=== PATIENT | male | born 1955 | race Caucasian/White ===

== ENCOUNTER → 2020-08-17 | Outpatient (CLI) | payer MEDICARE ==
--- NOTE | 2020-08-17 12:00 | US ---
EXAMINATION TYPE: US venous doppler duplex LE RT DATE OF EXAM: 08/17/2020 11:34 AM COMPARISON: NONE CLINICAL HISTORY: S89.91XA R leg injury, M79.89 R leg swelling. Right leg pain after fall, no h/o dvt SIDE PERFORMED: Right TECHNIQUE: The lower extremity deep venous system is examined utilizing real time linear array sonog alan with graded compression, doppler sonography and color-flow sonography. VESSELS IMAGED: Common Femoral Vein Deep Femoral Vein Greater Saphenous Vein * Femoral Vein Popliteal Vein Small Saphenous Vein * Proximal Calf Veins (* superficial vessels) very difficult patient to image, he could not hold still due to being in so much pain Right Leg: Negative for DVT Grayscale, color doppler, spectral doppler imaging performed of the deep veins of the right lower ext remity. There is normal flow, compressibility, vascular waveforms. IMPRESSION: Suboptimal study but no convincing evidence for acute DVT in the right lower extremity o n images saved.
--- NOTE | 2020-08-17 12:58 | XR ---
EXAMINATION TYPE: XR knee complete RT DATE OF EXAM: 08/17/2020 COMPARISON: NONE HISTORY: 65-year-old male right leg injury and swelling TECHNIQUE: 4 views FINDINGS: Heterotopic ossification at the distal patellar tendon on the lateral view. Extensor mechanism otherw ise appears intact. No sizable knee joint effusion. 8 mm density in the medial soft tissues. There ma y be some medial sided soft tissue swelling also present. Small loose bodies in the periphery of the lateral compartment. No acute fracture, subluxation, dislo cation. Mild degenerative change. IMPRESSION: Medial sided soft tissue swelling and a small 8 mm density within the medial soft tissues. If concern for MCL injury, MRI can be performed. Mild degenerative change at the knee.
== END ==
LOC: RADUSWWP 10:07
PROVIDERS: ATTEND Family Medicine
DX: M79.89 Other specified soft tissue disorders (principal); M17.11 Unilateral primary osteoarthritis, right knee

== ENCOUNTER → 2021-01-18 | Outpatient (CLI) | payer MEDICARE ==
[2021-01-18 12:47] LABS: African American GFR (CKD) >90 (>60 ml/min/1.73 sqM); Blood Urea Nitrogen 9 mg/dL (9-20); Non-African American GFR(CKD) >90 (>60 ml/min/1.73 sqM)
--- NOTE | 2021-01-18 13:20 | CT ---
EXAMINATION TYPE: CT abdomen pelvis w con DATE OF EXAM: 01/18/2021 COMPARISON: None INDICATION: Malignant neoplasm of brain. Unknown primary. DLP: 1183.2 mGycm, Automated exposure control for dose reduction was used. CONTRAST: 100 mL of Isovue M300. Study performed with Oral Contrast TECHNIQUE: Axial images were obtained from above the diaphragm to the pubic rami in the axial plane a t 5 mm thick sections. Reconstructed images are reviewed on the computer in the coronal plane. FINDINGS: Limited CT sections are obtained the lung bases. The lung bases are clear. CT ABDOMEN: Liver: Normal Spleen: Normal Pancreas: Normal Adrenal glands: The adrenal glands are normal. Gallbladder: Surgically absent Kidneys: No masses are evident. No hydronephrosis is present. No cysts are present. Delayed images were obtained through the kidneys, which remain unremarkable. Aorta: Vascular calcification is within the aorta. Inferior vena cava: Normal. CT PELVIS: Loops of bowel within the abdomen and pelvis are normal. Abundant fecal debris is throughout the colon. Few scattered diverticuli within the proximal sigmoid colon Appendix: Normal as visualized. Urinary bladder: Mild diffuse wall thickening along the anterior and lateral margins of the urinary b ladder wall may be present. Correlate for cystitis. Direct visualization can be performed. Genitourinary structures: Prostate appears unremarkable. Osseous structures: No suspicious lytic or sclerotic lesions. Right hip prosthesis is noted causing b eam hardening artifact. Degenerative disc changes are present S1 with endplate sclerosis. Old nonunio n rib fractures are present on the posterior lateral right side. IMPRESSIONS: 1. Mild diffuse wall thickening through the urinary bladder. Neoplasm cannot be entirely excluded. F indings can also be related to nonmalignant etiology such as cystitis and incomplete distention. 2. Diverticulosis without acute diverticulitis. 3. Fecal retention
== END | disposition home or self-care (01) ==
LOC: RADCTMAIN 11:05
PROVIDERS: ATTEND Psychiatry & Neurology Neurology
DX: K57.90 Diverticulosis of intestine, part unspecified, without perforation or abscess without bleeding (principal); K59.00 Constipation, unspecified
CPT/HCPCS: 82565; 84520; 74177; 36415; Q9967 ×2

== ENCOUNTER 2021-03-06 10:21 | Inpatient (IN) | payer MEDICARE ==
[2021-03-06] MEDS ORDERED: IPRATROPIUM-ALBUTEROL 3 ML NEB INHALATION STA (10:54)
--- NOTE | 2021-03-06 10:58 | ED ---
General Adult HPI - General Chief complaint: Shortness of Breath Stated complaint: SOB/High HR Time Seen by Provider: 03/06/21 10:29 Source: patient, family, RN notes reviewed Mode of arrival: wheelchair Limitations: no limitations - History of Present Illness Initial comments: Patient is a pleasant 65-year-old female presenting to the emergency department with difficulty in breathing. Patient did have surgery for glioblastoma 1 month ago. Patient has had leg swelling since that time. Patient has felt restless. Patient does have shortness of breath and fatigue since yesterday. No cough. No fevers. No chest pain. - Related Data Home Medications Medication Instructions Recorded Confirmed Folic Acid 1 mg PO DAILY 01/25/16 03/06/21 Simvastatin [Zocor] 40 mg PO HS 01/25/16 03/06/21 Vit C/E/Zn/Coppr/Lutein/Zeaxan 1 tab PO AC-BID 01/25/16 03/06/21 [Preservision Areds 2 Softgel] allopurinoL [Zyloprim] 100 mg PO DAILY 01/25/16 03/06/21 buPROPion [Wellbutrin] 150 mg PO BID 01/25/16 03/06/21 Bumetanide [BUMEX] 2 mg PO DAILY 03/06/21 03/06/21 Dorzolamide 2% [Trusopt 2%] 1 drop BOTH EYES BID 03/06/21 03/06/21 Fluticasone Nasal Okay [Flonase 1 spr EA NOSTRIL BID 03/06/21 03/06/21 Nasal Okay] Latanoprost [Xalatan 0.005%] 1 drop BOTH EYES HS 03/06/21 03/06/21 Magnesium Oxide [Mag-Ox] 500 mg PO HS 03/06/21 03/06/21 Meclizine [Antivert] 25 mg PO BID 03/06/21 03/06/21 Meloxicam [Mobic] 15 mg PO AC-SUPPER 03/06/21 03/06/21 Tamsulosin [Flomax] 0.4 mg PO AC-SUPPER 03/06/21 03/06/21 Temozolomide 140 mg PO DIRECTED 03/06/21 03/06/21 Tiotropium [place] [Spiriva 2 puff INHALATION RT-DAILY 03/06/21 03/06/21 Respimat] dexAMETHasone [Dexamethasone] 2 mg PO DAILY 03/06/21 03/06/21 levETIRAcetam [Keppra] 500 mg PO Q12H 03/06/21 03/06/21 ondansetron HCL [Zofran] 8 mg PO Q6H PRN 03/06/21 03/06/21 Allergies Allergy/AdvReac Type Severity Reaction Status Date / Time acetaminophen [From Vicodin] Allergy Itching Verified 01/29/16 09:35 hydrocodone bitartrate Allergy Itching Verified 01/29/16 09:35 [From Vicodin] Review of Systems ROS Statement: Those systems with pertinent positive or pertinent negative responses have been documented in the HPI. ROS Other: All systems not noted in ROS Statement are negative. Constitutional: Denies: fever Eyes: Denies: eye pain ENT: Denies: ear pain Respiratory: Reports: dyspnea Cardiovascular: Denies: chest pain Endocrine: Reports: fatigue Gastrointestinal: Denies: abdominal pain Musculoskeletal: Denies: back pain Skin: Denies: rash Neurological: Denies: weakness Past Medical History Past Medical History: Eye Disorder, Hyperlipidemia Additional Past Medical History / Comment(s): GOUT, HX DIVERTICULITIS, History of Any Multi-Drug Resistant Organisms: None Reported Past Surgical History: Hernia Repair, Orthopedic Surgery Additional Past Surgical History / Comment(s): SX FOR UNDESCENDED TESTICLES, ZION CATARACTS, RT KNEE SX, RT ANKLE SX, METAL IN AND NOW REMOVED Past Anesthesia/Blood Transfusion Reactions: No Reported Reaction Past Psychological History: Depression Past Alcohol Use History: Occasional Past Drug Use History: None Reported General Exam Limitations: no limitations General appearance: alert Head exam: Present: other (Left temporal incisions clean and dry and intact) Eye exam: Present: normal appearance Neck exam: Present: normal inspection Respiratory exam: Present: wheezes (Mild), rales Cardiovascular Exam: Present: tachycardia GI/Abdominal exam: Present: soft. Absent: tenderness Extremities exam: Present: pedal edema (Right greater than left), calf tenderness (Right-sided) Neurological exam: Present: alert Psychiatric exam: Present: other (Patient is mildly restless) Skin exam: Present: normal color Course Vital Signs 03/06/21 03/06/21 03/06/21 10:32 10:35 10:43 Temperature 98.5 F Pulse Rate 127 H 125 H Respiratory 24 19 24 Rate Blood Pressure 80/47 O2 Sat by Pulse 95 98 Oximetry 03/06/21 03/06/21 03/06/21 11:00 11:30 11:39 Temperature Pulse Rate 130 H 129 H 126 H Respiratory 20 22 Rate Blood Pressure 74/49 O2 Sat by Pulse 97 100 Oximetry 03/06/21 03/06/21 03/06/21 11:48 12:29 13:26 Temperature Pulse Rate 126 H 122 H 98 Respiratory 16 18 Rate Blood Pressure 63/44 98/59 O2 Sat by Pulse 97 98 Oximetry - Reevaluation(s) Reevaluation #1: 03/06/21 13:51 Patient's blood pressure did increase with fluids however is going down again this point. Systolic blood pressure 72. Case discussed with family. Patient will need central line. Patient is being placed in trauma room for this. Family does consent. 03/06/21 13:52 There is concern for sepsis diagnosed at 1350. Blood culture and lactic acid were ordered. IV antibiotics will be ordered. 03/06/21 14:33 Prior to central line during transfer patient patient had bradycardia and decrease respiratory rate that turned into a restaurant failure. Patient was immediately intubated. CPR was done for approximately 3-5 minutes. Patient given 2 doses of epinephrine with return of circulation. Central line placed. 03/06/21 14:51 Case was earlier discussed with Dr. Manzo. Family was updated. Case was also discussed with Dr. Eric, who will consult for critical care. EKG Findings - EKG Comments: EKG Findings:: Sinus tachycardia with a rate of 129. TN 134. QRS 80. QT 324. QTC 474. Normal axis. Normal QRS. No acute ST change. Procedures - Central Line Placement Right Femoral Consent Obtained: emergent situation Patient Placed on Monitor/Pulse Ox: Yes MD Prep: mask, gown, gloves Central Line Prep: Chlorhexidine scrub Central Line Lumen Inserted: triple Central Line Position: good blood return, all ports aspirated, flushed, capped, sutured in place with 3-0 nylon Dressing Applied: Tegaderm Patient Tolerated Procedure: well Complications: none - Intubation Laryngoscope: [place]lap Size: 3 ET Tube Size: 8 Tube Secured Location: other (Difficult airway. Unable to visualize cords.) Tube Placement Confirmation: equal breath sounds bilaterally, no breath sounds over epigastrium, confirmation by capnometry Intubation Complications: none - Sepsis Sepsis Focused Exam #1 Time Sepsis Criteria Met: 13:50 Sepsis Focused Exam Date: 03/06/21 Sepsis Focused Exam Time: 14:50 Sepsis Focused Exam Complete: Yes Vital Signs & RN Notes Reviewed: Yes Capillary Refill: < 2 Seconds: Fingers, Toes Peripheral Pulses: Normal: Radial (R), Radial (L) Skin Color: Normal for Patient Respiratory Exam: rales Cardiovascular Exam: regular rate, normal rhythm Medical Decision Making - Lab Data Result diagrams: 03/06/21 10:47 03/06/21 10:47 Lab Results 03/06/21 03/06/21 03/06/21 Range/Units 10:47 10:47 10:47 WBC 14.0 H (3.8-10.6) k/uL RBC 4.20 L (4.30-5.90) m/uL Hgb 14.2 (13.0-17.5) gm/dL Hct 43.5 (39.0-53.0) % MCV 103.4 H (80.0-100.0) fL MCH 33.8 (25.0-35.0) pg MCHC 32.7 (31.0-37.0) g/dL RDW 15.5 (11.5-15.5) % Plt Count 146 L (150-450) k/uL MPV 7.1 Neutrophils % (Manual) 63 % Band Neuts % (Manual) 17 % Lymphocytes % (Manual) 14 % Monocytes % (Manual) 3 % Metamyelocytes % 3 % Myelocytes % 1 % Neutrophils # (Manual) 11.20 H (1.3-7.7) k/uL Lymphocytes # (Manual) 1.96 (1.0-4.8) k/uL Monocytes # (Manual) 0.42 (0-1.0) k/uL Metamyelocytes # (Man) 0.42 H (0) k/uL Myelocytes # (Manual) 0.14 H (0) k/uL Nucleated RBCs 1 H (0-0) /100 WBC Manual Slide Review Performed Toxic Granulation Present Toxic Vacuolation Present Macrocytosis Moderate PT 9.6 (9.0-12.0) sec INR 0.9 (<1.2) APTT 22.2 (22.0-30.0) sec D-Dimer 1.61 H (<0.60) mg/L FEU Sodium 133 L (137-145) mmol/L Potassium 3.4 L (3.5-5.1) mmol/L Chloride 95 L (98-107) mmol/L Carbon Dioxide 29 (22-30) mmol/L Anion Gap 9 mmol/L BUN 26 H (9-20) mg/dL Creatinine 1.15 (0.66-1.25) mg/dL Est GFR (CKD-EPI)AfAm 77 (>60 ml/min/1.73 sqM) Est GFR (CKD-EPI)NonAf 66 (>60 ml/min/1.73 sqM) Glucose 89 (74-99) mg/dL Lactic Ac Sepsis Rflx Plasma Lactic Acid Hal (0.7-2.0) mmol/L Calcium 8.5 (8.4-10.2) mg/dL Total Bilirubin 1.3 (0.2-1.3) mg/dL AST 33 (17-59) U/L ALT 38 (4-49) U/L Alkaline Phosphatase 150 H (38-126) U/L Troponin I (0.000-0.034) ng/mL NT-Pro-B Natriuret Pep pg/mL Total Protein 5.9 L (6.3-8.2) g/dL Albumin 3.6 (3.5-5.0) g/dL Coronavirus (PCR) (Not Detectd) 03/06/21 03/06/21 03/06/21 Range/Units 10:47 10:47 11:32 WBC (3.8-10.6) k/uL RBC (4.30-5.90) m/uL Hgb (13.0-17.5) gm/dL Hct (39.0-53.0) % MCV (80.0-100.0) fL MCH (25.0-35.0) pg MCHC (31.0-37.0) g/dL RDW (11.5-15.5) % Plt Count (150-450) k/uL MPV Neutrophils % (Manual) % Band Neuts % (Manual) % Lymphocytes % (Manual) % Monocytes % (Manual) % Metamyelocytes % % Myelocytes % % Neutrophils # (Manual) (1.3-7.7) k/uL Lymphocytes # (Manual) (1.0-4.8) k/uL Monocytes # (Manual) (0-1.0) k/uL Metamyelocytes # (Man) (0) k/uL Myelocytes # (Manual) (0) k/uL Nucleated RBCs (0-0) /100 WBC Manual Slide Review Toxic Granulation Toxic Vacuolation Macrocytosis PT (9.0-12.0) sec INR (<1.2) APTT (22.0-30.0) sec D-Dimer (<0.60) mg/L FEU Sodium (137-145) mmol/L Potassium (3.5-5.1) mmol/L Chloride (98-107) mmol/L Carbon Dioxide (22-30) mmol/L Anion Gap mmol/L BUN (9-20) mg/dL Creatinine (0.66-1.25) mg/dL Est GFR (CKD-EPI)AfAm (>60 ml/min/1.73 sqM) Est GFR (CKD-EPI)NonAf (>60 ml/min/1.73 sqM) Glucose (74-99) mg/dL Lactic Ac Sepsis Rflx Plasma Lactic Acid Hal (0.7-2.0) mmol/L Calcium (8.4-10.2) mg/dL Total Bilirubin (0.2-1.3) mg/dL AST (17-59) U/L ALT (4-49) U/L Alkaline Phosphatase (38-126) U/L Troponin I <0.012 (0.000-0.034) ng/mL NT-Pro-B Natriuret Pep 1080 pg/mL Total Protein (6.3-8.2) g/dL Albumin (3.5-5.0) g/dL Coronavirus (PCR) Not Detected (Not Detectd) 03/06/21 03/06/21 Range/Units 11:57 12:24 WBC (3.8-10.6) k/uL RBC (4.30-5.90) m/uL Hgb (13.0-17.5) gm/dL Hct (39.0-53.0) % MCV (80.0-100.0) fL MCH (25.0-35.0) pg MCHC (31.0-37.0) g/dL RDW (11.5-15.5) % Plt Count (150-450) k/uL MPV Neutrophils % (Manual) % Band Neuts % (Manual) % Lymphocytes % (Manual) % Monocytes % (Manual) % Metamyelocytes % % Myelocytes % % Neutrophils # (Manual) (1.3-7.7) k/uL Lymphocytes # (Manual) (1.0-4.8) k/uL Monocytes # (Manual) (0-1.0) k/uL Metamyelocytes # (Man) (0) k/uL Myelocytes # (Manual) (0) k/uL Nucleated RBCs (0-0) /100 WBC Manual Slide Review Toxic Granulation Toxic Vacuolation Macrocytosis PT (9.0-12.0) sec INR (<1.2) APTT (22.0-30.0) sec D-Dimer (<0.60) mg/L FEU Sodium (137-145) mmol/L Potassium (3.5-5.1) mmol/L Chloride (98-107) mmol/L Carbon Dioxide (22-30) mmol/L Anion Gap mmol/L BUN (9-20) mg/dL Creatinine (0.66-1.25) mg/dL Est GFR (CKD-EPI)AfAm (>60 ml/min/1.73 sqM) Est GFR (CKD-EPI)NonAf (>60 ml/min/1.73 sqM) Glucose (74-99) mg/dL Lactic Ac Sepsis Rflx Y Plasma Lactic Acid Hal 3.9 H* (0.7-2.0) mmol/L Calcium (8.4-10.2) mg/dL Total Bilirubin (0.2-1.3) mg/dL AST (17-59) U/L ALT (4-49) U/L Alkaline Phosphatase (38-126) U/L Troponin I (0.000-0.034) ng/mL NT-Pro-B Natriuret Pep pg/mL Total Protein (6.3-8.2) g/dL Albumin (3.5-5.0) g/dL Coronavirus (PCR) (Not Detectd) - Radiology Data Radiology results: report reviewed (CT angios the chest has motion artifact limiting exam, no definite pulmonary embolus. Coronary calcifications. Bronchial wall thickening. Pulmonary nodule. Ultrasound negative for DVT.), image reviewed (Chest x-ray shows atelectasis left costophrenic angle. Lungs otherwise clear.) Critical Care Time Critical Care Time: Yes Total Critical Care Time: 55 Disposition Clinical Impression: Acute bronchitis due to infection, Sepsis Disposition: ADMITTED IP TO THIS HOSP Condition: Critical Is patient prescribed a controlled substance at d/c from ED?: No Referrals: Enrique Camacho MD [Primary Care Provider] - 1-2 days Decision Time: 14:51
[2021-03-06 11:09] LABS: HCT 43.5 % (39.0-53.0); HGB 14.2 gm/dL (13.0-17.5); MCH 33.8 pg (25.0-35.0); MCHC 32.7 g/dL (31.0-37.0); MCV 103.4 fL (80.0-100.0); Macrocytosis Moderate; Mean Platelet Volume 7.1; Platelet Count 146 k/uL (150-450); RDW 15.5 % (11.5-15.5)
[2021-03-06] MEDS ORDERED: SODIUM CHLORIDE 0.9% 500 ML 500 ML IV STA ×2 (11:31→13:34)
[2021-03-06] MEDS ORDERED: SODIUM CHLORIDE 0.9% 1,000 ML IV STA ×3 (11:31→13:34)
[2021-03-06 11:34] LABS: Albumin 3.6 g/dL (3.5-5.0); Calcium 8.5 mg/dL (8.4-10.2); Potassium 3.4 mmol/L (3.5-5.1); Total Bilirubin 1.3 mg/dL (0.2-1.3); Total Protein 5.9 g/dL (6.3-8.2)
[2021-03-06 11:36] LABS: INR 0.9 (<1.2); Partial Thromboplastin Time 22.2 sec (22.0-30.0); Prothrombin Time 9.6 sec (9.0-12.0)
--- NOTE | 2021-03-06 11:41 | XR ---
EXAMINATION TYPE: XR chest 2V DATE OF EXAM: 03/06/2021 COMPARISON: None INDICATION: 04/23/2010 TECHNIQUE: Frontal and lateral views of the chest are obtained. FINDINGS: The heart size is normal. The pulmonary vasculature is normal. Minimal platelike atelectasis at the left costophrenic angle. Lungs are otherwise clear.. IMPRESSION: 1. Complete atelectasis left costophrenic angle
--- NOTE | 2021-03-06 12:16 | US ---
EXAMINATION TYPE: US venous doppler duplex LE RT DATE OF EXAM: 03/06/2021 11:55 AM COMPARISON: NONE CLINICAL HISTORY: pain. Edema pain SIDE PERFORMED: Right TECHNIQUE: The lower extremity deep venous system is examined utilizing real time linear array sonog alan with graded compression, doppler sonography and color-flow sonography. VESSELS IMAGED: Common Femoral Vein Deep Femoral Vein Greater Saphenous Vein * Femoral Vein Popliteal Vein Small Saphenous Vein * Proximal Calf Veins (* superficial vessels) Right Leg: Negative for DVT IMPRESSION: 1. Right lower extremity negative for deep venous thrombosis.
[2021-03-06 12:46] LABS: Band Neutrophils % 17 %; Metamyelocytes # (M) 0.42 k/uL (0); Metamyelocytes % 3 %; Monocytes # (M) 0.42 k/uL (0-1.0); Myelocytes # (M) 0.14 k/uL (0); Myelocytes % 1 %; Neutrophils % (M) 63 %; Nucleated Red Blood Cells 1 /100 WBC (0-0); Total Cells Counted 200
[2021-03-06 12:47] LABS: Lymphocytes # (M) 1.96 k/uL (1.0-4.8); Toxic Granulation Present; Toxic Vacuolation Present
--- NOTE | 2021-03-06 13:30 | CT ---
EXAMINATION TYPE: CT angio chest DATE OF EXAM: 03/06/2021 COMPARISON: Radiograph 03/06/2021 HISTORY: 65 year-old male shortness of breath, Dyspnea. TECHNIQUE: Contiguous axial scanning of the chest performed with IV Contrast, patient injected with 1 00 mL of Isovue 370. Coronal/sagittal MIP reconstructions performed. CT DLP: 464.1 mGycm Automated exposure control for dose reduction was used. FINDINGS: Heart normal size without pericardial effusion. No flattening of the interventricular septum or reflu x of contrast into the hepatic veins. LAD coronary artery calcifications. Mildly ectatic aortic root at 3.7 cm. Conventional arch vessel branching anatomy. No thoracic lymphadenopathy by CT size criteria. Mildly enlarged caliber to the main right and left pulmonary to 2.5 and 2.7 cm, respectively, suggest ing underlying pulmonary arterial hypertension. There is satisfactory opacification of the pulmonary arterial system. Allowing for technique and breathing motion, no definite pulmonary embolus is seen. Mild diffuse bronchial wall thickening. Prominent bands of atelectasis or scarring in the lower lungs . Subpleural nodularity measuring 9 mm peripheral right base, axially 27, possibly nodular atelectasi s. This can be reassessed in 3-6 months. There appears to be some dependent debris within the lower trachea and its bifurcation. Visualized upper abdomen shows no gross abnormality. Bones: Subacute to chronic incompletely united fracture deformities right lateral seventh and eighth and right posterior ninth ribs. IMPRESSION: 1. DIFFUSE BREATHING MOTION ARTIFACT. ALLOWING FOR THIS LIMITATION, NO DEFINITE PULMONARY EMBOLUS 2. POSSIBLE UNDERLYING PULMONARY ARTERIAL HYPERTENSION. CAD WITH LAD CORONARY ARTERY CALCIFICATIONS. 3. BRONCHIAL WALL THICKENING SUGGESTS BRONCHITIS OR CHRONIC ASTHMA. THERE IS SOME DEPENDENT DEBRIS/SE CRETIONS IN THE LOWER TRACHEA AND ITS BIFURCATION. 4. PROMINENT BANDS OF ATELECTASIS OR SCARRING IN THE LOWER LUNGS. 5. A 9 MM SUBPLEURAL PULMONARY NODULE PERIPHERY OF THE RIGHT BASE. POSSIBLE NODULAR ATELECTASIS. FOLL OW-UP CT IN 3-6 MONTHS TO ASSESS FOR STABILITY/RESOLUTION.
[2021-03-06] MEDS ORDERED: VANCOMYCIN IV PER PHARMACY 1 EACH MISC MISCELLANE PRN (13:52)
[2021-03-06] MEDS ORDERED: PIPERACILLIN-TAZOBACTAM 3.375 GM in SODIUM CHLORIDE 0.9% 100 ML IVPB STA (13:52)
[2021-03-06] MEDS ORDERED: PNEUMONIA PROTOCOL UTILIZED 1 EACH MISC PO PRN (13:52)
[2021-03-06] MEDS ORDERED: AZITHROMYCIN 500 MG in SODIUM CHLORIDE 0.9% 250 ML IVPB STA (13:52)
[2021-03-06] MEDS ORDERED: IPRATROPIUM-ALBUTEROL 3 ML NEB INHALATION PRN (13:52)
[2021-03-06] MEDS ORDERED: VANCOMYCIN 1,500 MG in SODIUM CHLORIDE 0.9% 250 ML IVPB STA (14:01)
[2021-03-06] MEDS ORDERED: DEXAMETHASONE SOD PHOSPHATE 10 MG/ML 1 ML VIAL IV STA (14:49)
[2021-03-06] MEDS ORDERED: LORazepam 2 MG/ML INJ IV PRN (14:52)
--- NOTE | 2021-03-06 14:52 | XR ---
EXAMINATION TYPE: XR chest 1V portable DATE OF EXAM: 03/06/2021 COMPARISON: 03/06/2021 INDICATION: Intubation TECHNIQUE: Single frontal view of the chest is obtained. FINDINGS: The heart size is normal. The pulmonary vasculature is normal. Mild atelectatic changes at the left base. Endotracheal tube tip is above the ralf. Nasogastric tube marker is in the mid chest. The distal ti p well poorly visualized appears to be at the distal thoracic region. This could be advanced 16 cm. IMPRESSION: 1. Mild left basilar atelectasis. 2. Nasogastric tube appears to be within the distal esophagus and could be advanced approximately 16 cm.
[2021-03-06] MEDS: NOREPINEPHRINE 32 MG in SODIUM CHLORIDE 0.9% 218 ML IV SCH ×2 (15:12→16:53)
[2021-03-06] MEDS ORDERED: NOREPINEPHRINE 4 MG in SODIUM CHLORIDE 0.9% 250 ML IV SCH (15:15)
[2021-03-06 15:49] LABS: ABG Base Excess -3.1 mmol/L; ABG HCO3 22 mmol/L (21-25); ABG PCO2 41 mmHg (35-45); ABG PH 7.35 (7.35-7.45); ABG PO2 394 mmHg (83-108); ABG TCO2 24 mmol/L (19-24); Allen Test Performed? Yes
[2021-03-06] MEDS ORDERED: SODIUM CHLORIDE 0.9% 1,000 ML IV ONE (16:15)
[2021-03-06 16:22] LABS: Glucose,Whole Blood 84 mg/dL (75-99)
[2021-03-06] MEDS: SODIUM CHLORIDE 0.9% 150 ML with VASOPRESSIN 60 UNIT IV SCH ×2 (16:55)
[2021-03-06] MEDS ORDERED: levETIRAcetam IV 1,000 MG in SALINE 1 100ML.BAG IVPB STA (17:00)
[2021-03-06] MEDS: IPRATROPIUM-ALBUTEROL 3 ML NEB INHALATION SCH ×2 (17:10→20:01)
[2021-03-06] MEDS: CHLORHEXIDINE GLUCONATE 15 ML CUP MUCOUS MEM SCH (20:23)
[2021-03-06] MEDS: levETIRAcetam IV 500 MG in SODIUM CHLORIDE 0.9% 100 ML IVPB SCH (20:23)
[2021-03-06] MEDS: PANTOPRAZOLE 40 MG/10 ML VIAL IVP SCH (22:20)
[2021-03-06] MEDS: LORazepam 2 MG/ML INJ IV PRN (22:20)
[2021-03-06 22:59] LABS: ABG HCO3 19 mmol/L (21-25); ABG Oxygen Saturation 98.6 % (94-97); ABG PCO2 39 mmHg (35-45); ABG PH 7.29 (7.35-7.45); ABG PO2 136 mmHg (83-108); ABG TCO2 20 mmol/L (19-24); Allen Test Performed? Yes
[2021-03-06] MEDS: PIPERACILLIN-TAZOBACTAM 3.375 GM in SODIUM CHLORIDE 0.9% 100 ML IVPB SCH (23:09)
[2021-03-06] MEDS: HYDROCORTISONE SUCCINATE 100 MG/2 ML VIAL IV SCH (23:09)
[2021-03-06] MEDS: LINEZOLID 600 MG in DEXTROSE/WATER 1 300ML.BAG IVPB SCH (23:09)
--- NOTE | 2021-03-07 00:07 | CONS ---
CONSULTATION DATE OF SERVICE: 03/06/2021 REASON FOR CONSULTATION: Sepsis. HISTORY OF PRESENT ILLNESS: The patient is a 65-year-old male with past medical history significant for for which the patient did have surgery about a month ago. The patient presented to [facility] ER this morning for evaluation of leg swelling. Apparently, the patient also felt to be restless, shortness of breath and fatigue. Symptoms have been getting worse since yesterday. No clear history of any cough or fever or chest pain. On presentation to the hospital, the patient was afebrile. The patient was tachycardic and hypotensive requiring fluid boluses. The patient subsequently went into respiratory and cardiac arrest. The patient did have a CPR. The patient ended up getting intubated. Central line was placed. Patient was given fluid boluses. The patient did have a chest x-ray shows complete left costophrenic angle. Lower extremity Doppler was negative for DVT. The patient did have a CT angiogram of the chest, which shows mild diffuse bronchial wall thickening. No PE and some dependent secretions in the lower trachea and his bifurcation. The patient was started on Zosyn and vancomycin and has been admitted to the hospital. Infectious Disease was consulted for further management of antibiotic therapy. Most of the information has been obtained from review of the chart and talking to nursing staff. The patient is currently intubated on the vent and unable to provide any history. REVIEW OF SYSTEMS: Positive points have been mentioned in HPI. Complete review could not be obtained because of mental status and intubation. PAST MEDICAL HISTORY: Glioblastoma, hyperlipidemia, diverticulitis, gout. PAST SURGICAL HISTORY: Recent surgery for glioblastoma. Surgery for undescended testis, bilateral cataract surgery, right ankle fracture repair and right knee surgery. SOCIAL HISTORY: The patient occasionally drinks. No drug use. FAMILY HISTORY: No pertinent findings noticed. ALLERGIES: ACETAMINOPHEN, AND HYDROCODONE. MEDICATIONS: The patient is on DuoNeb, Peridex, Solu-Cortef, , Ativan, Klonopin, Zosyn and vancomycin. PHYSICAL EXAMINATION: Blood pressure is 83/64 with a pulse of 133, temperature is 98.6. He is 97% on 50% FIO2 General description is an elderly male intubated on the vent. HEENT: Shows no pallor or scleral icterus. The patient is orally intubated. Neck trachea is midline. Lungs unlabored breathing, decreased breath sounds in the base, with no wheeze. Heart S1, S2. Tachycardia. Abdomen: Soft, no tenderness. No guarding. No rigidity. Extremities are edema of the feet. Skin Examination: No rash or mass palpable. Neurologic: The patient is currently sedated on the vent. LABS: Hemoglobin 14.8, white count 84121, BUN of 26, creatinine 1.15, 3.4. Lactic acid 4.1. Liver enzymes are normal. Cultures currently pending. CT report mentioned above. DIAGNOSTIC IMPRESSION AND PLAN: Patient admitted to the hospital with sepsis in this patient who did have a recent surgery for glioblastoma. The patient presented with restlessness, subsequently cardiac arrest requiring resuscitation with evidence of concern for aspiration pneumonia to be the likely etiology and need to cover for the for which surgery will be discharge . PLAN: 1. We will obtain sputum for Gram stain and culture. 2. We will discontinue the patient on Zosyn however discontinue vancomycin to decrease risk of nephrotoxicity, and add Zyvox to cover for the gram-positive. 3. IV fluid. 4. We will follow on his clinical condition and culture to further adjust medication if needed thank you for this consultation. Will follow this patient along with you. MMODL / IJN: [id number] /
[2021-03-07] MEDS: LORazepam 2 MG/ML INJ IV PRN (01:07)
[2021-03-07] MEDS ORDERED: VANCOMYCIN 1,500 MG in SODIUM CHLORIDE 0.9% 250 ML IVPB SCH (06:00)
[2021-03-07 06:05] LABS: ALT 117 U/L (4-49); AST 257 U/L (17-59); African American GFR (CKD) >90 (>60 ml/min/1.73 sqM); Albumin 2.5 g/dL (3.5-5.0); Alkaline Phosphatase 165 U/L (38-126); Anion Gap 10 mmol/L; Blood Urea Nitrogen 30 mg/dL (9-20); Calcium 7.3 mg/dL (8.4-10.2); Carbon Dioxide 20 mmol/L (22-30); Chloride 105 mmol/L (98-107); Glucose 167 mg/dL (74-99); Non-African American GFR(CKD) 82 (>60 ml/min/1.73 sqM); Potassium 4.6 mmol/L (3.5-5.1); Sodium 135 mmol/L (137-145); Total Bilirubin 1.1 mg/dL (0.2-1.3); Total Protein 4.7 g/dL (6.3-8.2)
[2021-03-07 06:08] LABS: HCT 41.8 % (39.0-53.0); HGB 13.3 gm/dL (13.0-17.5); MCH 33.9 pg (25.0-35.0); MCHC 31.7 g/dL (31.0-37.0); Macrocytosis Marked; Mean Platelet Volume 7.5; Platelet Count 152 k/uL (150-450); RBC 3.92 m/uL (4.30-5.90); RDW 15.5 % (11.5-15.5); WBC 23.7 k/uL (3.8-10.6)
[2021-03-07 06:09] LABS: MCV 106.7 fL (80.0-100.0)
[2021-03-07 06:29] LABS: Band Neutrophils % 53 %; Lymphocytes # (M) 0.95 k/uL (1.0-4.8); Metamyelocytes # (M) 0.71 k/uL (0); Metamyelocytes % 3 %; Monocytes # (M) 0.24 k/uL (0-1.0); Myelocytes # (M) 0.24 k/uL (0); Myelocytes % 1 %; Neutrophils % (M) 38 %; Nucleated Red Blood Cells 0 /100 WBC (0-0); Total Cells Counted 200
[2021-03-07 06:30] LABS: Toxic Granulation Present
--- NOTE | 2021-03-07 06:37 | XR ---
EXAMINATION TYPE: XR chest 1V portable DATE OF EXAM: 03/07/2021 CLINICAL HISTORY: Difficulty breathing progress study. TECHNIQUE: Single AP portable semiupright view of the chest is obtained. COMPARISON: Chest x-ray and CTA chest from one day earlier. FINDINGS: Stable endotracheal and orogastric tubes. Mild chronic parenchymal changes bilaterally with bibasilar atelectasis. Heart size stable and upper limits of normal. Old healed fracture right proximal humerus. IMPRESSION: Bibasilar atelectasis without new suspicious focal infiltrate.
[2021-03-07] MEDS: NOREPINEPHRINE 32 MG in SODIUM CHLORIDE 0.9% 218 ML IV SCH (07:05)
--- NOTE | 2021-03-07 07:12 | ECHOF ---
Referral Reason:cardiac arrest in er MEASUREMENTS -------- HEIGHT: 170.2 cm WEIGHT: 83.9 kg BP: 99/65 IVSd: 1.2 cm (0.6 - 1.1) LVIDd: 3.6 cm (3.9 - 5.3) LVPWd: 1.1 cm (0.6 - 1.1) IVSs: 1.2 cm LVIDs: 3.1 cm LVPWs: 1.4 cm MV EXCURSION: 22.775 mm (> 18.000) MV EF SLOPE: 353 mm/s (70 - 150) EPSS: 0.9 cm FINDINGS -------- Resting tachycardia (HR>100bpm). This was a technically difficult study with suboptimal views. Pt. on a vent. Cardiac Arrest. The left ventricular size is normal. There is mild concentric left ventricular hypertrophy. There is severe global hypokinesis of LV . Overall left ventricular systolic function is severely impair ed with, an EF between 25 - 30 %. The RV was not well visualized. The left atrial size is normal. The right atrium was not well visualized. 5.0mg of Lumason was utilized for enhancement of images The aortic valve was not well visualized. The mitral valve was not well visualized. The tricuspid valve was not well visualized. The pulmonic valve was not well visualized. IVC Not well visulized. There is no pericardial effusion. CONCLUSIONS -------- 1. This was a technically difficult study with suboptimal views. 2. There is mild concentric left ventricular hypertrophy. 3. There is severe global hypokinesis of LV . 4. Overall left ventricular systolic function is severely impaired with, an EF between 25 - 30 %. 5. The left atrial size is normal. 6. The aortic valve was not well visualized. 7. There is no pericardial effusion. CHUMMER: Melina Chacon RDCS
[2021-03-07] MEDS: IPRATROPIUM-ALBUTEROL 3 ML NEB INHALATION SCH ×4 (07:56→19:41)
[2021-03-07] MEDS: PANTOPRAZOLE 40 MG/10 ML VIAL IVP SCH ×2 (08:42→20:06)
[2021-03-07] MEDS: CHLORHEXIDINE GLUCONATE 15 ML CUP MUCOUS MEM SCH ×2 (08:42→20:06)
[2021-03-07] MEDS: HYDROCORTISONE SUCCINATE 100 MG/2 ML VIAL IV SCH ×3 (08:42→23:03)
[2021-03-07] MEDS: PIPERACILLIN-TAZOBACTAM 3.375 GM in SODIUM CHLORIDE 0.9% 100 ML IVPB SCH (08:42)
[2021-03-07] MEDS: levETIRAcetam IV 500 MG in SODIUM CHLORIDE 0.9% 100 ML IVPB SCH ×2 (09:36→20:07)
--- NOTE | 2021-03-07 10:09 | XR ---
EXAMINATION TYPE: XR chest 1V portable DATE OF EXAM: 03/07/2021 CLINICAL HISTORY: Hypoxemia . TECHNIQUE: Single AP portable semiupright view of the chest is obtained. COMPARISON: Chest x-ray from earlier today and older studies FINDINGS: Stable endotracheal and orogastric tubes. Mild chronic parenchymal changes bilaterally with bibasilar atelectasis. Developing small to tiny yoli ateral pleural effusions. Heart size stable and upper limits of normal. IMPRESSION: Developing small to tiny bilateral pleural effusions, stable bibasilar linear atelectasis .
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
[2021-03-07] MEDS: AMPICILLIN 2,000 MG in SODIUM CHLORIDE 0.9% 100 ML IVPB SCH ×3 (10:29→17:31)
[2021-03-07] MEDS: THIAMINE 100 MG in SODIUM CHLORIDE 0.9% 50 ML IVPB SCH (11:42)
[2021-03-07] MEDS: LINEZOLID 600 MG in DEXTROSE/WATER 1 300ML.BAG IVPB SCH ×2 (11:42→22:53)
[2021-03-07 11:45] LABS: Glucose,Whole Blood 174 mg/dL (75-99)
--- NOTE | 2021-03-07 11:59 | CT ---
EXAMINATION TYPE: CT brain wo con DATE OF EXAM: 03/07/2021 COMPARISON: 04/23/2010 INDICATION: Altered mental status. History of glioblastoma. DLP: 1145.4 mGycm, Automated exposure control for dose reduction was used. CONTRAST: None CT of the brain is performed utilizing 3 mm thick sections through the posterior fossa and 3 mm thick sections through the remaining calvarium. Study is performed within 24 hours of arrival to the hosp ital. No abnormal hyperdensity is present to suggest an acute intracranial hemorrhage. No recurrent mass lesion is evident. There is a prior left parietal craniotomy No acute infarcts are evident. There is periventricular white matter hypodensity, slightly greater in the posterior medial left ta radiata. This is nonspecific. Microvascular ischemic change could b e considered. This is an interval change in acute ischemic changes not excluded at this level. Signif icant mass effect at this level to suggest this is acute is not evident. This could be related to pos tsurgical change. Ventricles and sulci are prominent for the patient age. Paranasal sinuses and mastoid air cells within the [id number] are clear. IMPRESSIONS: 1. There is some hypodensity in the posterior left ta radiata of indeterminate age. Chronic vas cular ischemic change or acute ischemic change could be present. This could be related to postsurgica l change. Recurrent mass may be considered. MRI with contrast may be more sensitive for evaluation. 2. Atrophy. 3. Postsurgical changes on the left
[2021-03-07] MEDS: INSULIN ASPART (NovoLOG) 100 UNIT/ML VIAL SQ SCH ×3 (12:20→23:03)
--- NOTE | 2021-03-07 12:55 | P.CNPUL ---
History of Present Illness Consult date: 03/07/21 Requesting physician: Enrique Camacho Reason for consult: other (Cardiac arrest, septic shock) Chief complaint: Shortness of breath and fatigue History of present illness: This is a 65-year-old white male with history of glioblastoma multiform, patient is status post resection on 02/05/2021. His surgery was done at [facility], patient sustained residual aphasia, supposedly the patient received one chemotherapy the day prior to presentation. I'm not certain that the patient did receive radiation therapy however on the chart the patient is seeing Dr. Stan Ramos/radiation oncologist. Patient came into the ER on 03/06/2021, and he was complaining of 1 day history of increased shortness of breath and generalized fatigue and weakness. According to the ER physician, patient was being transferred to trauma 1 for central line placement since he was hypotensive upon his initial presentation, and was not improving with fluids, patient developed sudden episode of bradycardia, shallow breathing, and he went on to full blown respiratory failure. CPR was done for 3 minutes, p atient was intubated, received epinephrine 2 with return of spontaneous circulation. Patient was eventually transferred to the ICU on pressors in the form of norepinephrine, high dose, when I was made aware of this, I added vasopressin. And recommended more fluids to be given. Patient was reevaluated today, and he is on assist control rate of 14 which I increased to 16 volume 450 FiO2 50% and I cut it down to 45% and PEEP of 5. ABG showed a pO2 of 136 pCO2 of 39 pH of 7.29. Patient is on norepinephrine at 0.28 mcg/kg/m, vasopressin at 0.03 units per minutes. He is on propofol at 40 g which I increased to 75, and IV fluids remains at 1 50 mL per hour in the form of 0.9 normal saline. Patient had low-grade fever at night with a temp of 100. Blood cultures are positive for gram-negative diplococci. Patient received Zithromax Zosyn and Zyvox, and considering his gram-negative diplococci in the blood, I have basically concerned about the possibility of Neisseria meningitides, and I'm recommending a lumbar puncture, I'm also recommending patient to go on Rocephin at high dose. He will be placed on droplet isolation for presumptive meningitis, and a lumbar puncture would be done later today. A CT of the brain is also pending. Considering his low blood pressure yesterday, I recommended hydrocortisone and he is on 100 mg of hydrocortisone IV push every 8 hours, today I cut it down to 50 every 8. Labs today showed leukocytosis with WBC of 23.7 hemoglobin is 13.3. Lactic acid is down to 2.8. Liver enzymes are noted to be elevated with elevated AST to 57 ALT [address] of the brain this morning showed hypodensity in the posterior left ta radiata of intermediate age, chronic vascular ischemic changes, postsurgical changes, and the radiolog ist raised the possibility of recurrent mass. Recommended MRI. There is also atrophy and postsurgical changes Review of Systems ROS unobtainable: due to endotracheal tube Past Medical History Past Medical History: Eye Disorder, Hyperlipidemia Additional Past Medical History / Comment(s): GOUT, HX DIVERTICULITIS, History of Any Multi-Drug Resistant Organisms: None Reported Past Surgical History: Hernia Repair, Orthopedic Surgery Additional Past Surgical History / Comment(s): SX FOR UNDESCENDED TESTICLES, ZION CATARACTS, RT KNEE SX, RT ANKLE SX, METAL IN AND NOW REMOVED. Stage 4 glioblastoma removal Past Anesthesia/Blood Transfusion Reactions: No Reported Reaction Past Psychological History: Depression Smoking Status: Current every day smoker Past Alcohol Use History: Occasional Additional Past Alcohol Use History / Comment(s): STARTED SMOKING AGE 16 (1972) SMOKES 1PPD Past Drug Use History: None Reported Medications and Allergies Home Medications Medication Instructions Recorded Confirmed Type Folic Acid 1 mg PO DAILY 01/25/16 03/06/21 History Simvastatin [Zocor] 40 mg PO HS 01/25/16 03/06/21 History Vit C/E/Zn/Coppr/Lutein/Zeaxan 1 tab PO AC-BID 01/25/16 03/06/21 History [Preservision Areds 2 Softgel] allopurinoL [Zyloprim] 100 mg PO DAILY 01/25/16 03/06/21 History buPROPion [Wellbutrin] 150 mg PO BID 01/25/16 03/06/21 History Bumetanide [BUMEX] 2 mg PO DAILY 03/06/21 03/06/21 History Dorzolamide 2% [Trusopt 2%] 1 drop BOTH EYES BID 03/06/21 03/06/21 History Fluticasone Nasal [place] [Flonase 1 spr EA NOSTRIL BID 03/06/21 03/06/21 History Nasal [place]] Latanoprost [Xalatan 0.005%] 1 drop BOTH EYES HS 03/06/21 03/06/21 History Magnesium Oxide [Mag-Ox] 500 mg PO HS 03/06/21 03/06/21 History Meclizine [Antivert] 25 mg PO BID 03/06/21 03/06/21 History Meloxicam [Mobic] 15 mg PO AC-SUPPER 03/06/21 03/06/21 History Tamsulosin [Flomax] 0.4 mg PO AC-SUPPER 03/06/21 03/06/21 History Temozolomide 140 mg PO DIRECTED 03/06/21 03/06/21 History Tiotropium [place] [Spiriva 2 puff INHALATION RT-DAILY 03/06/21 03/06/21 History Respimat] dexAMETHasone [Dexamethasone] 2 mg PO DAILY 03/06/21 03/06/21 History levETIRAcetam [Keppra] 500 mg PO Q12H 03/06/21 03/06/21 History ondansetron HCL [Zofran] 8 mg PO Q6H PRN 03/06/21 03/06/21 History Allergies Allergy/AdvReac Type Severity Reaction Status Date / Time acetaminophen [From Vicodin] Allergy Itching Verified 01/29/16 09:35 hydrocodone bitartrate Allergy Itching Verified 01/29/16 09:35 [From Vicodin] Physical Exam Vitals: Vital Signs Temp Pulse Resp BP Pulse Ox 03/07/21 12:00 98.6 F 109 H 20 97 03/07/21 11:45 108 H 20 97 03/07/21 11:30 109 H 18 98/72 97 03/07/21 11:15 108/79 03/07/21 11:00 108/79 03/07/21 10:45 111 H 22 108/79 97 03/07/21 10:30 112 H 24 105/77 97 03/07/21 10:15 112 H 25 H 98/72 97 03/07/21 10:00 112 H 19 96/73 97 03/07/21 09:45 112 H 19 90/64 98 03/07/21 09:30 113 H 15 91/61 97 03/07/21 09:15 112 H 9 L 91/64 97 03/07/21 09:00 112 H 23 93/65 96 03/07/21 08:45 112 H 26 H 88/63 97 03/07/21 08:30 112 H 23 91/62 97 03/07/21 08:15 112 H 25 H 89/59 98 03/07/21 08:10 112 H 03/07/21 08:00 100 F H 112 H 15 92/64 98 03/07/21 07:57 112 H 03/07/21 07:45 112 H 26 H 87/62 98 03/07/21 07:30 113 H 23 100/68 98 03/07/21 07:15 115 H 25 H 100/69 98 03/07/21 07:00 116 H 23 102/73 98 03/07/21 06:45 117 H 25 H 98/71 98 03/07/21 06:30 117 H 25 H 91/63 97 03/07/21 06:15 117 H 23 99/72 97 03/07/21 06:00 117 H 22 100/71 98 03/07/21 05:45 117 H 26 H 97/72 98 03/07/21 05:30 121 H 28 H 105/73 97 03/07/21 05:15 121 H 25 H 103/73 98 03/07/21 05:00 121 H 21 98/72 98 03/07/21 04:45 121 H 24 106/69 98 03/07/21 04:30 123 H 20 94/71 98 03/07/21 04:15 122 H 25 H 106/76 98 03/07/21 04:00 99.5 F 121 H 24 104/74 98 03/07/21 03:45 122 H 25 H 101/71 98 03/07/21 03:30 123 H 22 95/69 98 03/07/21 03:15 123 H 23 98/72 98 03/07/21 03:00 123 H 24 98/71 98 03/07/21 02:45 124 H 25 H 103/76 98 03/07/21 02:30 124 H 25 H 94/69 98 03/07/21 02:15 126 H 25 H 91/70 98 03/07/21 02:00 126 H 25 H 92/69 98 03/07/21 01:45 124 H 24 104/71 98 03/07/21 01:30 125 H 26 H 103/73 97 03/07/21 01:15 128 H 28 H 92/67 97 03/07/21 01:00 125 H 26 H 103/75 97 03/07/21 00:45 126 H 26 H 96/76 97 03/07/21 00:30 128 H 28 H 97/75 96 03/07/21 00:15 130 H 25 H 107/70 97 03/07/21 00:00 98.8 F 129 H 30 H 100/71 98 03/06/21 23:45 130 H 30 H 100/74 98 03/06/21 23:30 130 H 30 H 96/72 97 03/06/21 23:15 130 H 29 H 87/67 98 03/06/21 23:03 133 H 30 H 88/64 98 03/06/21 23:00 133 H 24 82/60 97 03/06/21 22:45 135 H 23 89/66 98 03/06/21 22:30 134 H 30 H 88/64 97 03/06/21 22:15 131 H 33 H 76/61 97 03/06/21 22:00 133 H 23 83/64 97 03/06/21 21:45 134 H 25 H 89/64 97 03/06/21 21:30 137 H 33 H 88/66 97 03/06/21 21:15 133 H 23 96/70 96 03/06/21 21:00 135 H 28 H 82/60 97 03/06/21 20:45 135 H 26 H 82/61 98 03/06/21 20:30 135 H 26 H 88/64 97 03/06/21 20:14 137 H 03/06/21 20:03 141 H 03/06/21 20:00 98.6 F 135 H 27 H 81/56 97 03/06/21 19:30 138 H 27 H 99/70 93 L 03/06/21 19:00 141 H 30 H 97/72 98 03/06/21 18:30 141 H 32 H 99/69 98 03/06/21 18:00 141 H 29 H 100/76 98 03/06/21 17:30 137 H 30 H 97/71 98 08/04/21 17:20 130 H 28 H 08/04/21 17:10 130 H 29 H 03/06/21 17:00 130 H 27 H 91/65 97 03/06/21 16:30 128 H 29 H 65/53 99 03/06/21 15:30 115 H 18 91/50 99 03/06/21 14:58 116 H 18 64/59 98 03/06/21 14:00 115 H 20 71/20 03/06/21 13:30 120 H 20 72/25 96 03/06/21 13:26 98 18 98/59 98 Intake and Output 03/06/21 03/07/21 03/07/21 22:59 06:59 14:59 Intake Total 2877.493 8931.577 8788.560 Output Total 205 300 290 Balance 2672.493 8116.134 1592.560 Intake: IV 1530 1040 886 Azithromycin 500 mg In 250 Sodium Chloride 0.9% 250 ml @ 250 mls/hr IVPB DAILY@1700 [facility] Rx#: [id number] Pressure Bag 6 Sodium Chloride 0.9% 1, 780 1040 780 000 ml @ 130 mls/hr IV . Q7H42M [facility] Rx#:[id number] Sodium Chloride 0.9% 500 500 ml 500 ml @ 999 mls/hr IV .Q31M [facility] Rx#:[id number] Thiamine 100 mg In Sodium 100 Chloride 0.9% 50 ml @ 100 mls/hr IVPB DAILY [facility] Rx#:[id number] Intake, IV Titration 1347.493 542.066 750.560 Amount Ampicillin 2,000 mg In 100 Sodium Chloride 0.9% 100 ml @ 200 mls/hr IVPB Q4H [facility] Rx#:[id number] Linezolid 600 mg In 300 300 Dextrose/Water 1 300ml. bag @ 150 mls/hr IVPB Q12H [facility] Rx#:[id number] Norepinephrine 32 mg In 87.586 175.657 53.196 Sodium Chloride 0.9% 218 ml @ 0.05 MCG/KG/MIN 1. 967 mls/hr IV .Q24H [facility] Rx#:[id number] Norepinephrine 4 mg In 254 Sodium Chloride 0.9% 250 ml @ 0.05 MCG/KG/MIN 15. 986 mls/hr IV .[id number] [facility] Rx#:[id number] Sodium Chloride 0.9% 1, 1000 000 ml @ 999 mls/hr IV . Q1H1M [facility] Rx#:[id number] cefTRIAXone 2 gm In 50 Sodium Chloride 0.9% 50 ml @ 100 mls/hr IVPB Q12HR [facility] Rx#:[id number] levETIRAcetam IV 1,000 mg 100 In Saline 1 100ml.bag @ 400 mls/hr IVPB ONCE [facility] Rx#:[id number] propofoL 1,000 mg In 5.907 66.409 147.364 Empty Bag 1 bag @ Titrate IV .Q0M [facility] Rx#: [id number] Output: Urine 205 300 290 Other: Voiding Method Indwelling Catheter Indwelling Catheter Indwelling Catheter Weight 89.5 kg 93.7 kg ABP, PAP, CO, CI - Last 8 Hours Arterial Blood Pressure 106/61 Arterial Blood Pressure 106/61 Arterial Blood Pressure 112/63 Arterial Blood Pressure 114/64 Arterial Blood Pressure 107/61 Physical Exam: Revealed a 65-year-old white male in no distress, patient is intubated and mechanically ventilated. Head: Atraumatic, normocephalic, there is however a scar over the left hemisphere/temporal frontal region/surgical. Recent craniotomy. HEENT:[Neck is supple.] [No neck masses.] [No thyromegaly.] [No JVD.] Chest: [Symmetrical chest expansion, good breath sound bilaterally no crackles or rhonchi or wheezes. Cardiac Exam: [Normal S1 and S2, no S3 gallop, no murmur.] Abdomen: [Soft, nontender, no megaly, no rebound, no guarding, normal bowel sounds.] Extremities: Significant erythema and ecchymosis noted in the right lower extremity, negative Doppler for DVT. Foot is cold, diminished pulses bilaterally. Neurological Exam: Cannot fully assess, patient is sedated on propofol, Psychiatric: Could not assess. Skin: Mostly changes noted in the right lower extremity, supposedly chronic in nature. Redness with ecchymosis, Results - Laboratory Findings CBC and BMP: 03/07/21 05:35 03/07/21 05:35 ABG ABG pH 7.29 (7.35-7.45) L 03/06/21 22:56 ABG pCO2 39 mmHg (35-45) 03/06/21 22:56 ABG pO2 136 mmHg (83-108) H 03/06/21 22:56 ABG O2 Saturation 98.6 % (94-97) H 03/06/21 22:56 PT/INR, D-dimer PT 9.6 sec (9.0-12.0) 03/06/21 10:47 INR 0.9 (<1.2) 03/06/21 10:47 D-Dimer 1.61 mg/L FEU (<0.60) H 03/06/21 10:47 Abnormal lab findings: Abnormal Labs 03/06/21 03/06/21 03/06/21 10:47 10:47 10:47 WBC 14.0 H RBC 4.20 L MCV 103.4 H Plt Count 146 L Neutrophils # (Manual) 11.20 H Lymphocytes # (Manual) Metamyelocytes # (Man) 0.42 H Myelocytes # (Manual) 0.14 H Nucleated RBCs 1 H Macrocytosis D-Dimer 1.61 H ABG pH ABG pO2 ABG HCO3 ABG O2 Saturation Sodium 133 L Potassium 3.4 L Chloride 95 L Carbon Dioxide BUN 26 H Glucose POC Glucose (mg/dL) Plasma Lactic Acid Hal Calcium AST ALT Alkaline Phosphatase 150 H Total Protein 5.9 L Albumin 03/06/21 03/06/21 03/06/21 11:57 14:08 15:46 WBC RBC MCV Plt Count Neutrophils # (Manual) Lymphocytes # (Manual) Metamyelocytes # (Man) Myelocytes # (Manual) Nucleated RBCs Macrocytosis D-Dimer ABG pH ABG pO2 394 H ABG HCO3 ABG O2 Saturation 100.0 H Sodium Potassium Chloride Carbon Dioxide BUN Glucose POC Glucose (mg/dL) Plasma Lactic Acid Hal 3.9 H* 4.1 H* Calcium AST ALT Alkaline Phosphatase Total Protein Albumin 03/06/21 03/06/21 03/06/21 18:52 21:47 22:56 WBC RBC MCV Plt Count Neutrophils # (Manual) Lymphocytes # (Manual) Metamyelocytes # (Man) Myelocytes # (Manual) Nucleated RBCs Macrocytosis D-Dimer ABG pH 7.29 L ABG pO2 136 H ABG HCO3 19 L ABG O2 Saturation 98.6 H Sodium Potassium Chloride Carbon Dioxide BUN Glucose POC Glucose (mg/dL) Plasma Lactic Acid Hal 3.8 H* 3.6 H* Calcium AST ALT Alkaline Phosphatase Total Protein Albumin 03/07/21 03/07/21 03/07/21 01:19 05:35 05:35 WBC 23.7 H RBC 3.92 L MCV 106.7 H Plt Count Neutrophils # (Manual) 21.50 H Lymphocytes # (Manual) 0.95 L Metamyelocytes # (Man) 0.71 H Myelocytes # (Manual) 0.24 H Nucleated RBCs Macrocytosis Marked A D-Dimer ABG pH ABG pO2 ABG HCO3 ABG O2 Saturation Sodium 135 L Potassium Chloride Carbon Dioxide 20 L BUN 30 H Glucose 167 H POC Glucose (mg/dL) Plasma Lactic Acid Hal 3.9 H* Calcium 7.3 L AST 257 H ALT 117 H Alkaline Phosphatase 165 H Total Protein 4.7 L Albumin 2.5 L 03/07/21 03/07/21 03/07/21 06:21 09:24 11:43 WBC RBC MCV Plt Count Neutrophils # (Manual) Lymphocytes # (Manual) Metamyelocytes # (Man) Myelocytes # (Manual) Nucleated RBCs Macrocytosis D-Dimer ABG pH ABG pO2 ABG HCO3 ABG O2 Saturation Sodium Potassium Chloride Carbon Dioxide BUN Glucose POC Glucose (mg/dL) 174 H Plasma Lactic Acid Hal 2.9 H* 2.8 H* Calcium AST ALT Alkaline Phosphatase Total Protein Albumin - Diagnostic Findings Chest x-ray: image reviewed CT scan - chest: image reviewed (No evidence of pulmonary embolism. No evidence of active disease.) Assessment and Plan Assessment: Impression: Acute hypoxic story failure secondary to sepsis and septic shock. In-hospital cardiac arrest requiring brief CPR and epinephrine until return of spontaneous circulation. History of glioblastoma multiforme, status post resection on 02/05/2021 at [facility]. 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 Possible meningitis, lumbar puncture is pending. Gram-negative diplococci bacteremia, differential diagnoses includes Neisseria meningitides and Neisseria gonorrhea. Considering the presentation I believe Neisseria meningitides would have to be considered highly on the list. Chronic light lower extremity edema, negative Doppler. Recommendation: Continue ventilatory support. Continue hemodynamic support. Start the nutritional support. Broad-spectrum antibiotics, added Rocephin 2 g every 12 hours. Lumbar puncture to be done by anesthesia today. Continue seizure medications empirically. Continue hydrocortisone. Continue pressors and titrate accordingly maintaining adequate blood pressure. GI and DVT prophylaxis. Prognosis is extremely guarded, discussed his condition with multiple consultants over the phone including infectious disease and neurology. Placed patient on droplet isolation. Will continue to follow closely. Time with Patient: Greater than 30
[2021-03-07] MEDS: SODIUM CHLORIDE 0.9% 1,000 ML IV SCH (13:00)
--- NOTE | 2021-03-07 13:31 | EEG ---
ELECTROENCEPHALOGRAM REPORT DATE OF SERVICE: 03/07/2021 CLINICAL HISTORY: This is a 65-year-old gentleman with history of left glioblastoma multiforme status post resection, who has altered mental status. The video EEG is obtained to evaluate for seizure activity. RELEVANT MEDICATION: Propofol as well as Keppra. EEG TYPE: A routine 21 channel EEG was performed with video using the 10/20 electrode system. DESCRIPTION: The patient is intubated on ventilator. The background consists of low to moderate voltage 1-2 hertz nonrhythmic delta activity. There is no physiological stage II sleep architecture seen. There is no focal slowing. There is moderate to significant high amplitude over the left hemisphere derivatives consistent with a breach rhythm. Interictal and ictal is none. ACTIVATION PROCEDURES: Photic stimulation did not evoke a posterior driving response. There is no abnormality during the photic stimulation. Hyperventilation is not performed. CLINICAL INTERPRETATION: This is an abnormal routine EEG. The background slowing is suggestive of severe encephalopathy of unspecified etiology. There are no focal slowing, epileptiform discharges or seizures on the EEG. The breach rhythm over the left hemisphere is consistent with the patient history of skull defect. Clinical correlation is recommended. MMODL / IJN: [id number] / MTDD
[2021-03-07] MEDS ORDERED: AZITHROMYCIN 500 MG in SODIUM CHLORIDE 0.9% 250 ML IVPB SCH (17:00)
[2021-03-07 17:42] LABS: Glucose,Whole Blood 177 mg/dL (75-99)
[2021-03-07] MEDS: SODIUM CHLORIDE 0.9% 150 ML with VASOPRESSIN 60 UNIT IV SCH ×2 (17:49)
--- NOTE | 2021-03-07 18:50 | P.PN ---
Progress Note - Text Anesthesia was consulted to perform a lumbar puncture by Dr. Velazco.. The patient is incurring meningitis-like symptoms. ]. The chart was reviewed. Informed consent was obtained by the ICU nursing staff from the patient's family. Patient is currently intubated and on a propofol drip for sedation. Procedure: The patient was placed in the lateral position. The low back was then sterilely prepped and draped. Then [1 ]mL of lidocaine 1% was injected subcutaneously at the L3-L4 interspace. Then a 20-gauge spinal needle was pl aced into the subarachnoid space at [L3-L4] without difficulty. Then approximately 8 mL's of clear colorless spinal fluid was obtained in 4 tubes. [ 2 mL's]/tube. The patient tolerated the procedure well. There were no complications. Instructions were then given to the ICU nursing staff to maintain the prescribed hydration. Patient will remain at bed rest since he is intubated and sedated.
[2021-03-07 19:10] LABS: Glucose,CSF 136 mg/dL (40-70); Total Protein,CSF 116 mg/dL (12-60)
[2021-03-07 19:37] LABS: Appearance,CSF Clear; CSF Tube Number 4; CSF Tube Volume 2.1; Nucleated Cells, CSF 0 u/L (0-5); Red Blood Cell,CSF 7 u/L (0-10)
--- NOTE | 2021-03-07 20:20 | OP ---
OPERATIVE REPORT PROCEDURE: Placement of a left radial arterial line. PREOPERATIVE DIAGNOSIS: Acute hypoxic respiratory failure and sepsis/septic shock. POSTOPERATIVE DIAGNOSIS: Acute hypoxic respiratory failure and sepsis/septic shock. ANESTHESIA: None deployed. DESCRIPTION PROCEDURE: The left wrist was prepared in a sterile fashion. Drapes were applied. The left radial artery was localized via Doppler, and then the left radial artery was cannulated, a guidewire was placed, and a Cook catheter was inserted over the guidewire, the guidewire was removed. Good blood flow, good waveform noted. No evidence of any complications. Line was secured using 3.0 silk sutures. MMODL / IJN: [id number] /
[2021-03-07 23:00] LABS: Glucose,Whole Blood 145 mg/dL (75-99)
--- NOTE | 2021-03-07 23:26 | PN ---
PROGRESS NOTE DATE OF SERVICE: 03/07/2021 REASON FOR FOLLOWUP: Sepsis and bacteremia. INTERVAL HISTORY: Patient is afebrile today. The patient is currently hemodynamically stable. FiO2 is currently 45%. No significant purulent secretions in the ET or diarrhea has been reported by nursing staff. PHYSICAL EXAMINATION: Blood pressure 106/60 with a pulse of 111. Temperature 98. He is 97% on 45% FiO2. General description is an elderly male lying in bed in no distress. Respiratory system: Unlabored breathing with decreased breath sounds in the base. No wheeze. Heart S1, S2. Regular rate and rhythm. Abdomen soft, no tenderness. LABS: Hemoglobin 13.1, white count 23.7, BUN of 13, creatinine 0.97. liver enzymes are mildly elevated. The patient did have an LP show, glucose is 136, protein is 116. Blood culture with gram-negative diplococci. Sputum cultures are pending. DIAGNOSTIC IMPRESSION AND PLAN: Patient admitted to the hospital with sepsis in this patient who did have acute respiratory failure requiring intubation. The patient did have a gram-negative diplococci bacteremia usual indication of possible infection and concern for meningitis with recent surgery for glioblastoma. However, the LP is not suggestive of a bacterial meningitis. The patient's antibiotic has been adjusted to Rocephin to continue along with Zyvox and monitor clinical course closely while waiting for the sputum culture to finalize. Overall prognosis remains to be guarded. MMODL / IJN: [id number] /
[2021-03-08 04:14] LABS: African American GFR (CKD) >90 (>60 ml/min/1.73 sqM); Anion Gap 5 mmol/L; Blood Urea Nitrogen 29 mg/dL (9-20); Calcium 7.3 mg/dL (8.4-10.2); Carbon Dioxide 21 mmol/L (22-30); Chloride 107 mmol/L (98-107); Glucose 161 mg/dL (74-99); Magnesium 2.2 mg/dL (1.6-2.3); Non-African American GFR(CKD) >90 (>60 ml/min/1.73 sqM); Potassium 3.7 mmol/L (3.5-5.1); Sodium 133 mmol/L (137-145)
[2021-03-08] MEDS: NOREPINEPHRINE 32 MG in SODIUM CHLORIDE 0.9% 218 ML IV SCH (04:21)
[2021-03-08] MEDS: SODIUM CHLORIDE 0.9% 1,000 ML IV SCH ×3 (04:24→17:46)
[2021-03-08 04:32] LABS: Basophils # (A) 0.1 k/uL (0-0.2); Basophils % (A) 0 %; Eosinophils % (A) 0 %; HCT 35.7 % (39.0-53.0); HGB 11.9 gm/dL (13.0-17.5); Lymphocytes # (A) 0.6 k/uL (1.0-4.8); Lymphocytes % (A) 2 %; MCH 34.8 pg (25.0-35.0); MCHC 33.4 g/dL (31.0-37.0); MCV 104.3 fL (80.0-100.0); Macrocytosis Moderate; Mean Platelet Volume 7.8; Monocytes # (A) 0.6 k/uL (0-1.0); Monocytes % (A) 3 %; Neutrophils # (A) 22.3 k/uL (1.3-7.7); Neutrophils % (A) 94 %; Platelet Count 124 k/uL (150-450); RBC 3.43 m/uL (4.30-5.90); RDW 15.4 % (11.5-15.5); WBC 23.8 k/uL (3.8-10.6)
[2021-03-08 05:53] LABS: ABG Base Excess -1.8 mmol/L; ABG HCO3 24 mmol/L (21-25); ABG Oxygen Saturation 99.5 % (94-97); ABG PCO2 45 mmHg (35-45); ABG PH 7.34 (7.35-7.45); ABG PO2 144 mmHg (83-108); ABG TCO2 25 mmol/L (19-24); Allen Test Performed? Yes
[2021-03-08 06:43] LABS: Glucose,Whole Blood 146 mg/dL (75-99)
[2021-03-08] MEDS: INSULIN ASPART (NovoLOG) 100 UNIT/ML VIAL SQ SCH ×4 (06:47→23:48)
[2021-03-08] MEDS: IPRATROPIUM-ALBUTEROL 3 ML NEB INHALATION SCH ×4 (07:58→19:48)
--- NOTE | 2021-03-08 08:15 | XR ---
EXAMINATION TYPE: XR chest 1V portable DATE OF EXAM: 03/08/2021 COMPARISON: 03/07/2021 INDICATION: Tube placement TECHNIQUE: Single frontal view of the chest is obtained. FINDINGS: The heart size is normal. The pulmonary vasculature is normal. Right lower lobe infiltrate is present. Minimal infiltrate medially at the left base. Findings are de veloping over the interval. Small right pleural effusion may be present. Endotracheal tube tip is above the ralf. Nasogastric tube transverses the thorax. IMPRESSION: 1. Developing bibasilar infiltrates. 2. Small right pleural effusion. 3. Lines and catheters discussed above
[2021-03-08] MEDS: levETIRAcetam IV 500 MG in SODIUM CHLORIDE 0.9% 100 ML IVPB SCH ×2 (08:17→20:08)
[2021-03-08] MEDS: HYDROCORTISONE SUCCINATE 100 MG/2 ML VIAL IV SCH ×3 (08:17→23:48)
[2021-03-08] MEDS: PANTOPRAZOLE 40 MG/10 ML VIAL IVP SCH ×2 (08:18→20:08)
[2021-03-08] MEDS: CHLORHEXIDINE GLUCONATE 15 ML CUP MUCOUS MEM SCH ×2 (08:18→20:08)
--- NOTE | 2021-03-08 08:42 | P.HPIM ---
History of Present Illness H&P Date: 03/07/21 Marcelo Ortega is a 65 yo M with PMH of glioblastoma multiforma, s/p resection on 02/05/2021 who presented to the ED complaining of shortness of breath and generalized fatigue and weakness. On his initial presentation he was found to be hypotensive, patient developed sudden episode of bradycardia, shallow breathing, and he went on to full blown respiratory failure. CPR was done for 3 minutes, patient was intubated, received epinephrine 2 with return of spontaneous circulation. Patient was eventually transferred to the ICU on pressors. Today he remains intubated and sedated. Patient had low-grade fever at night with a temp of 100. Blood cultures are positive for gram-negative diplococci. Patient received Zithromax Zosyn and Zyvox. He is scheduled for a lumbar puncture to rule out neisseria meningitis. Labs today showed leukocytosis with WBC of 23.7 hemoglobin is 13.3. Liver enzymes are noted to be elevated with elevated AST to 57 ALT [address] of the brain this morning showed hypodensity in the posterior left ta radiata of intermediate age, chronic vascular ischemic changes, postsurgical changes, and the radiologist raised the possibility of recurrent mass. Recommended MRI. Review of Systems ROS unobtainable: due to endotracheal tube All systems: negative Constitutional: Reports malaise, Denies chills, Denies fever Eyes: denies blurred vision, denies pain Ears, nose, mouth and throat: Denies headache, Denies sore throat Cardiovascular: Denies chest pain, Denies shortness of breath Respiratory: Denies cough Gastrointestinal: Denies abdominal pain, Denies diarrhea, Denies nausea, Denies vomiting Musculoskeletal: Denies myalgias Integumentary: Denies pruritus, Denies rash Neurological: Denies numbness, Denies weakness Psychiatric: Denies anxiety, Denies depression Endocrine: Denies fatigue, Denies weight change Past Medical History Past Medical History: Eye Disorder, Hyperlipidemia Additional Past Medical History / Comment(s): GOUT, HX DIVERTICULITIS, History of Any Multi-Drug Resistant Organisms: None Reported Past Surgical History: Hernia Repair, Orthopedic Surgery Additional Past Surgical History / Comment(s): SX FOR UNDESCENDED TESTICLES, ZION CATARACTS, RT KNEE SX, RT ANKLE SX, METAL IN AND NOW REMOVED. Stage 4 glioblastoma removal Past Anesthesia/Blood Transfusion Reactions: No Reported Reaction Past Psychological History: Depression Smoking Status: Current every day smoker Past Alcohol Use History: Occasional Additional Past Alcohol Use History / Comment(s): STARTED SMOKING AGE 16 (1972) SMOKES 1PPD Past Drug Use History: None Reported Medications and Allergies Home Medications Medication Instructions Recorded Confirmed Type Folic Acid 1 mg PO DAILY 01/25/16 03/06/21 History Simvastatin [Zocor] 40 mg PO HS 01/25/16 03/06/21 History Vit C/E/Zn/Coppr/Lutein/Zeaxan 1 tab PO AC-BID 01/25/16 03/06/21 History [Preservision Areds 2 Softgel] allopurinoL [Zyloprim] 100 mg PO DAILY 01/25/16 03/06/21 History buPROPion [Wellbutrin] 150 mg PO BID 01/25/16 03/06/21 History Bumetanide [BUMEX] 2 mg PO DAILY 03/06/21 03/06/21 History Dorzolamide 2% [Trusopt 2%] 1 drop BOTH EYES BID 03/06/21 03/06/21 History Fluticasone Nasal Reeders [Flonase 1 spr EA NOSTRIL BID 03/06/21 03/06/21 History Nasal Reeders] Latanoprost [Xalatan 0.005%] 1 drop BOTH EYES HS 03/06/21 03/06/21 History Magnesium Oxide [Mag-Ox] 500 mg PO HS 03/06/21 03/06/21 History Meclizine [Antivert] 25 mg PO BID 03/06/21 03/06/21 History Meloxicam [Mobic] 15 mg PO AC-SUPPER 03/06/21 03/06/21 History Tamsulosin [Flomax] 0.4 mg PO AC-SUPPER 03/06/21 03/06/21 History Temozolomide 140 mg PO DIRECTED 03/06/21 03/06/21 History Tiotropium [place] [Spiriva 2 puff INHALATION RT-DAILY 03/06/21 03/06/21 History Respimat] dexAMETHasone [Dexamethasone] 2 mg PO DAILY 03/06/21 03/06/21 History levETIRAcetam [Keppra] 500 mg PO Q12H 03/06/21 03/06/21 History ondansetron HCL [Zofran] 8 mg PO Q6H PRN 03/06/21 03/06/21 History Allergies Allergy/AdvReac Type Severity Reaction Status Date / Time acetaminophen [From Vicodin] Allergy Itching Verified 01/29/16 09:35 hydrocodone bitartrate Allergy Itching Verified 01/29/16 09:35 [From Vicodin] Physical Exam Vitals: Vital Signs Temp Pulse Resp BP Pulse Ox 03/08/21 08:17 98 03/08/21 08:05 102 H 03/08/21 07:00 98 20 95/71 96 03/08/21 06:00 103 H 18 104/75 98 03/08/21 05:00 105 H 17 116/83 98 03/08/21 04:00 98 F 105 H 15 106/77 98 03/08/21 03:00 110 H 16 119/84 98 03/08/21 02:00 101 H 19 119/84 98 03/08/21 01:00 105 H 20 111/79 98 03/08/21 00:00 97.9 F 112 H 17 110/80 98 03/07/21 23:28 106 H 03/07/21 23:18 110 H 03/07/21 23:00 108 H 19 106/78 97 03/07/21 22:00 110 H 21 104/76 97 03/07/21 21:00 112 H 19 105/80 98 03/07/21 20:00 98 F 112 H 20 95/71 97 03/07/21 19:58 112 H 03/07/21 19:45 112 H 03/07/21 19:00 112 H 19 91/64 92 L 03/07/21 18:30 114 H 17 94 L 03/07/21 18:00 112 H 16 94/68 97 03/07/21 17:30 112 H 16 97 03/07/21 17:00 112 H 16 93/70 97 03/07/21 16:30 111 H 17 97 03/07/21 16:00 98.7 F 111 H 16 94/71 97 03/07/21 15:39 109 H 03/07/21 15:30 111 H 16 98 03/07/21 15:00 110 H 16 106/72 97 03/07/21 14:30 110 H 16 97 03/07/21 14:00 110 H 16 94 L 03/07/21 13:30 109 H 19 97 03/07/21 13:15 108 H 16 110/78 96 03/07/21 13:00 105 H 19 97 03/07/21 12:45 106 H 19 97 03/07/21 12:30 108 H 19 97 03/07/21 12:15 107 H 18 97 03/07/21 12:00 98.6 F 109 H 20 97 03/07/21 11:45 108 H 20 97 03/07/21 11:30 109 H 18 98/72 97 03/07/21 11:15 108/79 03/07/21 10:45 111 H 22 108/79 97 03/07/21 10:30 112 H 24 105/77 97 03/07/21 10:15 112 H 25 H 98/72 97 03/07/21 10:00 112 H 19 96/73 97 03/07/21 09:45 112 H 19 90/64 98 03/07/21 09:30 113 H 15 91/61 97 03/07/21 09:15 112 H 9 L 91/64 97 03/07/21 09:00 112 H 23 93/65 96 03/07/21 08:45 112 H 26 H 88/63 97 Intake and Output 03/07/21 03/08/21 03/08/21 22:59 06:59 14:59 Intake Total 0928.670 4122.953 25.319 Output Total 465 325 Balance 8344.397 9627.953 25.319 Intake: IV 674 27 Pressure Bag 24 27 Sodium Chloride 0.9% 1, 650 000 ml @ 130 mls/hr IV . Q7H42M [facility] Rx#:[id number] Intake, IV Titration 187.314 1743.953 25.319 Amount Norepinephrine 32 mg In 43.425 109.272 Sodium Chloride 0.9% 218 ml @ 0.05 MCG/KG/MIN 1. 967 mls/hr IV .Q24H [facility] Rx#:[id number] Sodium Chloride 0.9% 1, 390 1170 000 ml @ 130 mls/hr IV . Q7H42M [facility] Rx#:[id number] propofoL 1,000 mg In 364.653 274.681 25.319 Empty Bag 1 bag @ Titrate IV .Q0M [facility] Rx#: [id number] Tube Feeding 104 104 Other 60 60 Output: Urine 465 325 Other: Voiding Method Indwelling Catheter Indwelling Catheter ABP, PAP, CO, CI - Last 8 Hours Arterial Blood Pressure 108/56 Arterial Blood Pressure 104/57 Arterial Blood Pressure 114/60 Arterial Blood Pressure 129/67 Arterial Blood Pressure 115/64 Arterial Blood Pressure 125/67 Arterial Blood Pressure 120/63 General: cachexic, intubated sedated. Vital reviewed HEENT: Normocephalic, atraumatic. Mucus membranes moist Neck: supple, no thyromegaly, no JVD CV: RRR, no murmur. Pulses 2+ Lungs: No wheezes, rales or rhonchi Abd: soft, non distended, bowel sounds present Neuro: sedated, normal muscle tone Skin: warm and dry Results CBC & Chem 7: 03/08/21 03:20 03/08/21 03:20 Labs: Abnormal Lab Results - Last 24 Hours (Table) 03/07/21 03/07/21 03/07/21 Range/Units 09:24 10:20 11:43 WBC (3.8-10.6) k/uL RBC (4.30-5.90) m/uL Hgb (13.0-17.5) gm/dL Hct (39.0-53.0) % MCV (80.0-100.0) fL Plt Count (150-450) k/uL Neutrophils # (1.3-7.7) k/uL Lymphocytes # (1.0-4.8) k/uL ABG pH (7.35-7.45) ABG pO2 (83-108) mmHg ABG Total CO2 (19-24) mmol/L ABG O2 Saturation (94-97) % Sodium (137-145) mmol/L Carbon Dioxide (22-30) mmol/L BUN (9-20) mg/dL Glucose (74-99) mg/dL POC Glucose (mg/dL) 174 H (75-99) mg/dL Plasma Lactic Acid Hal 2.8 H* (0.7-2.0) mmol/L Calcium (8.4-10.2) mg/dL CSF Glucose 136 H (40-70) mg/dL CSF Total Protein 116 H (12-60) mg/dL 03/07/21 03/07/21 03/08/21 Range/Units 17:40 22:57 03:20 WBC 23.8 H (3.8-10.6) k/uL RBC 3.43 L (4.30-5.90) m/uL Hgb 11.9 L (13.0-17.5) gm/dL Hct 35.7 L (39.0-53.0) % MCV 104.3 H (80.0-100.0) fL Plt Count 124 L (150-450) k/uL Neutrophils # 22.3 H (1.3-7.7) k/uL Lymphocytes # 0.6 L (1.0-4.8) k/uL ABG pH (7.35-7.45) ABG pO2 (83-108) mmHg ABG Total CO2 (19-24) mmol/L ABG O2 Saturation (94-97) % Sodium (137-145) mmol/L Carbon Dioxide (22-30) mmol/L BUN (9-20) mg/dL Glucose (74-99) mg/dL POC Glucose (mg/dL) 177 H 145 H (75-99) mg/dL Plasma Lactic Acid Hal (0.7-2.0) mmol/L Calcium (8.4-10.2) mg/dL CSF Glucose (40-70) mg/dL CSF Total Protein (12-60) mg/dL 03/08/21 03/08/21 03/08/21 Range/Units 03:20 05:36 06:41 WBC (3.8-10.6) k/uL RBC (4.30-5.90) m/uL Hgb (13.0-17.5) gm/dL Hct (39.0-53.0) % MCV (80.0-100.0) fL Plt Count (150-450) k/uL Neutrophils # (1.3-7.7) k/uL Lymphocytes # (1.0-4.8) k/uL ABG pH 7.34 L (7.35-7.45) ABG pO2 144 H (83-108) mmHg ABG Total CO2 25 H (19-24) mmol/L ABG O2 Saturation 99.5 H (94-97) % Sodium 133 L (137-145) mmol/L Carbon Dioxide 21 L (22-30) mmol/L BUN 29 H (9-20) mg/dL Glucose 161 H (74-99) mg/dL POC Glucose (mg/dL) 146 H (75-99) mg/dL Plasma Lactic Acid Hal (0.7-2.0) mmol/L Calcium 7.3 L (8.4-10.2) mg/dL CSF Glucose (40-70) mg/dL CSF Total Protein (12-60) mg/dL Microbiology - Last 24 Hours (Table) 03/07/21 10:20 CSF Gram Stain - Preliminary Cerebral Spinal Fluid CSF Culture - Preliminary 03/06/21 11:37 Blood Culture - Preliminary Blood No Growth after 24 hours 03/06/21 11:20 Blood Culture Gram Stain - Preliminary Blood 03/06/21 17:20 Gram Stain - Preliminary Sputum Sputum Culture - Preliminary 03/06/21 11:20 Blood Culture - Final Blood Thrombosis Risk Factor Assmnt - Choose All That Apply Any of the Below Risk Factors Present?: No Other Risk Factors: Yes Each Risk Factor Represents 2 Points: Age 61-74 years, Major surgery Thrombosis Risk Factor Assessment Total Risk Factor Score: 4 Thrombosis Risk Factor Assessment Level: Moderate Risk Assessment and Plan Plan: 1. Septic shock. Admit to ICU. Pulmonology and ID consult. Continue high dose rocephin and zyvox for suspected Neisseria meningitis. LP scheduled and Neuro consult. Continue to follow blood cultures. ICU management per Pulmonary, continue pressors 2. Glioblastoma multiforme. seizure disorder. Continue IV keppra 3. Hypotension 4. Acute hypoxic respiratory failure DVT prophylaxis lovenox
[2021-03-08] MEDS: THIAMINE 100 MG in SODIUM CHLORIDE 0.9% 50 ML IVPB SCH (08:47)
[2021-03-08] MEDS: ENOXAPARIN 40 MG/0.4 ML SYRINGE SQ SCH (08:54)
[2021-03-08] MEDS: LINEZOLID 600 MG in DEXTROSE/WATER 1 300ML.BAG IVPB SCH (11:18)
--- NOTE | 2021-03-08 11:34 | P.PN ---
Subjective Progress Note Date: 03/08/21 Principal diagnosis: Acute hypoxic respiratory failure secondary to sepsis/septic shock This is a 65-year-old white male with history of glioblastoma multiform, patient is status post resection on 02/05/2021. His surgery was done at [facility], patient sustained residual aphasia, supposedly the patient received one chemotherapy the day prior to presentation. 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 Patient came into the ER on 03/06/2021, and he was complaining of 1 day history of increased shortness of breath and generalized fatigue and weakness. According to the ER physician, patient was being transferred to trauma 1 for central line placement since he was hypotensive upon his initial presentation, and was not improving with fluids, patient developed sudden episode of bradycardia, shallow breathing, and he went on to full blown respiratory failure. CPR was done for 3 minutes, patient was intubated, received epinephrine 2 with return of spontaneous circulation. Patient was eventually transferred to the ICU on pressors in the form of norepinephrine, high dose, when I was made aware of this, I added vasopressin. And recommended more fluids to be given. Patient was reevaluated today, and he is on assist control rate of 14 which I increased to 16 volume 450 FiO2 50% and I cut it down to 45% and PEEP of 5. ABG showed a pO2 of 136 pCO2 of 39 pH of 7.29. Patient is on norepinephrine at 0.28 mcg/kg/m, vasopressin at 0.03 units per minutes. He is on propofol at 40 g which I increased to 75, and IV fluids remains at 1 50 mL per hour in the form of 0.9 normal saline. Patient had low-grade fever at night with a temp of 100. Blood cultures are positive for gram-negative diplococci. Patient received Zithromax Zosyn and Zyvox, and considering his gram-negative diplococci in the blood, I have basically concerned about the possibility of Neisseria meningitides, and I'm recommending a lumbar puncture, I'm also recommending patient to go on Rocephin at high dose. He will be placed on droplet isolation for presumptive meningitis, and a lumbar puncture would be done later today. A CT of the brain is also pending. Considering his low blood pressure yesterday, I recommended hydrocortisone and he is on 100 mg of hydrocortisone IV push every 8 hours, today I cut it down to 50 every 8. Labs today showed leukocytosis with WBC of 23.7 hemoglobin is 13.3. Lactic acid is down to 2.8. Liver enzymes are noted to be elevated with elevated AST to 57 ALT [address] of the brain this morning showed hypodensity in the posterior left ta radiata of intermediate age, chronic vascular ischemic changes, postsurgical changes, and the radiologist raised the possibility of recurrent mass. Recommended MRI. There is also atrophy and postsurgical changes Patient was reevaluated today on 03/08/2021, remains in the ICU, intubated and mechanically ventilated. Patient is on assist control rate of 16, volume 450 FiO2 45% PEEP of 5. ABG showed a pO2 of 144 pCO2 45 pH of 7.35 hence his FiO2 was decreased down to 40%. Chest x-ray is showing evidence of developing bibasilar infiltrates, atelectasis, and there is a small right-sided pleural effusion. Patient remains on multiple drips including norepinephrine at 0.18 mcg/kg/m, he is on vasopressin at 0.03, propofol at 55 mcg/kg/m, IV fluid 0.9 normal saline at 13 0 mL per hour and on vital hp at 13 mL per hour. The Gram stain on the spinal fluid is negative. Blood cultures so far remain negative. His spinal fluid showed slightly elevated glucose and slightly elevated protein. Patient remains empirically on Rocephin and Zyvox. We added today HSV PCR to spinal fluid. Patient seems to be comfortable on mechanical ventilation, and we will address possibly a sedation holiday today, and possibly address mental status of possible. However considering the patient is still on multiple pressors may not be able to address weaning today yet WBC count today is 23.8 hemoglobin is 11.9. Electrolytes are normal renal profile is normal. Blood cultures and spinal fluid cultures are pending Objective - Vital Signs Vital signs: Vital Signs Temp 98.6 F 03/08/21 08:00 Pulse 94 03/08/21 11:00 Resp 18 03/08/21 11:00 BP 108/82 03/08/21 11:00 Pulse Ox 96 03/08/21 11:00 Intake & Output 03/07/21 03/08/21 03/08/21 18:59 06:59 18:59 Intake Total 3000.549 2558.953 1029.319 Output Total 610 570 285 Balance 2390.549 1988.953 744.319 Weight 93.7 kg Intake: IV 1684 169 922 Linezolid 600 mg In 300 Dextrose/Water 1 300ml. bag @ 150 mls/hr IVPB Q12H [facility] Rx#:[id number] Pressure Bag 24 39 12 Sodium Chloride 0.9% 1, 1560 130 000 ml @ 130 mls/hr IV . Q7H42M [facility] Rx#:[id number] Sodium Chloride 0.9% 1, 410 000 ml @ 75 mls/hr IV . [id number] [facility] Rx#:[id number] Thiamine 100 mg In Sodium 100 50 Chloride 0.9% 50 ml @ 100 mls/hr IVPB DAILY [facility] Rx#:[id number] cefTRIAXone 2 gm In 50 Sodium Chloride 0.9% 50 ml @ 100 mls/hr IVPB Q12HR [facility] Rx#:[id number] levETIRAcetam IV 500 mg 100 In Sodium Chloride 0.9% 100 ml @ 400 mls/hr IVPB Q12HR [facility] Rx#:[id number] Intake, IV Titration 3639.842 7134.953 25.319 Amount Ampicillin 2,000 mg In 200 Sodium Chloride 0.9% 100 ml @ 200 mls/hr IVPB Q4H [facility] Rx#:[id number] Linezolid 600 mg In 300 Dextrose/Water 1 300ml. bag @ 150 mls/hr IVPB Q12H [facility] Rx#:[id number] Norepinephrine 32 mg In 129.532 109.272 Sodium Chloride 0.9% 218 ml @ 0.05 MCG/KG/MIN 1. 967 mls/hr IV .Q24H [facility] Rx#:[id number] Sodium Chloride 0.9% 1, 1560 000 ml @ 75 mls/hr IV . [id number] [facility] Rx#:[id number] cefTRIAXone 2 gm In 50 Sodium Chloride 0.9% 50 ml @ 100 mls/hr IVPB Q12HR [facility] Rx#:[id number] levETIRAcetam IV 1,000 mg 100 In Saline 1 100ml.bag @ 400 mls/hr IVPB ONCE [facility] Rx#:[id number] propofoL 1,000 mg In 412.017 474.681 25.319 Empty Bag 1 bag @ Titrate IV .Q0M [facility] Rx#: [id number] Tube Feeding 65 156 52 Other 60 90 30 Output: Urine 610 570 285 Other: Voiding Method Indwelling Catheter Indwelling Catheter ABP, PAP, CO, CI - Last Documented Arterial Blood Pressure 116/61 - Exam Physical Exam: Revealed a 65-year-old white male in no distress, sedated with propofol. patient is intubated and mechanically ventilated. Head: Atraumatic, normocephalic, there is however a scar over the left hemisph ere/temporal frontal region/surgical. Recent craniotomy. HEENT:[Neck is supple.] [No neck masses.] [No thyromegaly.] [No JVD.] Orogastric tube and endotracheal tube are intact. Chest: [Symmetrical chest expansion, good breath sound bilaterally , minimal crackles at the right base. Cardiac Exam: [Normal S1 and S2, no S3 gallop, no murmur.] Abdomen: [Soft, nontender, no megaly, no rebound, no guarding, normal bowel sounds.] Extremities: Significant erythema and ecchymosis noted in the right lower extremity, foot remains cold. And diminished pulses bilaterally. Neurological Exam: Cannot fully assess, patient is sedated on propofol, Psychiatric: Could not assess. Skin: Mostly changes noted in the right lower extremity, supposedly chronic in nature. Redness with ecchymosis, - Labs CBC & Chem 7: 03/08/21 03:20 03/08/21 03:20 Labs: Abnormal Lab Results - Last 24 Hours (Table) 03/07/21 03/07/21 03/07/21 Range/Units 10:20 11:43 17:40 WBC (3.8-10.6) k/uL RBC (4.30-5.90) m/uL Hgb (13.0-17.5) gm/dL Hct (39.0-53.0) % MCV (80.0-100.0) fL Plt Count (150-450) k/uL Neutrophils # (1.3-7.7) k/uL Lymphocytes # (1.0-4.8) k/uL ABG pH (7.35-7.45) ABG pO2 (83-108) mmHg ABG Total CO2 (19-24) mmol/L ABG O2 Saturation (94-97) % Sodium (137-145) mmol/L Carbon Dioxide (22-30) mmol/L BUN (9-20) mg/dL Glucose (74-99) mg/dL POC Glucose (mg/dL) 174 H 177 H (75-99) mg/dL Calcium (8.4-10.2) mg/dL CSF Glucose 136 H (40-70) mg/dL CSF Total Protein 116 H (12-60) mg/dL 03/07/21 03/08/21 03/08/21 Range/Units 22:57 03:20 03:20 WBC 23.8 H (3.8-10.6) k/uL RBC 3.43 L (4.30-5.90) m/uL Hgb 11.9 L (13.0-17.5) gm/dL Hct 35.7 L (39.0-53.0) % MCV 104.3 H (80.0-100.0) fL Plt Count 124 L (150-450) k/uL Neutrophils # 22.3 H (1.3-7.7) k/uL Lymphocytes # 0.6 L (1.0-4.8) k/uL ABG pH (7.35-7.45) ABG pO2 (83-108) mmHg ABG Total CO2 (19-24) mmol/L ABG O2 Saturation (94-97) % Sodium 133 L (137-145) mmol/L Carbon Dioxide 21 L (22-30) mmol/L BUN 29 H (9-20) mg/dL Glucose 161 H (74-99) mg/dL POC Glucose (mg/dL) 145 H (75-99) mg/dL Calcium 7.3 L (8.4-10.2) mg/dL CSF Glucose (40-70) mg/dL CSF Total Protein (12-60) mg/dL 03/08/21 03/08/21 Range/Units 05:36 06:41 WBC (3.8-10.6) k/uL RBC (4.30-5.90) m/uL Hgb (13.0-17.5) gm/dL Hct (39.0-53.0) % MCV (80.0-100.0) fL Plt Count (150-450) k/uL Neutrophils # (1.3-7.7) k/uL Lymphocytes # (1.0-4.8) k/uL ABG pH 7.34 L (7.35-7.45) ABG pO2 144 H (83-108) mmHg ABG Total CO2 25 H (19-24) mmol/L ABG O2 Saturation 99.5 H (94-97) % Sodium (137-145) mmol/L Carbon Dioxide (22-30) mmol/L BUN (9-20) mg/dL Glucose (74-99) mg/dL POC Glucose (mg/dL) 146 H (75-99) mg/dL Calcium (8.4-10.2) mg/dL CSF Glucose (40-70) mg/dL CSF Total Protein (12-60) mg/dL Microbiology - Last 24 Hours (Table) 03/06/21 17:20 Gram Stain - Final Sputum Sputum Culture - Final 03/07/21 10:20 CSF Gram Stain - Preliminary Cerebral Spinal Fluid CSF Culture - Preliminary 03/06/21 11:37 Blood Culture - Preliminary Blood No Growth after 24 hours 03/06/21 11:20 Blood Culture Gram Stain - Preliminary Blood 03/06/21 11:20 Blood Culture - Final Blood Assessment and Plan Assessment: Impression: Acute hypoxic story failure secondary to sepsis and septic shock. In-hospital cardiac arrest requiring brief CPR and epinephrine until return of spontaneous circulation. History of glioblastoma multiforme, status post resection on 02/05/2021 at [facility] in [place]. 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 Possible meningitis, lumbar puncture is pending. Gram-negative diplococci bacteremia, differential diagnoses includes Neisseria meningitides and Neisseria gonorrhea. Considering the presentation I believe Neisseria meningitides would have to be considered highly on the list. Chronic light lower extremity edema, negative Doppler. Recommendation: Continue ventilatory support. Continue hemodynamic support. Hopefully discontinue vasopressin today. Continue nutritional support/enteral feeding. Continue antibiotics/Rocephin and Zyvox. Reviewed the initial report of his lumbar puncture. So far nondiagnostic. Continue seizure medications empirically. Continue hydrocortisone. Continue pressors and titrate accordingly maintaining adequate blood pressure. GI and DVT prophylaxis. Prognosis is extremely guarded, was updated on his condition yesterday. Continue droplet isolation for now. Critical care time is over 30 minutes Will continue to follow closely. Time with Patient: Greater than 30
[2021-03-08 11:36] LABS: Glucose,Whole Blood 148 mg/dL (75-99)
[2021-03-08 11:44] LABS: VDRL, Qualitative CSF Nonreactive (Nonreactive)
--- NOTE | 2021-03-08 12:50 | P.PN ---
Subjective Progress Note Date: 03/08/21 Patient seen at bedside and per the nurse patient is about the same today compared to yesterday. No seizure activity is noted. Patient continues to be on IV propofol 30mcg/kg/min and on Levothroid as well as vasopressin. Objective - Vital Signs Vital signs: Vital Signs Temp 98.6 F 03/08/21 08:00 Pulse 92 03/08/21 12:18 Resp 18 03/08/21 11:00 BP 108/82 03/08/21 11:00 Pulse Ox 96 03/08/21 11:00 Intake & Output 03/07/21 03/08/21 03/08/21 18:59 06:59 18:59 Intake Total 3000.549 2558.953 1029.319 Output Total 610 570 285 Balance 2390.549 1988.953 744.319 Weight 93.7 kg 93.7 kg Intake: IV 1684 169 922 Linezolid 600 mg In 300 Dextrose/Water 1 300ml. bag @ 150 mls/hr IVPB Q12H [facility] Rx#:[id number] Pressure Bag 24 39 12 Sodium Chloride 0.9% 1, 1560 130 000 ml @ 130 mls/hr IV . Q7H42M [facility] Rx#:[id number] Sodium Chloride 0.9% 1, 410 000 ml @ 75 mls/hr IV . [id number] [facility] Rx#:[id number] Thiamine 100 mg In Sodium 100 50 Chloride 0.9% 50 ml @ 100 mls/hr IVPB DAILY [facility] Rx#:[id number] cefTRIAXone 2 gm In 50 Sodium Chloride 0.9% 50 ml @ 100 mls/hr IVPB Q12HR [facility] Rx#:[id number] levETIRAcetam IV 500 mg 100 In Sodium Chloride 0.9% 100 ml @ 400 mls/hr IVPB Q12HR [facility] Rx#:[id number] Intake, IV Titration 4915.589 9056.953 25.319 Amount Ampicillin 2,000 mg In 200 Sodium Chloride 0.9% 100 ml @ 200 mls/hr IVPB Q4H [facility] Rx#:[id number] Linezolid 600 mg In 300 Dextrose/Water 1 300ml. bag @ 150 mls/hr IVPB Q12H [facility] Rx#:[id number] Norepinephrine 32 mg In 129.532 109.272 Sodium Chloride 0.9% 218 ml @ 0.05 MCG/KG/MIN 1. 967 mls/hr IV .Q24H [facility] Rx#:[id number] Sodium Chloride 0.9% 1, 1560 000 ml @ 75 mls/hr IV . [id number] [facility] Rx#:[id number] cefTRIAXone 2 gm In 50 Sodium Chloride 0.9% 50 ml @ 100 mls/hr IVPB Q12HR [facility] Rx#:[id number] levETIRAcetam IV 1,000 mg 100 In Saline 1 100ml.bag @ 400 mls/hr IVPB ONCE [facility] Rx#:[id number] propofoL 1,000 mg In 412.017 474.681 25.319 Empty Bag 1 bag @ Titrate IV .Q0M [facility] Rx#: [id number] Tube Feeding 65 156 52 Other 60 90 30 Output: Urine 610 570 285 Other: Voiding Method Indwelling Catheter Indwelling Catheter ABP, PAP, CO, CI - Last Documented Arterial Blood Pressure 116/61 - Exam GENERAL: The patient is lying in bed and does not seem in acute distress. HENT: Has scar over the left (temporal predominately/frontal region). Neck is supple and negative for nuchal rigidity. CHEST: The heart rate is regular rate rhythm. No murmurs to auscultation. No carotid bruit bilaterally. On levophed and vasopressin. LUNG: Clear to auscultation bilaterally no wheezing noted throughout. Not labored breathing. Intubated on ventilator and breathing over the vent. INTEGUMENTARY: Erythematous over the right lower extremity just proximal knee and edematous (per for the past one). NEUROLOGICAL: Limited because of patient's condition (On propofol 40mcg/kg/min and since intubated. Higher mental function: The patient is awake, alert, oriented to self, place and time. Patient is following commands. No aphasia and no neglect. Cranial nerves: The pupils are round, equal (about 1-2mm) and sluggishly reactive to light. Primary gaze is midline. +ve corneal reflex. No facial weakness noted bilaterally. The rest of cranial nerves is limited because of his condition. Motor: The strength is limited to assess but to painful stimuli he has grimaces face and has minimal reflex withdrawl. With painful stimuli he turns his head to side. Normal tone. Has swelling over the right lower extremity (for the past one month per the ). Cerebellum: Unable to assess. Sensation: With painful stimuli he grimaces face throughout. Reflexes (right/left): 0-1 in uppers while lowers are 0. Plantars are mute bilaterally. A CT of the head was ordered yesterday but has not received yet since not hemodynamically stable. He is on two blood pressure (Levophed and Vasopressin). Blood cultures from 03/06/2021 is reported as gram negative diplocci. EEG on 03/07/2021 at abnormal. The back was SUGGESTIVE of severe encephalopathy of unspecified etiology. There are no focal slowing, epileptiform discharges or seizure on EEG. The breach rhythm over the left hemisphere is consistent with the patient history of skull defect. Echocardiogram is reported as technically difficult study with suboptimal views. Mild concentric left ventricular hypertrophy. Overall left ventricle systolic function was severely impaired with ejection fraction of 25-30%. Left atrial size is normal. CTA of the chest is reported as diffuse breathing motion artifact. Allowing for this limitation, no evidence of pulmonary embolism. Possible underlying pulmonary arterial hypertension. Coronary artery disease with LAD coronary artery calcification. Bronchial wall thickening suggestion bronchitis or chronic asthma. There is some dependent debris/secretion in the lower trachea and it's the bifurcation. Prominent brand of active stasis O scarring in the lower lung. And 9 mm subpleural pulmonary nodule periphery of the right base. Possible nodule or atelectasis. CSF study is appears clear, colorless, red blood cells 7, nuclear cells is 0, glucose is 136 (normal is 40-70), total protein is 116 (normal is 12-60). CSF Gram stain there is no polymorphonuclear leukocytes. No organisms seen. CSF VDRL is nonreactive. Blood cultures there is no growth after 24 hours. Initial blood cultures as gram-negative diplococci Sputum Gram stain is rare polymorphonuclear leukocytes, few epithelial cells, few gram-positive cocci, multiple morphologies present. The sputum cultures is moderate normal respiratory brandon. No staph aureus or Pseudomonas recovered. - Labs CBC & Chem 7: 03/08/21 03:20 03/08/21 03:20 Labs: Abnormal Lab Results - Last 24 Hours (Table) 03/07/21 03/07/21 03/07/21 Range/Units 10:20 17:40 22:57 WBC (3.8-10.6) k/uL RBC (4.30-5.90) m/uL Hgb (13.0-17.5) gm/dL Hct (39.0-53.0) % MCV (80.0-100.0) fL Plt Count (150-450) k/uL Neutrophils # (1.3-7.7) k/uL Lymphocytes # (1.0-4.8) k/uL ABG pH (7.35-7.45) ABG pO2 (83-108) mmHg ABG Total CO2 (19-24) mmol/L ABG O2 Saturation (94-97) % Sodium (137-145) mmol/L Carbon Dioxide (22-30) mmol/L BUN (9-20) mg/dL Glucose (74-99) mg/dL POC Glucose (mg/dL) 177 H 145 H (75-99) mg/dL Calcium (8.4-10.2) mg/dL CSF Glucose 136 H (40-70) mg/dL CSF Total Protein 116 H (12-60) mg/dL 03/08/21 03/08/21 03/08/21 Range/Units 03:20 03:20 05:36 WBC 23.8 H (3.8-10.6) k/uL RBC 3.43 L (4.30-5.90) m/uL Hgb 11.9 L (13.0-17.5) gm/dL Hct 35.7 L (39.0-53.0) % MCV 104.3 H (80.0-100.0) fL Plt Count 124 L (150-450) k/uL Neutrophils # 22.3 H (1.3-7.7) k/uL Lymphocytes # 0.6 L (1.0-4.8) k/uL ABG pH 7.34 L (7.35-7.45) ABG pO2 144 H (83-108) mmHg ABG Total CO2 25 H (19-24) mmol/L ABG O2 Saturation 99.5 H (94-97) % Sodium 133 L (137-145) mmol/L Carbon Dioxide 21 L (22-30) mmol/L BUN 29 H (9-20) mg/dL Glucose 161 H (74-99) mg/dL POC Glucose (mg/dL) (75-99) mg/dL Calcium 7.3 L (8.4-10.2) mg/dL CSF Glucose (40-70) mg/dL CSF Total Protein (12-60) mg/dL 03/08/21 03/08/21 Range/Units 06:41 11:35 WBC (3.8-10.6) k/uL RBC (4.30-5.90) m/uL Hgb (13.0-17.5) gm/dL Hct (39.0-53.0) % MCV (80.0-100.0) fL Plt Count (150-450) k/uL Neutrophils # (1.3-7.7) k/uL Lymphocytes # (1.0-4.8) k/uL ABG pH (7.35-7.45) ABG pO2 (83-108) mmHg ABG Total CO2 (19-24) mmol/L ABG O2 Saturation (94-97) % Sodium (137-145) mmol/L Carbon Dioxide (22-30) mmol/L BUN (9-20) mg/dL Glucose (74-99) mg/dL POC Glucose (mg/dL) 146 H 148 H (75-99) mg/dL Calcium (8.4-10.2) mg/dL CSF Glucose (40-70) mg/dL CSF Total Protein (12-60) mg/dL Microbiology - Last 24 Hours (Table) 03/06/21 17:20 Gram Stain - Final Sputum Sputum Culture - Final 03/07/21 10:20 CSF Gram Stain - Preliminary Cerebral Spinal Fluid CSF Culture - Preliminary 03/06/21 11:37 Blood Culture - Preliminary Blood No Growth after 24 hours 03/06/21 11:20 Blood Culture Gram Stain - Preliminary Blood 03/06/21 11:20 Blood Culture - Final Blood Assessment and Plan Assessment: * Altered mental status due to hypoxic respiratory failure leading to respiratory arrest (requiring CPR lasting 3-5minutes in the ED). It was suspected due to sepsis/septic shock and initially there was concern for meningitis (blood cultures are positive for gram negative Diplocci) but CSF there is 0 nucleated cells suggestive of infection and CSF gram stain is negative. Repeated blood cultures are negative. * Also small component of metabolic encephalopathy (elevated LFT's) and medication effect (Propofol) * History of glioblastoma multiforme (left temporal) status post resection on 02/05/2021 (at [facility]) and has motor aphasia. * Septic shock on epinephrine * Acute hypoxic respiratory failure intubated and on mechanical ventilation * Has worsening of Leukocytosis since on steroids. * Right lower extremity edema with erythema for the past one month Plan: * Ration is on ceftriaxone 2 g every 12 hours for meningeal coverage. * Patient is on Keppra 500 mg IV every 12 hours (home dose). Per no hx of seizure and was place on seizure medication since neurosurgery. * Infection disease is on board. * On the every hour neuro checks. * On thiamine 100mg daily IV. * Patient is on Hydrocortisone 50mg every 8 hours per ICU team. * We'll defer the rest of the medical management to the primary/ICU team. * Patient's prognosis is very guarded The plan was discussed with the patient ICU attending and nurse. Dr. Will take over neurology service starting tomorrow AM. Raghavendra Chappell MD Neuro-Hospitalist Time with Patient: Less than 30
--- NOTE | 2021-03-08 13:32 | P.CONS ---
History of Present Illness - Reason for Consult Consult date: 03/08/21 recent Cancer Requesting physician: Concepcion Mayorga - Chief Complaint Respiratory Failure - History of Present Illness Marcelo presented with multiple falls to R side, he had R hip fracture after one of falls, had ORIF at [facility]. MRI of head on January 15 revealed 2.6X2.8X2.8 cm enhancing mass at posterior left temporal lobe suspicious for neoplastic process. He is C/O expressive dysphasia and loss of balance (To R side). He was seen by Dr Francis (Neurosurgery [facility]) > Craniotomy and resection planedd in next 2 weeks The patient smokes 1 PPD and consumes 6 beers daily, was very active and now using walker for balance and following R hip surgery. He denied prior diagnosis of malignancy, CT Scan of chest (12/27/20 @ [facility]) was negative, recent CT Scan of abdomen & Pelvis at [facility] was negative (diffuse thickened bladder wall not suspicious). 02/15/21: Had Craniotomy and subtotal resection of Glioblastoma Grade IV > recovered well. On 02/20/21-chemo edu. At that time [facility] were [facility]. Start date for radiation was simulation on the , supposed to start XRT 02/26/21, therefore that was also the anticipated date of temodar intiation Apparently he presented to emergency after being found hypotensive, sudden bra dycardia, and acute respiratory failure. Etiology has not been determined at this time. CPR, intubation, and extensive lifesaving measures were performed and he was transferred to ICU intubated and sedated. Blood cultures from 03/06/21 did result in less than 24 hours with Gram Positive Diplicocci. 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 Review of Systems ROS unobtainable: due to endotracheal tube Past Medical History Past Medical History: Eye Disorder, Hyperlipidemia Additional Past Medical History / Comment(s): GOUT, HX DIVERTICULITIS, History of Any Multi-Drug Resistant Organisms: None Reported Past Surgical History: Hernia Repair, Orthopedic Surgery Additional Past Surgical History / Comment(s): SX FOR UNDESCENDED TESTICLES, ZION CATARACTS, RT KNEE SX, RT ANKLE SX, METAL IN AND NOW REMOVED. Stage 4 glioblastoma removal Past Anesthesia/Blood Transfusion Reactions: No Reported Reaction Past Psychological History: Depression Smoking Status: Current every day smoker Past Alcohol Use History: Occasional Additional Past Alcohol Use History / Comment(s): STARTED SMOKING AGE 16 (1972) SMOKES 1PPD Past Drug Use History: None Reported Medications and Allergies Home Medications Medication Instructions Recorded Confirmed Type Folic Acid 1 mg PO DAILY 01/25/16 03/06/21 History Simvastatin [Zocor] 40 mg PO HS 01/25/16 03/06/21 History Vit C/E/Zn/Coppr/Lutein/Zeaxan 1 tab PO AC-BID 01/25/16 03/06/21 History [Preservision Areds 2 Softgel] allopurinoL [Zyloprim] 100 mg PO DAILY 01/25/16 03/06/21 History buPROPion [Wellbutrin] 150 mg PO BID 01/25/16 03/06/21 History Bumetanide [BUMEX] 2 mg PO DAILY 03/06/21 03/06/21 History Dorzolamide 2% [Trusopt 2%] 1 drop BOTH EYES BID 03/06/21 03/06/21 History Fluticasone Nasal [place] [Flonase 1 spr EA NOSTRIL BID 03/06/21 03/06/21 History Nasal [place]] Latanoprost [Xalatan 0.005%] 1 drop BOTH EYES HS 03/06/21 03/06/21 History Magnesium Oxide [Mag-Ox] 500 mg PO HS 03/06/21 03/06/21 History Meclizine [Antivert] 25 mg PO BID 03/06/21 03/06/21 History Meloxicam [Mobic] 15 mg PO AC-SUPPER 03/06/21 03/06/21 History Tamsulosin [Flomax] 0.4 mg PO AC-SUPPER 03/06/21 03/06/21 History Temozolomide 140 mg PO DIRECTED 03/06/21 03/06/21 History Tiotropium [place] [Spiriva 2 puff INHALATION RT-DAILY 03/06/21 03/06/21 History Respimat] dexAMETHasone [Dexamethasone] 2 mg PO DAILY 03/06/21 03/06/21 History levETIRAcetam [Keppra] 500 mg PO Q12H 03/06/21 03/06/21 History ondansetron HCL [Zofran] 8 mg PO Q6H PRN 03/06/21 03/06/21 History Allergies Allergy/AdvReac Type Severity Reaction Status Date / Time acetaminophen [From Vicodin] Allergy Itching Verified 01/29/16 09:35 hydrocodone bitartrate Allergy Itching Verified 01/29/16 09:35 [From Vicodin] Physical Exam Vitals: Vital Signs Temp Pulse Resp BP Pulse Ox 03/08/21 08:17 98 03/08/21 08:05 102 H 03/08/21 08:00 98.6 F 96 20 105/78 97 03/08/21 07:00 98 20 95/71 96 03/08/21 06:00 103 H 18 104/75 98 03/08/21 05:00 105 H 17 116/83 98 03/08/21 04:00 98 F 105 H 15 106/77 98 03/08/21 03:00 110 H 16 119/84 98 03/08/21 02:00 101 H 19 119/84 98 03/08/21 01:00 105 H 20 111/79 98 03/08/21 00:00 97.9 F 112 H 17 110/80 98 03/07/21 23:28 106 H 03/07/21 23:18 110 H 03/07/21 23:00 108 H 19 106/78 97 03/07/21 22:00 110 H 21 104/76 97 03/07/21 21:00 112 H 19 105/80 98 03/07/21 20:00 98 F 112 H 20 95/71 97 03/07/21 19:58 112 H 03/07/21 19:45 112 H 03/07/21 19:00 112 H 19 91/64 92 L 03/07/21 18:30 114 H 17 94 L 03/07/21 18:00 112 H 16 94/68 97 03/07/21 17:30 112 H 16 97 03/07/21 17:00 112 H 16 93/70 97 03/07/21 16:30 111 H 17 97 03/07/21 16:00 98.7 F 111 H 16 94/71 97 03/07/21 15:39 109 H 03/07/21 15:30 111 H 16 98 03/07/21 15:00 110 H 16 106/72 97 03/07/21 14:30 110 H 16 97 03/07/21 14:00 110 H 16 94 L 03/07/21 13:30 109 H 19 97 03/07/21 13:15 108 H 16 110/78 96 03/07/21 13:00 105 H 19 97 03/07/21 12:45 106 H 19 97 03/07/21 12:30 108 H 19 97 03/07/21 12:15 107 H 18 97 03/07/21 12:00 98.6 F 109 H 20 97 03/07/21 11:45 108 H 20 97 03/07/21 11:30 109 H 18 98/72 97 03/07/21 11:15 108/79 03/07/21 10:45 111 H 22 108/79 97 03/07/21 10:30 112 H 24 105/77 97 03/07/21 10:15 112 H 25 H 98/72 97 Intake and Output 03/07/21 03/08/21 03/08/21 22:59 06:59 14:59 Intake Total 9172.940 1728.953 547.319 Output Total 465 325 130 Balance 7104.188 3270.953 417.319 Intake: IV 674 27 466 Pressure Bag 24 27 6 Sodium Chloride 0.9% 1, 260 000 ml @ 130 mls/hr IV . Q7H42M [facility] Rx#:[id number] Sodium Chloride 0.9% 1, 650 000 ml @ 130 mls/hr IV . Q7H42M [facility] Rx#:[id number] Thiamine 100 mg In Sodium 50 Chloride 0.9% 50 ml @ 100 mls/hr IVPB DAILY [facility] Rx#:[id number] cefTRIAXone 2 gm In 50 Sodium Chloride 0.9% 50 ml @ 100 mls/hr IVPB Q12HR [facility] Rx#:[id number] levETIRAcetam IV 500 mg 100 In Sodium Chloride 0.9% 100 ml @ 400 mls/hr IVPB Q12HR [facility] Rx#:[id number] Intake, IV Titration 036.720 6481.953 25.319 Amount Norepinephrine 32 mg In 43.425 109.272 Sodium Chloride 0.9% 218 ml @ 0.05 MCG/KG/MIN 1. 967 mls/hr IV .Q24H [facility] Rx#:[id number] Sodium Chloride 0.9% 1, 390 1170 000 ml @ 130 mls/hr IV . Q7H42M [facility] Rx#:[id number] propofoL 1,000 mg In 364.653 274.681 25.319 Empty Bag 1 bag @ Titrate IV .Q0M [facility] Rx#: [id number] Tube Feeding 104 104 26 Other 60 60 30 Output: Urine 465 325 130 Other: Voiding Method Indwelling Catheter Indwelling Catheter ABP, PAP, CO, CI - Last 8 Hours Arterial Blood Pressure 107/55 Arterial Blood Pressure 108/56 Arterial Blood Pressure 104/57 Arterial Blood Pressure 114/60 Arterial Blood Pressure 129/67 Arterial Blood Pressure 115/64 Sedated, Intubated Calm Results CBC & Chem 7: 03/08/21 03:20 03/08/21 03:20 Labs: Abnormal Lab Results - Last 24 Hours (Table) 03/07/21 03/07/21 03/07/21 Range/Units 09:24 10:20 11:43 WBC (3.8-10.6) k/uL RBC (4.30-5.90) m/uL Hgb (13.0-17.5) gm/dL Hct (39.0-53.0) % MCV (80.0-100.0) fL Plt Count (150-450) k/uL Neutrophils # (1.3-7.7) k/uL Lymphocytes # (1.0-4.8) k/uL ABG pH (7.35-7.45) ABG pO2 (83-108) mmHg ABG Total CO2 (19-24) mmol/L ABG O2 Saturation (94-97) % Sodium (137-145) mmol/L Carbon Dioxide (22-30) mmol/L BUN (9-20) mg/dL Glucose (74-99) mg/dL POC Glucose (mg/dL) 174 H (75-99) mg/dL Plasma Lactic Acid Hal 2.8 H* (0.7-2.0) mmol/L Calcium (8.4-10.2) mg/dL CSF Glucose 136 H (40-70) mg/dL CSF Total Protein 116 H (12-60) mg/dL 03/07/21 03/07/21 03/08/21 Range/Units 17:40 22:57 03:20 WBC 23.8 H (3.8-10.6) k/uL RBC 3.43 L (4.30-5.90) m/uL Hgb 11.9 L (13.0-17.5) gm/dL Hct 35.7 L (39.0-53.0) % MCV 104.3 H (80.0-100.0) fL Plt Count 124 L (150-450) k/uL Neutrophils # 22.3 H (1.3-7.7) k/uL Lymphocytes # 0.6 L (1.0-4.8) k/uL ABG pH (7.35-7.45) ABG pO2 (83-108) mmHg ABG Total CO2 (19-24) mmol/L ABG O2 Saturation (94-97) % Sodium (137-145) mmol/L Carbon Dioxide (22-30) mmol/L BUN (9-20) mg/dL Glucose (74-99) mg/dL POC Glucose (mg/dL) 177 H 145 H (75-99) mg/dL Plasma Lactic Acid Hal (0.7-2.0) mmol/L Calcium (8.4-10.2) mg/dL CSF Glucose (40-70) mg/dL CSF Total Protein (12-60) mg/dL 03/08/21 03/08/21 03/08/21 Range/Units 03:20 05:36 06:41 WBC (3.8-10.6) k/uL RBC (4.30-5.90) m/uL Hgb (13.0-17.5) gm/dL Hct (39.0-53.0) % MCV (80.0-100.0) fL Plt Count (150-450) k/uL Neutrophils # (1.3-7.7) k/uL Lymphocytes # (1.0-4.8) k/uL ABG pH 7.34 L (7.35-7.45) ABG pO2 144 H (83-108) mmHg ABG Total CO2 25 H (19-24) mmol/L ABG O2 Saturation 99.5 H (94-97) % Sodium 133 L (137-145) mmol/L Carbon Dioxide 21 L (22-30) mmol/L BUN 29 H (9-20) mg/dL Glucose 161 H (74-99) mg/dL POC Glucose (mg/dL) 146 H (75-99) mg/dL Plasma Lactic Acid Hal (0.7-2.0) mmol/L Calcium 7.3 L (8.4-10.2) mg/dL CSF Glucose (40-70) mg/dL CSF Total Protein (12-60) mg/dL Microbiology - Last 24 Hours (Table) 03/07/21 10:20 CSF Gram Stain - Preliminary Cerebral Spinal Fluid CSF Culture - Preliminary 03/06/21 11:37 Blood Culture - Preliminary Blood No Growth after 24 hours 03/06/21 11:20 Blood Culture Gram Stain - Preliminary Blood 03/06/21 17:20 Gram Stain - Preliminary Sputum Sputum Culture - Preliminary 03/06/21 11:20 Blood Culture - Final Blood Assessment and Plan (1) Glioblastoma multiforme Current Visit: Yes Status: Acute Code(s): C71.9 - MALIGNANT NEOPLASM OF BRAIN, UNSPECIFIED SNOMED Code(s): 933217509 (2) Gram-negative bacteremia Current Visit: Yes Status: Acute Code(s): R78.81 - BACTEREMIA SNOMED Code (s): 482175328172 (3) Acute bronchitis due to infection Current Visit: Yes Status: Acute Code(s): J20.9 - ACUTE BRONCHITIS, UNSPECIFIED SNOMED Code(s): 792290780 (4) Sepsis Current Visit: Yes Status: Acute Code(s): A41.9 - SEPSIS, UNSPECIFIED ORGANISM SNOMED Code(s): 45869131 Plan: Assessment and recommendations: - Hold Chemotherapy with Temodar and Radiation until resolution of sepsis/bacteremia - Acute and Ongoing hospital care per Infectious Disease and ICU/Pulmonary - Monitor CBC/CMP and Coags - Supportive care to continue Physician Attest: I have completed the full history and physical and agree with above dictation, dictated as a ascribe.
--- NOTE | 2021-03-08 14:11 | P.PN ---
Subjective Progress Note Date: 03/08/21 Marcelo Ortega is a 65 yo M with PMH of glioblastoma multiforma, s/p resection on 02/05/2021 who presented to the ED complaining of shortness of breath and generalized fatigue and weakness. On his initial presentation he was found to be hypotensive, patient developed sudden episode of bradycardia, shallow breathing, and he went on to full blown respiratory failure. CPR was done for 3 minutes, patient was intubated, received epinephrine 2 with return of spontaneous circulation. Patient was eventually transferred to the ICU on pressors. Today he remains intubated and sedated. Patient had low-grade fever at night with a temp of 100. Blood cultures are positive for gram-negative diplococci. Patient received Zithromax Zosyn and Zyvox. He is scheduled for a lumbar puncture to rule out neisseria meningitis. Labs today showed leukocytosis with WBC of 23.7 hemoglobin is 13.3. Liver enzymes are noted to be elevated with elevated AST to 57 ALT [address] of the brain this morning showed hypodensity in the posterior left ta radiata of intermediate age, chronic vascular ischemic changes, postsurgical changes, and the radiologist raised the possibility of recurrent mass. Recommended MRI. 03/08/2021 remains vent dependent with FiO2 of 45%/+5 of PEEP. Chest x-ray reporting developing bibasilar infiltrates, small right pleural effusion. Maintained on diprovan, vasopressin, Levophed drips in addition to IV fluids of normal saline in the 130 mL's per hour. Continues on IV hydrocortisone. EEG abnormal, suggestive of severe encephalopathy of unspecified etiology, no deniz ctiform discharges or seizures. Maintained on Keppra, no seizure activity reported. Continues on high-dose of Rocephin and Zyvox as per ID. CSF reports clear, colorless, red blood cells 7, nuclear cells 0, glucose 136, total protein is 116. CSF Gram stain there is no polymorphonuclear leukocytes. No organisms seen. Aerobic CSF culture pending. CSF VDRL is nonreactive. sputum culture pending, preliminary blood cultures negative. Afebrile, WBC 23.8. telemetry sinus rhythm.echo reporting severe global hypokinesis with LV, severely impaired LV function, EF between 25 and 30%. Objective - Vital Signs Vital signs: Vital Signs Temp 98.6 F 03/08/21 08:00 Pulse 94 08/06/21 11:00 Resp 18 03/08/21 11:00 BP 108/82 03/08/21 11:00 Pulse Ox 96 03/08/21 11:00 Intake & Output 03/07/21 03/08/21 03/08/21 18:59 06:59 18:59 Intake Total 3000.549 2558.953 1029.319 Output Total 610 570 285 Balance 2390.549 1988.953 744.319 Weight 93.7 kg Intake: IV 1684 169 922 Linezolid 600 mg In 300 Dextrose/Water 1 300ml. bag @ 150 mls/hr IVPB Q12H [facility] Rx#:[id number] Pressure Bag 24 39 12 Sodium Chloride 0.9% 1, 1560 130 000 ml @ 130 mls/hr IV . Q7H42M [facility] Rx#:[id number] Sodium Chloride 0.9% 1, 410 000 ml @ 75 mls/hr IV . [id number] [facility] Rx#:[id number] Thiamine 100 mg In Sodium 100 50 Chloride 0.9% 50 ml @ 100 mls/hr IVPB DAILY [facility] Rx#:[id number] cefTRIAXone 2 gm In 50 Sodium Chloride 0.9% 50 ml @ 100 mls/hr IVPB Q12HR [facility] Rx#:[id number] levETIRAcetam IV 500 mg 100 In Sodium Chloride 0.9% 100 ml @ 400 mls/hr IVPB Q12HR [facility] Rx#:[id number] Intake, IV Titration 5125.373 1569.953 25.319 Amount Ampicillin 2,000 mg In 200 Sodium Chloride 0.9% 100 ml @ 200 mls/hr IVPB Q4H [facility] Rx#:[id number] Linezolid 600 mg In 300 Dextrose/Water 1 300ml. bag @ 150 mls/hr IVPB Q12H [facility] Rx#:[id number] Norepinephrine 32 mg In 129.532 109.272 Sodium Chloride 0.9% 218 ml @ 0.05 MCG/KG/MIN 1. 967 mls/hr IV .Q24H [facility] Rx#:[id number] Sodium Chloride 0.9% 1, 1560 000 ml @ 75 mls/hr IV . [id number] [facility] Rx#:[id number] cefTRIAXone 2 gm In 50 Sodium Chloride 0.9% 50 ml @ 100 mls/hr IVPB Q12HR [facility] Rx#:[id number] levETIRAcetam IV 1,000 mg 100 In Saline 1 100ml.bag @ 400 mls/hr IVPB ONCE [facility] Rx#:[id number] propofoL 1,000 mg In 412.017 474.681 25.319 Empty Bag 1 bag @ Titrate IV .Q0M [facility] Rx#: [id number] Tube Feeding 65 156 52 Other 60 90 30 Output: Urine 610 570 285 Other: Voiding Method Indwelling Catheter Indwelling Catheter ABP, PAP, CO, CI - Last Documented Arterial Blood Pressure 116/61 - Exam General: cachexic, intubated sedated. Vital reviewed HEENT: Normocephalic, atraumatic. Mucus membranes dry Neck: supple, no thyromegaly, no JVD CV: RRR, no murmur. Pulses 2+ Lungs: No wheezes, rales or rhonchi Abd: soft, non distended, bowel sounds present Neuro: sedated, normal muscle tone Skin: warm and dry - Labs CBC & Chem 7: 03/08/21 03:20 03/08/21 03:20 Labs: Abnormal Lab Results - Last 24 Hours (Table) 03/07/21 03/07/21 03/07/21 Range/Units 10:20 11:43 17:40 WBC (3.8-10.6) k/uL RBC (4.30-5.90) m/uL Hgb (13.0-17.5) gm/dL Hct (39.0-53.0) % MCV (80.0-100.0) fL Plt Count (150-450) k/uL Neutrophils # (1.3-7.7) k/uL Lymphocytes # (1.0-4.8) k/uL ABG pH (7.35-7.45) ABG pO2 (83-108) mmHg ABG Total CO2 (19-24) mmol/L ABG O2 Saturation (94-97) % Sodium (137-145) mmol/L Carbon Dioxide (22-30) mmol/L BUN (9-20) mg/dL Glucose (74-99) mg/dL POC Glucose (mg/dL) 174 H 177 H (75-99) mg/dL Calcium (8.4-10.2) mg/dL CSF Glucose 136 H (40-70) mg/dL CSF Total Protein 116 H (12-60) mg/dL 03/07/21 03/08/21 03/08/21 Range/Units 22:57 03:20 03:20 WBC 23.8 H (3.8-10.6) k/uL RBC 3.43 L (4.30-5.90) m/uL Hgb 11.9 L (13.0-17.5) gm/dL Hct 35.7 L (39.0-53.0) % MCV 104.3 H (80.0-100.0) fL Plt Count 124 L (150-450) k/uL Neutrophils # 22.3 H (1.3-7.7) k/uL Lymphocytes # 0.6 L (1.0-4.8) k/uL ABG pH (7.35-7.45) ABG pO2 (83-108) mmHg ABG Total CO2 (19-24) mmol/L ABG O2 Saturation (94-97) % Sodium 133 L (137-145) mmol/L Carbon Dioxide 21 L (22-30) mmol/L BUN 29 H (9-20) mg/dL Glucose 161 H (74-99) mg/dL POC Glucose (mg/dL) 145 H (75-99) mg/dL Calcium 7.3 L (8.4-10.2) mg/dL CSF Glucose (40-70) mg/dL CSF Total Protein (12-60) mg/dL 03/08/21 03/08/21 Range/Units 05:36 06:41 WBC (3.8-10.6) k/uL RBC (4.30-5.90) m/uL Hgb (13.0-17.5) gm/dL Hct (39.0-53.0) % MCV (80.0-100.0) fL Plt Count (150-450) k/uL Neutrophils # (1.3-7.7) k/uL Lymphocytes # (1.0-4.8) k/uL ABG pH 7.34 L (7.35-7.45) ABG pO2 144 H (83-108) mmHg ABG Total CO2 25 H (19-24) mmol/L ABG O2 Saturation 99.5 H (94-97) % Sodium (137-145) mmol/L Carbon Dioxide (22-30) mmol/L BUN (9-20) mg/dL Glucose (74-99) mg/dL POC Glucose (mg/dL) 146 H (75-99) mg/dL Calcium (8.4-10.2) mg/dL CSF Glucose (40-70) mg/dL CSF Total Protein (12-60) mg/dL Microbiology - Last 24 Hours (Table) 03/07/21 10:20 CSF Gram Stain - Preliminary Cerebral Spinal Fluid CSF Culture - Preliminary 03/06/21 11:37 Blood Culture - Preliminary Blood No Growth after 24 hours 03/06/21 11:20 Blood Culture Gram Stain - Preliminary Blood 03/06/21 17:20 Gram Stain - Preliminary Sputum Sputum Culture - Preliminary 03/06/21 11:20 Blood Culture - Final Blood Assessment and Plan Assessment: Acute hypoxic respiratory failure secondary to sepsis and septic shock, mechanical ventilator-dependent. Respiratory arrest, CPR secondary to the above. Hypotension, pressor support-dependent secondary to the above Glioblastoma multiforme with motor aphasia. Status post resection at [facility] 02/05/2021. 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 Maintain droplet isolation. Continue on antibiotics of Zyvox, Rocephin as per ID. Continue to follow blood cultures, blood culture Gram stain and final CSF. Seizure precautions with empiric Keppra. Oncology consulted. Nutritional support via enteral feeding. ICU management as per rn document improvement specialist. Follow closely with multiple consults. Prognosis guarded given multiple complex medical issues. The impression and plan of care has been dictated as directed. : I performed a history and examination of this patient, discussed the same with the dictator. I agree with the dictator's note ,documented as a scribe. Any additional findings or plans will be noted.
[2021-03-08] MEDS ORDERED: PIPERACILLIN-TAZOBACTAM 3.375 GM in SODIUM CHLORIDE 0.9% 100 ML IVPB SCH (16:30)
[2021-03-08] MEDS: SODIUM CHLORIDE 0.9% 150 ML with VASOPRESSIN 60 UNIT IV SCH ×2 (16:46)
--- NOTE | 2021-03-08 18:16 | CT ---
EXAMINATION TYPE: CT lower extremity RT wo con DATE OF EXAM: 03/08/2021 COMPARISON: None HISTORY: RIGHT LOWER LEG ADEMA, SWELLING CT DLP: 471.3 mGycm Automated exposure control for dose reduction was used. Images obtained from the proximal femur to the bottom of the right ankle without contrast. There is right hip prosthesis. Femoral component appears in good position in the visualized proximal femur. There is osteopenia. The knee joint appears anatomic. Tibia and fibula appear intact. There is 2 melinda fusing the ankle joint. The calcaneus appears intact. Subtalar joint is anatomic. There is some vascular calcification in the lower leg. There is femoral and popliteal and tibial artery calci fication. There is some narrowing of the medial joint space of the knee. I see no focal bone destruct ion. There is diffuse subcutaneous edema around the entire lower leg and foot and ankle. There is atrophy of the thigh and calf muscles. There is mild subcutaneous edema around the thigh. I see no drainable fluid collection. IMPRESSION: Diffuse subcutaneous edema around the leg including the foot and ankle. Previous surgery. No fracture seen. No sign of osteomyelitis. Atherosclerotic vascular disease.
[2021-03-08 18:45] LABS: Glucose,Whole Blood 129 mg/dL (75-99)
--- NOTE | 2021-03-08 23:15 | PN ---
PROGRESS NOTE DATE OF SERVICE: 03/08/2021 REASON FOR FOLLOWUP: Gram-negative bacteremia and right lower extremity cellulitis. INTERVAL HISTORY: Patient was seen on rounds this afternoon. The patient has been afebrile. The patient is hemodynamically stable requiring pressor support. FiO2 is currently stable at 40%. No significant purulent secretions through the ET. The patient was noted to have some mottling around his right leg after the compression was taken off. Did have some blistering and superficial ulceration. PHYSICAL EXAMINATION: Blood pressure 109/58 with a pulse of 85, temperature 97.9. He is 97% on 40% FiO2. General description is an elderly male lying in bed in no distress. Respiratory system: Unlabored breathing, clear to auscultation anteriorly. Heart S1, S2. Regular rate and rhythm. Abdomen soft, no tenderness. Right leg with significant mottling. Superficial ulceration and some clear drainage. LABS: Hemoglobin is 11.1, white count 23.8, BUN of 29, creatinine 0.68. CT of the right lower extremity did not show evidence of necrotizing infection. Blood culture has been switched to gram-negative bacilli from initial gram negative diplococci. DIAGNOSTIC IMPRESSION AND PLAN: Patient with acute respiratory failure, multifactorial. This patient did have a Gram- negative bacteremia, concern for pneumonia and right lower extremity cellulitis. CT did not show any evidence of necrotizing infection. Antibiotic adjusted to cefepime 2 grams q.8 hours. We will nicolette the area of the of the right leg. Local wound care with dry Aquacel dressing, mild Kerlix dressing. This was explained to the RN. was at the bedside earlier and all her questions and concerns were answered. MMODL / IJN: [id number] /
[2021-03-08] MEDS: CEFEPIME 2 GM in SODIUM CHLORIDE 0.9% 100 ML IVPB SCH (23:38)
[2021-03-08 23:45] LABS: Glucose,Whole Blood 151 mg/dL (75-99)
[2021-03-09 04:44] LABS: Basophils % (A) 0 %; Eosinophils % (A) 0 %; HCT 33.9 % (39.0-53.0); HGB 11.3 gm/dL (13.0-17.5); Lymphocytes # (A) 0.6 k/uL (1.0-4.8); Lymphocytes % (A) 2 %; MCH 34.6 pg (25.0-35.0); MCHC 33.3 g/dL (31.0-37.0); MCV 103.9 fL (80.0-100.0); Macrocytosis Moderate; Mean Platelet Volume 8.5; Monocytes # (A) 0.6 k/uL (0-1.0); Monocytes % (A) 2 %; Neutrophils # (A) 21.7 k/uL (1.3-7.7); Neutrophils % (A) 94 %; Platelet Count 108 k/uL (150-450); RBC 3.26 m/uL (4.30-5.90); RDW 15.4 % (11.5-15.5)
[2021-03-09 05:08] LABS: ALT 87 U/L (4-49); AST 53 U/L (17-59); African American GFR (CKD) >90 (>60 ml/min/1.73 sqM); Albumin 2.3 g/dL (3.5-5.0); Alkaline Phosphatase 176 U/L (38-126); Anion Gap 4 mmol/L; Blood Urea Nitrogen 17 mg/dL (9-20); Calcium 7.7 mg/dL (8.4-10.2); Carbon Dioxide 24 mmol/L (22-30); Chloride 113 mmol/L (98-107); Glucose 147 mg/dL (74-99); Non-African American GFR(CKD) >90 (>60 ml/min/1.73 sqM); Potassium 3.5 mmol/L (3.5-5.1); Sodium 141 mmol/L (137-145); Total Bilirubin 0.3 mg/dL (0.2-1.3); Total Protein 4.4 g/dL (6.3-8.2)
[2021-03-09] MEDS ORDERED: Potassium Replacement Protocol 1 EACH MISC MISCELLANE PRN (05:21)
[2021-03-09] MEDS: POTASSIUM BICARBONATE/CIT AC 20 MEQ TABLET.EFF NG-TUBE SCH ×2 (05:54→06:30)
[2021-03-09 05:56] LABS: Glucose,Whole Blood 147 mg/dL (75-99)
[2021-03-09] MEDS: SODIUM CHLORIDE 0.9% 1,000 ML IV SCH ×2 (05:57→18:40)
[2021-03-09] MEDS: INSULIN ASPART (NovoLOG) 100 UNIT/ML VIAL SQ SCH ×3 (05:57→18:17)
[2021-03-09 06:09] LABS: ABG Base Excess 0.6 mmol/L; ABG HCO3 25 mmol/L (21-25); ABG PCO2 44 mmHg (35-45); ABG PH 7.38 (7.35-7.45); ABG PO2 137 mmHg (83-108); Allen Test Performed? Yes
[2021-03-09] MEDS: IPRATROPIUM-ALBUTEROL 3 ML NEB INHALATION SCH ×4 (07:47→19:20)
[2021-03-09] MEDS: HYDROCORTISONE SUCCINATE 100 MG/2 ML VIAL IV SCH ×2 (08:58→18:39)
[2021-03-09] MEDS: CEFEPIME 2 GM in SODIUM CHLORIDE 0.9% 100 ML IVPB SCH ×2 (08:58→18:39)
[2021-03-09] MEDS: ENOXAPARIN 40 MG/0.4 ML SYRINGE SQ SCH (08:58)
[2021-03-09] MEDS: THIAMINE 100 MG in SODIUM CHLORIDE 0.9% 50 ML IVPB SCH (08:58)
[2021-03-09] MEDS: CHLORHEXIDINE GLUCONATE 15 ML CUP MUCOUS MEM SCH ×2 (08:58→20:50)
[2021-03-09] MEDS: levETIRAcetam IV 500 MG in SODIUM CHLORIDE 0.9% 100 ML IVPB SCH ×2 (08:59→20:51)
[2021-03-09] MEDS: PANTOPRAZOLE 40 MG/10 ML VIAL IVP SCH ×2 (08:59→20:50)
[2021-03-09 11:56] LABS: Glucose,Whole Blood 140 mg/dL (75-99)
--- NOTE | 2021-03-09 12:28 | XR ---
EXAMINATION TYPE: XR chest 1V portable DATE OF EXAM: 03/09/2021 COMPARISON: 03/08/2021 INDICATION: Tube placement TECHNIQUE: Single frontal view of the chest is obtained. FINDINGS: The heart size is normal. The pulmonary vasculature is normal. Right lower lobe consolidation is present. Minimal bilateral pleural effusions are present. Findings may be worsening over the interval. Endotracheal tube tip is above the ralf. Nasogastric tube transverses the thorax. IMPRESSION: 1. Worsening right lower lobe infiltrate. Correlate for atelectasis and pneumonia. 2. Small bilateral pleural effusions. 3. Lines and catheters discussed above.
--- NOTE | 2021-03-09 13:33 | P.PN ---
Subjective Progress Note Date: 03/09/21 Principal diagnosis: Acute hypoxic respiratory failure secondary to sepsis/septic shock This is a 65-year-old white male with history of glioblastoma multiform, patient is status post resection on 02/05/2021. His surgery was done at [facility], patient sustained residual aphasia, supposedly the patient received one chemotherapy the day prior to presentation. I'm not certain that the patient did receive radiation therapy however on the chart the patient is se chip aRmos/radiation oncologist. Patient came into the ER on 03/06/2021, and he was complaining of 1 day history of increased shortness of breath and generalized fatigue and weakness. According to the ER physician, patient was being transferred to trauma 1 for central line placement since he was hypotensive upon his initial presentation, and was not improving with fluids, patient developed sudden episode of bradycardia, shallow breathing, and he went on to full blown respiratory failure. CPR was done for 3 minutes, patient was intubated, received epinephrine 2 with return of spontaneous circulation. Patient was eventually transferred to the ICU on pressors in the form of norepinephrine, high dose, when I was made aware of this, I added vasopressin. And recommended more fluids to be given. Patient was reevaluated today, and he is on assist control rate of 14 which I increased to 16 volume 450 FiO2 50% and I cut it down to 45% and PEEP of 5. ABG showed a pO2 of 136 pCO2 of 39 pH of 7.29. Patient is on norepinephrine at 0.28 mcg/kg/m, vasopressin at 0.03 units per minutes. He is on propofol at 40 g which I increased to 75, and IV fluids remains at 1 50 mL per hour in the form of 0.9 normal saline. Patient had low-grade fever at night with a temp of 100. Blood cultures are positive for gram-negative diplococci. Patient received Zithromax Zosyn and Zyvox, and considering his gram-negative diplococci in the blood, I have basically concerned about the possibility of Neisseria meningitides, and I'm recommending a lumbar puncture, I'm also recommending patient to go on Rocephin at high dose. He will be placed on droplet isolation for presumptive meningitis, and a lumbar puncture would be done later today. A CT of the brain is also pending. Considering his low blood pressure yesterday, I recommended hydrocortisone and he is on 100 mg of hydrocortisone IV push every 8 hours, today I cut it down to 50 every 8. Labs today showed leukocytosis with WBC of 23.7 hemoglobin is 13.3. Lactic acid is down to 2.8. Liver enzymes are noted to be elevated with elevated AST to 57 ALT [address] of the brain this morning showed hypodensity in the posterior left ta radiata of intermediate age, chronic vascular ischemic changes, postsurgical changes, and the radiologist raised the possibility of recurrent mass. Recommended MRI. There is also atrophy and postsurgical changes Patient was reevaluated today on 03/08/2021, remains in the ICU, intubated and mechanically ventilated. Patient is on assist control rate of 16, volume 450 FiO2 45% PEEP of 5. ABG showed a pO2 of 144 pCO2 45 pH of 7.35 hence his FiO2 was decreased down to 40%. Chest x-ray is showing evidence of developing bibasilar infiltrates, atelectasis, and there is a small right-sided pleural effusion. Patient remains on multiple drips including norepinephrine at 0.18 mcg/kg/m, he is on vasopressin at 0.03, propofol at 55 mcg/kg/m, IV fluid 0.9 normal saline at 13 0 mL per hour and on vital hp at 13 mL per hour. The Gram stain on the spinal fluid is negative. Blood cultures so far remain negative. His spinal fluid showed slightly elevated glucose and slightly elevated protein. Patient remains empirically on Rocephin and Zyvox. We added today HSV PCR to spinal fluid. Patient seems to be comfortable on mechanical ventilation, and we will address possibly a sedation holiday today, and possibly address mental status of possible. However considering the patient is still on multiple pressors may not be able to address weaning today yet WBC count today is 23.8 hemoglobin is 11.9. Electrolytes are normal renal profile is normal. Blood cultures and spinal fluid cultures are pending Patient was reevaluated today on 03/09/2021, remains in the ICU, intubated and mechanically ventilated. Patient is on assist control rate of 16 per volume 450, FiO2 40% PEEP of 5. Patient had an ABG that showed pO2 of 137 pCO2 44 pH of 7.3. Remains on propofol at 50 mcg/kg/m, he is also on norepinephrine at 0.04 mcg/kg/m, off vasopressin, IV fluid of 0.9 normal saline at 75 mL per hour. Apparently the patient was seen yesterday by infectious disease, and he raised the possibility of necrotizing fasciitis, and I am not certain whether this is truly necrotizing fasciitis or just cellulitis. If this is a truly necrotizing fasciitis, patient has to be seen by general surgery or even by orthopedics, may have to consider surgical intervention if this is truly necrotizing fasciitis, however my experience with cases of necrotizing fasciitis, they have always ended up being transferred to a tertiary care center as I have not seen any of our surgeons performing surgeries on necrotizing fasciitis cases. However in the meantime I will go ahead and recommended surgical consultation with general surgery vascular surgery and orthopedics. And if they are all on the same page, patient may have to be considered for transfer to a tertiary care center or possibly just continue antibiotics. That CT of the leg showed mostly evidence of swelling and cellulitis, but did not mention necrotizing fasciitis findings, no air noted in the subcutaneous and deep tissue. Patient remains on antibiotics, infectious disease is addressing the antibiotics, and the blood cultures have been negative so far. Spinal fluid cultures have been negative so far. The initial Gram stain that was noted from the blood showing gram-negative diplococci, seems to be probably a false positive Gram stain, since the cultures remain negative. At any rate on culturing the right lower extremity today, and I'm recommending different surgical consultations. WBC count remains elevated at 23.0 hemoglobin is 11.3. Basic metabolic profile is normal. Pro-calcitonin is 8.60. Chest x-ray showed bilateral patchy airspace disease especially in the right lower lobe which has developed since admission. Possibility of underlying pneumonia or aspiration pneumonia is very likely. Again his antibiotics have been changed a few times by infectious disease on the case, and I'm letting the infectious disease physician handled antibiotics accordingly. Objective - Vital Signs Vital signs: Vital Signs Temp 98.1 F 03/09/21 12:00 Pulse 73 03/09/21 12:00 Resp 16 03/09/21 12:00 BP 78/56 03/09/21 12:00 Pulse Ox 98 03/09/21 12:00 Intake & Output 03/08/21 03/09/21 03/09/21 18:59 06:59 18:59 Intake Total 2032.032 1510.384 706.791 Output Total 1710 1230 180 Balance 322.032 280.384 526.791 Weight 93.7 kg 91.8 kg Intake: IV 1568 1036 512 Linezolid 600 mg In 300 Dextrose/Water 1 300ml. bag @ 150 mls/hr IVPB Q12H MARIO Rx#:[id number] Piperacillin-Tazobactam 3 100 .375 gm In Sodium Chloride 0.9% 100 ml @ 25 mls/hr IVPB Q8HR MARIO Rx# :[id number] Pressure Bag 33 36 12 Sodium Chloride 0.9% 1, 935 900 300 000 ml @ 75 mls/hr IV . [id number] MARIO Rx#:[id number] Thiamine 100 mg In Sodium 50 50 Chloride 0.9% 50 ml @ 100 mls/hr IVPB DAILY MARIO Rx#:[id number] cefTRIAXone 2 gm In 50 50 Sodium Chloride 0.9% 50 ml @ 100 mls/hr IVPB Q12HR MARIO Rx#:[id number] levETIRAcetam IV 500 mg 100 100 100 In Sodium Chloride 0.9% 100 ml @ 400 mls/hr IVPB Q12HR MAIRO Rx#:[id number] Intake, IV Titration 231.032 228.384 99.791 Amount Norepinephrine 32 mg In 77.837 69.681 Sodium Chloride 0.9% 218 ml @ 0.05 MCG/KG/MIN 1. 967 mls/hr IV .Q24H MARIO Rx#:[id number] propofoL 1,000 mg In 153.195 158.703 99.791 Empty Bag 1 bag @ Titrate IV .Q0M MARIO Rx#: [id number] Tube Feeding 143 156 65 Other 90 90 30 Output: Urine 1710 1230 180 Other: Voiding Method Indwelling Catheter Indwelling Catheter # Bowel Movements 1 1 ABP, PAP, CO, CI - Last Documented Arterial Blood Pressure 98/56 - Exam Physical Exam: Revealed a 65-year-old white male in no distress, sedated with propofol. patient is intubated and mechanically ventilated. Head: Atraumatic, normocephalic, there is however a scar over the left hemisphere/temporal frontal region/surgical. Recent craniotomy. HEENT:[Neck is supple.] [No neck masses.] [No thyromegaly.] [No JVD.] Orogastric tube and endotracheal tube are intact. Chest: [Symmetrical chest expansion, good breath sound bilaterally , minimal crackles at the right base. Cardiac Exam: [Normal S1 and S2, no S3 gallop, no murmur.] Abdomen: [Soft, nontender, no megaly, no rebound, no guarding, normal bowel sounds.] Extremities: Significant erythema and ecchymosis noted in the right lower extremity, foot remains cold. And diminished pulses bilaterally. Neurological Exam: Cannot fully assess, patient is sedated on propofol, Psychiatric: Could not assess. Skin: Mostly changes noted in the right lower extremity, supposedly chronic in nature. Redness with ecchymosis, - Labs CBC & Chem 7: 03/09/21 04:30 03/09/21 04:30 Labs: Abnormal Lab Results - Last 24 Hours (Table) 03/08/21 03/08/21 03/09/21 Range/Units 18:41 23:42 04:30 WBC (3.8-10.6) k/uL RBC (4.30-5.90) m/uL Hgb (13.0-17.5) gm/dL Hct (39.0-53.0) % MCV (80.0-100.0) fL Plt Count (150-450) k/uL Neutrophils # (1.3-7.7) k/uL Lymphocytes # (1.0-4.8) k/uL ABG pO2 (83-108) mmHg ABG O2 Saturation (94-97) % Chloride (98-107) mmol/L Creatinine (0.66-1.25) mg/dL Glucose (74-99) mg/dL POC Glucose (mg/dL) 129 H 151 H (75-99) mg/dL Calcium (8.4-10.2) mg/dL ALT (4-49) U/L Alkaline Phosphatase (38-126) U/L C-Reactive Protein (<1.0) mg/dL Total Protein (6.3-8.2) g/dL Albumin (3.5-5.0) g/dL Procalcitonin 8.60 H (0.02-0.09) ng/mL 03/09/21 03/09/21 03/09/21 Range/Units 04:30 04:30 04:30 WBC 23.0 H (3.8-10.6) k/uL RBC 3.26 L (4.30-5.90) m/uL Hgb 11.3 L (13.0-17.5) gm/dL Hct 33.9 L (39.0-53.0) % MCV 103.9 H (80.0-100.0) fL Plt Count 108 L (150-450) k/uL Neutrophils # 21.7 H (1.3-7.7) k/uL Lymphocytes # 0.6 L (1.0-4.8) k/uL ABG pO2 (83-108) mmHg ABG O2 Saturation (94-97) % Chloride 113 H (98-107) mmol/L Creatinine 0.50 L (0.66-1.25) mg/dL Glucose 147 H (74-99) mg/dL POC Glucose (mg/dL) (75-99) mg/dL Calcium 7.7 L (8.4-10.2) mg/dL ALT 87 H (4-49) U/L Alkaline Phosphatase 176 H (38-126) U/L C-Reactive Protein 37.4 H (<1.0) mg/dL Total Protein 4.4 L (6.3-8.2) g/dL Albumin 2.3 L (3.5-5.0) g/dL Procalcitonin (0.02-0.09) ng/mL 03/09/21 03/09/21 03/09/21 Range/Units 05:45 05:55 11:54 WBC (3.8-10.6) k/uL RBC (4.30-5.90) m/uL Hgb (13.0-17.5) gm/dL Hct (39.0-53.0) % MCV (80.0-100.0) fL Plt Count (150-450) k/uL Neutrophils # (1.3-7.7) k/uL Lymphocytes # (1.0-4.8) k/uL ABG pO2 137 H (83-108) mmHg ABG O2 Saturation 100.0 H (94-97) % Chloride (98-107) mmol/L Creatinine (0.66-1.25) mg/dL Glucose (74-99) mg/dL POC Glucose (mg/dL) 147 H 140 H (75-99) mg/dL Calcium (8.4-10.2) mg/dL ALT (4-49) U/L Alkaline Phosphatase (38-126) U/L C-Reactive Protein (<1.0) mg/dL Total Protein (6.3-8.2) g/dL Albumin (3.5-5.0) g/dL Procalcitonin (0.02-0.09) ng/mL Microbiology - Last 24 Hours (Table) 03/07/21 10:20 CSF Gram Stain - Preliminary Cerebral Spinal Fluid CSF Culture - Preliminary 03/06/21 11:37 Blood Culture - Preliminary Blood No Growth after 48 hours 03/06/21 11:20 Blood Culture Gram Stain - Preliminary Blood 03/06/21 17:20 Gram Stain - Final Sputum Sputum Culture - Final Assessment and Plan Assessment: Impression: Acute hypoxic story failure secondary to sepsis and septic shock. In-hospital cardiac arrest requiring brief CPR and epinephrine until return of spontaneous circulation. History of glioblastoma multiforme, status post resection on 02/05/2021 at [facility] in [place]. 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 Possible meningitis, lumbar puncture is pending. Gram-negative diplococci bacteremia, differential diagnoses includes Neisseria meningitides and Neisseria gonorrhea. Final cultures are negative. Hence, this could be a false-positive Gram stain. Right lower extremity cellulitis, possible necrotizing fasciitis, and that is to be addressed by surgery. I initially recommended general surgery consultation, however the general surgeon is recommending orthopedics evaluation. Acute right lower lobe and left lower lobe pneumonia, suspect aspiration pneumonia. Recommendation: Surgical/orthopedic consultation for possible necrotizing fasciitis of right lower extremity. Cultures obtained from the skin of the right lower extremity. Continue ventilatory support. Continue hemodynamic support. Patient is now on a lower dose of norepinephrine and his of vasopressin. Continue nutritional support/enteral feeding. Continue antibiotics/as per infectious disease on the case. Reviewedreport of his lumbar puncture. Basically nondiagnostic. Continue seizure medications empirically. Taper down hydrocortisone. GI and DVT prophylaxis. Prognosis is extremely guarded Critical care time is over 30 minutes I will recommend tertiary care referral if surgery on the case feel the same. Will continue to follow closely. Time with Patient: Greater than 30
--- NOTE | 2021-03-09 14:00 | P.GSCN ---
History of Present Illness Consult date: 03/09/21 History of present illness: Marcelo is a 65-year-old male with a history of glioblastoma with recent resection in early August. He also has a history of hip fracture and surgery back in August of this year. He had been doing well convalescing from his brain surgery and was discharged home in late January. He was having issues with swelling of his lower extremities since the time of his hip surgery. His states that the coloration of his leg at that time had a lot of ecchymotic appearance that had resolved. After being at home, earlier this week she began having issues with increasing shortness of breath and fatigue.. She states that earlier this week also, the visiting nursing had taken off a dressing and some petechiae on the posterior portion of his right leg. It has significantly gotten worse into more ecchymotic type appearance. Upon arrival here in the ER he was hypotensive and bradycardic with full-blown respiratory failure undergoing CPR with Rosc and initiated on pressor support. He was found to have blood cultures with gram-negative cocci and started on antibiotic therapy. He is undergone a lumbar puncture to rule out meningitis. He has been on IV steroids as well consultation was requested for possible infection of the right lower extremity Past Medical History Past Medical History: Eye Disorder, Hyperlipidemia Additional Past Medical History / Comment(s): GOUT, HX DIVERTICULITIS, History of Any Multi-Drug Resistant Organisms: None Reported Past Surgical History: Hernia Repair, Orthopedic Surgery Additional Past Surgical History / Comment(s): SX FOR UNDESCENDED TESTICLES, ZION CATARACTS, RT KNEE SX, RT ANKLE SX, METAL IN AND NOW REMOVED. Stage 4 glioblastoma removal Past Anesthesia/Blood Transfusion Reactions: No Reported Reaction Past Psychological History: Depression Smoking Status: Current every day smoker Past Alcohol Use History: Occasional Additional Past Alcohol Use History / Comment(s): STARTED SMOKING AGE 16 (1972) SMOKES 1PPD Past Drug Use History: None Reported Medications and Allergies Home Medications Medication Instructions Recorded Confirmed Type Folic Acid 1 mg PO DAILY 01/25/16 03/06/21 History Simvastatin [Zocor] 40 mg PO HS 01/25/16 03/06/21 History Vit C/E/Zn/Coppr/Lutein/Zeaxan 1 tab PO AC-BID 01/25/16 03/06/21 History [Preservision Areds 2 Softgel] allopurinoL [Zyloprim] 100 mg PO DAILY 01/25/16 03/06/21 History buPROPion [Wellbutrin] 150 mg PO BID 01/25/16 03/06/21 History Bumetanide [BUMEX] 2 mg PO DAILY 03/06/21 03/06/21 History Dorzolamide 2% [Trusopt 2%] 1 drop BOTH EYES BID 03/06/21 03/06/21 History Fluticasone Nasal [place] [Flonase 1 spr EA NOSTRIL BID 03/06/21 03/06/21 History Nasal [place]] Latanoprost [Xalatan 0.005%] 1 drop BOTH EYES HS 03/06/21 03/06/21 History Magnesium Oxide [Mag-Ox] 500 mg PO HS 03/06/21 03/06/21 History Meclizine [Antivert] 25 mg PO BID 03/06/21 03/06/21 History Meloxicam [Mobic] 15 mg PO AC-SUPPER 03/06/21 03/06/21 History Tamsulosin [Flomax] 0.4 mg PO AC-SUPPER 03/06/21 03/06/21 History Temozolomide 140 mg PO DIRECTED 03/06/21 03/06/21 History Tiotropium Glenn [Spiriva 2 puff INHALATION RT-DAILY 03/06/21 03/06/21 History Respimat] dexAMETHasone [Dexamethasone] 2 mg PO DAILY 03/06/21 03/06/21 History levETIRAcetam [Keppra] 500 mg PO Q12H 03/06/21 03/06/21 History ondansetron HCL [Zofran] 8 mg PO Q6H PRN 03/06/21 03/06/21 History Allergies Allergy/AdvReac Type Severity Reaction Status Date / Time acetaminophen [From Vicodin] Allergy Itching Verified 01/29/16 09:35 hydrocodone bitartrate Allergy Itching Verified 01/29/16 09:35 [From Vicodin] Surgical - Exam Vital Signs Pulse Resp Pulse Ox 127 H 24 95 03/06/21 10:32 03/06/21 10:32 03/06/21 10:32 Gen. is an intubated sedated male in no acute distress. HEENT is normocephalic. Left parietal surgical scar healing well. Heart appears regular this time. Lungs with respiratory mechanical sounds, slightly coarse. Abdomen is soft, mildly distended, no apparent tenderness. Extremities show no clubbing. He has edema of all 4 extremity. The right lower extremity has areas of superficial cyanotic changes that are patchy throughout with bullae. No crepitus. No appreciable purulent drainage. Multiphasic phallus pedis signal. Monophasic posterior tibial. Adequate capillary refill. Results Computed tomography scan of the right lower extremity is reviewed. No evidence of necrotizing infection. No emphysema to the tissues. No fluid collections. - Labs 03/09/21 04:30 03/09/21 04:30 Abnormal Lab Results - Last 24 Hours (Table) 03/08/21 03/08/21 03/09/21 Range/Units 18:41 23:42 04:30 WBC (3.8-10.6) k/uL RBC (4.30-5.90) m/uL Hgb (13.0-17.5) gm/dL Hct (39.0-53.0) % MCV (80.0-100.0) fL Plt Count (150-450) k/uL Neutrophils # (1.3-7.7) k/uL Lymphocytes # (1.0-4.8) k/uL ABG pO2 (83-108) mmHg ABG O2 Saturation (94-97) % Chloride (98-107) mmol/L Creatinine (0.66-1.25) mg/dL Glucose (74-99) mg/dL POC Glucose (mg/dL) 129 H 151 H (75-99) mg/dL Calcium (8.4-10.2) mg/dL ALT (4-49) U/L Alkaline Phosphatase (38-126) U/L C-Reactive Protein (<1.0) mg/dL Total Protein (6.3-8.2) g/dL Albumin (3.5-5.0) g/dL Procalcitonin 8.60 H (0.02-0.09) ng/mL 03/09/21 03/09/21 03/09/21 Range/Units 04:30 04:30 04:30 WBC 23.0 H (3.8-10.6) k/uL RBC 3.26 L (4.30-5.90) m/uL Hgb 11.3 L (13.0-17.5) gm/dL Hct 33.9 L (39.0-53.0) % MCV 103.9 H (80.0-100.0) fL Plt Count 108 L (150-450) k/uL Neutrophils # 21.7 H (1.3-7.7) k/uL Lymphocytes # 0.6 L (1.0-4.8) k/uL ABG pO2 (83-108) mmHg ABG O2 Saturation (94-97) % Chloride 113 H (98-107) mmol/L Creatinine 0.50 L (0.66-1.25) mg/dL Glucose 147 H (74-99) mg/dL POC Glucose (mg/dL) (75-99) mg/dL Calcium 7.7 L (8.4-10.2) mg/dL ALT 87 H (4-49) U/L Alkaline Phosphatase 176 H (38-126) U/L C-Reactive Protein 37.4 H (<1.0) mg/dL Total Protein 4.4 L (6.3-8.2) g/dL Albumin 2.3 L (3.5-5.0) g/dL Procalcitonin (0.02-0.09) ng/mL 03/09/21 03/09/21 03/09/21 Range/Units 05:45 05:55 11:54 WBC (3.8-10.6) k/uL RBC (4.30-5.90) m/uL Hgb (13.0-17.5) gm/dL Hct (39.0-53.0) % MCV (80.0-100.0) fL Plt Count (150-450) k/uL Neutrophils # (1.3-7.7) k/uL Lymphocytes # (1.0-4.8) k/uL ABG pO2 137 H (83-108) mmHg ABG O2 Saturation 100.0 H (94-97) % Chloride (98-107) mmol/L Creatinine (0.66-1.25) mg/dL Glucose (74-99) mg/dL POC Glucose (mg/dL) 147 H 140 H (75-99) mg/dL Calcium (8.4-10.2) mg/dL ALT (4-49) U/L Alkaline Phosphatase (38-126) U/L C-Reactive Protein (<1.0) mg/dL Total Protein (6.3-8.2) g/dL Albumin (3.5-5.0) g/dL Procalcitonin (0.02-0.09) ng/mL Microbiology - Last 24 Hours (Table) 03/07/21 10:20 CSF Gram Stain - Preliminary Cerebral Spinal Fluid CSF Culture - Preliminary 03/06/21 11:37 Blood Culture - Preliminary Blood No Growth after 48 hours 03/06/21 11:20 Blood Culture Gram Stain - Preliminary Blood 03/06/21 17:20 Gram Stain - Final Sputum Sputum Culture - Final Diabetes panel 03/09/21 Range/Units 04:30 Sodium 141 (137-145) mmol/L Potassium 3.5 (3.5-5.1) mmol/L Chloride 113 H (98-107) mmol/L Carbon Dioxide 24 (22-30) mmol/L BUN 17 (9-20) mg/dL Creatinine 0.50 L (0.66-1.25) mg/dL Glucose 147 H (74-99) mg/dL Calcium 7.7 L (8.4-10.2) mg/dL AST 53 (17-59) U/L ALT 87 H (4-49) U/L Alkaline Phosphatase 176 H (38-126) U/L Total Protein 4.4 L (6.3-8.2) g/dL Albumin 2.3 L (3.5-5.0) g/dL Calcium panel 03/09/21 Range/Units 04:30 Calcium 7.7 L (8.4-10.2) mg/dL Albumin 2.3 L (3.5-5.0) g/dL Pituitary panel 03/09/21 Range/Units 04:30 Sodium 141 (137-145) mmol/L Potassium 3.5 (3.5-5.1) mmol/L Chloride 113 H (98-107) mmol/L Carbon Dioxide 24 (22-30) mmol/L BUN 17 (9-20) mg/dL Creatinine 0.50 L (0.66-1.25) mg/dL Glucose 147 H (74-99) mg/dL Calcium 7.7 L (8.4-10.2) mg/dL Adrenal panel 03/09/21 Range/Units 04:30 Sodium 141 (137-145) mmol/L Potassium 3.5 (3.5-5.1) mmol/L Chloride 113 H (98-107) mmol/L Carbon Dioxide 24 (22-30) mmol/L BUN 17 (9-20) mg/dL Creatinine 0.50 L (0.66-1.25) mg/dL Glucose 147 H (74-99) mg/dL Calcium 7.7 L (8.4-10.2) mg/dL Total Bilirubin 0.3 (0.2-1.3) mg/dL AST 53 (17-59) U/L ALT 87 H (4-49) U/L Alkaline Phosphatase 176 H (38-126) U/L Total Protein 4.4 L (6.3-8.2) g/dL Albumin 2.3 L (3.5-5.0) g/dL Assessment and Plan Assessment: Right lower extremity superficial wounds with skin sloughing A VDR F Gram-negative diplococci bacteremia Recent glioblastoma excision Plan: There is no evidence that this patient has a necrotizing infection to his lower extremity. I believe is likely related to the compression wraps and hypotensive episodes. Maintain simple dressing with Adaptic and Kerlix at this time. Con tinue to monitor. Elevated white count likely due to steroid. Continue investigation for bacteremia
--- NOTE | 2021-03-09 15:23 | P.GSCN ---
History of Present Illness Consult date: 03/09/21 History of present illness: CHIEF COMPLAINT: Right lower extremity cellulitis HISTORY OF PRESENT ILLNESS: The patient is a 65 year old male who 1 month ago was at outside institution at for excision of glioblastoma brain cancer. Patient presented to the emergency room 03/06/2021 in acute respiratory distress. He underwent cardiopulmonary resuscitation and has been in the ICU on a ventilator. He has neurological decline in deficits which neurology is following. During his hospitalization, patient found to have cellulitis and edema of the legs. General surgery is consulted for necrotizing fasciitis of the leg. History obtained per patient's chart and records as he is sedated and on the ventilator. is at bedside and gives additional history. Nurse also reports symptoms of skin changes occured recently in the last 3-days. reports she did not want transfer to [place] due to distance. PAST MEDICAL HISTORY: See list and reviewed PAST SURGICAL HISTORY: See list and reviewed MEDICATIONS: See list and reviewed ALLERGIES: See list and reviewed SOCIAL HISTORY: See list and reviewed FAMILY HISTORY: See list and reviewed REVIEW OF ORGAN SYSTEMS (obtained per chart): CONSTITUTIONAL: The patient presented with sepsis and fevers EYES: History of bilateral cataracts. History of eye disorder. HEENT: No difficulties with hearing. No nosebleeds. No difficulty swallowing. RESPIRATORY: Presented with dyspnea upon presentation to the emergency room. History of tobacco abuse disorder. History of chronic pulmonary disease. CARDIOVASCULAR: Has hyperlipidemia. During hospitalization underwent cardiopulmonary resuscitation for cardiac arrest. History of multiple extremity swelling GASTROINTESTINAL: History of diverticulitis. GENITOURINARY: Denies any blood in urine or increased urinary frequency. NEUROLOGICAL: History of glioblastoma with neurological sequelae status post resection MUSCULOSKELETAL: Has gout. SKIN: No current skin cancer. No rash. PSYCHIATRIC: History of depression. ENDOCRINE: No reports thyroid disorders. No report blood sugar glucose intolerance. HEME/LYMPHATIC: No reports lumps and bumps around the neck. No recent deep venous thrombosis. ALLERGY/IMMUNOLOGY: History of chemotherapy BREAST: No reports of breast lumps, pain or nipple discharge. PHYSICAL EXAM: VITALS: Reviewed CONSTITUTIONAL: Well developed and in no acute distress. EYES: Conjuctivae without sclera icterus. Extraocular movements grossly intact. HEAD, EARS, NOSE, THROAT: Moist buccal mucosa. NECK: No JV distention. No thyroidomegaly. RESPIRATORY: Mechanical ventilation. CARDIOVASCULAR: Regular rate and rhythm. Extremities without moderate edema. Palpable 2+ radial pulses. ABDOMEN: No peritonitis. MUSCULOSKELETAL: Nail and fingers with good capillary refill. Lower extremity at right lower leg cyanotic with purple skin below the knee. SKIN: Poor skin turgor right lower extremities. NEUROLOGIC: Cranial nerves II through XII grossly intact. No focal or lateralizing signs. PSYCH: Depressed mentation. CLINCAL LABS: Reviewed. WBC of 23,000 from 14,000 on admission. Creatinine no rmal 0.5. IMAGING: Independently reviewed CT of the lower extremity of the right leg demonstrates moderate edema of the subcutaneous tissues. No large gas or emphysema of the subcutaneous tissue. This is my independent interpretation. RADIOLOGY: Report reviewed was CT of the lower extremity, right leg confirms diffuse edema of the right lower extremity. ASSESSMENT: 1. Right lower extremity swelling with cyanosis 2. Glioblastoma stage IV of the brain 3. Sepsis 4. History of cardiopulmonary arrest and resuscitation PLAN: 1. Recommend orthopedic consultation with risk for compartment syndrome may be present. Assessment is limited as patient is sedated. 2. Recommend vascular consultation that has been noted. 3. Recommendations per vascular and ortho. Thank you for this kind consultation. Past Medical History Past Medical History: Eye Disorder, Hyperlipidemia Additional Past Medical History / Comment(s): GOUT, HX DIVERTICULITIS, History of Any Multi-Drug Resistant Organisms: None Reported Past Surgical History: Hernia Repair, Orthopedic Surgery Additional Past Surgical History / Comment(s): SX FOR UNDESCENDED TESTICLES, ZION CATARACTS, RT KNEE SX, RT ANKLE SX, METAL IN AND NOW REMOVED. Stage 4 glioblastoma removal Past Anesthesia/Blood Transfusion Reactions: No Reported Reaction Past Psychological History: Depression Smoking Status: Current every day smoker Past Alcohol Use History: Occasional Additional Past Alcohol Use History / Comment(s): STARTED SMOKING AGE 16 (1972) SMOKES 1PPD Past Drug Use History: None Reported Medications and Allergies Home Medications Medication Instructions Recorded Confirmed Type Folic Acid 1 mg PO DAILY 01/25/16 03/06/21 History Simvastatin [Zocor] 40 mg PO HS 01/25/16 03/06/21 History Vit C/E/Zn/Coppr/Lutein/Zeaxan 1 tab PO AC-BID 01/25/16 03/06/21 History [Preservision Areds 2 Softgel] allopurinoL [Zyloprim] 100 mg PO DAILY 01/25/16 03/06/21 History buPROPion [Wellbutrin] 150 mg PO BID 01/25/16 03/06/21 History Bumetanide [BUMEX] 2 mg PO DAILY 03/06/21 03/06/21 History Dorzolamide 2% [Trusopt 2%] 1 drop BOTH EYES BID 03/06/21 03/06/21 History Fluticasone Nasal [place] [Flonase 1 spr EA NOSTRIL BID 03/06/21 03/06/21 History Nasal [place]] Latanoprost [Xalatan 0.005%] 1 drop BOTH EYES HS 03/06/21 03/06/21 History Magnesium Oxide [Mag-Ox] 500 mg PO HS 03/06/21 03/06/21 History Meclizine [Antivert] 25 mg PO BID 03/06/21 03/06/21 History Meloxicam [Mobic] 15 mg PO AC-SUPPER 03/06/21 03/06/21 History Tamsulosin [Flomax] 0.4 mg PO AC-SUPPER 03/06/21 03/06/21 History Temozolomide 140 mg PO DIRECTED 03/06/21 03/06/21 History Tiotropium [place] [Spiriva 2 puff INHALATION RT-DAILY 03/06/21 03/06/21 History Respimat] dexAMETHasone [Dexamethasone] 2 mg PO DAILY 03/06/21 03/06/21 History levETIRAcetam [Keppra] 500 mg PO Q12H 03/06/21 03/06/21 History ondansetron HCL [Zofran] 8 mg PO Q6H PRN 03/06/21 03/06/21 History Allergies Allergy/AdvReac Type Severity Reaction Status Date / Time acetaminophen [From Vicodin] Allergy Itching Verified 01/29/16 09:35 hydrocodone bitartrate Allergy Itching Verified 01/29/16 09:35 [From Vicodin] Surgical - Exam Vital Signs Pulse Resp Pulse Ox 127 H 24 95 03/06/21 10:32 03/06/21 10:32 03/06/21 10:32 Results - Labs 03/09/21 04:30 03/09/21 04:30 Abnormal Lab Results - Last 24 Hours (Table) 03/08/21 03/08/21 03/09/21 Range/Units 18:41 23:42 04:30 WBC (3.8-10.6) k/uL RBC (4.30-5.90) m/uL Hgb (13.0-17.5) gm/dL Hct (39.0-53.0) % MCV (80.0-100.0) fL Plt Count (150-450) k/uL Neutrophils # (1.3-7.7) k/uL Lymphocytes # (1.0-4.8) k/uL ABG pO2 (83-108) mmHg ABG O2 Saturation (94-97) % Chloride (98-107) mmol/L Creatinine (0.66-1.25) mg/dL Glucose (74-99) mg/dL POC Glucose (mg/dL) 129 H 151 H (75-99) mg/dL Calcium (8.4-10.2) mg/dL ALT (4-49) U/L Alkaline Phosphatase (38-126) U/L C-Reactive Protein (<1.0) mg/dL Total Protein (6.3-8.2) g/dL Albumin (3.5-5.0) g/dL Procalcitonin 8.60 H (0.02-0.09) ng/mL 03/09/21 03/09/21 03/09/21 Range/Units 04:30 04:30 04:30 WBC 23.0 H (3.8-10.6) k/uL RBC 3.26 L (4.30-5.90) m/uL Hgb 11.3 L (13.0-17.5) gm/dL Hct 33.9 L (39.0-53.0) % MCV 103.9 H (80.0-100.0) fL Plt Count 108 L (150-450) k/uL Neutrophils # 21.7 H (1.3-7.7) k/uL Lymphocytes # 0.6 L (1.0-4.8) k/uL ABG pO2 (83-108) mmHg ABG O2 Saturation (94-97) % Chloride 113 H (98-107) mmol/L Creatinine 0.50 L (0.66-1.25) mg/dL Glucose 147 H (74-99) mg/dL POC Glucose (mg/dL) (75-99) mg/dL Calcium 7.7 L (8.4-10.2) mg/dL ALT 87 H (4-49) U/L Alkaline Phosphatase 176 H (38-126) U/L C-Reactive Protein 37.4 H (<1.0) mg/dL Total Protein 4.4 L (6.3-8.2) g/dL Albumin 2.3 L (3.5-5.0) g/dL Procalcitonin (0.02-0.09) ng/mL 03/09/21 03/09/21 03/09/21 Range/Units 05:45 05:55 11:54 WBC (3.8-10.6) k/uL RBC (4.30-5.90) m/uL Hgb (13.0-17.5) gm/dL Hct (39.0-53.0) % MCV (80.0-100.0) fL Plt Count (150-450) k/uL Neutrophils # (1.3-7.7) k/uL Lymphocytes # (1.0-4.8) k/uL ABG pO2 137 H (83-108) mmHg ABG O2 Saturation 100.0 H (94-97) % Chloride (98-107) mmol/L Creatinine (0.66-1.25) mg/dL Glucose (74-99) mg/dL POC Glucose (mg/dL) 147 H 140 H (75-99) mg/dL Calcium (8.4-10.2) mg/dL ALT (4-49) U/L Alkaline Phosphatase (38-126) U/L C-Reactive Protein (<1.0) mg/dL Total Protein (6.3-8.2) g/dL Albumin (3.5-5.0) g/dL Procalcitonin (0.02-0.09) ng/mL Microbiology - Last 24 Hours (Table) 03/07/21 10:20 CSF Gram Stain - Preliminary Cerebral Spinal Fluid CSF Culture - Preliminary 03/06/21 11:37 Blood Culture - Preliminary Blood No Growth after 48 hours 03/06/21 11:20 Blood Culture Gram Stain - Preliminary Blood 03/06/21 17:20 Gram Stain - Final Sputum Sputum Culture - Final Diabetes panel 03/09/21 Range/Units 04:30 Sodium 141 (137-145) mmol/L Potassium 3.5 (3.5-5.1) mmol/L Chloride 113 H (98-107) mmol/L Carbon Dioxide 24 (22-30) mmol/L BUN 17 (9-20) mg/dL Creatinine 0.50 L (0.66-1.25) mg/dL Glucose 147 H (74-99) mg/dL Calcium 7.7 L (8.4-10.2) mg/dL AST 53 (17-59) U/L ALT 87 H (4-49) U/L Alkaline Phosphatase 176 H (38-126) U/L Total Protein 4.4 L (6.3-8.2) g/dL Albumin 2.3 L (3.5-5.0) g/dL Calcium panel 03/09/21 Range/Units 04:30 Calcium 7.7 L (8.4-10.2) mg/dL Albumin 2.3 L (3.5-5.0) g/dL Pituitary panel 03/09/21 Range/Units 04:30 Sodium 141 (137-145) mmol/L Potassium 3.5 (3.5-5.1) mmol/L Chloride 113 H (98-107) mmol/L Carbon Dioxide 24 (22-30) mmol/L BUN 17 (9-20) mg/dL Creatinine 0.50 L (0.66-1.25) mg/dL Glucose 147 H (74-99) mg/dL Calcium 7.7 L (8.4-10.2) mg/dL Adrenal panel 03/09/21 Range/Units 04:30 Sodium 141 (137-145) mmol/L Potassium 3.5 (3.5-5.1) mmol/L Chloride 113 H (98-107) mmol/L Carbon Dioxide 24 (22-30) mmol/L BUN 17 (9-20) mg/dL Creatinine 0.50 L (0.66-1.25) mg/dL Glucose 147 H (74-99) mg/dL Calcium 7.7 L (8.4-10.2) mg/dL Total Bilirubin 0.3 (0.2-1.3) mg/dL AST 53 (17-59) U/L ALT 87 H (4-49) U/L Alkaline Phosphatase 176 H (38-126) U/L Total Protein 4.4 L (6.3-8.2) g/dL Albumin 2.3 L (3.5-5.0) g/dL
--- NOTE | 2021-03-09 15:52 | PN ---
PROGRESS NOTE DATE OF SERVICE: 03/09/2021 REASON FOR FOLLOWUP: Sepsis, pneumonia, bacteremia and right neck cellulitis. INTERVAL HISTORY: The patient is afebrile. The patient is hemodynamically stable. FiO2 is currently stable at 40%. No significant purulent secretions in the ET. No vomiting or diarrhea been reported. No worsening changes of the right lower extremity. PHYSICAL EXAMINATION: Blood pressure 123/70 with a pulse of 71, temperature is 98.1. He is 99% on 40% FiO2. General description is an elderly male lying in bed in no distress. Respiratory system: Unlabored breathing, decreased breath sounds at the base, no wheeze. Heart S1, S2. Regular rate and rhythm. Abdomen soft, no tenderness. Right leg did have some discoloration and superficial ulceration. No redness or drainage. LABS: Hemoglobin 11.1, white count 23, BUN of 7, creatinine 0.50. Blood culture still with Gram-negative bacilli. ID sensitivities pending. Sputum has been negative. Chest x- ray slight worsening of the right lower lobe pneumonia. DIAGNOSTIC IMPRESSION AND PLAN: Patient admitted to the hospital with sepsis, concern for possible aspiration pneumonia in this patient who did have a Gram-negative bacteremia with ID sensitivity still pending. Possible aspiration pneumonia. Patient is covered with cefepime. Also, some left right leg redness and ulceration, ( ) any deep infection. CT was negative. Patient to continue cefepime. at the bedside. Multiple questions were answered. MMODL / IJN: [id number] /
--- NOTE | 2021-03-09 16:45 | P.CNOR ---
History of Present Illness - HPI Consult date: 03/09/21 History of present illness: This is a 65 year-old male who is admitted for septic shock. Patient has a history of glioblastoma with resection. Patient also underwent surgery for hip fracture in August 2020. The patient's is at bedside and states that he has had skin issues and swelling to the right lower extremity off and on since he was discharged from the hospital in January 2021. The patient's states that they noticed a rash on the back of the right leg earlier this week which continues to progress. The patient's reports multiple areas that are blistering. Orthopedics is consulted to rule out necrotizing fasciitis. Review of Systems ROS unobtainable: due to endotracheal tube Past Medical History Past Medical History: Eye Disorder, Hyperlipidemia Additional Past Medical History / Comment(s): GOUT, HX DIVERTICULITIS, History of Any Multi-Drug Resistant Organisms: None Reported Past Surgical History: Hernia Repair, Orthopedic Surgery Additional Past Surgical History / Comment(s): SX FOR UNDESCENDED TESTICLES, ZION CATARACTS, RT KNEE SX, RT ANKLE SX, METAL IN AND NOW REMOVED. Stage 4 glioblastoma removal Past Anesthesia/Blood Transfusion Reactions: No Reported Reaction Past Psychological History: Depression Smoking Status: Current every day smoker Past Alcohol Use History: Occasional Additional Past Alcohol Use History / Comment(s): STARTED SMOKING AGE 16 (1972) SMOKES 1PPD Past Drug Use History: None Reported Medications and Allergies Home Medications Medication Instructions Recorded Confirmed Type Folic Acid 1 mg PO DAILY 01/25/16 03/06/21 History Simvastatin [Zocor] 40 mg PO HS 01/25/16 03/06/21 History Vit C/E/Zn/Coppr/Lutein/Zeaxan 1 tab PO AC-BID 01/25/16 03/06/21 History [Preservision Areds 2 Softgel] allopurinoL [Zyloprim] 100 mg PO DAILY 01/25/16 03/06/21 History buPROPion [Wellbutrin] 150 mg PO BID 01/25/16 03/06/21 History Bumetanide [BUMEX] 2 mg PO DAILY 03/06/21 03/06/21 History Dorzolamide 2% [Trusopt 2%] 1 drop BOTH EYES BID 03/06/21 03/06/21 History Fluticasone Nasal [place] [Flonase 1 spr EA NOSTRIL BID 03/06/21 03/06/21 History Nasal [place]] Latanoprost [Xalatan 0.005%] 1 drop BOTH EYES HS 03/06/21 03/06/21 History Magnesium Oxide [Mag-Ox] 500 mg PO HS 03/06/21 03/06/21 History Meclizine [Antivert] 25 mg PO BID 03/06/21 03/06/21 History Meloxicam [Mobic] 15 mg PO AC-SUPPER 03/06/21 03/06/21 History Tamsulosin [Flomax] 0.4 mg PO AC-SUPPER 03/06/21 03/06/21 History Temozolomide 140 mg PO DIRECTED 03/06/21 03/06/21 History Tiotropium [place] [Spiriva 2 puff INHALATION RT-DAILY 03/06/21 03/06/21 History Respimat] dexAMETHasone [Dexamethasone] 2 mg PO DAILY 03/06/21 03/06/21 History levETIRAcetam [Keppra] 500 mg PO Q12H 03/06/21 03/06/21 History ondansetron HCL [Zofran] 8 mg PO Q6H PRN 03/06/21 03/06/21 History Allergies Allergy/AdvReac Type Severity Reaction Status Date / Time acetaminophen [From Vicodin] Allergy Itching Verified 01/29/16 09:35 hydrocodone bitartrate Allergy Itching Verified 01/29/16 09:35 [From Vicodin] Physical Examination On exam the right lower extremity is swollen. There are multiple blisters present to the right lower extremity along with a dark purple rash. There is no purulent drainage. Results - Labs Labs: Abnormal Lab Results - Last 24 Hours (Table) 03/08/21 03/08/21 03/09/21 Range/Units 18:41 23:42 04:30 WBC (3.8-10.6) k/uL RBC (4.30-5.90) m/uL Hgb (13.0-17.5) gm/dL Hct (39.0-53.0) % MCV (80.0-100.0) fL Plt Count (150-450) k/uL Neutrophils # (1.3-7.7) k/uL Lymphocytes # (1.0-4.8) k/uL ABG pO2 (83-108) mmHg ABG O2 Saturation (94-97) % Chloride (98-107) mmol/L Creatinine (0.66-1.25) mg/dL Glucose (74-99) mg/dL POC Glucose (mg/dL) 129 H 151 H (75-99) mg/dL Calcium (8.4-10.2) mg/dL ALT (4-49) U/L Alkaline Phosphatase (38-126) U/L C-Reactive Protein (<1.0) mg/dL Total Protein (6.3-8.2) g/dL Albumin (3.5-5.0) g/dL Procalcitonin 8.60 H (0.02-0.09) ng/mL 03/09/21 03/09/21 03/09/21 Range/Units 04:30 04:30 04:30 WBC 23.0 H (3.8-10.6) k/uL RBC 3.26 L (4.30-5.90) m/uL Hgb 11.3 L (13.0-17.5) gm/dL Hct 33.9 L (39.0-53.0) % MCV 103.9 H (80.0-100.0) fL Plt Count 108 L (150-450) k/uL Neutrophils # 21.7 H (1.3-7.7) k/uL Lymphocytes # 0.6 L (1.0-4.8) k/uL ABG pO2 (83-108) mmHg ABG O2 Saturation (94-97) % Chloride 113 H (98-107) mmol/L Creatinine 0.50 L (0.66-1.25) mg/dL Glucose 147 H (74-99) mg/dL POC Glucose (mg/dL) (75-99) mg/dL Calcium 7.7 L (8.4-10.2) mg/dL ALT 87 H (4-49) U/L Alkaline Phosphatase 176 H (38-126) U/L C-Reactive Protein 37.4 H (<1.0) mg/dL Total Protein 4.4 L (6.3-8.2) g/dL Albumin 2.3 L (3.5-5.0) g/dL Procalcitonin (0.02-0.09) ng/mL 03/09/21 03/09/21 03/09/21 Range/Units 05:45 05:55 11:54 WBC (3.8-10.6) k/uL RBC (4.30-5.90) m/uL Hgb (13.0-17.5) gm/dL Hct (39.0-53.0) % MCV (80.0-100.0) fL Plt Count (150-450) k/uL Neutrophils # (1.3-7.7) k/uL Lymphocytes # (1.0-4.8) k/uL ABG pO2 137 H (83-108) mmHg ABG O2 Saturation 100.0 H (94-97) % Chloride (98-107) mmol/L Creatinine (0.66-1.25) mg/dL Glucose (74-99) mg/dL POC Glucose (mg/dL) 147 H 140 H (75-99) mg/dL Calcium (8.4-10.2) mg/dL ALT (4-49) U/L Alkaline Phosphatase (38-126) U/L C-Reactive Protein (<1.0) mg/dL Total Protein (6.3-8.2) g/dL Albumin (3.5-5.0) g/dL Procalcitonin (0.02-0.09) ng/mL Microbiology - Last 24 Hours (Table) 03/06/21 11:37 Blood Culture - Preliminary Blood No Growth after 72 hours 03/07/21 10:20 CSF Gram Stain - Preliminary Cerebral Spinal Fluid CSF Culture - Preliminary 03/06/21 11:20 Blood Culture Gram Stain - Preliminary Blood H & H 03/06/21 03/07/21 03/08/21 Range/Units 10:47 05:35 03:20 Hgb 14.2 13.3 11.9 L (13.0-17.5) gm/dL Hct 43.5 41.8 35.7 L (39.0-53.0) % 03/09/21 Range/Units 04:30 Hgb 11.3 L (13.0-17.5) gm/dL Hct 33.9 L (39.0-53.0) % Coagulation 03/06/21 Range/Units 10:47 INR 0.9 (<1.2) Result Diagrams: 03/09/21 04:30 03/09/21 04:30 Assessment and Plan Plan: Patient is seen and evaluated at bedside today with Dr. Lázaro Chavarria and this does not appear to be necrotizing fasciitis. No surgical intervention planned. Recommend local wound care.
--- NOTE | 2021-03-09 17:41 | P.PN ---
Subjective Progress Note Date: 03/09/21 Principal diagnosis: Possible necrotizing fasciitis Right lower extremity cellulitis/ Sepsis Acute hypoxic story failure secondary to sepsis and septic shock. In-hospital cardiac arrest requiring brief CPR and epinephrine until return of spontaneous circulation. History of glioblastoma multiforme, status post resection on 02/05/2021 Acute hypoxic story failure secondary to sepsis and septic shock. In-hospital cardiac arrest requiring brief CPR and epinephrine until return of spontaneous circulation. History of glioblastoma multiforme, status post resection on 02/05/2021 at [facility] in [place]. 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 Possible meningitis, lumbar puncture is pending. Gram-negative diplococci bacteremia, differential diagnoses includes Neisseria meningitides and Neisseria gonorrhea. Final cultures are negative. Hence, this could be a false-positive Gram stain. Right lower extremity cellulitis, possible necrotizing fasciitis, and that is to be addressed by surgery. I initially recommended general surgery consultation, however the general surgeon is recommending orthopedics evaluation. Acute right lower lobe and left lower lobe pneumonia, suspect aspiration pneumonia. Recommendation: Surgical/orthopedic consultation for possible necrotizing fasciitis of right lower extremity. Cultures obtained from the skin of the right lower extremity. Continue ventilatory support. Continue hemodynamic support. Patient is now on a lower dose of norepinephrine and his of vasopressin. Continue nutritional support/enteral feeding. Continue antibiotics/as per infectious disease on the case. Reviewedreport of his lumbar puncture. Basically nondiagnostic. Continue seizure medications empirically. Taper down hydrocortisone. GI and DVT prophylaxis. Prognosis is extremely guarded Critical care time is over 30 minutes Objective - Vital Signs Vital signs: Vital Signs Temp 98.4 F 03/09/21 08:00 Pulse 81 03/09/21 10:30 Resp 20 03/09/21 10:30 BP 135/92 03/09/21 09:30 Pulse Ox 98 03/09/21 10:30 Intake & Output 03/08/21 03/09/21 03/09/21 18:59 06:59 18:59 Intake Total 2032.032 1510.384 706.791 Output Total 1710 1230 180 Balance 322.032 280.384 526.791 Weight 93.7 kg 91.8 kg Intake: IV 1568 1036 512 Linezolid 600 mg In 300 Dextrose/Water 1 300ml. bag @ 150 mls/hr IVPB Q12H [facility] Rx#:[id number] Piperacillin-Tazobactam 3 100 .375 gm In Sodium Chloride 0.9% 100 ml @ 25 mls/hr IVPB Q8HR [facility]IO Rx# :[id number] Pressure Bag 33 36 12 Sodium Chloride 0.9% 1, 935 900 300 000 ml @ 75 mls/hr IV . [id number] [facility]IO Rx#:[id number] Thiamine 100 mg In Sodium 50 50 Chloride 0.9% 50 ml @ 100 mls/hr IVPB DAILY MARIO Rx#:[id number] cefTRIAXone 2 gm In 50 50 Sodium Chloride 0.9% 50 ml @ 100 mls/hr IVPB Q12HR [facility]IO Rx#:[id number] levETIRAcetam IV 500 mg 100 100 100 In Sodium Chloride 0.9% 100 ml @ 400 mls/hr IVPB Q12HR MARIO Rx#:[id number] Intake, IV Titration 231.032 228.384 99.791 Amount Norepinephrine 32 mg In 77.837 69.681 Sodium Chloride 0.9% 218 ml @ 0.05 MCG/KG/MIN 1. 967 mls/hr IV .Q24H [facility]IO Rx#:[id number] propofoL 1,000 mg In 153.195 158.703 99.791 Empty Bag 1 bag @ Titrate IV .Q0M MARIO Rx#: [id number] Tube Feeding 143 156 65 Other 90 90 30 Output: Urine 1710 1230 180 Other: Voiding Method Indwelling Catheter Indwelling Catheter # Bowel Movements 1 1 ABP, PAP, CO, CI - Last Documented Arterial Blood Pressure 107/58 - Exam Physical Exam: Revealed a 65-year-old white male in no distress, sedated with propofol. patient is intubated and mechanically ventilated. Head: Atraumatic, normocephalic, there is however a scar over the left h emisphere/temporal frontal region/surgical. Recent craniotomy. HEENT:[Neck is supple.] [No neck masses.] [No thyromegaly.] [No JVD.] Orogastric tube and endotracheal tube are intact. Chest: [Symmetrical chest expansion, good breath sound bilaterally , minimal crackles at the right base. Cardiac Exam: [Normal S1 and S2, no S3 gallop, no murmur.] Abdomen: [Soft, nontender, no megaly, no rebound, no guarding, normal bowel sounds.] Extremities: Significant erythema and ecchymosis noted in the right lower extremity, foot remains cold. And diminished pulses bilaterally. Neurological Exam: Cannot fully assess, patient is sedated on propofol, Psychiatric: Could not assess. Skin: Mostly changes noted in the right lower extremity, supposedly chronic in nature. Redness with ecchymosis, - Labs CBC & Chem 7: 03/09/21 04:30 03/09/21 04:30 Labs: Abnormal Lab Results - Last 24 Hours (Table) 03/08/21 03/08/21 03/08/21 Range/Units 11:35 18:41 23:42 WBC (3.8-10.6) k/uL RBC (4.30-5.90) m/uL Hgb (13.0-17.5) gm/dL Hct (39.0-53.0) % MCV (80.0-100.0) fL Plt Count (150-450) k/uL Neutrophils # (1.3-7.7) k/uL Lymphocytes # (1.0-4.8) k/uL ABG pO2 (83-108) mmHg ABG O2 Saturation (94-97) % Chloride (98-107) mmol/L Creatinine (0.66-1.25) mg/dL Glucose (74-99) mg/dL POC Glucose (mg/dL) 148 H 129 H 151 H (75-99) mg/dL Calcium (8.4-10.2) mg/dL ALT (4-49) U/L Alkaline Phosphatase (38-126) U/L C-Reactive Protein (<1.0) mg/dL Total Protein (6.3-8.2) g/dL Albumin (3.5-5.0) g/dL 03/09/21 03/09/21 03/09/21 Range/Units 04:30 04:30 04:30 WBC 23.0 H (3.8-10.6) k/uL RBC 3.26 L (4.30-5.90) m/uL Hgb 11.3 L (13.0-17.5) gm/dL Hct 33.9 L (39.0-53.0) % MCV 103.9 H (80.0-100.0) fL Plt Count 108 L (150-450) k/uL Neutrophils # 21.7 H (1.3-7.7) k/uL Lymphocytes # 0.6 L (1.0-4.8) k/uL ABG pO2 (83-108) mmHg ABG O2 Saturation (94-97) % Chloride 113 H (98-107) mmol/L Creatinine 0.50 L (0.66-1.25) mg/dL Glucose 147 H (74-99) mg/dL POC Glucose (mg/dL) (75-99) mg/dL Calcium 7.7 L (8.4-10.2) mg/dL ALT 87 H (4-49) U/L Alkaline Phosphatase 176 H (38-126) U/L C-Reactive Protein 37.4 H (<1.0) mg/dL Total Protein 4.4 L (6.3-8.2) g/dL Albumin 2.3 L (3.5-5.0) g/dL 03/09/21 03/09/21 Range/Units 05:45 05:55 WBC (3.8-10.6) k/uL RBC (4.30-5.90) m/uL Hgb (13.0-17.5) gm/dL Hct (39.0-53.0) % MCV (80.0-100.0) fL Plt Count (150-450) k/uL Neutrophils # (1.3-7.7) k/uL Lymphocytes # (1.0-4.8) k/uL ABG pO2 137 H (83-108) mmHg ABG O2 Saturation 100.0 H (94-97) % Chloride (98-107) mmol/L Creatinine (0.66-1.25) mg/dL Glucose (74-99) mg/dL POC Glucose (mg/dL) 147 H (75-99) mg/dL Calcium (8.4-10.2) mg/dL ALT (4-49) U/L Alkaline Phosphatase (38-126) U/L C-Reactive Protein (<1.0) mg/dL Total Protein (6.3-8.2) g/dL Albumin (3.5-5.0) g/dL Microbiology - Last 24 Hours (Table) 03/07/21 10:20 CSF Gram Stain - Preliminary Cerebral Spinal Fluid CSF Culture - Preliminary 03/06/21 11:37 Blood Culture - Preliminary Blood No Growth after 48 hours 03/06/21 11:20 Blood Culture Gram Stain - Preliminary Blood 03/06/21 17:20 Gram Stain - Final Sputum Sputum Culture - Final Assessment and Plan Assessment: 1.Acute hypoxic story failure secondary to sepsis and septic shock. 2.In-hospital cardiac arrest requiring brief CPR and epinephrine until return of spontaneous circulation. 3.History of glioblastoma multiforme, status post resection on 02/05/2021 at [facility]. 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 4.Possible meningitis, lumbar puncture is pending. --Gram-negative diplococci bacteremia, differential diagnoses includes Neisseria meningitides and Neisseria gonorrhea. Final cultures are negative. Hence, this could be a false-positive Gram stain. 5.Right lower extremity cellulitis, possible necrotizing fasciitis, and that is to be addressed by surgery. I initially recommended general surgery consultation, however the general surgeon is recommending orthopedics evaluation. 6.Acute right lower lobe and left lower lobe pneumonia, suspect aspiration pneumonia. Recommendation: Surgical/orthopedic consultation for possible necrotizing fasciitis of right lower extremity. Cultures obtained from the skin of the right lower extremity. Continue ventilatory support. Continue hemodynamic support. Patient is now on a lower dose of norepinephrine and his of vasopressin. Continue nutritional support/enteral feeding. Continue antibiotics/as per infectious disease on the case. Reviewedreport of his lumbar puncture. Basically nondiagnostic. Continue seizure medications empirically. Taper down hydrocortisone. GI and DVT prophylaxis. Prognosis is extremely guarded Critical care time is over 30 minutes
[2021-03-09 18:08] LABS: Glucose,Whole Blood 122 mg/dL (75-99)
[2021-03-09] MEDS: SODIUM CHLORIDE 0.9% 150 ML with VASOPRESSIN 60 UNIT IV SCH ×2 (18:17)
[2021-03-10] MEDS: INSULIN ASPART (NovoLOG) 100 UNIT/ML VIAL SQ SCH ×4 (00:05→18:41)
[2021-03-10 00:06] LABS: Glucose,Whole Blood 123 mg/dL (75-99)
[2021-03-10] MEDS: HYDROCORTISONE SUCCINATE 100 MG/2 ML VIAL IV SCH ×3 (00:08→16:51)
[2021-03-10] MEDS: CEFEPIME 2 GM in SODIUM CHLORIDE 0.9% 100 ML IVPB SCH ×3 (00:10→16:51)
[2021-03-10 04:16] LABS: Basophils % (A) 0 %; Eosinophils % (A) 0 %; HCT 34.4 % (39.0-53.0); HGB 11.4 gm/dL (13.0-17.5); Hypochromasia Slight; Lymphocytes # (A) 0.7 k/uL (1.0-4.8); Lymphocytes % (A) 4 %; MCH 34.9 pg (25.0-35.0); MCHC 33.1 g/dL (31.0-37.0); MCV 105.7 fL (80.0-100.0); Macrocytosis Moderate; Mean Platelet Volume 8.8; Monocytes # (A) 0.7 k/uL (0-1.0); Monocytes % (A) 4 %; Neutrophils # (A) 16.1 k/uL (1.3-7.7); Neutrophils % (A) 91 %; Platelet Count 107 k/uL (150-450); RBC 3.25 m/uL (4.30-5.90); RDW 15.6 % (11.5-15.5); WBC 17.7 k/uL (3.8-10.6)
[2021-03-10 04:34] LABS: ALT 92 U/L (4-49); AST 48 U/L (17-59); African American GFR (CKD) >90 (>60 ml/min/1.73 sqM); Albumin 2.3 g/dL (3.5-5.0); Alkaline Phosphatase 195 U/L (38-126); Anion Gap 2 mmol/L; Blood Urea Nitrogen 21 mg/dL (9-20); Calcium 7.9 mg/dL (8.4-10.2); Carbon Dioxide 25 mmol/L (22-30); Chloride 116 mmol/L (98-107); Glucose 144 mg/dL (74-99); Non-African American GFR(CKD) >90 (>60 ml/min/1.73 sqM); Potassium 4.1 mmol/L (3.5-5.1); Sodium 143 mmol/L (137-145); Total Bilirubin 0.3 mg/dL (0.2-1.3); Total Protein 4.5 g/dL (6.3-8.2)
[2021-03-10 05:36] LABS: ABG Base Excess 1.1 mmol/L; ABG HCO3 26 mmol/L (21-25); ABG Oxygen Saturation 99.1 % (94-97); ABG PCO2 43 mmHg (35-45); ABG PH 7.39 (7.35-7.45); ABG PO2 126 mmHg (83-108); ABG TCO2 27 mmol/L (19-24); Allen Test Performed? Yes
[2021-03-10 06:31] LABS: Glucose,Whole Blood 147 mg/dL (75-99)
[2021-03-10] MEDS: IPRATROPIUM-ALBUTEROL 3 ML NEB INHALATION SCH ×4 (07:50→19:31)
[2021-03-10] MEDS: ENOXAPARIN 40 MG/0.4 ML SYRINGE SQ SCH (08:59)
[2021-03-10] MEDS: PANTOPRAZOLE 40 MG/10 ML VIAL IVP SCH ×2 (08:59→20:18)
[2021-03-10] MEDS: CHLORHEXIDINE GLUCONATE 15 ML CUP MUCOUS MEM SCH ×2 (08:59→20:18)
[2021-03-10] MEDS: levETIRAcetam IV 500 MG in SODIUM CHLORIDE 0.9% 100 ML IVPB SCH ×2 (09:19→20:18)
[2021-03-10] MEDS: SODIUM CHLORIDE 0.9% 1,000 ML IV SCH (09:19)
--- NOTE | 2021-03-10 09:49 | XR ---
EXAMINATION TYPE: XR chest 1V portable DATE OF EXAM: 03/10/2021 COMPARISON: 03/09/2021 INDICATION: Tube placement TECHNIQUE: Single frontal view of the chest is obtained. FINDINGS: The heart size is normal. The pulmonary vasculature is normal. Right lower lobe infiltrate is present. Small bilateral pleural effusions are present. Endotracheal tube tip is above the ralf. Nasogastric tube transverses the thorax. IMPRESSION: 1. Right lower lobe infiltrate. Correlate for pneumonia. 2. Small bilateral pleural effusions.
[2021-03-10] MEDS: THIAMINE 100 MG in SODIUM CHLORIDE 0.9% 50 ML IVPB SCH (10:11)
--- NOTE | 2021-03-10 11:30 | P.PN ---
Subjective Progress Note Date: 03/10/21 Principal diagnosis: Acute hypoxic respiratory failure secondary to sepsis/septic shock This is a 65-year-old white male with history of glioblastoma multiform, patient is status post resection on 02/05/2021. His surgery was done at [facility], patient sustained residual aphasia, supposedly the patient received one chemotherapy the day prior to presentation. I'm not certain that the patient did receive radiation therapy however on the chart the patient is s eeing Dr. Stan Ramos/radiation oncologist. Patient came into the ER on 03/06/2021, and he was complaining of 1 day history of increased shortness of breath and generalized fatigue and weakness. According to the ER physician, patient was being transferred to trauma 1 for central line placement since he was hypotensive upon his initial presentation, and was not improving with fluids, patient developed sudden episode of bradycardia, shallow breathing, and he went on to full blown respiratory failure. CPR was done for 3 minutes, patient was intubated, received epinephrine 2 with return of spontaneous circulation. Patient was eventually transferred to the ICU on pressors in the form of norepinephrine, high dose, when I was made aware of this, I added vasopressin. And recommended more fluids to be given. Patient was reevaluated today, and he is on assist control rate of 14 which I increased to 16 volume 450 FiO2 50% and I cut it down to 45% and PEEP of 5. ABG showed a pO2 of 136 pCO2 of 39 pH of 7.29. Patient is on norepinephrine at 0.28 mcg/kg/m, vasopressin at 0.03 units per minutes. He is on propofol at 40 g which I increased to 75, and IV fluids remains at 1 50 mL per hour in the form of 0.9 normal saline. Patient had low-grade fever at night with a temp of 100. Blood cultures are positive for gram-negative diplococci. Patient received Zithromax Zosyn and Zyvox, and considering his gram-negative diplococci in the blood, I have basically concerned about the possibility of Neisseria meningitides, and I'm recommending a lumbar puncture, I'm also recommending patient to go on Rocephin at high dose. He will be placed on droplet isolation for presumptive meningitis, and a lumbar puncture would be done later today. A CT of the brain is also pending. Considering his low blood pressure yesterday, I recommended hydrocortisone and he is on 100 mg of hydrocortisone IV push every 8 hours, today I cut it down to 50 every 8. Labs today showed leukocytosis with WBC of 23.7 hemoglobin is 13.3. Lactic acid is down to 2.8. Liver enzymes are noted to be elevated with elevated AST to 57 ALT [address] of the brain this morning showed hypodensity in the posterior left ta radiata of intermediate age, chronic vascular ischemic changes, postsurgical changes, and the radiologist raised the possibility of recurrent mass. Recommended MRI. There is also atrophy and postsurgical changes Patient was reevaluated today on 03/08/2021, remains in the ICU, intubated and mechanically ventilated. Patient is on assist control rate of 16, volume 450 FiO2 45% PEEP of 5. ABG showed a pO2 of 144 pCO2 45 pH of 7.35 hence his FiO2 was decreased down to 40%. Chest x-ray is showing evidence of developing bibasilar infiltrates, atelectasis, and there is a small right-sided pleural effusion. Patient remains on multiple drips including norepinephrine at 0.18 mcg/kg/m, he is on vasopressin at 0.03, propofol at 55 mcg/kg/m, IV fluid 0.9 normal saline at 13 0 mL per hour and on vital hp at 13 mL per hour. The Gram stain on the spinal fluid is negative. Blood cultures so far remain negative. His spinal fluid showed slightly elevated glucose and slightly elevated protein. Patient remains empirically on Rocephin and Zyvox. We added today HSV PCR to spinal fluid. Patient seems to be comfortable on mechanical ventilation, and we will address possibly a sedation holiday today, and possibly address mental status of possible. However considering the patient is still on multiple pressors may not be able to address weaning today yet WBC count today is 23.8 hemoglobin is 11.9. Electrolytes are normal renal profile is normal. Blood cultures and spinal fluid cultures are pending Patient was reevaluated today on 03/09/2021, remains in the ICU, intubated and mechanically ventilated. Patient is on assist control rate of 16 per volume 450 , FiO2 40% PEEP of 5. Patient had an ABG that showed pO2 of 137 pCO2 44 pH of 7.3. Remains on propofol at 50 mcg/kg/m, he is also on norepinephrine at 0.04 mcg/kg/m, off vasopressin, IV fluid of 0.9 normal saline at 75 mL per hour. Apparently the patient was seen yesterday by infectious disease, and he raised the possibility of necrotizing fasciitis, and I am not certain whether this is truly necrotizing fasciitis or just cellulitis. If this is a truly necrotizing fasciitis, patient has to be seen by general surgery or even by orthopedics, may have to consider surgical intervention if this is truly necrotizing fasciitis, however my experience with cases of necrotizing fasciitis, they have always ended up being transferred to a tertiary care center as I have not seen any of our surgeons performing surgeries on necrotizing fasciitis cases. However in the meantime I will go ahead and recommended surgical consultation with general surgery vascular surgery and orthopedics. And if they are all on the same page, patient may have to be considered for transfer to a tertiary care center or possibly just continue antibiotics. That CT of the leg showed mostly evidence of swelling and cellulitis, but did not mention necrotizing fasciitis findings, no air noted in the subcutaneous and deep tissue. Patient remains on antibiotics, infectious disease is addressing the antibiotics, and the blood cultures have been negative so far. Spinal fluid cultures have been negative so far. The initial Gram stain that was noted from the blood showing gram-negative diplococci, seems to be probably a false positive Gram stain, since the cultures remain negative. At any rate on culturing the right lower extremity today, and I'm recommending different surgical consultations. WBC count remains elevated at 23.0 hemoglobin is 11.3. Basic metabolic profile is normal. Pro-calcitonin is 8.60. Chest x-ray showed bilateral patchy airspace disease especially in the right lower lobe which has developed since admission. Possibility of underlying pneumonia or aspiration pneumonia is very likely. Again his antibiotics have been changed a few times by infectious disease on the case, and I'm letting the infectious disease physician handled antibiotics accordingly. On 03/10/2021 patient seen in follow-up in intensive care unit, he remains intubated, sedated, on assist-control with a rate of 16, tidal vital was 450, FiO2 40% and PEEP of 5, this morning's blood gas shows pO2 of 126, pCO2 of 43, pH of 7.39, this was done on FiO2 of 40%. He is on 0.9 normal seen at 75 ML per hour, levo fed is at 0.04 mics per kilo per minute, and improving and is at 30 mics per kilo per minute, today's chest x-ray has been reviewed showing right lower lobe infiltrates, and small bilateral pleural effusions. No fevers overnight. Vital signs have been stable, he remains on cefepime, Rocephin has been discontinued, Unasyn has been discontinued as well as vancomycin. ID service is following. So far blood sputum CSF and right lower extremity wound cultures have all been negative. CSF VDRL was non-reactive, HSV PCR from the CSF was negative. However the pro-calcitonin level came back elevated at 8.6. His leukocytosis is improving, his white blood cell count is down to 17.7, hemoglobin is 11.4, sodium is 143, potassium is 4.1, chloride is 116, B1 is 21 creatinine 0.41. Patient's right lower extremity developed blistering and draining, and there has been a significant discoloration and bruising involving the right lower extremity, with the concern of necrotizing fasciitis, orthopedic consultation was requested and the orthopedic surgeons did not feel that this was consistent with necrotizing fasciitis and no surgical intervention was recommended. The right lower extremity is covered with a gauze. Computed tomography scan of the right lower extremity showed a diffuse subcutaneous edema around the leg, with evidence of previous surgery, but without any evidence of fracture, no sign of osteomyelitis. Otherwise no acute events overnight. Tolerating tube feedings, currently receiving Vital HP at 13 with a goal of 13 and a standard water flushes. Patient will be given a sedation holiday. Objective - Vital Signs Vital signs: Vital Signs Temp 98.6 F 03/10/21 08:00 Pulse 77 03/10/21 10:00 Resp 16 03/10/21 10:00 BP 115/80 03/10/21 08:30 Pulse Ox 99 03/10/21 10:00 Intake & Output 03/09/21 03/10/21 03/10/21 18:59 06:59 18:59 Intake Total 7717.991 7914.522 645.918 Output Total 640 600 220 Balance 1008.204 972.522 425.918 Weight 93.7 kg Intake: IV 1136 1033 487 Cefepime 2 gm In Sodium 100 100 Chloride 0.9% 100 ml @ 25 mls/hr IVPB Q8HR [facility] Rx# :[id number] Pressure Bag 36 33 12 Sodium Chloride 0.9% 1, 900 900 225 000 ml @ 75 mls/hr IV . [id number] [facility] Rx#:[id number] Thiamine 100 mg In Sodium 50 50 Chloride 0.9% 50 ml @ 100 mls/hr IVPB DAILY [facility] Rx#:[id number] cefTRIAXone 2 gm In 50 Sodium Chloride 0.9% 50 ml @ 100 mls/hr IVPB Q12HR [facility] Rx#:[id number] levETIRAcetam IV 500 mg 100 100 In Sodium Chloride 0.9% 100 ml @ 400 mls/hr IVPB Q12HR [facility] Rx#:[id number] Intake, IV Titration 227.204 290.522 76.918 Amount Norepinephrine 32 mg In 29.028 19.193 10.225 Sodium Chloride 0.9% 218 ml @ 0.05 MCG/KG/MIN 1. 967 mls/hr IV .Q24H [facility] Rx#:[id number] propofoL 1,000 mg In 198.176 271.329 66.693 Empty Bag 1 bag @ Titrate IV .Q0M [facility] Rx#: [id number] Tube Feeding 195 156 52 Lipid 3 Pressure Bag 3 Other 90 90 30 Output: Urine 640 600 220 Other: Voiding Method Indwelling Catheter Indwelling Catheter ABP, PAP, CO, CI - Last Documented Arterial Blood Pressure 120/67 - Exam GENERAL EXAM: Sedated, intubated, 65-year-old white male, on assist-control mode of ventilation with a rate of 16, 450, 40% and PEEP of 5, comfortable in no apparent distress. HEAD: Normocephalic/atraumatic. Healing surgical scars related to recent history of craniotomy for glioblastoma surgery EYES: Normal reaction of pupils, equal size. Conjunctiva pink, sclera white. NOSE: Clear with pink turbinates. THROAT: No erythema or exudates. NECK: No masses, no JVD, no thyroid enlargement, no adenopathy. CHEST: No chest wall deformity. Symmetrical expansion. LUNGS: Equal air entry with no crackles, wheeze, rhonchi or dullness. CVS: Regular rate and rhythm, normal S1 and S2, no gallops, no murmurs, no rubs ABDOMEN: Soft, nontender. No hepatosplenomegaly, normal bowel sounds, no guarding or rigidity. EXTREMITIES: No clubbing, no edema, no cyanosis, 2+ pulses and upper and lower extremities. MUSCULOSKELETAL: Muscle strength and tone normal. SPINE: No scoliosis or deformity SKIN: No rashes CENTRAL NERVOUS SYSTEM: Beta, sedated No focal deficits, tone is normal in all 4 extremities. - Labs CBC & Chem 7: 03/10/21 04:00 03/10/21 04:00 Labs: Abnormal Lab Results - Last 24 Hours (Table) 03/09/21 03/09/21 03/09/21 Range/Units 04:30 11:54 18:06 WBC (3.8-10.6) k/uL RBC (4.30-5.90) m/uL Hgb (13.0-17.5) gm/dL Hct (39.0-53.0) % MCV (80.0-100.0) fL RDW (11.5-15.5) % Plt Count (150-450) k/uL Neutrophils # (1.3-7.7) k/uL Lymphocytes # (1.0-4.8) k/uL ABG pO2 (83-108) mmHg ABG HCO3 (21-25) mmol/L ABG Total CO2 (19-24) mmol/L ABG O2 Saturation (94-97) % Chloride (98-107) mmol/L BUN (9-20) mg/dL Creatinine (0.66-1.25) mg/dL Glucose (74-99) mg/dL POC Glucose (mg/dL) 140 H 122 H (75-99) mg/dL Calcium (8.4-10.2) mg/dL ALT (4-49) U/L Alkaline Phosphatase (38-126) U/L Total Protein (6.3-8.2) g/dL Albumin (3.5-5.0) g/dL Procalcitonin 8.60 H (0.02-0.09) ng/mL 03/10/21 03/10/21 03/10/21 Range/Units 00:04 04:00 04:00 WBC 17.7 H (3.8-10.6) k/uL RBC 3.25 L (4.30-5.90) m/uL Hgb 11.4 L (13.0-17.5) gm/dL Hct 34.4 L (39.0-53.0) % MCV 105.7 H (80.0-100.0) fL RDW 15.6 H (11.5-15.5) % Plt Count 107 L (150-450) k/uL Neutrophils # 16.1 H (1.3-7.7) k/uL Lymphocytes # 0.7 L (1.0-4.8) k/uL ABG pO2 (83-108) mmHg ABG HCO3 (21-25) mmol/L ABG Total CO2 (19-24) mmol/L ABG O2 Saturation (94-97) % Chloride 116 H (98-107) mmol/L BUN 21 H (9-20) mg/dL Creatinine 0.41 L (0.66-1.25) mg/dL Glucose 144 H (74-99) mg/dL POC Glucose (mg/dL) 123 H (75-99) mg/dL Calcium 7.9 L (8.4-10.2) mg/dL ALT 92 H (4-49) U/L Alkaline Phosphatase 195 H (38-126) U/L Total Protein 4.5 L (6.3-8.2) g/dL Albumin 2.3 L (3.5-5.0) g/dL Procalcitonin (0.02-0.09) ng/mL 03/10/21 03/10/21 Range/Units 05:31 06:29 WBC (3.8-10.6) k/uL RBC (4.30-5.90) m/uL Hgb (13.0-17.5) gm/dL Hct (39.0-53.0) % MCV (80.0-100.0) fL RDW (11.5-15.5) % Plt Count (150-450) k/uL Neutrophils # (1.3-7.7) k/uL Lymphocytes # (1.0-4.8) k/uL ABG pO2 126 H (83-108) mmHg ABG HCO3 26 H (21-25) mmol/L ABG Total CO2 27 H (19-24) mmol/L ABG O2 Saturation 99.1 H (94-97) % Chloride (98-107) mmol/L BUN (9-20) mg/dL Creatinine (0.66-1.25) mg/dL Glucose (74-99) mg/dL POC Glucose (mg/dL) 147 H (75-99) mg/dL Calcium (8.4-10.2) mg/dL ALT (4-49) U/L Alkaline Phosphatase (38-126) U/L Total Protein (6.3-8.2) g/dL Albumin (3.5-5.0) g/dL Procalcitonin (0.02-0.09) ng/mL Microbiology - Last 24 Hours (Table) 03/09/21 11:30 Gram Stain - Preliminary Leg - Right Wound Culture - Preliminary 03/07/21 10:20 CSF Gram Stain - Preliminary Cerebral Spinal Fluid CSF Culture - Preliminary 03/09/21 11:30 Anaerobic Culture - Preliminary Leg - Right 03/06/21 11:37 Blood Culture - Preliminary Blood No Growth after 72 hours Assessment and Plan Plan: Assessment: #1. Acute hypoxic respiratory failure secondary to sepsis and septic shock, and in-hospital cardiac arrest, on 03/06/2021, intubated on the same day #2. In-hospital cardiac arrest requiring brief CPR and epinephrine with return of spontaneous circulation #3. Recent history of glioblastoma multiform, status post surgical resection on 02/05/2021 at the [facility] in [place] #4. 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 Possible meningitis ruled out, lumbar puncture was completed, CSF cultures are negative. VDRL and HSV PCR were negative #6. Right lower extremity bruising, and weeping, wound cultures are negative, CT scan of the right lower extremity showed no evidence of osteomyelitis, it did show diffuse subcutaneous edema around the left leg including the foot and ankle. Orthopedic evaluation was obtained, and it was not felt to be related to necrotizing fasciitis #7. Acute right lower lobe and left lower lobe pneumonia, suspect aspiration related Plan: Continue current antibiotics So far all cultures are negative Today's chest x-ray has been reviewed Blood work has been reviewed We'll proceed with daily interruption of sedation to assess mental status If comfortable and awake may proceed with pressure-support trial with pressure support of 8 and CPAP We'll obtain weaning parameters and a set of blood gases after 30 minutes We'll assess for readiness for extubation If fails weaning trial will place back on assist control mode of ventilation and light sedation We'll reassess again tomorrow I performed a history & physical examination of the patient and discussed their management with my nurse practitioner, Eusebia Valadez. I reviewed the nurse practitioner's note and agree with the documented findings and plan of care. Lung sounds are positive for diminished breath sounds throughout the lung ba. The findings and the impression was discussed with the patient. I attest to the documentation by the nurse practitioner. Time with Patient: Greater than 30
[2021-03-10 12:58] LABS: Glucose,Whole Blood 115 mg/dL (75-99)
--- NOTE | 2021-03-10 15:50 | P.PN ---
Subjective Progress Note Date: 03/10/21 CHIEF COMPLAINT: Right lower extremity cellulitis HISTORY OF PRESENT ILLNESS: The patient is a 65 year old male who 1 month ago was at outside institution at [facility] for excision of glioblastoma brain cancer. Patient presented to the emergency room 03/06/2021 in acute respiratory distress. He went into cardiac arrest and is in the ICU on a ventilator. He had acute cyanosis with diffuse ecchymosis of the right leg for which ortho including vascular were consulted. Today, his right leg is much better per his . REVIEW OF ORGAN SYSTEMS: No current cardiac event. On ventilator. No new seizure activity PHYSICAL EXAM: VITALS: Reviewed CONSTITUTIONAL: Well developed and in no acute distress. EYES: Conjuctivae without sclera icterus. Extraocular movements grossly intact. HEAD, EARS, NOSE, THROAT: Moist buccal mucosa. NECK: No JV distention. No thyroidomegaly. RESPIRATORY: Mechanical ventilation. CARDIOVASCULAR: Regular rate and rhythm. Extremities without moderate edema. Palpable 2+ radial pulses. ABDOMEN: No peritonitis. MUSCULOSKELETAL: Covered in dressings. Toes are well perfused. SKIN: Rest of skin well perfused. NEUROLOGIC: No focal or lateralizing signs. PSYCH: Sedated. CLINCAL LABS: Reviewed. WBC of 23,000 now down to over 17,000. ASSESSMENT: 1. Right lower extremity swelling with cyanosis 2. Glioblastoma stage IV of the brain 3. Sepsis 4. History of cardiopulmonary arrest and resuscitation PLAN: 1. Conservative management for lower extremity lesions with local wound care. Objective - Vital Signs Vital signs: Vital Signs Temp 98.4 F 03/10/21 12:30 Pulse 63 03/10/21 15:35 Resp 16 03/10/21 14:00 BP 109/77 03/10/21 12:30 Pulse Ox 98 03/10/21 14:00 Intake & Output 03/09/21 03/10/21 03/10/21 18:59 06:59 18:59 Intake Total 2158.291 2120.522 1063.225 Output Total 640 600 470 Balance 1008.204 972.522 593.225 Weight 93.7 kg Intake: IV 1136 1033 799 Cefepime 2 gm In Sodium 100 100 Chloride 0.9% 100 ml @ 25 mls/hr IVPB Q8HR [facility] Rx# :[id number] Pressure Bag 36 33 24 Sodium Chloride 0.9% 1, 900 900 525 000 ml @ 75 mls/hr IV . [id number] [facility] Rx#:[id number] Thiamine 100 mg In Sodium 50 50 Chloride 0.9% 50 ml @ 100 mls/hr IVPB DAILY [facility] Rx#:[id number] cefTRIAXone 2 gm In 50 Sodium Chloride 0.9% 50 ml @ 100 mls/hr IVPB Q12HR [facility] Rx#:[id number] levETIRAcetam IV 500 mg 100 100 In Sodium Chloride 0.9% 100 ml @ 400 mls/hr IVPB Q12HR [facility] Rx#:[id number] Intake, IV Titration 227.204 290.522 110.225 Amount Norepinephrine 32 mg In 29.028 19.193 10.225 Sodium Chloride 0.9% 218 ml @ 0.05 MCG/KG/MIN 1. 967 mls/hr IV .Q24H [facility] Rx#:[id number] propofoL 1,000 mg In 198.176 271.329 100.000 Empty Bag 1 bag @ Titrate IV .Q0M [facility] Rx#: [id number] Tube Feeding 195 156 104 Lipid 3 Pressure Bag 3 Other 90 90 50 Output: Urine 640 600 470 Other: Voiding Method Indwelling Catheter Indwelling Catheter ABP, PAP, CO, CI - Last Documented Arterial Blood Pressure 125/69 - Labs CBC & Chem 7: 03/10/21 04:00 03/10/21 04:00 Labs: Abnormal Lab Results - Last 24 Hours (Table) 03/09/21 03/10/21 03/10/21 Range/Units 18:06 00:04 04:00 WBC 17.7 H (3.8-10.6) k/uL RBC 3.25 L (4.30-5.90) m/uL Hgb 11.4 L (13.0-17.5) gm/dL Hct 34.4 L (39.0-53.0) % MCV 105.7 H (80.0-100.0) fL RDW 15.6 H (11.5-15.5) % Plt Count 107 L (150-450) k/uL Neutrophils # 16.1 H (1.3-7.7) k/uL Lymphocytes # 0.7 L (1.0-4.8) k/uL ABG pO2 (83-108) mmHg ABG HCO3 (21-25) mmol/L ABG Total CO2 (19-24) mmol/L ABG O2 Saturation (94-97) % Chloride (98-107) mmol/L BUN (9-20) mg/dL Creatinine (0.66-1.25) mg/dL Glucose (74-99) mg/dL POC Glucose (mg/dL) 122 H 123 H (75-99) mg/dL Calcium (8.4-10.2) mg/dL ALT (4-49) U/L Alkaline Phosphatase (38-126) U/L Total Protein (6.3-8.2) g/dL Albumin (3.5-5.0) g/dL 03/10/21 03/10/21 03/10/21 Range/Units 04:00 05:31 06:29 WBC (3.8-10.6) k/uL RBC (4.30-5.90) m/uL Hgb (13.0-17.5) gm/dL Hct (39.0-53.0) % MCV (80.0-100.0) fL RDW (11.5-15.5) % Plt Count (150-450) k/uL Neutrophils # (1.3-7.7) k/uL Lymphocytes # (1.0-4.8) k/uL ABG pO2 126 H (83-108) mmHg ABG HCO3 26 H (21-25) mmol/L ABG Total CO2 27 H (19-24) mmol/L ABG O2 Saturation 99.1 H (94-97) % Chloride 116 H (98-107) mmol/L BUN 21 H (9-20) mg/dL Creatinine 0.41 L (0.66-1.25) mg/dL Glucose 144 H (74-99) mg/dL POC Glucose (mg/dL) 147 H (75-99) mg/dL Calcium 7.9 L (8.4-10.2) mg/dL ALT 92 H (4-49) U/L Alkaline Phosphatase 195 H (38-126) U/L Total Protein 4.5 L (6.3-8.2) g/dL Albumin 2.3 L (3.5-5.0) g/dL 03/10/21 Range/Units 12:55 WBC (3.8-10.6) k/uL RBC (4.30-5.90) m/uL Hgb (13.0-17.5) gm/dL Hct (39.0-53.0) % MCV (80.0-100.0) fL RDW (11.5-15.5) % Plt Count (150-450) k/uL Neutrophils # (1.3-7.7) k/uL Lymphocytes # (1.0-4.8) k/uL ABG pO2 (83-108) mmHg ABG HCO3 (21-25) mmol/L ABG Total CO2 (19-24) mmol/L ABG O2 Saturation (94-97) % Chloride (98-107) mmol/L BUN (9-20) mg/dL Creatinine (0.66-1.25) mg/dL Glucose (74-99) mg/dL POC Glucose (mg/dL) 115 H (75-99) mg/dL Calcium (8.4-10.2) mg/dL ALT (4-49) U/L Alkaline Phosphatase (38-126) U/L Total Protein (6.3-8.2) g/dL Albumin (3.5-5.0) g/dL Microbiology - Last 24 Hours (Table) 03/06/21 11:37 Blood Culture - Preliminary Blood No Growth after 96 hours 03/06/21 11:20 Blood Culture Gram Stain - Final Blood Blood Culture - Final Acinetobacter lwoffi 03/09/21 11:30 Gram Stain - Preliminary Leg - Right Wound Culture - Preliminary 03/07/21 10:20 CSF Gram Stain - Preliminary Cerebral Spinal Fluid CSF Culture - Preliminary 03/09/21 11:30 Anaerobic Culture - Preliminary Leg - Right Assessment and Plan (1) Glioblastoma multiforme Current Visit: Yes Status: Acute Code(s): C71.9 - MALIGNANT NEOPLASM OF BRAIN, UNSPECIFIED SNOMED Code(s): 480963367 (2) Sepsis Current Visit: Yes Status: Acute Code(s): A41.9 - SEPSIS, UNSPECIFIED ORGANISM SNOMED Code(s): 46159977
--- NOTE | 2021-03-10 16:23 | P.PN ---
Subjective Progress Note Date: 03/10/21 The patient is seen in neurologic follow-up on March 10, 2021, via teleneurology. The chart has been reviewed. The patient is a 65-year-old male with a past medical history of resection of glioblastoma multiforme. He presented to the emergency Department with mental status changes. The patient was subsequently intubated because of respiratory failure. At the time of the evaluation today, there are multiple family members present in the room. According to the nurse, patient was able to be weaned from sedation, for a short period of time. He subsequently became agitated and tachypnic and sedation was restarted. According to the family, while the patient was off of sedation, he was able to move all 4 extremities. In further review of the chart, CSF findings are negative for meningitis. Patient is being treated for sepsis secondary to pneumonia. EEG revealed no signs of seizure activity. There is diffuse slowing consistent with either sedation or toxic encephalopathy. Objective - Vital Signs Vital signs: Vital Signs Temp 98.4 F 03/10/21 12:30 Pulse 66 03/10/21 15:49 Resp 16 03/10/21 15:30 BP 109/77 03/10/21 12:30 Pulse Ox 98 03/10/21 15:30 Intake & Output 03/09/21 03/10/21 03/10/21 18:59 06:59 18:59 Intake Total 6671.316 9426.522 1063.225 Output Total 640 600 470 Balance 1008.204 972.522 593.225 Weight 93.7 kg Intake: IV 1136 1033 799 Cefepime 2 gm In Sodium 100 100 Chloride 0.9% 100 ml @ 25 mls/hr IVPB Q8HR [facility] Rx# :[id number] Pressure Bag 36 33 24 Sodium Chloride 0.9% 1, 900 900 525 000 ml @ 75 mls/hr IV . [id number] [facility] Rx#:[id number] Thiamine 100 mg In Sodium 50 50 Chloride 0.9% 50 ml @ 100 mls/hr IVPB DAILY [facility]IO Rx#:[id number] cefTRIAXone 2 gm In 50 Sodium Chloride 0.9% 50 ml @ 100 mls/hr IVPB Q12HR [facility] Rx#:[id number] levETIRAcetam IV 500 mg 100 100 In Sodium Chloride 0.9% 100 ml @ 400 mls/hr IVPB Q12HR [facility] Rx#:[id number] Intake, IV Titration 227.204 290.522 110.225 Amount Norepinephrine 32 mg In 29.028 19.193 10.225 Sodium Chloride 0.9% 218 ml @ 0.05 MCG/KG/MIN 1. 967 mls/hr IV .Q24H [facility]IO Rx#:[id number] propofoL 1,000 mg In 198.176 271.329 100.000 Empty Bag 1 bag @ Titrate IV .Q0M MARIO Rx#: [id number] Tube Feeding 195 156 104 Lipid 3 Pressure Bag 3 Other 90 90 50 Output: Urine 640 600 470 Other: Voiding Method Indwelling Catheter Indwelling Catheter ABP, PAP, CO, CI - Last Documented Arterial Blood Pressure 120/68 - Exam Gen: The patient is supine in the bed. He is intubated. He is in no acute distress. HEENT: Head is atraumatic, normocephalic. Fundus not visualized. There is no scleral icterus. Mucous membranes are moist. Neurological examination Mental status: The patient is sedated. He is able to open his eyes to verbal stimulation. He turns his head away from tactile stimulation. Cranial nerves: Pupils are equal at 4 mm and sluggish. Eyes are midline. There is no obvious facial asymmetry. Motor: Patient is moving his feet bilaterally. - Labs CBC & Chem 7: 03/10/21 04:00 03/10/21 04:00 Labs: Abnormal Lab Results - Last 24 Hours (Table) 03/09/21 03/10/21 03/10/21 Range/Units 18:06 00:04 04:00 WBC 17.7 H (3.8-10.6) k/uL RBC 3.25 L (4.30-5.90) m/uL Hgb 11.4 L (13.0-17.5) gm/dL Hct 34.4 L (39.0-53.0) % MCV 105.7 H (80.0-100.0) fL RDW 15.6 H (11.5-15.5) % Plt Count 107 L (150-450) k/uL Neutrophils # 16.1 H (1.3-7.7) k/uL Lymphocytes # 0.7 L (1.0-4.8) k/uL ABG pO2 (83-108) mmHg ABG HCO3 (21-25) mmol/L ABG Total CO2 (19-24) mmol/L ABG O2 Saturation (94-97) % Chloride (98-107) mmol/L BUN (9-20) mg/dL Creatinine (0.66-1.25) mg/dL Glucose (74-99) mg/dL POC Glucose (mg/dL) 122 H 123 H (75-99) mg/dL Calcium (8.4-10.2) mg/dL ALT (4-49) U/L Alkaline Phosphatase (38-126) U/L Total Protein (6.3-8.2) g/dL Albumin (3.5-5.0) g/dL 03/10/21 03/10/21 03/10/21 Range/Units 04:00 05:31 06:29 WBC (3.8-10.6) k/uL RBC (4.30-5.90) m/uL Hgb (13.0-17.5) gm/dL Hct (39.0-53.0) % MCV (80.0-100.0) fL RDW (11.5-15.5) % Plt Count (150-450) k/uL Neutrophils # (1.3-7.7) k/uL Lymphocytes # (1.0-4.8) k/uL ABG pO2 126 H (83-108) mmHg ABG HCO3 26 H (21-25) mmol/L ABG Total CO2 27 H (19-24) mmol/L ABG O2 Saturation 99.1 H (94-97) % Chloride 116 H (98-107) mmol/L BUN 21 H (9-20) mg/dL Creatinine 0.41 L (0.66-1.25) mg/dL Glucose 144 H (74-99) mg/dL POC Glucose (mg/dL) 147 H (75-99) mg/dL Calcium 7.9 L (8.4-10.2) mg/dL ALT 92 H (4-49) U/L Alkaline Phosphatase 195 H (38-126) U/L Total Protein 4.5 L (6.3-8.2) g/dL Albumin 2.3 L (3.5-5.0) g/dL 03/10/21 Range/Units 12:55 WBC (3.8-10.6) k/uL RBC (4.30-5.90) m/uL Hgb (13.0-17.5) gm/dL Hct (39.0-53.0) % MCV (80.0-100.0) fL RDW (11.5-15.5) % Plt Count (150-450) k/uL Neutrophils # (1.3-7.7) k/uL Lymphocytes # (1.0-4.8) k/uL ABG pO2 (83-108) mmHg ABG HCO3 (21-25) mmol/L ABG Total CO2 (19-24) mmol/L ABG O2 Saturation (94-97) % Chloride (98-107) mmol/L BUN (9-20) mg/dL Creatinine (0.66-1.25) mg/dL Glucose (74-99) mg/dL POC Glucose (mg/dL) 115 H (75-99) mg/dL Calcium (8.4-10.2) mg/dL ALT (4-49) U/L Alkaline Phosphatase (38-126) U/L Total Protein (6.3-8.2) g/dL Albumin (3.5-5.0) g/dL Microbiology - Last 24 Hours (Table) 03/06/21 11:37 Blood Culture - Preliminary Blood No Growth after 96 hours 03/06/21 11:20 Blood Culture Gram Stain - Final Blood Blood Culture - Final Acinetobacter lwoffi 03/09/21 11:30 Gram Stain - Preliminary Leg - Right Wound Culture - Preliminary 03/07/21 10:20 CSF Gram Stain - Preliminary Cerebral Spinal Fluid CSF Culture - Preliminary 03/09/21 11:30 Anaerobic Culture - Preliminary Leg - Right Assessment and Plan Assessment: 1. Toxic encephalopathy secondary to infection/pneumonia 2. History of recent partial resection of glioblastoma multiforme. Seizure prophylaxis is on board 3. CSF findings are negative for meningitis Plan: 1. Continue to wean sedation as tolerated 2. Continue Keppra at current dosing 3. No further neurologic intervention is needed at this time. Please call if necessary Time with Patient: Less than 30 (spent 25 minutes with patient to via telen eurology)
--- NOTE | 2021-03-10 17:05 | P.PN ---
Subjective Progress Note Date: 03/10/21 Principal diagnosis: Possible necrotizing fasciitis Right lower extremity cellulitis/ Sepsis Acute hypoxic story failure secondary to sepsis and septic shock. In-hospital cardiac arrest requiring brief CPR and epinephrine until return of spontaneous circulation. History of glioblastoma multiforme, status post resection on 02/05/2021 Acute hypoxic story failure secondary to sepsis and septic shock. In-hospital cardiac arrest requiring brief CPR and epinephrine until return of spontaneous circulation. History of glioblastoma multiforme, status post resection on 02/05/2021 at [facility] in [place]. 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 Possible meningitis, lumbar puncture is pending. Gram-negative diplococci bacteremia, differential diagnoses includes Neisseria meningitides and Neisseria gonorrhea. Final cultures are negative. Hence, this could be a false-positive Gram stain. Right lower extremity cellulitis, possible necrotizing fasciitis, and that is to be addressed by surgery. I initially recommended general surgery consultation, however the general surgeon is recommending orthopedics evaluation. Acute right lower lobe and left lower lobe pneumonia, suspect aspiration pneumonia. Recommendation: Surgical/orthopedic consultation for possible necrotizing fasciitis of right lower extremity. Cultures obtained from the skin of the right lower extremity. Continue ventilatory support. Continue hemodynamic support. Patient is now on a lower dose of norepinephrine and his of vasopressin. Continue nutritional support/enteral feeding. Continue antibiotics/as per infectious disease on the case. Reviewedreport of his lumbar puncture. Basically nondiagnostic. Continue seizure medications empirically. Taper down hydrocortisone. GI and DVT prophylaxis. Prognosis is extremely guarded Critical care time is over 30 minutes 03/10/2021 Patient is seen and evaluated in ICU; remains sedated and mechanically ventilated Vital signs reviewed temperature 98.6, pulse 77, respirations 16 and blood pressure 115/80 Chest x-ray reveals right lower lobe infiltrate and small bilateral pleural effusions; patient remains on cefepime; Rocephin, Unasyn and vancomycin has been discontinued So far blood sputum CSF and right lower extremity wound cultures have all been negative. CSF VDRL was non-reactive, HSV PCR from the CSF was negative. [place] the pro-calcitonin level came back elevated at 8.6. His leukocytosis is improving, his white blood cell count is down to 17.7, hemoglobin is 11.4, sodium is 143, potassium is 4.1, chloride is 116, B1 is 21 creatinine 0.41. Patient's right lower extremity developed blistering and draining, and there has been a significant discoloration and bruising involving the right lower extremity, with the concern of necrotizing fasciitis, orthopedic consultation was requested and the orthopedic surgeons did not feel that this was consistent with necrotizing fasciitis and no surgical intervention was recommended. The right lower extremity is covered with a gauze. Computed tomography scan of the right lower extremity showed a diffuse subcutaneous edema around the leg, with evidence of previous surgery, but without any evidence of fracture, no sign of osteomyelitis. CSF findings are negative for meningitis. Patient is being treated for sepsis secondary to pneumonia. EEG revealed no signs of seizure activity. There is diffuse slowing consistent with either sedation or toxic encephalopathy. Objective - Vital Signs Vital signs: Vital Signs Temp 98.6 F 03/10/21 08:00 Pulse 66 03/10/21 12:04 Resp 17 03/10/21 11:00 BP 115/80 03/10/21 08:30 Pulse Ox 97 03/10/21 11:00 Intake & Output 03/09/21 03/10/21 03/10/21 18:59 06:59 18:59 Intake Total 6444.925 4640.522 736.918 Output Total 640 600 270 Balance 1008.204 972.522 466.918 Weight 93.7 kg Intake: IV 1136 1033 565 Cefepime 2 gm In Sodium 100 100 Chloride 0.9% 100 ml @ 25 mls/hr IVPB Q8HR [facility] Rx# :[id number] Pressure Bag 36 33 15 Sodium Chloride 0.9% 1, 900 900 300 000 ml @ 75 mls/hr IV . [id number] [facility]IO Rx#:[id number] Thiamine 100 mg In Sodium 50 50 Chloride 0.9% 50 ml @ 100 mls/hr IVPB DAILY [facility]IO Rx#:[id number] cefTRIAXone 2 gm In 50 Sodium Chloride 0.9% 50 ml @ 100 mls/hr IVPB Q12HR [facility] Rx#:[id number] levETIRAcetam IV 500 mg 100 100 In Sodium Chloride 0.9% 100 ml @ 400 mls/hr IVPB Q12HR [facility]IO Rx#:[id number] Intake, IV Titration 227.204 290.522 76.918 Amount Norepinephrine 32 mg In 29.028 19.193 10.225 Sodium Chloride 0.9% 218 ml @ 0.05 MCG/KG/MIN 1. 967 mls/hr IV .Q24H [facility]IO Rx#:[id number] propofoL 1,000 mg In 198.176 271.329 66.693 Empty Bag 1 bag @ Titrate IV .Q0M [facility]IO Rx#: [id number] Tube Feeding 195 156 65 Lipid 3 Pressure Bag 3 Other 90 90 30 Output: Urine 640 600 270 Other: Voiding Method Indwelling Catheter Indwelling Catheter ABP, PAP, CO, CI - Last Documented Arterial Blood Pressure 100/55 - Exam Physical Exam: Revealed a 65-year-old white male in no distress, sedated with propofol. patient is intubated and mechanically ventilated. Head: Atraumatic, normocephalic, there is however a scar over the left hemisphere/temporal frontal region/surgical. Recent craniotomy. HEENT:[Neck is supple.] [No neck masses.] [No thyromegaly.] [No JVD.] Orogastric tube and endotracheal tube are intact. Chest: [Symmetrical chest expansion, good breath sound bilaterally , minimal crackles at the right base. Cardiac Exam: [Normal S1 and S2, no S3 gallop, no murmur.] Abdomen: [Soft, nontender, no megaly, no rebound, no guarding, normal bowel sounds.] Extremities: Significant erythema and ecchymosis noted in the right lower e xtremity, foot remains cold. And diminished pulses bilaterally. Neurological Exam: Cannot fully assess, patient is sedated on propofol, Psychiatric: Could not assess. Skin: Mostly changes noted in the right lower extremity, supposedly chronic in nature. Redness with ecchymosis, - Labs CBC & Chem 7: 03/10/21 04:00 03/10/21 04:00 Labs: Abnormal Lab Results - Last 24 Hours (Table) 03/09/21 03/10/21 03/10/21 Range/Units 18:06 00:04 04:00 WBC 17.7 H (3.8-10.6) k/uL RBC 3.25 L (4.30-5.90) m/uL Hgb 11.4 L (13.0-17.5) gm/dL Hct 34.4 L (39.0-53.0) % MCV 105.7 H (80.0-100.0) fL RDW 15.6 H (11.5-15.5) % Plt Count 107 L (150-450) k/uL Neutrophils # 16.1 H (1.3-7.7) k/uL Lymphocytes # 0.7 L (1.0-4.8) k/uL ABG pO2 (83-108) mmHg ABG HCO3 (21-25) mmol/L ABG Total CO2 (19-24) mmol/L ABG O2 Saturation (94-97) % Chloride (98-107) mmol/L BUN (9-20) mg/dL Creatinine (0.66-1.25) mg/dL Glucose (74-99) mg/dL POC Glucose (mg/dL) 122 H 123 H (75-99) mg/dL Calcium (8.4-10.2) mg/dL ALT (4-49) U/L Alkaline Phosphatase (38-126) U/L Total Protein (6.3-8.2) g/dL Albumin (3.5-5.0) g/dL 03/10/21 03/10/21 03/10/21 Range/Units 04:00 05:31 06:29 WBC (3.8-10.6) k/uL RBC (4.30-5.90) m/uL Hgb (13.0-17.5) gm/dL Hct (39.0-53.0) % MCV (80.0-100.0) fL RDW (11.5-15.5) % Plt Count (150-450) k/uL Neutrophils # (1.3-7.7) k/uL Lymphocytes # (1.0-4.8) k/uL ABG pO2 126 H (83-108) mmHg ABG HCO3 26 H (21-25) mmol/L ABG Total CO2 27 H (19-24) mmol/L ABG O2 Saturation 99.1 H (94-97) % Chloride 116 H (98-107) mmol/L BUN 21 H (9-20) mg/dL Creatinine 0.41 L (0.66-1.25) mg/dL Glucose 144 H (74-99) mg/dL POC Glucose (mg/dL) 147 H (75-99) mg/dL Calcium 7.9 L (8.4-10.2) mg/dL ALT 92 H (4-49) U/L Alkaline Phosphatase 195 H (38-126) U/L Total Protein 4.5 L (6.3-8.2) g/dL Albumin 2.3 L (3.5-5.0) g/dL Microbiology - Last 24 Hours (Table) 03/06/21 11:20 Blood Culture Gram Stain - Final Blood Blood Culture - Final Acinetobacter lwoffi 03/09/21 11:30 Gram Stain - Preliminary Leg - Right Wound Culture - Preliminary 03/07/21 10:20 CSF Gram Stain - Preliminary Cerebral Spinal Fluid CSF Culture - Preliminary 03/09/21 11:30 Anaerobic Culture - Preliminary Leg - Right 03/06/21 11:37 Blood Culture - Preliminary Blood No Growth after 72 hours Assessment and Plan Assessment: 1.Acute hypoxic story failure secondary to sepsis and septic shock. 2.In-hospital cardiac arrest requiring brief CPR and epinephrine until return of spontaneous circulation. 3.History of glioblastoma multiforme, status post resection on 02/05/2021 at [facility] in [place]. 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 4.Possible meningitis, lumbar puncture is pending. --Gram-negative diplococci bacteremia, differential diagnoses includes Neisseria meningitides and Neisseria gonorrhea. Final cultures are negative. Hence, this could be a false-positive Gram stain. 5.Right lower extremity cellulitis, possible necrotizing fasciitis, and that is to be addressed by surgery. I initially recommended general surgery consultation, however the general surgeon is recommending orthopedics evaluation. 6.Acute right lower lobe and left lower lobe pneumonia, suspect aspiration pneumonia. Recommendation: Surgical/orthopedic consultation for possible necrotizing fasciitis of right lower extremity. Cultures obtained from the skin of the right lower extremity. Continue ventilatory support. Continue hemodynamic support. Patient is now on a lower dose of norepinephrine and his of vasopressin. Continue nutritional support/enteral feeding. Continue antibiotics/as per infectious disease on the case. Reviewedreport of his lumbar puncture. Basically nondiagnostic. Continue seizure medications empirically. Taper down hydrocortisone. GI and DVT prophylaxis. Prognosis is extremely guarded Critical care time is over 30 minutes
[2021-03-10] MEDS: SODIUM CHLORIDE 0.9% 150 ML with VASOPRESSIN 60 UNIT IV SCH ×2 (17:17)
--- NOTE | 2021-03-10 17:41 | PN ---
PROGRESS NOTE DATE OF SERVICE: 03/10/2021 REASON FOR FOLLOWUP: Pneumonia bacteremia and leg cellulitis. INTERVAL COURSE: The patient is afebrile. The patient is hemodynamically stable on a very small dose of Levophed 2 mics. The patient is saturating well on the vent with FiO2 currently at 40%. No significant purulent secretions through the ET and no diarrhea has been reported. PHYSICAL EXAMINATION: Blood pressure 125/69 with a pulse of 64, temperature 98.4. He is 98% on 40% FIO2. General description is an elderly male intubated on the vent. Respiratory system: Unlabored breathing, decreased breath sounds in the base, with no wheeze. Heart S1, S2. Regular rate and rhythm. Abdomen soft, no tenderness. LABS: Hemoglobin is 11.4 and white count 17.7, BUN of 21, creatinine 0.41. Blood culture with Acinetobacter. Repeat blood culture negative so far. DIAGNOSTIC IMPRESSION AND PLAN: Patient with acute respiratory failure which is multifactorial in this patient with possible component of pneumonia and did have right lower extremity cellulitis. Patient is covered with cefepime and seems to have shown some clinical improvement to continue. Multiple family members at the bedside. They had multiple questions that were answered in layman's terms. MMODL / IJN: [id number] /
[2021-03-10 18:29] LABS: Glucose,Whole Blood 123 mg/dL (75-99)
[2021-03-10 23:41] LABS: Glucose,Whole Blood 123 mg/dL (75-99)
[2021-03-11] MEDS: INSULIN ASPART (NovoLOG) 100 UNIT/ML VIAL SQ SCH ×4 (00:20→17:19)
[2021-03-11] MEDS: CEFEPIME 2 GM in SODIUM CHLORIDE 0.9% 100 ML IVPB SCH ×3 (00:22→16:07)
[2021-03-11] MEDS: HYDROCORTISONE SUCCINATE 100 MG/2 ML VIAL IV SCH ×3 (00:22→16:07)
[2021-03-11 05:08] LABS: Glucose,Whole Blood 143 mg/dL (75-99)
[2021-03-11 05:09] LABS: ABG Base Excess 0.9 mmol/L; ABG HCO3 26 mmol/L (21-25); ABG Oxygen Saturation 98.1 % (94-97); ABG PCO2 41 mmHg (35-45); ABG PH 7.41 (7.35-7.45); ABG PO2 99 mmHg (83-108); ABG TCO2 27 mmol/L (19-24); Allen Test Performed? Yes
[2021-03-11 05:14] LABS: HCT 34.2 % (39.0-53.0); HGB 11.5 gm/dL (13.0-17.5); Hypochromasia Slight; MCH 35.6 pg (25.0-35.0); MCHC 33.5 g/dL (31.0-37.0); MCV 106.3 fL (80.0-100.0); Macrocytosis Moderate; Platelet Count 128 k/uL (150-450); RBC 3.22 m/uL (4.30-5.90); RDW 15.6 % (11.5-15.5); WBC 11.7 k/uL (3.8-10.6)
[2021-03-11 05:32] LABS: African American GFR (CKD) >90 (>60 ml/min/1.73 sqM); Anion Gap 4 mmol/L; Blood Urea Nitrogen 23 mg/dL (9-20); Calcium 8.1 mg/dL (8.4-10.2); Carbon Dioxide 24 mmol/L (22-30); Chloride 118 mmol/L (98-107); Glucose 149 mg/dL (74-99); Magnesium 2.7 mg/dL (1.6-2.3); Non-African American GFR(CKD) >90 (>60 ml/min/1.73 sqM); Potassium 3.9 mmol/L (3.5-5.1); Sodium 146 mmol/L (137-145)
[2021-03-11] MEDS: SODIUM CHLORIDE 0.9% 1,000 ML IV SCH (07:04)
[2021-03-11] MEDS: IPRATROPIUM-ALBUTEROL 3 ML NEB INHALATION SCH ×4 (07:22→20:17)
--- NOTE | 2021-03-11 07:44 | XR ---
EXAMINATION TYPE: XR chest 1V portable DATE OF EXAM: 03/11/2021 COMPARISON: 03/10/2021 INDICATION: Tube placement TECHNIQUE: Single frontal view of the chest is obtained. FINDINGS: The heart size is normal. The pulmonary vasculature is normal. Right lower lobe infiltrate is present. Some mild platelike atelectasis may be at the left base. Endotracheal tube tip is near the thoracic inlet 8.8 cm above the ralf. Nasogastric transverses the thorax ralf. IMPRESSION: 1. Right lower lobe infiltrate. 2. Mild platelike atelectasis left lower lobe. 3. Endotracheal tube is low back pain currently is 8.8 cm above the ralf.
[2021-03-11] MEDS ORDERED: POTASSIUM BICARBONATE/CIT AC 20 MEQ TABLET.EFF NG-TUBE SCH (08:00)
[2021-03-11] MEDS: NOREPINEPHRINE 32 MG in SODIUM CHLORIDE 0.9% 218 ML IV SCH ×2 (09:05→16:00)
[2021-03-11] MEDS: DEXTROSE 5% IN WATER 1,000 ML IV SCH (09:13)
[2021-03-11] MEDS: ENOXAPARIN 40 MG/0.4 ML SYRINGE SQ SCH (09:14)
[2021-03-11] MEDS: CHLORHEXIDINE GLUCONATE 15 ML CUP MUCOUS MEM SCH ×2 (09:14→19:54)
[2021-03-11] MEDS: levETIRAcetam IV 500 MG in SODIUM CHLORIDE 0.9% 100 ML IVPB SCH ×2 (09:14→19:55)
[2021-03-11] MEDS: PANTOPRAZOLE 40 MG/10 ML VIAL IVP SCH ×2 (09:14→19:55)
[2021-03-11] MEDS: THIAMINE 100 MG in SODIUM CHLORIDE 0.9% 50 ML IVPB SCH (09:14)
--- NOTE | 2021-03-11 11:14 | P.PN ---
Subjective Progress Note Date: 03/11/21 Principal diagnosis: Acute hypoxic respiratory failure secondary to sepsis/septic shock This is a 65-year-old white male with history of glioblastoma multiform, patient is status post resection on 02/05/2021. His surgery was done at [facility], patient sustained residual aphasia, supposedly the patient received one chemotherapy the day prior to presentation. I'm not certain that the patient did receive radiation therapy however on the chart the patient is s eeing Dr. Stan Ramos/radiation oncologist. Patient came into the ER on 03/06/2021, and he was complaining of 1 day history of increased shortness of breath and generalized fatigue and weakness. According to the ER physician, patient was being transferred to trauma 1 for central line placement since he was hypotensive upon his initial presentation, and was not improving with fluids, patient developed sudden episode of bradycardia, shallow breathing, and he went on to full blown respiratory failure. CPR was done for 3 minutes, patient was intubated, received epinephrine 2 with return of spontaneous circulation. Patient was eventually transferred to the ICU on pressors in the form of norepinephrine, high dose, when I was made aware of this, I added vasopressin. And recommended more fluids to be given. Patient was reevaluated today, and he is on assist control rate of 14 which I increased to 16 volume 450 FiO2 50% and I cut it down to 45% and PEEP of 5. ABG showed a pO2 of 136 pCO2 of 39 pH of 7.29. Patient is on norepinephrine at 0.28 mcg/kg/m, vasopressin at 0.03 units per minutes. He is on propofol at 40 g which I increased to 75, and IV fluids remains at 1 50 mL per hour in the form of 0.9 normal saline. Patient had low-grade fever at night with a temp of 100. Blood cultures are positive for gram-negative diplococci. Patient received Zithromax Zosyn and Zyvox, and considering his gram-negative diplococci in the blood, I have basically concerned about the possibility of Neisseria meningitides, and I'm recommending a lumbar puncture, I'm also recommending patient to go on Rocephin at high dose. He will be placed on droplet isolation for presumptive meningitis, and a lumbar puncture would be done later today. A CT of the brain is also pending. Considering his low blood pressure yesterday, I recommended hydrocortisone and he is on 100 mg of hydrocortisone IV push every 8 hours, today I cut it down to 50 every 8. Labs today showed leukocytosis with WBC of 23.7 hemoglobin is 13.3. Lactic acid is down to 2.8. Liver enzymes are noted to be elevated with elevated AST to 57 ALT [address] of the brain this morning showed hypodensity in the posterior left ta radiata of intermediate age, chronic vascular ischemic changes, postsurgical changes, and the radiologist raised the possibility of recurrent mass. Recommended MRI. There is also atrophy and postsurgical changes Patient was reevaluated today on 03/08/2021, remains in the ICU, intubated and mechanically ventilated. Patient is on assist control rate of 16, volume 450 FiO2 45% PEEP of 5. ABG showed a pO2 of 144 pCO2 45 pH of 7.35 hence his FiO2 was decreased down to 40%. Chest x-ray is showing evidence of developing bibasilar infiltrates, atelectasis, and there is a small right-sided pleural effusion. Patient remains on multiple drips including norepinephrine at 0.18 mcg/kg/m, he is on vasopressin at 0.03, propofol at 55 mcg/kg/m, IV fluid 0.9 normal saline at 13 0 mL per hour and on vital hp at 13 mL per hour. The Gram stain on the spinal fluid is negative. Blood cultures so far remain negative. His spinal fluid showed slightly elevated glucose and slightly elevated protein. Patient remains empirically on Rocephin and Zyvox. We added today HSV PCR to spinal fluid. Patient seems to be comfortable on mechanical ventilation, and we will address possibly a sedation holiday today, and possibly address mental status of possible. However considering the patient is still on multiple pressors may not be able to address weaning today yet WBC count today is 23.8 hemoglobin is 11.9. Electrolytes are normal renal profile is normal. Blood cultures and spinal fluid cultures are pending Patient was reevaluated today on 03/09/2021, remains in the ICU, intubated and mechanically ventilated. Patient is on assist control rate of 16 per volume 450 , FiO2 40% PEEP of 5. Patient had an ABG that showed pO2 of 137 pCO2 44 pH of 7.3. Remains on propofol at 50 mcg/kg/m, he is also on norepinephrine at 0.04 mcg/kg/m, off vasopressin, IV fluid of 0.9 normal saline at 75 mL per hour. Apparently the patient was seen yesterday by infectious disease, and he raised the possibility of necrotizing fasciitis, and I am not certain whether this is truly necrotizing fasciitis or just cellulitis. If this is a truly necrotizing fasciitis, patient has to be seen by general surgery or even by orthopedics, may have to consider surgical intervention if this is truly necrotizing fasciitis, however my experience with cases of necrotizing fasciitis, they have always ended up being transferred to a tertiary care center as I have not seen any of our surgeons performing surgeries on necrotizing fasciitis cases. However in the meantime I will go ahead and recommended surgical consultation with general surgery vascular surgery and orthopedics. And if they are all on the same page, patient may have to be considered for transfer to a tertiary care center or possibly just continue antibiotics. That CT of the leg showed mostly evidence of swelling and cellulitis, but did not mention necrotizing fasciitis findings, no air noted in the subcutaneous and deep tissue. Patient remains on antibiotics, infectious disease is addressing the antibiotics, and the blood cultures have been negative so far. Spinal fluid cultures have been negative so far. The initial Gram stain that was noted from the blood showing gram-negative diplococci, seems to be probably a false positive Gram stain, since the cultures remain negative. At any rate on culturing the right lower extremity today, and I'm recommending different surgical consultations. WBC count remains elevated at 23.0 hemoglobin is 11.3. Basic metabolic profile is normal. Pro-calcitonin is 8.60. Chest x-ray showed bilateral patchy airspace disease especially in the right lower lobe which has developed since admission. Possibility of underlying pneumonia or aspiration pneumonia is very likely. Again his antibiotics have been changed a few times by infectious disease on the case, and I'm letting the infectious disease physician handled antibiotics accordingly. On 03/10/2021 patient seen in follow-up in intensive care unit, he remains intubated, sedated, on assist-control with a rate of 16, tidal vital was 450, FiO2 40% and PEEP of 5, this morning's blood gas shows pO2 of 126, pCO2 of 43, pH of 7.39, this was done on FiO2 of 40%. He is on 0.9 normal seen at 75 ML per hour, levo fed is at 0.04 mics per kilo per minute, and improving and is at 30 mics per kilo per minute, today's chest x-ray has been reviewed showing right lower lobe infiltrates, and small bilateral pleural effusions. No fevers overnight. Vital signs have been stable, he remains on cefepime, Rocephin has been discontinued, Unasyn has been discontinued as well as vancomycin. ID service is following. So far blood sputum CSF and right lower extremity wound cultures have all been negative. CSF VDRL was non-reactive, HSV PCR from the CSF was negative. However the pro-calcitonin level came back elevated at 8.6. His leukocytosis is improving, his white blood cell count is down to 17.7, hemoglobin is 11.4, sodium is 143, potassium is 4.1, chloride is 116, B1 is 21 creatinine 0.41. Patient's right lower extremity developed blistering and draining, and there has been a significant discoloration and bruising involving the right lower extremity, with the concern of necrotizing fasciitis, orthopedic consultation was requested and the orthopedic surgeons did not feel that this was consistent with necrotizing fasciitis and no surgical intervention was recommended. The right lower extremity is covered with a gauze. Computed tomography scan of the right lower extremity showed a diffuse subcutaneous edema around the leg, with evidence of previous surgery, but without any evidence of fracture, no sign of osteomyelitis. Otherwise no acute events overnight. Tolerating tube feedings, currently receiving Vital HP at 13 with a goal of 13 and a standard water flushes. Patient will be given a sedation holiday. On 03/11/2021 patient seen in follow-up in intensive care unit, he remains sedated and intubated on mechanical ventilator, assist control mode with a rate of 16, tidal on this 450, FiO2 of 40% and PEEP of 5. This morning's blood gas shows pO2 of 99, pCO2 41, and pH is 7.41. Patient is currently on 0.9 normal saline at 75 ML per hour, Diprivan was runing at 40 mics per kilo per minute and is currently off, levo fed is off, and patient is receiving tube feedings in the form of vital high-protein at 13 ML per hour with a goal of 13 and the standard water flushes. Today's chest x-ray has been reviewed showing right lower lobe infiltrate, mild platelike atelectasis of the left lower lobe. Hemodynamically patient has improved and was able to be weaned off the vasopressors. He remains on antibiotics currently with cefepime only. Blood culture from 03/06/2001 showed evidence of Acinetobacter lwolffi which was pansensitive including cefepime. Follow blood cultures, CSF cultures, sputum and right lower extremity wound cultures have all been negative. His white count continues to improve on today's labs and is down to 11.7, hemoglobin is stable at 11.5, sodium is 146, p otassium 3.8, chloride is 118, BUN is 23, creatinine 0.40. Yesterday we gave the patient a daily traction of sedation and patient apparently failed sedation holiday, and became quite tachypneic, agitated, and had to be placed back on sedation. He did not do any spontaneous breathing trials yesterday. This morning his sedation was placed on hold, he still quite lethargic, he does not open eyes to voice, but does withdraw from pain. He remains on breathing treatments, antibiotics, he remains on IV hydrocortisone 50 mg every 8 hours. He remains on Keppra per neurology. There was no episodes of witnessed seizure activity. Abdomen is soft, patient has been tolerating tube feedings. Right lower extremity is quite ecchymotic, with open draining blisters, is receiving local wound care. Objective - Vital Signs Vital signs: Vital Signs Temp 98.2 F 03/11/21 08:00 Pulse 77 03/11/21 10:30 Resp 18 03/11/21 10:30 BP 99/69 03/11/21 10:00 Pulse Ox 95 03/11/21 10:30 Intake & Output 03/10/21 03/11/21 03/11/21 18:59 06:59 18:59 Intake Total 4080.193 6126.655 656.885 Output Total 650 615 210 Balance 997.118 963.655 446.885 Weight 96.7 kg Intake: IV 1211 1026 537 Cefepime 2 gm In Sodium 200 100 50 Chloride 0.9% 100 ml @ 25 mls/hr IVPB Q8HR [facility] Rx# :[id number] Dextrose 5% in Water 1, 50 000 ml @ 50 mls/hr IV . Q20H [facility] Rx#:[id number] Pressure Bag 36 36 12 Sodium Chloride 0.9% 1, 825 790 225 000 ml @ 75 mls/hr IV . [id number] [facility] Rx#:[id number] Thiamine 100 mg In Sodium 50 100 Chloride 0.9% 50 ml @ 100 mls/hr IVPB DAILY [facility] Rx#:[id number] levETIRAcetam IV 500 mg 100 100 100 In Sodium Chloride 0.9% 100 ml @ 400 mls/hr IVPB Q12HR [facility] Rx#:[id number] Intake, IV Titration 200.118 306.655 37.885 Amount Norepinephrine 32 mg In 18.505 6.655 2.099 Sodium Chloride 0.9% 218 ml @ 0.05 MCG/KG/MIN 1. 967 mls/hr IV .Q24H [facility] Rx#:[id number] propofoL 1,000 mg In 181.613 300 35.786 Empty Bag 1 bag @ Titrate IV .Q0M [facility] Rx#: [id number] Tube Feeding 156 156 52 Other 80 90 30 Output: Urine 650 615 210 Other: Voiding Method Indwelling Catheter Indwelling Catheter # Bowel Movements 1 ABP, PAP, CO, CI - Last Documented Arterial Blood Pressure 119/63 - Exam GENERAL EXAM: Sedated, intubated, 65-year-old white male, on assist-control mode of ventilation with a rate of 16, 450, 40% and PEEP of 5, comfortable in no apparent distress. HEAD: Normocephalic/atraumatic. Healing surgical scars related to recent history of craniotomy for glioblastoma surgery EYES: Normal reaction of pupils, equal size. Conjunctiva pink, sclera white. NOSE: Clear with pink turbinates. THROAT: No erythema or exudates. NECK: No masses, no JVD, no thyroid enlargement, no adenopathy. CHEST: No chest wall deformity. Symmetrical expansion. LUNGS: Equal air entry with no crackles, wheeze, rhonchi or dullness. CVS: Regular rate and rhythm, normal S1 and S2, no gallops, no murmurs, no rubs ABDOMEN: Soft, nontender. No hepatosplenomegaly, normal bowel sounds, no guarding or rigidity. EXTREMITIES: No clubbing, no edema, no cyanosis, 2+ pulses and upper and lower extremities. MUSCULOSKELETAL: Muscle strength and tone normal. SPINE: No scoliosis or deformity SKIN: No rashes CENTRAL NERVOUS SYSTEM: Beta, sedated No focal deficits, tone is normal in all 4 extremities. - Labs CBC & Chem 7: 03/11/21 05:00 03/11/21 05:00 Labs: Abnormal Lab Results - Last 24 Hours (Table) 03/10/21 03/10/21 03/10/21 Range/Units 12:55 18:28 23:39 WBC (3.8-10.6) k/uL RBC (4.30-5.90) m/uL Hgb (13.0-17.5) gm/dL Hct (39.0-53.0) % MCV (80.0-100.0) fL MCH (25.0-35.0) pg RDW (11.5-15.5) % Plt Count (150-450) k/uL ABG HCO3 (21-25) mmol/L ABG Total CO2 (19-24) mmol/L ABG O2 Saturation (94-97) % Sodium (137-145) mmol/L Chloride (98-107) mmol/L BUN (9-20) mg/dL Creatinine (0.66-1.25) mg/dL Glucose (74-99) mg/dL POC Glucose (mg/dL) 115 H 123 H 123 H (75-99) mg/dL Calcium (8.4-10.2) mg/dL Magnesium (1.6-2.3) mg/dL 03/11/21 03/11/21 03/11/21 Range/Units 05:00 05:00 05:05 WBC 11.7 H (3.8-10.6) k/uL RBC 3.22 L (4.30-5.90) m/uL Hgb 11.5 L (13.0-17.5) gm/dL Hct 34.2 L (39.0-53.0) % MCV 106.3 H (80.0-100.0) fL MCH 35.6 H (25.0-35.0) pg RDW 15.6 H (11.5-15.5) % Plt Count 128 L (150-450) k/uL ABG HCO3 26 H (21-25) mmol/L ABG Total CO2 27 H (19-24) mmol/L ABG O2 Saturation 98.1 H (94-97) % Sodium 146 H (137-145) mmol/L Chloride 118 H (98-107) mmol/L BUN 23 H (9-20) mg/dL Creatinine 0.40 L (0.66-1.25) mg/dL Glucose 149 H (74-99) mg/dL POC Glucose (mg/dL) (75-99) mg/dL Calcium 8.1 L (8.4-10.2) mg/dL Magnesium 2.7 H (1.6-2.3) mg/dL 03/11/21 Range/Units 05:06 WBC (3.8-10.6) k/uL RBC (4.30-5.90) m/uL Hgb (13.0-17.5) gm/dL Hct (39.0-53.0) % MCV (80.0-100.0) fL MCH (25.0-35.0) pg RDW (11.5-15.5) % Plt Count (150-450) k/uL ABG HCO3 (21-25) mmol/L ABG Total CO2 (19-24) mmol/L ABG O2 Saturation (94-97) % Sodium (137-145) mmol/L Chloride (98-107) mmol/L BUN (9-20) mg/dL Creatinine (0.66-1.25) mg/dL Glucose (74-99) mg/dL POC Glucose (mg/dL) 143 H (75-99) mg/dL Calcium (8.4-10.2) mg/dL Magnesium (1.6-2.3) mg/dL Microbiology - Last 24 Hours (Table) 03/10/21 06:40 Blood Culture - Preliminary Blood No Growth after 24 hours 03/07/21 10:20 CSF Gram Stain - Preliminary Cerebral Spinal Fluid CSF Culture - Preliminary 03/06/21 11:37 Blood Culture - Preliminary Blood No Growth after 96 hours 03/06/21 11:20 Blood Culture Gram Stain - Final Blood Blood Culture - Final Acinetobacter lwoffi 03/09/21 11:30 Gram Stain - Preliminary Leg - Right Wound Culture - Preliminary Assessment and Plan Plan: Assessment: #1. Acute hypoxic respiratory failure secondary to sepsis and septic shock, and in-hospital cardiac arrest, on 03/06/2021, intubated on the same day #2. In-hospital cardiac arrest requiring brief CPR and epinephrine with return of spontaneous circulation #3. Recent history of glioblastoma multiform, status post surgical resection on 02/05/2021 at the [facility] in [place] #4. 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 Possible meningitis ruled out, lumbar puncture was completed, CSF cultures are negative. VDRL and HSV PCR were negative #6. Right lower extremity bruising, and weeping, wound cultures are negative, CT scan of the right lower extremity showed no evidence of osteomyelitis, it did show diffuse subcutaneous edema around the left leg including the foot and ankle. Orthopedic evaluation was obtained, and it was not felt to be related to necrotizing fasciitis #7. Acute right lower lobe and left lower lobe pneumonia, suspect aspiration related Plan: Today's chest x-ray and blood gases reviewed Patient was given a daily interruption of sedation and spontaneous breathing trial, which he failed We will place back on assist control mode of ventilation, and half the dose of sedation We'll continue with daily trials of sedation holiday and breathing trials Continue current antibiotics Continue breathing treatments GI and DVT prophylaxis Switch IV fluids to D5W at 50 ML per hour Follow-up labs and chest x-ray tomorrow Pro-prognosis is guarded Need to discuss CODE STATUS with patient's I performed a history & physical examination of the patient and discussed their management with my nurse practitioner, Eusebia Valadez. I reviewed the nurse practitioner's note and agree with the documented findings and plan of care. Lung sounds are positive for diminished breath sounds throughout the lung ba. The findings and the impression was discussed with the patient. I attest to the documentation by the nurse practitioner. Time with Patient: Greater than 30
--- NOTE | 2021-03-11 11:47 | XR ---
EXAMINATION TYPE: XR chest 1V portable DATE OF EXAM: 03/11/2021 COMPARISON: 03/11/2021 INDICATION: Short of breath TECHNIQUE: Single frontal view of the chest is obtained. FINDINGS: The heart size is normal. The pulmonary vasculature is normal. Mild infiltrate at the right base. Correlate for atelectasis or pneumonia. Findings are improving ove r the interval. Endotracheal tube tip has been adjusted and is 3.0 cm above the ralf. Nasogastric tube transverses pneumothorax. IMPRESSION: 1. Improving right lower lobe infiltrate. 2. Lines and catheters discussed above.
[2021-03-11 11:49] LABS: Glucose,Whole Blood 105 mg/dL (75-99)
--- NOTE | 2021-03-11 13:53 | P.PN ---
Subjective Progress Note Date: 03/11/21 She was seen and examined lying in bed. He remains intubated. He does respond to stimuli. Bilateral lower extremities with swelling. Right lower extremity dressing clean dry and intact. Nursing just change dressing, states that they have to change the dressing approximately 3-4 times per shift to 2 s erosanguineous drainage. Objective - Vital Signs Vital signs: Vital Signs Temp 98.2 F 03/11/21 08:00 Pulse 71 03/11/21 09:00 Resp 11 L 03/11/21 09:00 BP 99/69 03/11/21 08:30 Pulse Ox 97 03/11/21 09:00 Intake & Output 03/10/21 03/11/21 03/11/21 18:59 06:59 18:59 Intake Total 2879.909 2493.655 348.083 Output Total 650 615 160 Balance 997.118 963.655 188.083 Weight 96.7 kg Intake: IV 1211 1026 234 Cefepime 2 gm In Sodium 200 100 Chloride 0.9% 100 ml @ 25 mls/hr IVPB Q8HR [facility] Rx# :[id number] Pressure Bag 36 36 9 Sodium Chloride 0.9% 1, 825 790 225 000 ml @ 75 mls/hr IV . [id number] [facility] Rx#:[id number] Thiamine 100 mg In Sodium 50 Chloride 0.9% 50 ml @ 100 mls/hr IVPB DAILY [facility] Rx#:[id number] levETIRAcetam IV 500 mg 100 100 In Sodium Chloride 0.9% 100 ml @ 400 mls/hr IVPB Q12HR [facility] Rx#:[id number] Intake, IV Titration 200.118 306.655 32.083 Amount Norepinephrine 32 mg In 18.505 6.655 2.099 Sodium Chloride 0.9% 218 ml @ 0.05 MCG/KG/MIN 1. 967 mls/hr IV .Q24H [facility] Rx#:[id number] propofoL 1,000 mg In 181.613 300 29.984 Empty Bag 1 bag @ Titrate IV .Q0M [facility] Rx#: [id number] Tube Feeding 156 156 52 Other 80 90 30 Output: Urine 650 615 160 Other: Voiding Method Indwelling Catheter Indwelling Catheter # Bowel Movements 1 ABP, PAP, CO, CI - Last Documented Arterial Blood Pressure 111/57 - Exam General appearance: The patient is intubated. HET: Head is normocephalic and atraumatic. Neck: Supple without lymphadenopathy. Trachea midline. Extremities: Normal skin color. Bilateral lower extremity pitting edema +2. Left lower extremity and soft offloading boot. Right lower extremity with dressing clean dry and intact. Bilateral Multiphasic PT and DP Doppler signal. Neurological: Intubated, sedated. Responds to stimuli. - Labs CBC & Chem 7: 03/11/21 05:00 03/11/21 05:00 Labs: Abnormal Lab Results - Last 24 Hours (Table) 03/10/21 03/10/21 03/10/21 Range/Units 12:55 18:28 23:39 WBC (3.8-10.6) k/uL RBC (4.30-5.90) m/uL Hgb (13.0-17.5) gm/dL Hct (39.0-53.0) % MCV (80.0-100.0) fL MCH (25.0-35.0) pg RDW (11.5-15.5) % Plt Count (150-450) k/uL ABG HCO3 (21-25) mmol/L ABG Total CO2 (19-24) mmol/L ABG O2 Saturation (94-97) % Sodium (137-145) mmol/L Chloride (98-107) mmol/L BUN (9-20) mg/dL Creatinine (0.66-1.25) mg/dL Glucose (74-99) mg/dL POC Glucose (mg/dL) 115 H 123 H 123 H (75-99) mg/dL Calcium (8.4-10.2) mg/dL Magnesium (1.6-2.3) mg/dL 03/11/21 03/11/21 03/11/21 Range/Units 05:00 05:00 05:05 WBC 11.7 H (3.8-10.6) k/uL RBC 3.22 L (4.30-5.90) m/uL Hgb 11.5 L (13.0-17.5) gm/dL Hct 34.2 L (39.0-53.0) % MCV 106.3 H (80.0-100.0) fL MCH 35.6 H (25.0-35.0) pg RDW 15.6 H (11.5-15.5) % Plt Count 128 L (150-450) k/uL ABG HCO3 26 H (21-25) mmol/L ABG Total CO2 27 H (19-24) mmol/L ABG O2 Saturation 98.1 H (94-97) % Sodium 146 H (137-145) mmol/L Chloride 118 H (98-107) mmol/L BUN 23 H (9-20) mg/dL Creatinine 0.40 L (0.66-1.25) mg/dL Glucose 149 H (74-99) mg/dL POC Glucose (mg/dL) (75-99) mg/dL Calcium 8.1 L (8.4-10.2) mg/dL Magnesium 2.7 H (1.6-2.3) mg/dL 03/11/21 Range/Units 05:06 WBC (3.8-10.6) k/uL RBC (4.30-5.90) m/uL Hgb (13.0-17.5) gm/dL Hct (39.0-53.0) % MCV (80.0-100.0) fL MCH (25.0-35.0) pg RDW (11.5-15.5) % Plt Count (150-450) k/uL ABG HCO3 (21-25) mmol/L ABG Total CO2 (19-24) mmol/L ABG O2 Saturation (94-97) % Sodium (137-145) mmol/L Chloride (98-107) mmol/L BUN (9-20) mg/dL Creatinine (0.66-1.25) mg/dL Glucose (74-99) mg/dL POC Glucose (mg/dL) 143 H (75-99) mg/dL Calcium (8.4-10.2) mg/dL Magnesium (1.6-2.3) mg/dL Microbiology - Last 24 Hours (Table) 03/10/21 06:40 Blood Culture - Preliminary Blood No Growth after 24 hours 03/07/21 10:20 CSF Gram Stain - Preliminary Cerebral Spinal Fluid CSF Culture - Preliminary 03/06/21 11:37 Blood Culture - Preliminary Blood No Growth after 96 hours 03/06/21 11:20 Blood Culture Gram Stain - Final Blood Blood Culture - Final Acinetobacter concepcióni 03/09/21 11:30 Gram Stain - Preliminary Leg - Right Wound Culture - Preliminary Assessment and Plan Assessment: 1. Right lower extremity superficial wounds with skin sloughing 2. Acute vent dependent respiratory failure 3. Gram-negative diplococci bacteremia 4. Recent scleral blastoma excision Plan: 1. Continue dressing changes with an Adaptic and Kerlix 2. Continue ICU management 3. Continue IV antibiotics per recommendations from infectious disease 4. We will continue to follow Thank you for this consultation, we will continue to follow The impression and plan of care has been dictated as directed. Dr. Kang I performed a history and examination of this patient, discussed the same with the dictator. I agree with the dictator's note ,documented as a scribe. Any additional findings or plans will be noted.
--- NOTE | 2021-03-11 15:19 | P.PN ---
Subjective Progress Note Date: 03/11/21 CHIEF COMPLAINT: Right lower extremity cellulitis HISTORY OF PRESENT ILLNESS: The patient is a 65 year old male who 1 month ago was at outside institution at [facility] for excision of glioblastoma brain cancer. Patient presented to the emergency room 03/06/2021 in acute respiratory distress. He went into cardiac arrest and is in the ICU on a ventilator. He had acute cyanosis with diffuse ecchymosis of the right leg for which ortho including vascular were consulted. Patient has been seen by orthopedics and vascular surgery. No intervention is recommended. He remains on IV antibiotics. He is currently off of Levophed. Afebrile. White count is down from 17.7-11.7 PHYSICAL EXAM: VITAL SIGNS: Reviewed GENERAL: Well-developed in no acute distress. HEENT: No sclera icterus. Extraocular movements grossly intact. Moist buccal mucosa. Head is atraumatic, normocephalic. Hears conversational speech. No nasal drainage. NECK: Supple without lymphadenopathy. CHEST: Non-labored respirations and equal bilateral excursions. CARDIOVASCULAR: Palpable 2+ radial pulses. ABDOMEN: Soft. Nondistended. Nontender. MUSCULOSKELETAL: No clubbing or cyanosis. NEUROLOGIC: No focal or lateralizing signs. Cranial nerves II through XII grossly intact. PSYCH: Sedated ASSESSMENT: 1. Right lower extremity swelling with cyanosis 2. Glioblastoma stage IV of the brain 3. Sepsis 4. History of cardiopulmonary arrest and resuscitation PLAN: -Conservative management for lower extremity lesions with local wound care. -General surgical service will sign off. Please call with any questions or concerns Physician Mold Swabber note has been reviewed by physician. Signing provider agrees with the documented findings, assessment, and plan of care. Objective - Vital Signs Vital signs: Vital Signs Temp 97.4 F L 03/11/21 12:00 Pulse 71 03/11/21 15:00 Resp 17 03/11/21 15:00 BP 91/65 03/11/21 12:00 Pulse Ox 97 03/11/21 15:00 Intake & Output 03/10/21 03/11/21 03/11/21 18:59 06:59 18:59 Intake Total 1987.460 8374.655 1028.018 Output Total 650 615 470 Balance 997.118 963.655 558.018 Weight 96.7 kg 96.7 kg Intake: IV 1211 1026 802 Cefepime 2 gm In Sodium 200 100 50 Chloride 0.9% 100 ml @ 25 mls/hr IVPB Q8HR [facility] Rx# :[id number] Dextrose 5% in Water 1, 300 000 ml @ 50 mls/hr IV . Q20H [facility] Rx#:[id number] Pressure Bag 36 36 27 Sodium Chloride 0.9% 1, 825 790 225 000 ml @ 75 mls/hr IV . [id number] [facility] Rx#:[id number] Thiamine 100 mg In Sodium 50 100 Chloride 0.9% 50 ml @ 100 mls/hr IVPB DAILY [facility] Rx#:[id number] levETIRAcetam IV 500 mg 100 100 100 In Sodium Chloride 0.9% 100 ml @ 400 mls/hr IVPB Q12HR [facility] Rx#:[id number] Intake, IV Titration 200.118 306.655 75.018 Amount Norepinephrine 32 mg In 18.505 6.655 2.099 Sodium Chloride 0.9% 218 ml @ 0.05 MCG/KG/MIN 1. 967 mls/hr IV .Q24H [facility] Rx#:[id number] propofoL 1,000 mg In 181.613 300 72.919 Empty Bag 1 bag @ Titrate IV .Q0M [facility] Rx#: [id number] Tube Feeding 156 156 91 Other 80 90 60 Output: Urine 650 615 470 Other: Voiding Method Indwelling Catheter Indwelling Catheter Indwelling Catheter # Bowel Movements 1 ABP, PAP, CO, CI - Last Documented Arterial Blood Pressure 110/53 - Labs CBC & Chem 7: 03/11/21 05:00 03/11/21 05:00 Labs: Abnormal Lab Results - Last 24 Hours (Table) 03/10/21 03/10/21 03/11/21 Range/Units 18:28 23:39 05:00 WBC 11.7 H (3.8-10.6) k/uL RBC 3.22 L (4.30-5.90) m/uL Hgb 11.5 L (13.0-17.5) gm/dL Hct 34.2 L (39.0-53.0) % MCV 106.3 H (80.0-100.0) fL MCH 35.6 H (25.0-35.0) pg RDW 15.6 H (11.5-15.5) % Plt Count 128 L (150-450) k/uL ABG HCO3 (21-25) mmol/L ABG Total CO2 (19-24) mmol/L ABG O2 Saturation (94-97) % Sodium (137-145) mmol/L Chloride (98-107) mmol/L BUN (9-20) mg/dL Creatinine (0.66-1.25) mg/dL Glucose (74-99) mg/dL POC Glucose (mg/dL) 123 H 123 H (75-99) mg/dL Calcium (8.4-10.2) mg/dL Magnesium (1.6-2.3) mg/dL 03/11/21 03/11/21 03/11/21 Range/Units 05:00 05:05 05:06 WBC (3.8-10.6) k/uL RBC (4.30-5.90) m/uL Hgb (13.0-17.5) gm/dL Hct (39.0-53.0) % MCV (80.0-100.0) fL MCH (25.0-35.0) pg RDW (11.5-15.5) % Plt Count (150-450) k/uL ABG HCO3 26 H (21-25) mmol/L ABG Total CO2 27 H (19-24) mmol/L ABG O2 Saturation 98.1 H (94-97) % Sodium 146 H (137-145) mmol/L Chloride 118 H (98-107) mmol/L BUN 23 H (9-20) mg/dL Creatinine 0.40 L (0.66-1.25) mg/dL Glucose 149 H (74-99) mg/dL POC Glucose (mg/dL) 143 H (75-99) mg/dL Calcium 8.1 L (8.4-10.2) mg/dL Magnesium 2.7 H (1.6-2.3) mg/dL 03/11/21 Range/Units 11:47 WBC (3.8-10.6) k/uL RBC (4.30-5.90) m/uL Hgb (13.0-17.5) gm/dL Hct (39.0-53.0) % MCV (80.0-100.0) fL MCH (25.0-35.0) pg RDW (11.5-15.5) % Plt Count (150-450) k/uL ABG HCO3 (21-25) mmol/L ABG Total CO2 (19-24) mmol/L ABG O2 Saturation (94-97) % Sodium (137-145) mmol/L Chloride (98-107) mmol/L BUN (9-20) mg/dL Creatinine (0.66-1.25) mg/dL Glucose (74-99) mg/dL POC Glucose (mg/dL) 105 H (75-99) mg/dL Calcium (8.4-10.2) mg/dL Magnesium (1.6-2.3) mg/dL Microbiology - Last 24 Hours (Table) 03/09/21 11:30 Anaerobic Culture - Preliminary Leg - Right 03/06/21 11:37 Blood Culture - Preliminary Blood No Growth after 120 hours 03/09/21 11:30 Gram Stain - Final Leg - Right Wound Culture - Final 03/10/21 06:40 Blood Culture - Preliminary Blood No Growth after 24 hours 03/07/21 10:20 CSF Gram Stain - Preliminary Cerebral Spinal Fluid CSF Culture - Preliminary 03/06/21 11:20 Blood Culture Gram Stain - Final Blood Blood Culture - Final Acinetobacter lwoffi
--- NOTE | 2021-03-11 15:45 | P.PN ---
Subjective Progress Note Date: 03/11/21 Marcelo Ortega is a 65 yo M with PMH of glioblastoma multiforma, s/p resection on 02/05/2021 who presented to the ED complaining of shortness of breath and generalized fatigue and weakness. On his initial presentation he was found to be hypotensive, patient developed sudden episode of bradycardia, shallow breathing, and he went on to full blown respiratory failure. CPR was done for 3 minutes, patient was intubated, received epinephrine 2 with return of spontaneous circulation. Patient was eventually transferred to the ICU on pressors. Today he remains intubated and sedated. Patient had low-grade fever at night with a temp of 100. Blood cultures are positive for gram-negative diplococci. Patient received Zithromax Zosyn and Zyvox. He is scheduled for a lumbar puncture to rule out neisseria meningitis. Labs today showed leukocytosis with WBC of 23.7 hemoglobin is 13.3. Liver enzymes are noted to be elevated with elevated AST to 57 ALT [address] of the brain this morning showed hypodensity in the posterior left ta radiata of intermediate age, chronic vascular ischemic changes, postsurgical changes, and the radiologist raised the possibility of recurrent mass. Recommended MRI. 03/08/2021 remains vent dependent with FiO2 of 45%/+5 of PEEP. Chest x-ray reporting developing bibasilar infiltrates, small right pleural effusion. Maintained on diprovan, vasopressin, Levophed drips in addition to IV fluids of normal saline in the 130 mL's per hour. Continues on IV hydrocortisone. EEG abnormal, suggestive of severe encephalopathy of unspecified etiology, no deniz ctiform discharges or seizures. Maintained on Keppra, no seizure activity reported. Continues on high-dose of Rocephin and Zyvox as per ID. CSF reports clear, colorless, red blood cells 7, nuclear cells 0, glucose 136, total protein is 116. CSF Gram stain there is no polymorphonuclear leukocytes. No organisms seen. Aerobic CSF culture pending. CSF VDRL is nonreactive. sputum culture pending, preliminary blood cultures negative. Afebrile, WBC 23.8. telemetry sinus rhythm.echo reporting severe global hypokinesis with LV, severely impaired LV function, EF between 25 and 30%. 03/11/2021 . Vent dependent, FiO2 40%/5 of PEEP. Chest x-ray reporting improving right lower lobe infiltrate. Levophed weaned off recently this morning. Yesterday failed sedation holiday .Sedation recently turned off, awake, not following commands. Maintained on cefepime as per ID. Renal function stable. Frequent dressing changes required related to large amount serosanguineous drainage-saturating. Vascular following with no intervention recommended at this time. Tolerating tube feeds at goal, tolerating well with minimal to no residuals. Blood sugars controlled. Afebrile, WBC trending down. Maintained on current dose of Keppra as per neurology. No seizure activity reported. Objective - Vital Signs Vital signs: Vital Signs Temp 97.4 F L 03/11/21 12:00 Pulse 67 03/11/21 14:30 Resp 12 03/11/21 14:30 BP 91/65 03/11/21 12:00 Pulse Ox 97 03/11/21 14:30 Intake & Output 03/10/21 03/11/21 03/11/21 18:59 06:59 18:59 Intake Total 0489.846 0642.655 975.018 Output Total 650 615 410 Balance 997.118 963.655 565.018 Weight 96.7 kg 96.7 kg Intake: IV 1211 1026 749 Cefepime 2 gm In Sodium 200 100 50 Chloride 0.9% 100 ml @ 25 mls/hr IVPB Q8HR [facility] Rx# :[id number] Dextrose 5% in Water 1, 250 000 ml @ 50 mls/hr IV . Q20H [facility] Rx#:[id number] Pressure Bag 36 36 24 Sodium Chloride 0.9% 1, 825 790 225 000 ml @ 75 mls/hr IV . [id number] [facility] Rx#:[id number] Thiamine 100 mg In Sodium 50 100 Chloride 0.9% 50 ml @ 100 mls/hr IVPB DAILY [facility] Rx#:[id number] levETIRAcetam IV 500 mg 100 100 100 In Sodium Chloride 0.9% 100 ml @ 400 mls/hr IVPB Q12HR [facility] Rx#:[id number] Intake, IV Titration 200.118 306.655 75.018 Amount Norepinephrine 32 mg In 18.505 6.655 2.099 Sodium Chloride 0.9% 218 ml @ 0.05 MCG/KG/MIN 1. 967 mls/hr IV .Q24H [facility] Rx#:[id number] propofoL 1,000 mg In 181.613 300 72.919 Empty Bag 1 bag @ Titrate IV .Q0M [facility] Rx#: [id number] Tube Feeding 156 156 91 Other 80 90 60 Output: Urine 650 615 410 Other: Voiding Method Indwelling Catheter Indwelling Catheter Indwelling Catheter # Bowel Movements 1 ABP, PAP, CO, CI - Last Documented Arterial Blood Pressure 109/54 - Exam General: cachexic, intubated, Vital reviewed. Sedation on hold, awake HEENT: Normocephalic, atraumatic. Mucus membranes dry. Neck: supple, no JVD CV: RRR, no murmur. Pulses 2+ Lungs: No wheezes, rales or rhonchi Abd: soft, non distended, bowel sounds present EXT: Bilateral lower extremity pitting edema right lower extremity cellulitis, multiple blisters, purplish rash with dressing saturated with serosanguineous drainage. Affected area decreasing from initial outlining. DP Doppler pulses reported. Neuro: Limited exam, Unable to fully evaluate ,sedation recently placed on hold, not following commands ,normal muscle tone Skin: warm and dry Microbiology 03/09/21 11:30 Leg - Right Anaerobic Culture - Preliminary 03/06/21 11:37 Blood Blood Culture - Preliminary No Growth after 120 hours 03/09/21 11:30 Leg - Right Gram Stain - Final 03/09/21 11:30 Leg - Right Wound Culture - Final 03/10/21 06:40 Blood Blood Culture - Preliminary No Growth after 24 hours 03/07/21 10:20 Cerebral Spinal Fluid CSF Gram Stain - Preliminary 03/07/21 10:20 Cerebral Spinal Fluid CSF Culture - Preliminary 03/06/21 11:20 Blood Blood Culture Gram Stain - Final 03/06/21 11:20 Blood Blood Culture - Final Acinetobacter lwoffi 03/06/21 17:20 Sputum Gram Stain - Final 03/06/21 17:20 Sputum Sputum Culture - Final 03/06/21 11:20 Blood Blood Culture - Final - Labs CBC & Chem 7: 03/11/21 05:00 03/11/21 05:00 Labs: Abnormal Lab Results - Last 24 Hours (Table) 03/10/21 03/10/21 03/11/21 Range/Units 18:28 23:39 05:00 WBC 11.7 H (3.8-10.6) k/uL RBC 3.22 L (4.30-5.90) m/uL Hgb 11.5 L (13.0-17.5) gm/dL Hct 34.2 L (39.0-53.0) % MCV 106.3 H (80.0-100.0) fL MCH 35.6 H (25.0-35.0) pg RDW 15.6 H (11.5-15.5) % Plt Count 128 L (150-450) k/uL ABG HCO3 (21-25) mmol/L ABG Total CO2 (19-24) mmol/L ABG O2 Saturation (94-97) % Sodium (137-145) mmol/L Chloride (98-107) mmol/L BUN (9-20) mg/dL Creatinine (0.66-1.25) mg/dL Glucose (74-99) mg/dL POC Glucose (mg/dL) 123 H 123 H (75-99) mg/dL Calcium (8.4-10.2) mg/dL Magnesium (1.6-2.3) mg/dL 03/11/21 03/11/21 03/11/21 Range/Units 05:00 05:05 05:06 WBC (3.8-10.6) k/uL RBC (4.30-5.90) m/uL Hgb (13.0-17.5) gm/dL Hct (39.0-53.0) % MCV (80.0-100.0) fL MCH (25.0-35.0) pg RDW (11.5-15.5) % Plt Count (150-450) k/uL ABG HCO3 26 H (21-25) mmol/L ABG Total CO2 27 H (19-24) mmol/L ABG O2 Saturation 98.1 H (94-97) % Sodium 146 H (137-145) mmol/L Chloride 118 H (98-107) mmol/L BUN 23 H (9-20) mg/dL Creatinine 0.40 L (0.66-1.25) mg/dL Glucose 149 H (74-99) mg/dL POC Glucose (mg/dL) 143 H (75-99) mg/dL Calcium 8.1 L (8.4-10.2) mg/dL Magnesium 2.7 H (1.6-2.3) mg/dL 03/11/21 Range/Units 11:47 WBC (3.8-10.6) k/uL RBC (4.30-5.90) m/uL Hgb (13.0-17.5) gm/dL Hct (39.0-53.0) % MCV (80.0-100.0) fL MCH (25.0-35.0) pg RDW (11.5-15.5) % Plt Count (150-450) k/uL ABG HCO3 (21-25) mmol/L ABG Total CO2 (19-24) mmol/L ABG O2 Saturation (94-97) % Sodium (137-145) mmol/L Chloride (98-107) mmol/L BUN (9-20) mg/dL Creatinine (0.66-1.25) mg/dL Glucose (74-99) mg/dL POC Glucose (mg/dL) 105 H (75-99) mg/dL Calcium (8.4-10.2) mg/dL Magnesium (1.6-2.3) mg/dL Microbiology - Last 24 Hours (Table) 03/09/21 11:30 Anaerobic Culture - Preliminary Leg - Right 03/06/21 11:37 Blood Culture - Preliminary Blood No Growth after 120 hours 03/09/21 11:30 Gram Stain - Final Leg - Right Wound Culture - Final 03/10/21 06:40 Blood Culture - Preliminary Blood No Growth after 24 hours 03/07/21 10:20 CSF Gram Stain - Preliminary Cerebral Spinal Fluid CSF Culture - Preliminary 03/06/21 11:20 Blood Culture Gram Stain - Final Blood Blood Culture - Final Acinetobacter lwoffi Assessment and Plan Assessment: Acute hypoxic respiratory failure secondary to sepsis , septic shock and bilateral pneumonia -suspect aspiration ,mechanical ventilator-dependent. Respiratory arrest, CPR secondary to the above. Hypotension, pressor support-dependent secondary to the above Glioblastoma multiforme with motor aphasia. Status post resection at [facility] 02/05/2021. Gram-negative Diplococci bacteremia, lumbar puncture completed, meningitis ruled out. CSF negative. Severe global hypokinesis of LV, severely impaired LV function, EF 25-30% Righht lower extremity cellulitis with superficial wounds, skin sloughing, wound cultures negative, anaerobic finalizing. CT reported diffuse subcutaneous edema around the romero including frequent ankle, previous surgery, no fracture, no sign of osteomyelitis, arteriosclerotic vascular disease. No necrotizing fasciitis as per orthopedic evaluation. Hospital course: Continue on current medication regime ,monitoring and symptomatic treatment. Sedation currently on hold , scheduled to attempt CPAP .Maintain antibiotics as per ID. cultures pending. Continue seizure pr ecautions with empiric Keppra. Follow closely with multiple consults. Prognosis guarded given multiple complex medical issues. PCP will attempt to contact regarding code status. The impression and plan of care has been dictated as directed. : I performed a history and examination of this patient, discussed the same with the dictator. I agree with the dictator's note ,documented as a scribe. Any additional findings or plans will be noted.
[2021-03-11 23:58] LABS: Glucose,Whole Blood 109 mg/dL (75-99)
[2021-03-12] MEDS: INSULIN ASPART (NovoLOG) 100 UNIT/ML VIAL SQ SCH ×5 (00:18→23:43)
[2021-03-12] MEDS: HYDROCORTISONE SUCCINATE 100 MG/2 ML VIAL IV SCH ×4 (00:35→23:45)
[2021-03-12] MEDS: CEFEPIME 2 GM in SODIUM CHLORIDE 0.9% 100 ML IVPB SCH ×4 (00:35→23:45)
[2021-03-12] MEDS: LORazepam 2 MG/ML INJ IV PRN ×3 (01:44→21:02)
[2021-03-12] MEDS: DEXTROSE 5% IN WATER 1,000 ML IV SCH (03:16)
[2021-03-12 03:28] LABS: HCT 33.4 % (39.0-53.0); Hypochromasia Slight; MCHC 33.1 g/dL (31.0-37.0); Macrocytosis Moderate; Mean Platelet Volume 8.4; Platelet Count 160 k/uL (150-450); RBC 3.15 m/uL (4.30-5.90); RDW 15.5 % (11.5-15.5); WBC 11.8 k/uL (3.8-10.6)
[2021-03-12 03:44] LABS: African American GFR (CKD) >90 (>60 ml/min/1.73 sqM); Anion Gap 5 mmol/L; Blood Urea Nitrogen 20 mg/dL (9-20); Calcium 7.9 mg/dL (8.4-10.2); Carbon Dioxide 24 mmol/L (22-30); Chloride 115 mmol/L (98-107); Glucose 135 mg/dL (74-99); Non-African American GFR(CKD) >90 (>60 ml/min/1.73 sqM); Potassium 3.8 mmol/L (3.5-5.1); Sodium 144 mmol/L (137-145)
[2021-03-12] MEDS ORDERED: POTASSIUM BICARBONATE/CIT AC 20 MEQ TABLET.EFF NG-TUBE SCH (05:00)
[2021-03-12 05:08] LABS: ABG HCO3 27 mmol/L (21-25); ABG Oxygen Saturation 98.5 % (94-97); ABG PCO2 43 mmHg (35-45); ABG PO2 104 mmHg (83-108); ABG TCO2 28 mmol/L (19-24); Allen Test Performed? Yes
[2021-03-12 06:17] LABS: Glucose,Whole Blood 139 mg/dL (75-99)
--- NOTE | 2021-03-12 06:58 | XR ---
EXAMINATION TYPE: XR chest 1V portable DATE OF EXAM: 03/12/2021 COMPARISON: 03/11/2021 HISTORY: Shortness of breath TECHNIQUE: Single frontal view of the chest is obtained. FINDINGS: ET and NG tube stable. Diffuse interstitial pattern with bilateral infiltrate and pleural effusion stable. No pneumothorax. Heart size stable. IMPRESSION: Diffuse bilateral pleural-parenchymal changes are stable correlate for diffuse pneumonia versus CHF.
--- NOTE | 2021-03-12 07:22 | P.PN ---
Subjective Progress Note Date: 03/12/21 Principal diagnosis: Respiratory failure. Patient was reevaluated today on 03/08/2021, remains in the ICU, intubated and mechanically ventilated. Patient is on assist control rate of 16, volume 450 FiO2 45% PEEP of 5. ABG showed a pO2 of 144 pCO2 45 pH of 7.35 hence his FiO2 w as decreased down to 40%. Chest x-ray is showing evidence of developing bibasilar infiltrates, atelectasis, and there is a small right-sided pleural effusion. Patient remains on multiple drips including norepinephrine at 0.18 mcg/kg/m, he is on vasopressin at 0.03, propofol at 55 mcg/kg/m, IV fluid 0.9 normal saline at 13 0 mL per hour and on vital hp at 13 mL per hour. The Gram stain on the spinal fluid is negative. Blood cultures so far remain negative. His spinal fluid showed slightly elevated glucose and slightly elevated protein. Patient remains empirically on Rocephin and Zyvox. We added today HSV PCR to spinal fluid. Patient seems to be comfortable on mechanical ventilation, and we will address possibly a sedation holiday today, and possibly address mental status of possible. However considering the patient is still on multiple pressors may not be able to address weaning today yet WBC count today is 23.8 hemoglobin is 11.9. Electrolytes are normal renal profile is normal. Blood cultures and spinal fluid cultures are pending Patient was reevaluated today on 03/09/2021, remains in the ICU, intubated and mechanically ventilated. Patient is on assist control rate of 16 per volume 450, FiO2 40% PEEP of 5. Patient had an ABG that showed pO2 of 137 pCO2 44 pH of 7.3. Remains on propofol at 50 mcg/kg/m, he is also on norepinephrine at 0.04 mcg/kg/m, off vasopressin, IV fluid of 0.9 normal saline at 75 mL per hour. Apparently the patient was seen yesterday by infectious disease, and he raised the possibility of necrotizing fasciitis, and I am not certain whether this is truly necrotizing fasciitis or just cellulitis. If this is a truly necrotizing fasciitis, patient has to be seen by general surgery or even by orthopedics, may have to consider surgical intervention if this is truly necrotizing fasciitis, however my experience with cases of necrotizing fasciitis, they have always ended up being transferred to a tertiary care center as I have not seen any of our surgeons performing surgeries on necrotizing fasciitis cases. However in the meantime I will go ahead and recommended surgical consultation with general surgery vascular surgery and orthopedics. And if they are all on the same page, patient may have to be considered for transfer to a tertiary care center or possibly just continue antibiotics. That CT of the leg showed mostly evidence of swelling and cellulitis, but did not mention necrotizing fasciitis findings, no air noted in the subcutaneous and deep tissue. Patient remains on antibiotics, infectious disease is addressing the antibiotics, and the blood cultures have been negative so far. Spinal fluid cultures have been negative so far. The initial Gram stain that was noted from the blood showing gram-negative diplococci, seems to be probably a false positive Gram stain, since the cultures remain negative. At any rate on culturing the right lower extremity today, and I'm recommending different surgical consultations. WBC count remains elevated at 23.0 hemoglobin is 11.3. Basic metabolic profile is normal. Pro-calcitonin is 8.60. Chest x-ray showed bilateral patchy airspace disease especially in the right lower lobe which has developed since admission. Possibility of underlying pneumonia or aspiration pneumonia is very likely. Again his antibiotics have been changed a few times by infectious disease on the case, and I'm letting the infectious disease physician handled antibiotics accordingly. On 03/10/2021 patient seen in follow-up in intensive care unit, he remains intubated, sedated, on assist-control with a rate of 16, tidal vital was 450, FiO2 40% and PEEP of 5, this morning's blood gas shows pO2 of 126, pCO2 of 43, pH of 7.39, this was done on FiO2 of 40%. He is on 0.9 normal seen at 75 ML per hour, levo fed is at 0.04 mics per kilo per minute, and improving and is at 30 mics per kilo per minute, today's chest x-ray has been reviewed showing right lower lobe infiltrates, and small bilateral pleural effusions. No fevers overnight. Vital signs have been stable, he remains on cefepime, Rocephin has been discontinued, Unasyn has been discontinued as well as vancomycin. ID service is following. So far blood sputum CSF and right lower extremity wound cultures have all been negative. CSF VDRL was non-reactive, HSV PCR from the CSF was negative. However the pro-calcitonin level came back elevated at 8.6. His leukocytosis is improving, his white blood cell count is down to 17.7, hemoglobin is 11.4, sodium is 143, potassium is 4.1, chloride is 116, B1 is 21 creatinine 0.41. Patient's right lower extremity developed blistering and draining, and there has been a significant discoloration and bruising involving the right lower extremity, with the concern of necrotizing fasciitis, orthopedic consultation was requested and the orthopedic surgeons did not feel that this was consistent with necrotizing fasciitis and no surgical intervention was recommended. The right lower extremity is covered with a gauze. Computed tomography scan of the right lower extremity showed a diffuse subcutaneous edema around the leg, with evidence of previous surgery, but without any evidence of fracture, no sign of osteomyelitis. Otherwise no acute events overnight. Tolerating tube feedings, currently receiving Vital HP at 13 with a goal of 13 and a standard water flushes. Patient will be given a sedation holiday. On 03/11/2021 patient seen in follow-up in intensive care unit, he remains sedated and intubated on mechanical ventilator, assist control mode with a rate of 16, tidal on this 450, FiO2 of 40% and PEEP of 5. This morning's blood gas shows pO2 of 99, pCO2 41, and pH is 7.41. Patient is currently on 0.9 normal saline at 75 ML per hour, Diprivan was runing at 40 mics per kilo per minute and is currently off, levo fed is off, and patient is receiving tube feedings in the form of vital high-protein at 13 ML per hour with a goal of 13 and the standard water flushes. Today's chest x-ray has been reviewed showing right lower lobe infiltrate, mild platelike atelectasis of the left lower lobe. Hemodynamically patient has improved and was able to be weaned off the vasopressors. He remains on antibiotics currently with cefepime only. Blood culture from 03/06/2001 showed evidence of Acinetobacter lwolffi which was pansensitive including cefepime. Follow blood cultures, CSF cultures, sputum and right lower extremity wound cultures have all been negative. His white count continues to improve on today's labs and is down to 11.7, hemoglobin is stable at 11.5, sodium is 146, potassium 3.8, chloride is 118, BUN is 23, creatinine 0.40. Yesterday we gave the patient a daily traction of sedation and patient apparently failed sedation holiday, and became quite tachypneic, agitated, and had to be placed back on sedation. He did not do any spontaneous breathing trials yesterday. This morning his sedation was placed on hold, he still quite lethargic, he does not open eyes to voice, but does withdraw from pain. He remains on breathing treatments, antibiotics, he remains on IV hydrocortisone 50 mg every 8 hours. He remains on Keppra per neurology. There was no episodes of witnessed seizure activity. Abdomen is soft, patient has been tolerating tube feedings. Right lower extremity is quite ecchymotic, with open draining blisters, is receiving local wound care. Progress note dated 03/12/2021. This is a 65-year-old male again seen in the intensive care unit, room 264. The patient remains on the mechanical ventilator. He is on the volume assist control mode, rate 16, tidal volume 50, FiO2 30%, PEEP of 5. Blood gases show a PaO2 of 104, pCO2 43, and pH is 7.4. The patient's on dextrose at 50 mL an hour, propofol at 50 mics per kilogram per minute, and vital high protein at 32 mL an hour, which is goal. The patient had a daily interruption of sedation on March 11. He did poorly according to the nurse Divya. Hence, he was recently dated. He was not given a spontaneous breathing trial. White count 11.8, hemoglobin 11, hematocrit 33.4, and platelet count 160,000. Sodium 144, potassium 3.8, chlorides 115, CO2 24, anion gap 5, BUN 20, creatinine 0.4. Blood cultures from March 06 show evidence of Acinetobacter. Chest x-ray today shows diffuse bilateral atelectasis or infiltrates with small effusions, and the chest x-ray appears stable to me. Objective - Vital Signs Vital signs: Vital Signs Temp 98.7 F 03/12/21 04:00 Pulse 66 03/12/21 06:00 Resp 14 03/12/21 06:00 BP 96/61 03/11/21 21:00 Pulse Ox 96 03/12/21 06:00 Intake & Output 03/11/21 03/12/21 03/12/21 18:59 06:59 18:59 Intake Total 8570.877 4562.066 Output Total 630 580 Balance 941.547 5831.066 Weight 96.7 kg 97.6 kg Intake: IV 1061 836 Cefepime 2 gm In Sodium 150 100 Chloride 0.9% 100 ml @ 25 mls/hr IVPB Q8HR [facility] Rx# :[id number] Dextrose 5% in Water 1, 450 600 000 ml @ 50 mls/hr IV . Q20H [facility] Rx#:[id number] Pressure Bag 36 36 Sodium Chloride 0.9% 1, 225 000 ml @ 75 mls/hr IV . [id number] [facility] Rx#:[id number] Thiamine 100 mg In Sodium 100 Chloride 0.9% 50 ml @ 100 mls/hr IVPB DAILY [facility]IO Rx#:[id number] levETIRAcetam IV 500 mg 100 100 In Sodium Chloride 0.9% 100 ml @ 400 mls/hr IVPB Q12HR [facility] Rx#:[id number] Intake, IV Titration 90.857 364.066 Amount Norepinephrine 32 mg In 6.624 11.763 Sodium Chloride 0.9% 218 ml @ 0.05 MCG/KG/MIN 1. 967 mls/hr IV .Q24H [facility]IO Rx#:[id number] propofoL 1,000 mg In 84.233 352.303 Empty Bag 1 bag @ Titrate IV .Q0M MARIO Rx#: [id number] Tube Feeding 180 356 Other 90 90 Output: Urine 630 580 Other: Voiding Method Indwelling Catheter Indwelling Catheter # Bowel Movements 1 ABP, PAP, CO, CI - Last Documented Arterial Blood Pressure 132/65 - Exam No acute distress, currently sedated, with an orally placed endotracheal tube. HEENT examination is grossly unremarkable. Neck supple. Full range of motion. No adenopathy thyromegaly or neck vein distention. Cardiovascular examination reveals regular rhythm rate. S1-S2 normal. No S3 or S4. No discernible murmur noted. Heart rate 66 bpm. Heart sounds are distant. Lungs reveal bilateral diffuse rhonchi and crackles. Breath sounds equal bilaterally. There are no wheezes. Saturations are 96-97% on the ventilator. Abdomen soft bowel sounds are heard. No masses or tenderness. Extremities are intact. No cyanosis clubbing or edema. Skin is without rash or lesion. Neurologic examination cannot be adequately assessed as the patient is sedated with propofol. - Labs CBC & Chem 7: 03/12/21 03:10 03/12/21 03:10 Labs: Abnormal Lab Results - Last 24 Hours (Table) 03/11/21 03/11/21 03/12/21 Range/Units 11:47 23:56 03:10 WBC 11.8 H (3.8-10.6) k/uL RBC 3.15 L (4.30-5.90) m/uL Hgb 11.0 L (13.0-17.5) gm/dL Hct 33.4 L (39.0-53.0) % MCV 106.0 H (80.0-100.0) fL ABG HCO3 (21-25) mmol/L ABG Total CO2 (19-24) mmol/L ABG O2 Saturation (94-97) % Chloride (98-107) mmol/L Creatinine (0.66-1.25) mg/dL Glucose (74-99) mg/dL POC Glucose (mg/dL) 105 H 109 H (75-99) mg/dL Calcium (8.4-10.2) mg/dL 03/12/21 03/12/21 03/12/21 Range/Units 03:10 05:05 06:06 WBC (3.8-10.6) k/uL RBC (4.30-5.90) m/uL Hgb (13.0-17.5) gm/dL Hct (39.0-53.0) % MCV (80.0-100.0) fL ABG HCO3 27 H (21-25) mmol/L ABG Total CO2 28 H (19-24) mmol/L ABG O2 Saturation 98.5 H (94-97) % Chloride 115 H (98-107) mmol/L Creatinine 0.40 L (0.66-1.25) mg/dL Glucose 135 H (74-99) mg/dL POC Glucose (mg/dL) 139 H (75-99) mg/dL Calcium 7.9 L (8.4-10.2) mg/dL Microbiology - Last 24 Hours (Table) 03/07/21 10:20 CSF Gram Stain - Preliminary Cerebral Spinal Fluid CSF Culture - Preliminary 03/06/21 11:20 Blood Culture Gram Stain - Final Blood Blood Culture - Final Acinetobacter lwoffi 03/09/21 11:30 Anaerobic Culture - Preliminary Leg - Right 03/06/21 11:37 Blood Culture - Preliminary Blood No Growth after 120 hours 03/09/21 11:30 Gram Stain - Final Leg - Right Wound Culture - Final 03/10/21 06:40 Blood Culture - Preliminary Blood No Growth after 24 hours Assessment and Plan Assessment: #1. Acute hypoxic respiratory failure secondary to sepsis and septic shock, and in-hospital cardiac arrest, on 03/06/2021, intubated on the same day. #2. In-hospital cardiac arrest requiring brief CPR and epinephrine with return of spontaneous circulation. #3. Recent history of glioblastoma multiform, status post surgical resection on 02/05/2021 at the [facility] in [place]. #4. 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 #5. Possible meningitis ruled out, lumbar puncture was completed, CSF cultures are negative. VDRL and HSV PCR were negative. #6. Right lower extremity bruising, and weeping, wound cultures are negative, CT scan of the right lower extremity showed no evidence of osteomyelitis, it did show diffuse subcutaneous edema around the left leg including the foot and ankle. Orthopedic evaluation was obtained, and it was not felt to be related to necrotizing fasciitis. #7. Acute right lower lobe and left lower lobe pneumonia, suspect aspiration related. Plan: Plan dated 03/12/2021. The patient will have another daily interruption of sedation today. If he does better, we will attempt a spontaneous breathing trial. We've had ongoing discussions with the family about CODE STATUS. Apparently the patient is still a full code at this point. The is apparently being advised by family member who is a retired hospice nurse. His overall prognosis remains extremely poor. Follow make recommendations were appropriate. Arterial blood gases are excellent. Time with Patient: Greater than 30
[2021-03-12] MEDS: IPRATROPIUM-ALBUTEROL 3 ML NEB INHALATION SCH ×4 (07:37→19:36)
[2021-03-12] MEDS: CHLORHEXIDINE GLUCONATE 15 ML CUP MUCOUS MEM SCH ×2 (07:59→21:01)
[2021-03-12] MEDS: ENOXAPARIN 40 MG/0.4 ML SYRINGE SQ SCH (07:59)
[2021-03-12] MEDS: PANTOPRAZOLE 40 MG/10 ML VIAL IVP SCH ×2 (07:59→21:01)
--- NOTE | 2021-03-12 08:12 | PN ---
PROGRESS NOTE DATE OF SERVICE: 03/11/2021 REASON FOR FOLLOWUP: Pneumonia and bacteremia and leg cellulitis. INTERVAL HISTORY: The patient is afebrile. The patient is hemodynamically stable. The patient remains to be intubated on the vent. FiO2 is currently 40%. No significant purulent secretions in the ET or diarrhea reported by the nursing staff. PHYSICAL EXAMINATION: Blood pressure 112/51 with a pulse of 73, temperature 98. He is 93% on 40% FIO2. General description is an elderly male lying in bed in no distress. Respiratory system: Unlabored breathing with decreased breath sounds in the base. No wheeze. Heart S1, S2. Regular rate and rhythm. Abdomen soft, no tenderness. Right leg is currently dressed. Minimal drainage on the dressing. LABS: Hemoglobin 11.5, white count 11.7, BUN of 23, creatinine 0.40. DIAGNOSTIC IMPRESSION AND PLAN: Patient with acute respiratory failure, multifactorial in this patient with possible component of pneumonia, possible aspiration etiology or gram-negative. Sputum has been negative. However, blood cultures positive for Acinetobacter. Patient is covered with cefepime that should cover his lower extremity cellulitis as well and monitor clinical course closely. MMODL / IJN: [id number] /
[2021-03-12] MEDS: levETIRAcetam IV 500 MG in SODIUM CHLORIDE 0.9% 100 ML IVPB SCH ×2 (09:19→21:01)
--- NOTE | 2021-03-12 09:45 | P.PN ---
Subjective Progress Note Date: 03/12/21 She was seen and examined lying in bed. He remains intubated. No acute changes through the night. He does respond to stimuli. Bilateral lower extremities with swelling. Objective - Vital Signs Vital signs: Vital Signs Temp 97.5 F L 03/12/21 07:00 Pulse 75 03/12/21 08:00 Resp 19 03/12/21 08:00 BP 96/61 03/11/21 21:00 Pulse Ox 95 03/12/21 08:00 Intake & Output 03/11/21 03/12/21 03/12/21 18:59 06:59 18:59 Intake Total 7453.571 7744.066 212.452 Output Total 630 580 150 Balance 197.935 5645.066 62.452 Weight 96.7 kg 97.6 kg Intake: IV 1061 836 106 Cefepime 2 gm In Sodium 150 100 Chloride 0.9% 100 ml @ 25 mls/hr IVPB Q8HR [facility] Rx# :[id number] Dextrose 5% in Water 1, 450 600 100 000 ml @ 50 mls/hr IV . Q20H [facility] Rx#:[id number] Pressure Bag 36 36 6 Sodium Chloride 0.9% 1, 225 000 ml @ 75 mls/hr IV . [id number] [facility] Rx#:[id number] Thiamine 100 mg In Sodium 100 Chloride 0.9% 50 ml @ 100 mls/hr IVPB DAILY [facility]IO Rx#:[id number] levETIRAcetam IV 500 mg 100 100 In Sodium Chloride 0.9% 100 ml @ 400 mls/hr IVPB Q12HR [facility] Rx#:[id number] Intake, IV Titration 90.857 364.066 42.452 Amount Norepinephrine 32 mg In 6.624 11.763 Sodium Chloride 0.9% 218 ml @ 0.05 MCG/KG/MIN 1. 967 mls/hr IV .Q24H [facility]IO Rx#:[id number] propofoL 1,000 mg In 84.233 352.303 42.452 Empty Bag 1 bag @ Titrate IV .Q0M [facility]IO Rx#: [id number] Tube Feeding 180 356 64 Other 90 90 Output: Urine 630 580 150 Other: Voiding Method Indwelling Catheter Indwelling Catheter # Bowel Movements 1 ABP, PAP, CO, CI - Last Documented Arterial Blood Pressure 150/71 - Exam General appearance: The patient is intubated. HET: Head is normocephalic and atraumatic. Neck: Supple without lymphadenopathy. Trachea midline. Extremities: Normal skin color. Bilateral lower extremity pitting edema +2. Left lower extremity and soft offloading boot. Right lower extremity with dressing clean dry and intact, resting removed revealing multiple superficial areas of blisters that are open and weeping. Bilateral Multiphasic PT and DP Doppler signal. Neurological: Intubated, sedated. Responds to stimuli. - Labs CBC & Chem 7: 03/12/21 03:10 03/12/21 03:10 Labs: Abnormal Lab Results - Last 24 Hours (Table) 03/11/21 03/11/21 03/12/21 Range/Units 11:47 23:56 03:10 WBC 11.8 H (3.8-10.6) k/uL RBC 3.15 L (4.30-5.90) m/uL Hgb 11.0 L (13.0-17.5) gm/dL Hct 33.4 L (39.0-53.0) % MCV 106.0 H (80.0-100.0) fL ABG HCO3 (21-25) mmol/L ABG Total CO2 (19-24) mmol/L ABG O2 Saturation (94-97) % Chloride (98-107) mmol/L Creatinine (0.66-1.25) mg/dL Glucose (74-99) mg/dL POC Glucose (mg/dL) 105 H 109 H (75-99) mg/dL Calcium (8.4-10.2) mg/dL 03/12/21 03/12/21 03/12/21 Range/Units 03:10 05:05 06:06 WBC (3.8-10.6) k/uL RBC (4.30-5.90) m/uL Hgb (13.0-17.5) gm/dL Hct (39.0-53.0) % MCV (80.0-100.0) fL ABG HCO3 27 H (21-25) mmol/L ABG Total CO2 28 H (19-24) mmol/L ABG O2 Saturation 98.5 H (94-97) % Chloride 115 H (98-107) mmol/L Creatinine 0.40 L (0.66-1.25) mg/dL Glucose 135 H (74-99) mg/dL POC Glucose (mg/dL) 139 H (75-99) mg/dL Calcium 7.9 L (8.4-10.2) mg/dL Microbiology - Last 24 Hours (Table) 03/07/21 10:20 CSF Gram Stain - Preliminary Cerebral Spinal Fluid CSF Culture - Preliminary 03/06/21 11:20 Blood Culture Gram Stain - Final Blood Blood Culture - Final Acinetobacter lwoffi 03/09/21 11:30 Anaerobic Culture - Preliminary Leg - Right 03/06/21 11:37 Blood Culture - Preliminary Blood No Growth after 120 hours 03/09/21 11:30 Gram Stain - Final Leg - Right Wound Culture - Final 03/10/21 06:40 Blood Culture - Preliminary Blood No Growth after 24 hours Assessment and Plan Assessment: 1. Right lower extremity superficial wounds with skin sloughing 2. Acute vent dependent respiratory failure 3. Gram-negative diplococci bacteremia 4. Recent scleral blastoma excision Plan: 1. Continue dressing changes with an Adaptic and Kerlix 2. Continue ICU management 3. Continue IV antibiotics per recommendations from infectious disease 4. Apply Kennedy wrap for compression to bilateral lower extremities Thank you for this consultation, we will be on standby The impression and plan of care has been dictated as directed. Dr. Yang I performed a history and examination of this patient, discussed the same with the dictator. I agree with the dictator's note ,documented as a scribe. Any additional findings or plans will be noted.
[2021-03-12] MEDS: THIAMINE 100 MG in SODIUM CHLORIDE 0.9% 50 ML IVPB SCH (09:47)
--- NOTE | 2021-03-12 11:27 | P.PN ---
Subjective Progress Note Date: 03/11/21 Patient was seen for a follow-up. Patient initially seen by Dr. Raghavendra Chappell. Please refer to his note for details. Patient has history of glioblastoma multiform involving left temporal region, status post resection on 02/05/2021 at [facility]. Patient has motor aphasia, came to the hospital for respiratory distress, requiring intubation and placement on mechanical ventilation. The cultures were positive for gram- negative diplopia, and was concern for meningitis but CSF negative on meningitis coverage. Patient is currently on Keppra 500 mg twice a day for seizure prophylaxis. EEG showed no seizure activity, but only encephalopathy. Patient at present is intubated. He is currently on propofol 50 g. Patient also gets intermittently on Levophed. No seizures have been reported. Patient is not able to be extubated. When the sedation is decreased, he becomes tachypneic. Objective - Vital Signs Vital signs: Vital Signs Temp 98.4 F 03/11/21 23:00 Pulse 68 03/11/21 23:00 Resp 15 03/11/21 23:00 BP 96/61 03/11/21 21:00 Pulse Ox 95 03/11/21 23:00 Intake & Output 03/11/21 03/11/21 03/12/21 06:59 18:59 06:59 Intake Total 3391.656 0157.857 610.686 Output Total 615 630 265 Balance 963.655 791.857 345.686 Weight 96.7 kg 96.7 kg Intake: IV 1026 1061 365 Cefepime 2 gm In Sodium 100 150 Chloride 0.9% 100 ml @ 25 mls/hr IVPB Q8HR [facility] Rx# :[id number] Dextrose 5% in Water 1, 450 250 000 ml @ 50 mls/hr IV . Q20H [facility] Rx#:[id number] Pressure Bag 36 36 15 Sodium Chloride 0.9% 1, 790 225 000 ml @ 75 mls/hr IV . [id number] [facility] Rx#:[id number] Thiamine 100 mg In Sodium 100 Chloride 0.9% 50 ml @ 100 mls/hr IVPB DAILY [facility] Rx#:[id number] levETIRAcetam IV 500 mg 100 100 100 In Sodium Chloride 0.9% 100 ml @ 400 mls/hr IVPB Q12HR [facility] Rx#:[id number] Intake, IV Titration 306.655 90.857 105.686 Amount Norepinephrine 32 mg In 6.655 6.624 5.686 Sodium Chloride 0.9% 218 ml @ 0.05 MCG/KG/MIN 1. 967 mls/hr IV .Q24H [facility] Rx#:[id number] propofoL 1,000 mg In 300 84.233 100 Empty Bag 1 bag @ Titrate IV .Q0M [facility] Rx#: [id number] Tube Feeding 156 180 110 Other 90 90 30 Output: Urine 615 630 265 Other: Voiding Method Indwelling Catheter Indwelling Catheter ABP, PAP, CO, CI - Last Documented Arterial Blood Pressure 93/47 - Exam Patient's examination is limited because he is medically sedated on propofol 50 g. Per nurse report, when the sedation is decreased, he moves the left side sporadically, but the right side only with painful stimuli. No seizures have been reported. He has moderate bilateral peripheral edema. No obvious seizure activity noted. - Labs CBC & Chem 7: 03/12/21 03:10 03/12/21 03:10 Labs: Abnormal Lab Results - Last 24 Hours (Table) 03/10/21 03/11/21 03/11/21 Range/Units 23:39 05:00 05:00 WBC 11.7 H (3.8-10.6) k/uL RBC 3.22 L (4.30-5.90) m/uL Hgb 11.5 L (13.0-17.5) gm/dL Hct 34.2 L (39.0-53.0) % MCV 106.3 H (80.0-100.0) fL MCH 35.6 H (25.0-35.0) pg RDW 15.6 H (11.5-15.5) % Plt Count 128 L (150-450) k/uL ABG HCO3 (21-25) mmol/L ABG Total CO2 (19-24) mmol/L ABG O2 Saturation (94-97) % Sodium 146 H (137-145) mmol/L Chloride 118 H (98-107) mmol/L BUN 23 H (9-20) mg/dL Creatinine 0.40 L (0.66-1.25) mg/dL Glucose 149 H (74-99) mg/dL POC Glucose (mg/dL) 123 H (75-99) mg/dL Calcium 8.1 L (8.4-10.2) mg/dL Magnesium 2.7 H (1.6-2.3) mg/dL 03/11/21 03/11/21 03/11/21 Range/Units 05:05 05:06 11:47 WBC (3.8-10.6) k/uL RBC (4.30-5.90) m/uL Hgb (13.0-17.5) gm/dL Hct (39.0-53.0) % MCV (80.0-100.0) fL MCH (25.0-35.0) pg RDW (11.5-15.5) % Plt Count (150-450) k/uL ABG HCO3 26 H (21-25) mmol/L ABG Total CO2 27 H (19-24) mmol/L ABG O2 Saturation 98.1 H (94-97) % Sodium (137-145) mmol/L Chloride (98-107) mmol/L BUN (9-20) mg/dL Creatinine (0.66-1.25) mg/dL Glucose (74-99) mg/dL POC Glucose (mg/dL) 143 H 105 H (75-99) mg/dL Calcium (8.4-10.2) mg/dL Magnesium (1.6-2.3) mg/dL Microbiology - Last 24 Hours (Table) 03/07/21 10:20 CSF Gram Stain - Preliminary Cerebral Spinal Fluid CSF Culture - Preliminary 03/06/21 11:20 Blood Culture Gram Stain - Final Blood Blood Culture - Final Acinetobacter lwoffi 03/09/21 11:30 Anaerobic Culture - Preliminary Leg - Right 03/06/21 11:37 Blood Culture - Preliminary Blood No Growth after 120 hours 03/09/21 11:30 Gram Stain - Final Leg - Right Wound Culture - Final 03/10/21 06:40 Blood Culture - Preliminary Blood No Growth after 24 hours Assessment and Plan Assessment: * 1. Toxic encephalopathy secondary to infection/pneumonia * 2. History of recent partial resection of glioblastoma multiforme. Seizure prophylaxis is on board * 3. CSF findings are negative for meningitis Plan: 1. Continue to wean sedation as tolerated 2. Continue Keppra at current dosing 3. No further neurologic intervention is needed at this time. Please call if necessary. Neurology will sign off.
[2021-03-12 11:56] LABS: Glucose,Whole Blood 112 mg/dL (75-99)
--- NOTE | 2021-03-12 15:39 | P.PN ---
Subjective Progress Note Date: 03/12/21 Marcelo Ortega is a 65 yo M with PMH of glioblastoma multiforma, s/p resection on 02/05/2021 who presented to the ED complaining of shortness of breath and generalized fatigue and weakness. On his initial presentation he was found to be hypotensive, patient developed sudden episode of bradycardia, shallow breathing, and he went on to full blown respiratory failure. CPR was done for 3 minutes, patient was intubated, received epinephrine 2 with return of spontaneous circulation. Patient was eventually transferred to the ICU on pressors. Today he remains intubated and sedated. Patient had low-grade fever at night with a temp of 100. Blood cultures are positive for gram-negative diplococci. Patient received Zithromax Zosyn and Zyvox. He is scheduled for a lumbar puncture to rule out neisseria meningitis. Labs today showed leukocytosis with WBC of 23.7 hemoglobin is 13.3. Liver enzymes are noted to be elevated with elevated AST to 57 ALT [address] of the brain this morning showed hypodensity in the posterior left ta radiata of intermediate age, chronic vascular ischemic changes, postsurgical changes, and the radiologist raised the possibility of recurrent mass. Recommended MRI. 03/08/2021 remains vent dependent with FiO2 of 45%/+5 of PEEP. Chest x-ray reporting developing bibasilar infiltrates, small right pleural effusion. Maintained on diprovan, vasopressin, Levophed drips in addition to IV fluids of normal saline in the 130 mL's per hour. Continues on IV hydrocortisone. EEG abnormal, suggestive of severe encephalopathy of unspecified etiology, no deniz ctiform discharges or seizures. Maintained on Keppra, no seizure activity reported. Continues on high-dose of Rocephin and Zyvox as per ID. CSF reports clear, colorless, red blood cells 7, nuclear cells 0, glucose 136, total protein is 116. CSF Gram stain there is no polymorphonuclear leukocytes. No organisms seen. Aerobic CSF culture pending. CSF VDRL is nonreactive. sputum culture pending, preliminary blood cultures negative. Afebrile, WBC 23.8. telemetry sinus rhythm.echo reporting severe global hypokinesis with LV, severely impaired LV function, EF between 25 and 30%. 03/11/2021 . Vent dependent, FiO2 40%/5 of PEEP. Chest x-ray reporting improving right lower lobe infiltrate. Levophed weaned off recently this morning. Yesterday failed sedation holiday .Sedation recently turned off, awake, not following commands. Maintained on cefepime as per ID. Renal function stable. Frequent dressing changes required related to large amount serosanguineous drainage-saturating. Vascular following with no intervention recommended at this time. Tolerating tube feeds at goal, tolerating well with minimal to no residuals. Blood sugars controlled. Afebrile, WBC trending down. Maintained on current dose of Keppra as per neurology. No seizure activity reported. 03/12/2021 required Levophed on off throughout the night, remains off of pressors this morning. Failed sedation holiday yesterday and today developed agitation, increased respiratory rate, increased heart rate. Vent dependent, FiO2 down to 30%/+5 of PEEP. Chest x-ray reported diffuse bilateral pleural personal changes stable. Right leg with less weeping reported, positive pulses. Blood sugars controlled. Continues on cefepime as per ID, afebrile, WBC 11.8 Objective - Vital Signs Vital signs: Vital Signs Temp 98.6 F 03/12/21 12:00 Pulse 79 03/12/21 15:16 Resp 21 03/12/21 13:00 BP 132/90 03/12/21 10:00 Pulse Ox 92 L 03/12/21 13:00 Intake & Output 03/11/21 03/12/21 03/12/21 18:59 06:59 18:59 Intake Total 4613.344 8568.066 1050.000 Output Total 630 580 725 Balance 811.207 0754.066 325.000 Weight 96.7 kg 97.6 kg Intake: IV 1061 836 674 Cefepime 2 gm In Sodium 150 100 100 Chloride 0.9% 100 ml @ 25 mls/hr IVPB Q8HR [facility] Rx# :[id number] Dextrose 5% in Water 1, 450 600 400 000 ml @ 50 mls/hr IV . Q20H [facility] Rx#:[id number] Pressure Bag 36 36 24 Sodium Chloride 0.9% 1, 225 000 ml @ 75 mls/hr IV . [id number] [facility] Rx#:[id number] Thiamine 100 mg In Sodium 100 50 Chloride 0.9% 50 ml @ 100 mls/hr IVPB DAILY [facility] Rx#:[id number] levETIRAcetam IV 500 mg 100 100 100 In Sodium Chloride 0.9% 100 ml @ 400 mls/hr IVPB Q12HR [facility] Rx#:[id number] Intake, IV Titration 90.857 364.066 100.000 Amount Norepinephrine 32 mg In 6.624 11.763 Sodium Chloride 0.9% 218 ml @ 0.05 MCG/KG/MIN 1. 967 mls/hr IV .Q24H [facility] Rx#:[id number] propofoL 1,000 mg In 84.233 352.303 100.000 Empty Bag 1 bag @ Titrate IV .Q0M [facility] Rx#: [id number] Tube Feeding 180 356 256 Other 90 90 20 Output: Urine 630 580 725 Other: Voiding Method Indwelling Catheter Indwelling Catheter Indwelling Catheter # Bowel Movements 1 1 ABP, PAP, CO, CI - Last Documented Arterial Blood Pressure 129/57 - Exam General: cachexic, intubated, sedated. Vital reviewed. HEENT: Normocephalic, atraumatic. Mucus membranes dry. Neck: supple, no JVD CV: RRR, no murmur. Pulses 2+ Lungs: No wheezes, occasional scattered rhonchi and fine rales Abd: soft, non distended, bowel sounds present EXT: Bilateral lower extremity pitting edema, bilateral lower extremity Kennedy wraps clean dry and intact. PT & DP Doppler pulses reported. Neuro: Unable to evaluate, intubated, sedated. Skin: warm and dry. - Labs CBC & Chem 7: 03/12/21 03:10 03/12/21 03:10 Labs: Abnormal Lab Results - Last 24 Hours (Table) 03/11/21 03/12/21 03/12/21 Range/Units 23:56 03:10 03:10 WBC 11.8 H (3.8-10.6) k/uL RBC 3.15 L (4.30-5.90) m/uL Hgb 11.0 L (13.0-17.5) gm/dL Hct 33.4 L (39.0-53.0) % MCV 106.0 H (80.0-100.0) fL ABG HCO3 (21-25) mmol/L ABG Total CO2 (19-24) mmol/L ABG O2 Saturation (94-97) % Chloride 115 H (98-107) mmol/L Creatinine 0.40 L (0.66-1.25) mg/dL Glucose 135 H (74-99) mg/dL POC Glucose (mg/dL) 109 H (75-99) mg/dL Calcium 7.9 L (8.4-10.2) mg/dL 03/12/21 03/12/21 03/12/21 Range/Units 05:05 06:06 11:54 WBC (3.8-10.6) k/uL RBC (4.30-5.90) m/uL Hgb (13.0-17.5) gm/dL Hct (39.0-53.0) % MCV (80.0-100.0) fL ABG HCO3 27 H (21-25) mmol/L ABG Total CO2 28 H (19-24) mmol/L ABG O2 Saturation 98.5 H (94-97) % Chloride (98-107) mmol/L Creatinine (0.66-1.25) mg/dL Glucose (74-99) mg/dL POC Glucose (mg/dL) 139 H 112 H (75-99) mg/dL Calcium (8.4-10.2) mg/dL Microbiology - Last 24 Hours (Table) 03/06/21 11:37 Blood Culture - Final Blood No Growth after 144 hours 03/10/21 06:40 Blood Culture - Preliminary Blood No Growth after 48 hours 03/07/21 10:20 CSF Gram Stain - Preliminary Cerebral Spinal Fluid CSF Culture - Preliminary 03/06/21 11:20 Blood Culture Gram Stain - Final Blood Blood Culture - Final Acinetobacter lwoffi 03/09/21 11:30 Anaerobic Culture - Preliminary Leg - Right 03/09/21 11:30 Gram Stain - Final Leg - Right Wound Culture - Final Assessment and Plan Assessment: Acute hypoxic respiratory failure secondary to sepsis , septic shock and bilateral pneumonia -suspect aspiration ,mechanical ventilator-dependent. Respiratory arrest, CPR secondary to the above. Hypotension, pressor support-dependent secondary to the above Glioblastoma multiforme with motor aphasia. Status post resection at [facility] 02/05/2021. Acinetobacter lwoffi bacteremia, lumbar puncture completed, meningitis ruled out. CSF negative. Severe global hypokinesis of LV, severely impaired LV function, EF 25-30% Righht lower extremity cellulitis with superficial wounds, skin sloughing, wound cultures negative, anaerobic finalizing. CT reported diffuse subcutaneous edema around the romero including frequent ankle, previous surgery, no fracture, no sign of osteomyelitis, arteriosclerotic vascular disease. No necrotizing fasciitis as per orthopedic evaluation. Hospital course: Continue on current medication regime ,monitoring and symptomatic treatment. Antibiotics as per ID/ cultures finalizing. Seizure precautions. Follow closely with multiple consults. Prognosis guarded given multiple complex medical issues. The impression and plan of care has been dictated as directed. : I performed a history and examination of this patient, discussed the same with the dictator. I agree with the dictator's note ,documented as a scribe. Any additional findings or plans will be noted.
[2021-03-12 17:02] LABS: Glucose,Whole Blood 118 mg/dL (75-99)
[2021-03-12] MEDS: POTASSIUM BICARBONATE/CIT AC 20 MEQ TABLET.EFF NG-TUBE SCH ×2 (19:14→21:01)
[2021-03-12] MEDS: NOREPINEPHRINE 32 MG in SODIUM CHLORIDE 0.9% 218 ML IV SCH (20:53)
--- NOTE | 2021-03-12 22:30 | PN ---
PROGRESS NOTE DATE OF SERVICE: March 12, 2021 REASON FOR FOLLOWUP: 1. Pneumonia. 2. Right leg cellulitis. 3. Bacteremia. INTERVAL HISTORY: Patient is afebrile. The patient is hemodynamically stable. FiO2 is currently 30%. No significant purulent secretions thru the ET or other changes reported by the nursing staff. PHYSICAL EXAMINATION: Blood pressure 127/47, pulse of 96, temp 98, he is 95% on 30% FiO2. General description is an elderly male lying in bed in no distress. Respiratory system: Unlabored breathing, decreased breath sounds at the bases, no wheeze. Heart S1, S2. Regular rate and rhythm. Abdomen soft, no tenderness. Right leg is currently dressed up. Minimal drainage on the dressing. LABS: Hemoglobin is 11.9, white count 11.8. BUN of 20, creatinine 0.40. DIAGNOSTIC IMPRESSION AND PLAN: Patient with acute respiratory failure which is multifactorial in this patient who did have a component of possible aspiration pneumonia. Sputum has been negative. Blood culture positive for Acinetobacter, also cellulitis. Patient is covered with cefepime to continue while monitoring clinical course closely. Continue supportive care. MMODL / IJN: [id number] /
[2021-03-12 23:06] LABS: Glucose,Whole Blood 128 mg/dL (75-99)
[2021-03-13] MEDS: DEXTROSE 5% IN WATER 1,000 ML IV SCH ×2 (02:15→20:18)
[2021-03-13 04:05] LABS: HCT 31.5 % (39.0-53.0); HGB 10.5 gm/dL (13.0-17.5); MCHC 33.5 g/dL (31.0-37.0); MCV 104.5 fL (80.0-100.0); Macrocytosis Moderate; Mean Platelet Volume 8.7; Platelet Count 195 k/uL (150-450); RBC 3.01 m/uL (4.30-5.90); RDW 15.7 % (11.5-15.5); WBC 11.7 k/uL (3.8-10.6)
[2021-03-13 04:19] LABS: African American GFR (CKD) >90 (>60 ml/min/1.73 sqM); Anion Gap 2 mmol/L; Blood Urea Nitrogen 15 mg/dL (9-20); Calcium 7.8 mg/dL (8.4-10.2); Carbon Dioxide 28 mmol/L (22-30); Chloride 112 mmol/L (98-107); Glucose 133 mg/dL (74-99); Non-African American GFR(CKD) >90 (>60 ml/min/1.73 sqM); Potassium 3.6 mmol/L (3.5-5.1); Sodium 142 mmol/L (137-145)
[2021-03-13 04:49] LABS: ABG Base Excess 5.2 mmol/L; ABG HCO3 29 mmol/L (21-25); ABG Oxygen Saturation 95.3 % (94-97); ABG PCO2 41 mmHg (35-45); ABG PH 7.46 (7.35-7.45); ABG PO2 71 mmHg (83-108); ABG TCO2 30 mmol/L (19-24); Allen Test Performed? Yes
[2021-03-13] MEDS: INSULIN ASPART (NovoLOG) 100 UNIT/ML VIAL SQ SCH ×3 (05:20→18:54)
[2021-03-13 05:21] LABS: Glucose,Whole Blood 134 mg/dL (75-99)
[2021-03-13] MEDS ORDERED: POTASSIUM BICARBONATE/CIT AC 20 MEQ TABLET.EFF NG-TUBE SCH ×2 (06:00)
[2021-03-13] MEDS: HYDROCORTISONE SUCCINATE 100 MG/2 ML VIAL IV SCH (07:58)
[2021-03-13] MEDS: CEFEPIME 2 GM in SODIUM CHLORIDE 0.9% 100 ML IVPB SCH ×2 (07:58→16:45)
[2021-03-13] MEDS: CHLORHEXIDINE GLUCONATE 15 ML CUP MUCOUS MEM SCH ×2 (08:08→20:17)
[2021-03-13] MEDS: ENOXAPARIN 40 MG/0.4 ML SYRINGE SQ SCH (08:08)
[2021-03-13] MEDS ORDERED: IPRATROPIUM-ALBUTEROL 3 ML NEB INHALATION PRN (08:18)
[2021-03-13] MEDS: IPRATROPIUM-ALBUTEROL 3 ML NEB INHALATION SCH ×5 (08:20→23:52)
--- NOTE | 2021-03-13 09:43 | XR ---
EXAMINATION TYPE: XR chest 1V portable DATE OF EXAM: 03/13/2021 COMPARISON: 03/12/2021 INDICATION: Difficulty breathing TECHNIQUE: Single frontal view of the chest is obtained. FINDINGS: The heart size is normal. The pulmonary vasculature is normal. Right lower lobe infiltrate is present. Small bilateral pleural effusions are present. Endotracheal tube tip is above the ralf. Nasogastric tube transverses the thorax. IMPRESSION: 1. Right lower lobe infiltrate. 2. Small bilateral pleural effusions. 3. Lines and catheters discussed above
[2021-03-13] MEDS: levETIRAcetam IV 500 MG in SODIUM CHLORIDE 0.9% 100 ML IVPB SCH ×2 (09:47→20:16)
[2021-03-13] MEDS: THIAMINE 100 MG in SODIUM CHLORIDE 0.9% 50 ML IVPB SCH (09:47)
--- NOTE | 2021-03-13 09:47 | P.PN ---
Subjective Progress Note Date: 03/13/21 Principal diagnosis: Respiratory failure. Patient was reevaluated today on 03/08/2021, remains in the ICU, intubated and mechanically ventilated. Patient is on assist control rate of 16, volume 450 FiO2 45% PEEP of 5. ABG showed a pO2 of 144 pCO2 45 pH of 7.35 hence his FiO2 w as decreased down to 40%. Chest x-ray is showing evidence of developing bibasilar infiltrates, atelectasis, and there is a small right-sided pleural effusion. Patient remains on multiple drips including norepinephrine at 0.18 mcg/kg/m, he is on vasopressin at 0.03, propofol at 55 mcg/kg/m, IV fluid 0.9 normal saline at 13 0 mL per hour and on vital hp at 13 mL per hour. The Gram stain on the spinal fluid is negative. Blood cultures so far remain negative. His spinal fluid showed slightly elevated glucose and slightly elevated protein. Patient remains empirically on Rocephin and Zyvox. We added today HSV PCR to spinal fluid. Patient seems to be comfortable on mechanical ventilation, and we will address possibly a sedation holiday today, and possibly address mental status of possible. However considering the patient is still on multiple pressors may not be able to address weaning today yet WBC count today is 23.8 hemoglobin is 11.9. Electrolytes are normal renal profile is normal. Blood cultures and spinal fluid cultures are pending Patient was reevaluated today on 03/09/2021, remains in the ICU, intubated and mechanically ventilated. Patient is on assist control rate of 16 per volume 450, FiO2 40% PEEP of 5. Patient had an ABG that showed pO2 of 137 pCO2 44 pH of 7.3. Remains on propofol at 50 mcg/kg/m, he is also on norepinephrine at 0.04 mcg/kg/m, off vasopressin, IV fluid of 0.9 normal saline at 75 mL per hour. Apparently the patient was seen yesterday by infectious disease, and he raised the possibility of necrotizing fasciitis, and I am not certain whether this is truly necrotizing fasciitis or just cellulitis. If this is a truly necrotizing fasciitis, patient has to be seen by general surgery or even by orthopedics, may have to consider surgical intervention if this is truly necrotizing fasciitis, however my experience with cases of necrotizing fasciitis, they have always ended up being transferred to a tertiary care center as I have not seen any of our surgeons performing surgeries on necrotizing fasciitis cases. However in the meantime I will go ahead and recommended surgical consultation with general surgery vascular surgery and orthopedics. And if they are all on the same page, patient may have to be considered for transfer to a tertiary care center or possibly just continue antibiotics. That CT of the leg showed mostly evidence of swelling and cellulitis, but did not mention necrotizing fasciitis findings, no air noted in the subcutaneous and deep tissue. Patient remains on antibiotics, infectious disease is addressing the antibiotics, and the blood cultures have been negative so far. Spinal fluid cultures have been negative so far. The initial Gram stain that was noted from the blood showing gram-negative diplococci, seems to be probably a false positive Gram stain, since the cultures remain negative. At any rate on culturing the right lower extremity today, and I'm recommending different surgical consultations. WBC count remains elevated at 23.0 hemoglobin is 11.3. Basic metabolic profile is normal. Pro-calcitonin is 8.60. Chest x-ray showed bilateral patchy airspace disease especially in the right lower lobe which has developed since admission. Possibility of underlying pneumonia or aspiration pneumonia is very likely. Again his antibiotics have been changed a few times by infectious disease on the case, and I'm letting the infectious disease physician handled antibiotics accordingly. On 03/10/2021 patient seen in follow-up in intensive care unit, he remains intubated, sedated, on assist-control with a rate of 16, tidal vital was 450, FiO2 40% and PEEP of 5, this morning's blood gas shows pO2 of 126, pCO2 of 43, pH of 7.39, this was done on FiO2 of 40%. He is on 0.9 normal seen at 75 ML per hour, levo fed is at 0.04 mics per kilo per minute, and improving and is at 30 mics per kilo per minute, today's chest x-ray has been reviewed showing right lower lobe infiltrates, and small bilateral pleural effusions. No fevers overnight. Vital signs have been stable, he remains on cefepime, Rocephin has been discontinued, Unasyn has been discontinued as well as vancomycin. ID service is following. So far blood sputum CSF and right lower extremity wound cultures have all been negative. CSF VDRL was non-reactive, HSV PCR from the CSF was negative. However the pro-calcitonin level came back elevated at 8.6. His leukocytosis is improving, his white blood cell count is down to 17.7, hemoglobin is 11.4, sodium is 143, potassium is 4.1, chloride is 116, B1 is 21 creatinine 0.41. Patient's right lower extremity developed blistering and draining, and there has been a significant discoloration and bruising involving the right lower extremity, with the concern of necrotizing fasciitis, orthopedic consultation was requested and the orthopedic surgeons did not feel that this was consistent with necrotizing fasciitis and no surgical intervention was recommended. The right lower extremity is covered with a gauze. Computed tomography scan of the right lower extremity showed a diffuse subcutaneous edema around the leg, with evidence of previous surgery, but without any evidence of fracture, no sign of osteomyelitis. Otherwise no acute events overnight. Tolerating tube feedings, currently receiving Vital HP at 13 with a goal of 13 and a standard water flushes. Patient will be given a sedation holiday. On 03/11/2021 patient seen in follow-up in intensive care unit, he remains sedated and intubated on mechanical ventilator, assist control mode with a rate of 16, tidal on this 450, FiO2 of 40% and PEEP of 5. This morning's blood gas shows pO2 of 99, pCO2 41, and pH is 7.41. Patient is currently on 0.9 normal saline at 75 ML per hour, Diprivan was runing at 40 mics per kilo per minute and is currently off, levo fed is off, and patient is receiving tube feedings in the form of vital high-protein at 13 ML per hour with a goal of 13 and the standard water flushes. Today's chest x-ray has been reviewed showing right lower lobe infiltrate, mild platelike atelectasis of the left lower lobe. Hemodynamically patient has improved and was able to be weaned off the vasopressors. He remains on antibiotics currently with cefepime only. Blood culture from 03/06/2001 showed evidence of Acinetobacter lwolffi which was pansensitive including cefepime. Follow blood cultures, CSF cultures, sputum and right lower extremity wound cultures have all been negative. His white count continues to improve on today's labs and is down to 11.7, hemoglobin is stable at 11.5, sodium is 146, potassium 3.8, chloride is 118, BUN is 23, creatinine 0.40. Yesterday we gave the patient a daily traction of sedation and patient apparently failed sedation holiday, and became quite tachypneic, agitated, and had to be placed back on sedation. He did not do any spontaneous breathing trials yesterday. This morning his sedation was placed on hold, he still quite lethargic, he does not open eyes to voice, but does withdraw from pain. He remains on breathing treatments, antibiotics, he remains on IV hydrocortisone 50 mg every 8 hours. He remains on Keppra per neurology. There was no episodes of witnessed seizure activity. Abdomen is soft, patient has been tolerating tube feedings. Right lower extremity is quite ecchymotic, with open draining blisters, is receiving local wound care. Progress note dated 03/12/2021. This is a 65-year-old male again seen in the intensive care unit, room 264. The patient remains on the mechanical ventilator. He is on the volume assist control mode, rate 16, tidal volume 50, FiO2 30%, PEEP of 5. Blood gases show a PaO2 of 104, pCO2 43, and pH is 7.4. The patient's on dextrose at 50 mL an hour, propofol at 50 mics per kilogram per minute, and vital high protein at 32 mL an hour, which is goal. The patient had a daily interruption of sedation on March 11. He did poorly according to the nurse Divya. Hence, he was recently dated. He was not given a spontaneous breathing trial. White count 11.8, hemoglobin 11, hematocrit 33.4, and platelet count 160,000. Sodium 144, potassium 3.8, chlorides 115, CO2 24, anion gap 5, BUN 20, creatinine 0.4. Blood cultures from March 06 show evidence of Acinetobacter. Chest x-ray today shows diffuse bilateral atelectasis or infiltrates with small effusions, and the chest x-ray appears stable to me. Progress note dated 03/13/2021. 65-year-old male, again seen in the intensive care unit, room 264. The patient remains on the mechanical ventilator. Yesterday, and a long conversation with his . She would like to be available at present, but we do our next daily interruption of sedation. She feels like she may be able to calm the patient down a bit. He did not do well yesterday with his daily interruption of sedation, and I did mention to the , if he does not progress, tracheostomy and PEG tube would be in order. The patient remains on the volume assist control mode, rate 16, tidal volume 450, FiO2 30%, PEEP of 5. Arterial blood gases show pO2 of 31, pCO2 41, 7.45. The patient's on D5W at 50 mL an hour, propofol at 40 mcg/kg/m, norepinephrine has been weaned off, and the patient's on vital high protein at 32 mL an hour, which is goal. White count 11.7, h emoglobin 10.5, hematocrit 31.5, and platelet count 195,000. Sodium 142, potassium 3.6, chlorides 112, CO2 28, anion gap 2, BUN 15, creatinine 0.34. Chest x-ray shows right lower lobe infiltrate, small bilateral pleural effusions, and the lines and catheters as described. Objective - Vital Signs Vital signs: Vital Signs Temp 98.5 F 03/13/21 08:00 Pulse 90 03/13/21 08:31 Resp 23 03/13/21 08:00 BP 100/63 03/13/21 07:00 Pulse Ox 95 03/13/21 08:00 Intake & Output 03/12/21 03/13/21 03/13/21 18:59 06:59 18:59 Intake Total 7908.932 2916.395 300 Output Total 915 995 100 Balance 650.384 649.395 200 Weight 97.7 kg Intake: IV 886 836 106 Cefepime 2 gm In Sodium 100 100 Chloride 0.9% 100 ml @ 25 mls/hr IVPB Q8HR [facility] Rx# :[id number] Dextrose 5% in Water 1, 600 600 100 000 ml @ 50 mls/hr IV . Q20H [facility]IO Rx#:[id number] Pressure Bag 36 36 6 Thiamine 100 mg In Sodium 50 Chloride 0.9% 50 ml @ 100 mls/hr IVPB DAILY [facility]IO Rx#:[id number] levETIRAcetam IV 500 mg 100 100 In Sodium Chloride 0.9% 100 ml @ 400 mls/hr IVPB Q12HR [facility]IO Rx#:[id number] Intake, IV Titration 245.384 334.395 100 Amount propofoL 1,000 mg In 245.384 334.395 100 Empty Bag 1 bag @ Titrate IV .Q0M [facility]IO Rx#: [id number] Tube Feeding 384 384 64 Other 50 90 30 Output: Urine 915 795 100 Stool 200 Other: Voiding Method Indwelling Catheter Indwelling Catheter # Bowel Movements 1 ABP, PAP, CO, CI - Last Documented Arterial Blood Pressure 148/62 - Exam No acute distress, currently sedated, with an orally placed endotracheal tube. HEENT examination is grossly unremarkable. Neck supple. Full range of motion. No adenopathy thyromegaly or neck vein distention. Cardiovascular examination reveals regular rhythm rate. S1-S2 normal. No S3 or S4. No discernible murmur noted. Heart rate 93 bpm. Heart sounds are distant. Lungs reveal bilateral diffuse rhonchi and crackles. Breath sounds equal bilaterally. There are no wheezes. Saturations are 94% on the ventilator. Abdomen soft bowel sounds are heard. No masses or tenderness. Extremities are intact. No cyanosis clubbing or edema. Skin is without rash or lesion. Neurologic examination cannot be adequately assessed as the patient is sedated with propofol. - Labs CBC & Chem 7: 03/13/21 04:00 03/13/21 03:47 Labs: Abnormal Lab Results - Last 24 Hours (Table) 03/12/21 03/12/21 03/12/21 Range/Units 11:54 17:00 18:25 WBC (3.8-10.6) k/uL RBC (4.30-5.90) m/uL Hgb (13.0-17.5) gm/dL Hct (39.0-53.0) % MCV (80.0-100.0) fL RDW (11.5-15.5) % ABG pH (7.35-7.45) ABG pO2 (83-108) mmHg ABG HCO3 (21-25) mmol/L ABG Total CO2 (19-24) mmol/L Potassium 3.3 L (3.5-5.1) mmol/L Chloride (98-107) mmol/L Creatinine (0.66-1.25) mg/dL Glucose (74-99) mg/dL POC Glucose (mg/dL) 112 H 118 H (75-99) mg/dL Calcium (8.4-10.2) mg/dL 03/12/21 03/13/21 03/13/21 Range/Units 23:04 03:47 04:00 WBC 11.7 H (3.8-10.6) k/uL RBC 3.01 L (4.30-5.90) m/uL Hgb 10.5 L (13.0-17.5) gm/dL Hct 31.5 L (39.0-53.0) % MCV 104.5 H (80.0-100.0) fL RDW 15.7 H (11.5-15.5) % ABG pH (7.35-7.45) ABG pO2 (83-108) mmHg ABG HCO3 (21-25) mmol/L ABG Total CO2 (19-24) mmol/L Potassium (3.5-5.1) mmol/L Chloride 112 H (98-107) mmol/L Creatinine 0.34 L (0.66-1.25) mg/dL Glucose 133 H (74-99) mg/dL POC Glucose (mg/dL) 128 H (75-99) mg/dL Calcium 7.8 L (8.4-10.2) mg/dL 03/13/21 03/13/21 Range/Units 04:39 05:19 WBC (3.8-10.6) k/uL RBC (4.30-5.90) m/uL Hgb (13.0-17.5) gm/dL Hct (39.0-53.0) % MCV (80.0-100.0) fL RDW (11.5-15.5) % ABG pH 7.46 H (7.35-7.45) ABG pO2 71 L (83-108) mmHg ABG HCO3 29 H (21-25) mmol/L ABG Total CO2 30 H (19-24) mmol/L Potassium (3.5-5.1) mmol/L Chloride (98-107) mmol/L Creatinine (0.66-1.25) mg/dL Glucose (74-99) mg/dL POC Glucose (mg/dL) 134 H (75-99) mg/dL Calcium (8.4-10.2) mg/dL Microbiology - Last 24 Hours (Table) 03/10/21 06:40 Blood Culture - Preliminary Blood No Growth after 72 hours 03/06/21 11:20 Blood Culture Gram Stain - Final Blood Blood Culture - Final Acinetobacter lwoffi 03/07/21 10:20 CSF Gram Stain - Final Cerebral Spinal Fluid CSF Culture - Final 03/06/21 11:37 Blood Culture - Final Blood No Growth after 144 hours Assessment and Plan Assessment: #1. Acute hypoxic respiratory failure secondary to sepsis and septic shock, and in-hospital cardiac arrest, on 03/06/2021, intubated on the same day. #2. In-hospital cardiac arrest requiring brief CPR and epinephrine with return of spontaneous circulation. #3. Recent history of glioblastoma multiform, status post surgical resection on 02/05/2021 at the [facility] in [place]. #4. 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 #5. Possible meningitis ruled out, lumbar puncture was completed, CSF cultures are negative. VDRL and HSV PCR were negative. #6. Right lower extremity bruising, and weeping, wound cultures are negative, CT scan of the right lower extremity showed no evidence of osteomyelitis, it did show diffuse subcutaneous edema around the left leg including the foot and ankle. Orthopedic evaluation was obtained, and it was not felt to be related to necrotizing fasciitis. #7. Acute right lower lobe and left lower lobe pneumonia, suspect aspiration related. Plan: Plan dated 03/12/2021. The patient will have another daily interruption of sedation today. If he does better, we will attempt a spontaneous breathing trial. We've had ongoing discussions with the family about CODE STATUS. Apparently the patient is still a full code at this point. The is apparently being advised by family member who is a retired hospice nurse. His overall prognosis remains extremely poor. Follow make recommendations were appropriate. Arterial blood gases are excellent. Plan dated 03/13/2021. I did have a long conversation with the yesterday. She will be present today during the daily interruption of sedation. I did mention to her, the patient does not show any progress, we would be talking to her again about a tracheostomy and PEG tube placement. I think that is inappropriate given the patient's overall history of prognosis, but she may want to continue with full life support. Labs, x-rays, and medications are all reviewed. We will continue to follow the patient and make recommendations where appropriate. Time with Patient: Greater than 30
[2021-03-13] MEDS: PANTOPRAZOLE 40 MG/10 ML VIAL IVP SCH ×2 (09:57→20:17)
[2021-03-13 11:35] LABS: Glucose,Whole Blood 108 mg/dL (75-99)
[2021-03-13 12:24] LABS: Glucose,Whole Blood 122 mg/dL (75-99)
--- NOTE | 2021-03-13 13:59 | PN ---
PROGRESS NOTE DATE OF SERVICE: 03/13/2021 REASON FOR FOLLOWUP: Pneumonia, bacteremia, lower extremity cellulitis. INTERVAL HISTORY: Patient did have a fever of 100.4 around midnight. The patient afebrile since then. The patient is hemodynamically stable, slightly getting more weak and listless. No vomiting, diarrhea or other changes reported by nursing staff. PHYSICAL EXAMINATION: Blood pressure 162/70, pulse of 83, temperature of 98.5. He is 92% on 30% FiO2. General description is an elderly male lying in bed in no distress. Respiratory system: Unlabored breathing, decreased intensity of breath sounds. No wheeze. Heart S1-S2 regular rate and rhythm. Abdomen soft, no tenderness. LABS: Hemoglobin is 12.5, white count 11.7, BUN of 15, creatinine 0.34. Blood culture repeat has been negative. DIAGNOSTIC IMPRESSION AND PLAN: Patient with acute respiratory failure, multifactorial, possible component of pneumonia with lower extremity cellulitis, possible Acinetobacter. Patient is covered with Cefepime. Family at the bedside. Multiple questions were answered. MMODL / IJN: [id number] /
--- NOTE | 2021-03-13 15:58 | P.PN ---
Subjective Progress Note Date: 03/13/21 Marcelo Ortega is a 65 yo M with PMH of glioblastoma multiforma, s/p resection on 02/05/2021 who presented to the ED complaining of shortness of breath and generalized fatigue and weakness. On his initial presentation he was found to be hypotensive, patient developed sudden episode of bradycardia, shallow breathing, and he went on to full blown respiratory failure. CPR was done for 3 minutes, patient was intubated, received epinephrine 2 with return of spontaneous circulation. Patient was eventually transferred to the ICU on pressors. Today he remains intubated and sedated. Patient had low-grade fever at night with a temp of 100. Blood cultures are positive for gram-negative diplococci. Patient received Zithromax Zosyn and Zyvox. He is scheduled for a lumbar puncture to rule out neisseria meningitis. Labs today showed leukocytosis with WBC of 23.7 hemoglobin is 13.3. Liver enzymes are noted to be elevated with elevated AST to 57 ALT [address] of the brain this morning showed hypodensity in the posterior left ta radiata of intermediate age, chronic vascular ischemic changes, postsurgical changes, and the radiologist raised the possibility of recurrent mass. Recommended MRI. 03/08/2021 remains vent dependent with FiO2 of 45%/+5 of PEEP. Chest x-ray reporting developing bibasilar infiltrates, small right pleural effusion. Maintained on diprovan, vasopressin, Levophed drips in addition to IV fluids of normal saline in the 130 mL's per hour. Continues on IV hydrocortisone. EEG abnormal, suggestive of severe encephalopathy of unspecified etiology, no deniz ctiform discharges or seizures. Maintained on Keppra, no seizure activity reported. Continues on high-dose of Rocephin and Zyvox as per ID. CSF reports clear, colorless, red blood cells 7, nuclear cells 0, glucose 136, total protein is 116. CSF Gram stain there is no polymorphonuclear leukocytes. No organisms seen. Aerobic CSF culture pending. CSF VDRL is nonreactive. sputum culture pending, preliminary blood cultures negative. Afebrile, WBC 23.8. telemetry sinus rhythm.echo reporting severe global hypokinesis with LV, severely impaired LV function, EF between 25 and 30%. 03/11/2021 . Vent dependent, FiO2 40%/5 of PEEP. Chest x-ray reporting improving right lower lobe infiltrate. Levophed weaned off recently this morning. Yesterday failed sedation holiday .Sedation recently turned off, awake, not following commands. Maintained on cefepime as per ID. Renal function stable. Frequent dressing changes required related to large amount serosanguineous drainage-saturating. Vascular following with no intervention recommended at this time. Tolerating tube feeds at goal, tolerating well with minimal to no residuals. Blood sugars controlled. Afebrile, WBC trending down. Maintained on current dose of Keppra as per neurology. No seizure activity reported. 03/12/2021 required Levophed on off throughout the night, remains off of pressors this morning. Failed sedation holiday yesterday and today developed agitation, increased respiratory rate, increased heart rate. Vent dependent, FiO2 down to 30%/+5 of PEEP. Chest x-ray reported diffuse bilateral pleural personal changes stable. Right leg with less weeping reported, positive pulses. Blood sugars controlled. Continues on cefepime as per ID, afebrile, WBC 11.8. 03/13/2021 yesterday staff,stated patient blinked to command,otherwise not following commands. present at the bedside, hoping to be able to keep the patient calm during sedation holiday. requests patient be maintained as a full code at this time. Tracheostomy status post PEG tube discussed with as per manager managed backup services. Remains vent dependent with FiO2 30%/+5 of PEEP. Chest x-ray reporting right lower lobe infiltrate, small bilateral pleural effusions. Pressors remain off. On currently sedated on diprovan. Maintained on cefepime as per ID, T-max 100.4, WBC 11.7. Renal function stable. Objective - Vital Signs Vital signs: Vital Signs Temp 98.5 F 03/13/21 08:00 Pulse 25 L 03/13/21 14:00 Resp 19 03/13/21 14:00 BP 121/72 03/13/21 13:00 Pulse Ox 89 L 03/13/21 14:00 Intake & Output 03/12/21 03/13/21 03/13/21 18:59 06:59 18:59 Intake Total 4107.416 4728.395 924.085 Output Total 240 684 8067 Balance 650.384 649.395 -75.915 Weight 97.7 kg 97.7 kg Intake: IV 886 836 424 Cefepime 2 gm In Sodium 100 100 Chloride 0.9% 100 ml @ 25 mls/hr IVPB Q8HR [facility] Rx# :[id number] Dextrose 5% in Water 1, 600 600 400 000 ml @ 50 mls/hr IV . Q20H MARIO Rx#:[id number] Pressure Bag 36 36 24 Thiamine 100 mg In Sodium 50 Chloride 0.9% 50 ml @ 100 mls/hr IVPB DAILY MARIO Rx#:[id number] levETIRAcetam IV 500 mg 100 100 In Sodium Chloride 0.9% 100 ml @ 400 mls/hr IVPB Q12HR MARIO Rx#:[id number] Intake, IV Titration 245.384 334.395 280.085 Amount propofoL 1,000 mg In 245.384 334.395 280.085 Empty Bag 1 bag @ Titrate IV .Q0M MARIO Rx#: [id number] Tube Feeding 384 384 160 Other 50 90 60 Output: Urine 186 022 4030 Stool 200 Other: Voiding Method Indwelling Catheter Indwelling Catheter # Bowel Movements 1 ABP, PAP, CO, CI - Last Documented Arterial Blood Pressure 158/62 - Exam General: cachexic, intubated, sedated. Vital reviewed. HEENT: Normocephalic, atraumatic. Mucus membranes dry. Neck: supple, no JVD CV: RRR, no murmur. Pulses 2+ Lungs: No wheezes, occasional scattered rhonchi and fine rales Abd: soft, non distended, bowel sounds present EXT: Positive edema of upper extremities .Bilateral lower extremity pitting edema, bilateral lower extremity Kennedy wraps clean dry and intact. PT & DP Doppler pulses reported. Neuro: Unable to evaluate, intubated, sedated. Skin: warm and dry. - Labs CBC & Chem 7: 03/13/21 04:00 03/13/21 03:47 Labs: Abnormal Lab Results - Last 24 Hours (Table) 03/12/21 03/12/21 03/12/21 Range/Units 17:00 18:25 23:04 WBC (3.8-10.6) k/uL RBC (4.30-5.90) m/uL Hgb (13.0-17.5) gm/dL Hct (39.0-53.0) % MCV (80.0-100.0) fL RDW (11.5-15.5) % ABG pH (7.35-7.45) ABG pO2 (83-108) mmHg ABG HCO3 (21-25) mmol/L ABG Total CO2 (19-24) mmol/L Potassium 3.3 L (3.5-5.1) mmol/L Chloride (98-107) mmol/L Creatinine (0.66-1.25) mg/dL Glucose (74-99) mg/dL POC Glucose (mg/dL) 118 H 128 H (75-99) mg/dL Calcium (8.4-10.2) mg/dL 03/13/21 03/13/21 03/13/21 Range/Units 03:47 04:00 04:39 WBC 11.7 H (3.8-10.6) k/uL RBC 3.01 L (4.30-5.90) m/uL Hgb 10.5 L (13.0-17.5) gm/dL Hct 31.5 L (39.0-53.0) % MCV 104.5 H (80.0-100.0) fL RDW 15.7 H (11.5-15.5) % ABG pH 7.46 H (7.35-7.45) ABG pO2 71 L (83-108) mmHg ABG HCO3 29 H (21-25) mmol/L ABG Total CO2 30 H (19-24) mmol/L Potassium (3.5-5.1) mmol/L Chloride 112 H (98-107) mmol/L Creatinine 0.34 L (0.66-1.25) mg/dL Glucose 133 H (74-99) mg/dL POC Glucose (mg/dL) (75-99) mg/dL Calcium 7.8 L (8.4-10.2) mg/dL 03/13/21 03/13/21 03/13/21 Range/Units 05:19 11:34 12:22 WBC (3.8-10.6) k/uL RBC (4.30-5.90) m/uL Hgb (13.0-17.5) gm/dL Hct (39.0-53.0) % MCV (80.0-100.0) fL RDW (11.5-15.5) % ABG pH (7.35-7.45) ABG pO2 (83-108) mmHg ABG HCO3 (21-25) mmol/L ABG Total CO2 (19-24) mmol/L Potassium (3.5-5.1) mmol/L Chloride (98-107) mmol/L Creatinine (0.66-1.25) mg/dL Glucose (74-99) mg/dL POC Glucose (mg/dL) 134 H 108 H 122 H (75-99) mg/dL Calcium (8.4-10.2) mg/dL Microbiology - Last 24 Hours (Table) 03/10/21 06:40 Blood Culture - Preliminary Blood No Growth after 72 hours 03/06/21 11:20 Blood Culture Gram Stain - Final Blood Blood Culture - Final Acinetobacter lwoffi 03/07/21 10:20 CSF Gram Stain - Final Cerebral Spinal Fluid CSF Culture - Final 03/06/21 11:37 Blood Culture - Final Blood No Growth after 144 hours Assessment and Plan Assessment: Acute hypoxic respiratory failure secondary to sepsis , septic shock and bilateral pneumonia -suspect aspiration ,mechanical ventilator-dependent. Failure to wean. Respiratory arrest, CPR secondary to the above. Sepsis secondary to immunocompromised related to cancer. Hypotension, status post pressor support-dependent secondary to the above Glioblastoma multiforme with motor aphasia. Status post resection at [facility] 02/05/2021. Acinetobacter lwoffi bacteremia, lumbar puncture completed, meningitis ruled out. CSF negative. Severe global hypokinesis of LV, severely impaired LV function, EF 25-30% Righht lower extremity cellulitis with superficial wounds, skin sloughing, wound cultures negative, anaerobic finalizing. CT reported diffuse subcutaneous edema around the romero including frequent ankle, previous surgery, no fracture, no sign of osteomyelitis, arteriosclerotic vascular disease. No necrotizing fasciitis as per orthopedic evaluation. Hospital course: Continue on current medication regime ,monitoring and symptomatic treatment. Antibiotics as per ID/ cultures finalizing. Maintain Seizure precautions. Sedation holiday pending.Potential tracheostomy and PEG as per manager managed backup services. Follow closely with multiple consults. Family at bedside, questions answered, support given. Prognosis guarded given multiple complex medical issues. The impression and plan of care has been dictated as directed. : I performed a history and examination of this patient, discussed the same with the dictator. I agree with the dictator's note ,documented as a scribe. Any additional findings or plans will be noted.
[2021-03-13] MEDS: POTASSIUM BICARBONATE/CIT AC 20 MEQ TABLET.EFF NG-TUBE SCH ×2 (18:00→20:17)
[2021-03-14 00:20] LABS: Glucose,Whole Blood 90 mg/dL (75-99)
[2021-03-14] MEDS: INSULIN ASPART (NovoLOG) 100 UNIT/ML VIAL SQ SCH ×5 (00:21→23:20)
[2021-03-14] MEDS: CEFEPIME 2 GM in SODIUM CHLORIDE 0.9% 100 ML IVPB SCH ×4 (00:24→23:20)
[2021-03-14] MEDS ORDERED: POTASSIUM BICARBONATE/CIT AC 20 MEQ TABLET.EFF NG-TUBE SCH ×2 (01:00→14:00)
[2021-03-14] MEDS: IPRATROPIUM-ALBUTEROL 3 ML NEB INHALATION SCH ×6 (03:22→23:48)
[2021-03-14 04:42] LABS: Basophils # (A) 0.1 k/uL (0-0.2); Basophils % (A) 1 %; Eosinophils % (A) 0 %; HCT 33.3 % (39.0-53.0); Lymphocytes # (A) 1.1 k/uL (1.0-4.8); Lymphocytes % (A) 9 %; MCH 34.4 pg (25.0-35.0); MCHC 33.1 g/dL (31.0-37.0); MCV 103.9 fL (80.0-100.0); Macrocytosis Moderate; Mean Platelet Volume 8.6; Monocytes # (A) 0.4 k/uL (0-1.0); Monocytes % (A) 4 %; Neutrophils # (A) 10.3 k/uL (1.3-7.7); Neutrophils % (A) 86 %; Platelet Count 221 k/uL (150-450); RBC 3.21 m/uL (4.30-5.90); RDW 15.9 % (11.5-15.5); WBC 12.1 k/uL (3.8-10.6)
[2021-03-14 04:49] LABS: African American GFR (CKD) >90 (>60 ml/min/1.73 sqM); Anion Gap 2 mmol/L; Blood Urea Nitrogen 11 mg/dL (9-20); Calcium 7.7 mg/dL (8.4-10.2); Carbon Dioxide 30 mmol/L (22-30); Chloride 105 mmol/L (98-107); Glucose 96 mg/dL (74-99); Non-African American GFR(CKD) >90 (>60 ml/min/1.73 sqM); Potassium 3.5 mmol/L (3.5-5.1); Sodium 137 mmol/L (137-145)
[2021-03-14] MEDS: HYDROmorphone 1 MG/ML 1 ML SYRINGE IVP PRN ×4 (05:08→22:09)
[2021-03-14 05:18] LABS: ABG Base Excess 8.3 mmol/L; ABG HCO3 31 mmol/L (21-25); ABG PCO2 39 mmHg (35-45); ABG PH 7.51 (7.35-7.45); ABG PO2 64 mmHg (83-108); ABG TCO2 33 mmol/L (19-24); Allen Test Performed? Yes
[2021-03-14] MEDS: POTASSIUM BICARBONATE/CIT AC 20 MEQ TABLET.EFF NG-TUBE SCH ×2 (05:50→07:08)
[2021-03-14 07:15] LABS: Glucose,Whole Blood 97 mg/dL (75-99)
[2021-03-14 07:15] LABS: Glucose,Whole Blood 76 mg/dL (75-99)
--- NOTE | 2021-03-14 07:54 | XR ---
EXAMINATION TYPE: XR chest 1V portable DATE OF EXAM: 03/14/2021 Comparison: 03/13/2021 Clinical History: 65-year-old male ventilator Findings: ET tube is satisfactory. NG tube courses below the diaphragm. Heart borderline enlarged. Interstitial opacities slightly increased. Continued small to moderate effusions with bibasilar opacities. Impression: Correlate for CHF with slight worsening in pulmonary vascular congestion. Continued small to moderate effusions with adjacent atelectasis and or consolidation.
[2021-03-14] MEDS: CHLORHEXIDINE GLUCONATE 15 ML CUP MUCOUS MEM SCH ×2 (07:59→20:51)
[2021-03-14] MEDS: ENOXAPARIN 40 MG/0.4 ML SYRINGE SQ SCH (07:59)
[2021-03-14] MEDS: levETIRAcetam IV 500 MG in SODIUM CHLORIDE 0.9% 100 ML IVPB SCH ×2 (07:59→20:52)
[2021-03-14] MEDS: THIAMINE 100 MG in SODIUM CHLORIDE 0.9% 50 ML IVPB SCH (07:59)
[2021-03-14] MEDS: PANTOPRAZOLE 40 MG/10 ML VIAL IVP SCH ×2 (08:00→20:52)
--- NOTE | 2021-03-14 09:11 | P.PN ---
Subjective Progress Note Date: 03/14/21 Principal diagnosis: Respiratory failure. Patient was reevaluated today on 03/08/2021, remains in the ICU, intubated and mechanically ventilated. Patient is on assist control rate of 16, volume 450 FiO2 45% PEEP of 5. ABG showed a pO2 of 144 pCO2 45 pH of 7.35 hence his FiO2 w as decreased down to 40%. Chest x-ray is showing evidence of developing bibasilar infiltrates, atelectasis, and there is a small right-sided pleural effusion. Patient remains on multiple drips including norepinephrine at 0.18 mcg/kg/m, he is on vasopressin at 0.03, propofol at 55 mcg/kg/m, IV fluid 0.9 normal saline at 13 0 mL per hour and on vital hp at 13 mL per hour. The Gram stain on the spinal fluid is negative. Blood cultures so far remain negative. His spinal fluid showed slightly elevated glucose and slightly elevated protein. Patient remains empirically on Rocephin and Zyvox. We added today HSV PCR to spinal fluid. Patient seems to be comfortable on mechanical ventilation, and we will address possibly a sedation holiday today, and possibly address mental status of possible. However considering the patient is still on multiple pressors may not be able to address weaning today yet WBC count today is 23.8 hemoglobin is 11.9. Electrolytes are normal renal profile is normal. Blood cultures and spinal fluid cultures are pending Patient was reevaluated today on 03/09/2021, remains in the ICU, intubated and mechanically ventilated. Patient is on assist control rate of 16 per volume 450, FiO2 40% PEEP of 5. Patient had an ABG that showed pO2 of 137 pCO2 44 pH of 7.3. Remains on propofol at 50 mcg/kg/m, he is also on norepinephrine at 0.04 mcg/kg/m, off vasopressin, IV fluid of 0.9 normal saline at 75 mL per hour. Apparently the patient was seen yesterday by infectious disease, and he raised the possibility of necrotizing fasciitis, and I am not certain whether this is truly necrotizing fasciitis or just cellulitis. If this is a truly necrotizing fasciitis, patient has to be seen by general surgery or even by orthopedics, may have to consider surgical intervention if this is truly necrotizing fasciitis, however my experience with cases of necrotizing fasciitis, they have always ended up being transferred to a tertiary care center as I have not seen any of our surgeons performing surgeries on necrotizing fasciitis cases. However in the meantime I will go ahead and recommended surgical consultation with general surgery vascular surgery and orthopedics. And if they are all on the same page, patient may have to be considered for transfer to a tertiary care center or possibly just continue antibiotics. That CT of the leg showed mostly evidence of swelling and cellulitis, but did not mention necrotizing fasciitis findings, no air noted in the subcutaneous and deep tissue. Patient remains on antibiotics, infectious disease is addressing the antibiotics, and the blood cultures have been negative so far. Spinal fluid cultures have been negative so far. The initial Gram stain that was noted from the blood showing gram-negative diplococci, seems to be probably a false positive Gram stain, since the cultures remain negative. At any rate on culturing the right lower extremity today, and I'm recommending different surgical consultations. WBC count remains elevated at 23.0 hemoglobin is 11.3. Basic metabolic profile is normal. Pro-calcitonin is 8.60. Chest x-ray showed bilateral patchy airspace disease especially in the right lower lobe which has developed since admission. Possibility of underlying pneumonia or aspiration pneumonia is very likely. Again his antibiotics have been changed a few times by infectious disease on the case, and I'm letting the infectious disease physician handled antibiotics accordingly. On 03/10/2021 patient seen in follow-up in intensive care unit, he remains intubated, sedated, on assist-control with a rate of 16, tidal vital was 450, FiO2 40% and PEEP of 5, this morning's blood gas shows pO2 of 126, pCO2 of 43, pH of 7.39, this was done on FiO2 of 40%. He is on 0.9 normal seen at 75 ML per hour, levo fed is at 0.04 mics per kilo per minute, and improving and is at 30 mics per kilo per minute, today's chest x-ray has been reviewed showing right lower lobe infiltrates, and small bilateral pleural effusions. No fevers overnight. Vital signs have been stable, he remains on cefepime, Rocephin has been discontinued, Unasyn has been discontinued as well as vancomycin. ID service is following. So far blood sputum CSF and right lower extremity wound cultures have all been negative. CSF VDRL was non-reactive, HSV PCR from the CSF was negative. However the pro-calcitonin level came back elevated at 8.6. His leukocytosis is improving, his white blood cell count is down to 17.7, hemoglobin is 11.4, sodium is 143, potassium is 4.1, chloride is 116, B1 is 21 creatinine 0.41. Patient's right lower extremity developed blistering and draining, and there has been a significant discoloration and bruising involving the right lower extremity, with the concern of necrotizing fasciitis, orthopedic consultation was requested and the orthopedic surgeons did not feel that this was consistent with necrotizing fasciitis and no surgical intervention was recommended. The right lower extremity is covered with a gauze. Computed tomography scan of the right lower extremity showed a diffuse subcutaneous edema around the leg, with evidence of previous surgery, but without any evidence of fracture, no sign of osteomyelitis. Otherwise no acute events overnight. Tolerating tube feedings, currently receiving Vital HP at 13 with a goal of 13 and a standard water flushes. Patient will be given a sedation holiday. On 03/11/2021 patient seen in follow-up in intensive care unit, he remains sedated and intubated on mechanical ventilator, assist control mode with a rate of 16, tidal on this 450, FiO2 of 40% and PEEP of 5. This morning's blood gas shows pO2 of 99, pCO2 41, and pH is 7.41. Patient is currently on 0.9 normal saline at 75 ML per hour, Diprivan was runing at 40 mics per kilo per minute and is currently off, levo fed is off, and patient is receiving tube feedings in the form of vital high-protein at 13 ML per hour with a goal of 13 and the standard water flushes. Today's chest x-ray has been reviewed showing right lower lobe infiltrate, mild platelike atelectasis of the left lower lobe. Hemodynamically patient has improved and was able to be weaned off the vasopressors. He remains on antibiotics currently with cefepime only. Blood culture from 03/06/2001 showed evidence of Acinetobacter lwolffi which was pansensitive including cefepime. Follow blood cultures, CSF cultures, sputum and right lower extremity wound cultures have all been negative. His white count continues to improve on today's labs and is down to 11.7, hemoglobin is stable at 11.5, sodium is 146, potassium 3.8, chloride is 118, BUN is 23, creatinine 0.40. Yesterday we gave the patient a daily traction of sedation and patient apparently failed sedation holiday, and became quite tachypneic, agitated, and had to be placed back on sedation. He did not do any spontaneous breathing trials yesterday. This morning his sedation was placed on hold, he still quite lethargic, he does not open eyes to voice, but does withdraw from pain. He remains on breathing treatments, antibiotics, he remains on IV hydrocortisone 50 mg every 8 hours. He remains on Keppra per neurology. There was no episodes of witnessed seizure activity. Abdomen is soft, patient has been tolerating tube feedings. Right lower extremity is quite ecchymotic, with open draining blisters, is receiving local wound care. Progress note dated 03/12/2021. This is a 65-year-old male again seen in the intensive care unit, room 264. The patient remains on the mechanical ventilator. He is on the volume assist control mode, rate 16, tidal volume 50, FiO2 30%, PEEP of 5. Blood gases show a PaO2 of 104, pCO2 43, and pH is 7.4. The patient's on dextrose at 50 mL an hour, propofol at 50 mics per kilogram per minute, and vital high protein at 32 mL an hour, which is goal. The patient had a daily interruption of sedation on March 11. He did poorly according to the nurse Divya. Hence, he was recently dated. He was not given a spontaneous breathing trial. White count 11.8, hemoglobin 11, hematocrit 33.4, and platelet count 160,000. Sodium 144, potassium 3.8, chlorides 115, CO2 24, anion gap 5, BUN 20, creatinine 0.4. Blood cultures from March 06 show evidence of Acinetobacter. Chest x-ray today shows diffuse bilateral atelectasis or infiltrates with small effusions, and the chest x-ray appears stable to me. Progress note dated 03/13/2021. 65-year-old male, again seen in the intensive care unit, room 264. The patient remains on the mechanical ventilator. Yesterday, and a long conversation with his . She would like to be available at present, but we do our next daily interruption of sedation. She feels like she may be able to calm the patient down a bit. He did not do well yesterday with his daily interruption of sedation, and I did mention to the , if he does not progress, tracheostomy and PEG tube would be in order. The patient remains on the volume assist control mode, rate 16, tidal volume 450, FiO2 30%, PEEP of 5. Arterial blood gases show pO2 of 31, pCO2 41, 7.45. The patient's on D5W at 50 mL an hour, propofol at 40 mcg/kg/m, norepinephrine has been weaned off, and the patient's on vital high protein at 32 mL an hour, which is goal. White count 11.7, h emoglobin 10.5, hematocrit 31.5, and platelet count 195,000. Sodium 142, potassium 3.6, chlorides 112, CO2 28, anion gap 2, BUN 15, creatinine 0.34. Chest x-ray shows right lower lobe infiltrate, small bilateral pleural effusions, and the lines and catheters as described. Progress note dated 03/14/2021. 65-year-old male, again seen in the intensive care unit, room 264. The patient remains on the mechanical ventilator. We attempted another daily interruption of sedation today. Unfortunately, the patient's quite agitated. We placed the patient back on propofol at the prior dose. Last night, I was called by the nurse and I added some Dilaudid, 1 mg IV every 2 hours when necessary. The patient is currently on the volume assist control mode, rate 16, tidal volume 450, FiO2 30%, PEEP of 5. Arterial blood gases show a PaO2 of 63, PaCO2 of 39, and pH is 7.5. The patient currently is on propofol at 75 mcg/kg/m, D5W at 50 mL an hour, saline at 10 mL an hour and vital high protein at 32 mL an hour, which is goal. Since the patient has been on the ventilator since March 06, and not making any progress, as discussed with his 2 days ago, the patient will likely need a tracheostomy and PEG tube placement. CBC shows a white count of 12.1, hemoglobin 11, hematocrit 33.3, and platelet count 221,000. Sodium 137, potassium 3.5, chlorides 105, CO2 is 30, anion gap is 2, BUN 11, creatinine 0.33. Chest x-rays consistent with mild CHF. The chest x-ray may be a bit worse. Objective - Vital Signs Vital signs: Vital Signs Temp 99.6 F 03/14/21 04:00 Pulse 98 03/14/21 07:38 Resp 29 H 03/14/21 07:00 BP 120/75 03/14/21 07:00 Pulse Ox 91 L 03/14/21 07:00 Intake & Output 03/13/21 03/14/21 03/14/21 18:59 06:59 18:59 Intake Total 7129.922 0708.547 215.989 Output Total 1425 1500 75 Balance -8.594 20.547 140.989 Weight 97.7 kg 96.3 kg Intake: IV 636 636 53 Dextrose 5% in Water 1, 600 600 50 000 ml @ 50 mls/hr IV . Q20H MARIO Rx#:[id number] Pressure Bag 36 36 3 Intake, IV Titration 402.406 410.547 130.989 Amount propofoL 1,000 mg In 402.406 410.547 130.989 Empty Bag 1 bag @ Titrate IV .Q0M MARIO Rx#: [id number] Tube Feeding 288 384 32 Other 90 90 Output: Urine 1425 1500 75 Other: Voiding Method Indwelling Catheter Indwelling Catheter ABP, PAP, CO, CI - Last Documented Arterial Blood Pressure 141/59 - Exam No acute distress, with an orally placed endotracheal tube, very agitated, off of sedation, moving head back and forth. HEENT examination is grossly unremarkable. Neck supple. Full range of motion. No adenopathy thyromegaly or neck vein distention. Cardiovascular examination reveals regular rhythm rate. S1-S2 normal. No S3 or S4. No discernible murmur noted. Heart rate 98 bpm. Heart sounds are distant. Lungs reveal bilateral diffuse rhonchi and crackles. Breath sounds equal bilaterally. There are no wheezes. Saturations are 91% on the ventilator. Abdomen soft bowel sounds are heard. No masses or tenderness. Extremities are intact. No cyanosis clubbing or edema. Skin is without rash or lesion. Neurologic examination cannot be adequately assessed while the patient is sedated with propofol. - Labs CBC & Chem 7: 03/14/21 04:27 03/14/21 04:27 Labs: Abnormal Lab Results - Last 24 Hours (Table) 03/13/21 03/13/21 03/13/21 Range/Units 11:34 12:18 12:22 WBC (3.8-10.6) k/uL RBC (4.30-5.90) m/uL Hgb (13.0-17.5) gm/dL Hct (39.0-53.0) % MCV (80.0-100.0) fL RDW (11.5-15.5) % Neutrophils # (1.3-7.7) k/uL ABG pH (7.35-7.45) ABG pO2 (83-108) mmHg ABG HCO3 (21-25) mmol/L ABG Total CO2 (19-24) mmol/L Potassium 3.3 L (3.5-5.1) mmol/L Creatinine (0.66-1.25) mg/dL POC Glucose (mg/dL) 108 H 122 H (75-99) mg/dL Calcium (8.4-10.2) mg/dL 03/14/21 03/14/21 03/14/21 Range/Units 04:27 04:27 05:04 WBC 12.1 H (3.8-10.6) k/uL RBC 3.21 L (4.30-5.90) m/uL Hgb 11.0 L (13.0-17.5) gm/dL Hct 33.3 L (39.0-53.0) % MCV 103.9 H (80.0-100.0) fL RDW 15.9 H (11.5-15.5) % Neutrophils # 10.3 H (1.3-7.7) k/uL ABG pH 7.51 H (7.35-7.45) ABG pO2 64 L (83-108) mmHg ABG HCO3 31 H (21-25) mmol/L ABG Total CO2 33 H (19-24) mmol/L Potassium (3.5-5.1) mmol/L Creatinine 0.33 L (0.66-1.25) mg/dL POC Glucose (mg/dL) (75-99) mg/dL Calcium 7.7 L (8.4-10.2) mg/dL Microbiology - Last 24 Hours (Table) 03/10/21 06:40 Blood Culture - Preliminary Blood No Growth after 96 hours 03/09/21 11:30 Anaerobic Culture - Final Leg - Right 03/06/21 11:20 Blood Culture Gram Stain - Final Blood Blood Culture - Final Acinetobacter lwoffi Assessment and Plan Assessment: #1. Acute hypoxic respiratory failure secondary to sepsis and septic shock, and in-hospital cardiac arrest, on 03/06/2021, intubated on the same day. Un fortunately, the patient is showing significant agitation while off of sedation, is not progressing to a spontaneous breathing trial with hopes of rapid extubation. The patient may need tracheostomy and PEG tube placement. #2. In-hospital cardiac arrest requiring brief CPR and epinephrine with return of spontaneous circulation. #3. Recent history of glioblastoma multiform, status post surgical resection on 02/05/2021 at the [facility] in [place]. #4. 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 #5. Possible meningitis ruled out, lumbar puncture was completed, CSF cultures are negative. VDRL and HSV PCR were negative. #6. Right lower extremity bruising, and weeping, wound cultures are negative, CT scan of the right lower extremity showed no evidence of osteomyelitis, it did show diffuse subcutaneous edema around the left leg including the foot and ankle. Orthopedic evaluation was obtained, and it was not felt to be related to necrotizing fasciitis. #7. Acute right lower lobe and left lower lobe pneumonia, suspect aspiration related. Plan: Plan dated 03/12/2021. The patient will have another daily interruption of sedation today. If he does better, we will attempt a spontaneous breathing trial. We've had ongoing discussions with the family about CODE STATUS. Apparently the patient is still a full code at this point. The is apparently being advised by family member who is a retired hospice nurse. His overall prognosis remains extremely poor. Follow make recommendations were appropriate. Arterial blood gases are excellent. Plan dated 03/13/2021. I did have a long conversation with the yesterday. She will be present today during the daily interruption of sedation. I did mention to her, the patient does not show any progress, we would be talking to her again about a tracheostomy and PEG tube placement. I think that is inappropriate given the patient's overall history of prognosis, but she may want to continue with full life support. Labs, x-rays, and medications are all reviewed. We will continue to follow the patient and make recommendations where appropriate. Plan dated 03/14/2021. Again, while off of sedation, the patient is very agitated, shaking his head back and forth and a rapid fashion. The patient does not respond to any verbal stimuli. The patient is not progressing towards a spontaneous breathing trial. The patient will have to be re-sedated. The patient will likely need a tracheostomy tube and PEG tube, should the consent. I did speak to her about that a couple days ago. Labs, x-rays, and medications are reviewed. Prognosis is poor. We will continue to follow and make recommendations where appropriate. Time with Patient: Greater than 30
[2021-03-14 11:32] LABS: Glucose,Whole Blood 105 mg/dL (75-99)
--- NOTE | 2021-03-14 14:41 | P.PN ---
Subjective Progress Note Date: 03/14/21 Marcelo Ortega is a 65 yo M with PMH of glioblastoma multiforma, s/p resection on 02/05/2021 who presented to the ED complaining of shortness of breath and generalized fatigue and weakness. On his initial presentation he was found to be hypotensive, patient developed sudden episode of bradycardia, shallow breathing, and he went on to full blown respiratory failure. CPR was done for 3 minutes, patient was intubated, received epinephrine 2 with return of spontaneous circulation. Patient was eventually transferred to the ICU on pressors. Today he remains intubated and sedated. Patient had low-grade fever at night with a temp of 100. Blood cultures are positive for gram-negative diplococci. Patient received Zithromax Zosyn and Zyvox. He is scheduled for a lumbar puncture to rule out neisseria meningitis. Labs today showed leukocytosis with WBC of 23.7 hemoglobin is 13.3. Liver enzymes are noted to be elevated with elevated AST to 57 ALT [address] of the brain this morning showed hypodensity in the posterior left ta radiata of intermediate age, chronic vascular ischemic changes, postsurgical changes, and the radiologist raised the possibility of recurrent mass. Recommended MRI. 03/08/2021 remains vent dependent with FiO2 of 45%/+5 of PEEP. Chest x-ray reporting developing bibasilar infiltrates, small right pleural effusion. Maintained on diprovan, vasopressin, Levophed drips in addition to IV fluids of normal saline in the 130 mL's per hour. Continues on IV hydrocortisone. EEG abnormal, suggestive of severe encephalopathy of unspecified etiology, no deniz ctiform discharges or seizures. Maintained on Keppra, no seizure activity reported. Continues on high-dose of Rocephin and Zyvox as per ID. CSF reports clear, colorless, red blood cells 7, nuclear cells 0, glucose 136, total protein is 116. CSF Gram stain there is no polymorphonuclear leukocytes. No organisms seen. Aerobic CSF culture pending. CSF VDRL is nonreactive. sputum culture pending, preliminary blood cultures negative. Afebrile, WBC 23.8. telemetry sinus rhythm.echo reporting severe global hypokinesis with LV, severely impaired LV function, EF between 25 and 30%. 03/11/2021 . Vent dependent, FiO2 40%/5 of PEEP. Chest x-ray reporting improving right lower lobe infiltrate. Levophed weaned off recently this morning. Yesterday failed sedation holiday .Sedation recently turned off, awake, not following commands. Maintained on cefepime as per ID. Renal function stable. Frequent dressing changes required related to large amount serosanguineous drainage-saturating. Vascular following with no intervention recommended at this time. Tolerating tube feeds at goal, tolerating well with minimal to no residuals. Blood sugars controlled. Afebrile, WBC trending down. Maintained on current dose of Keppra as per neurology. No seizure activity reported. 03/12/2021 required Levophed on off throughout the night, remains off of pressors this morning. Failed sedation holiday yesterday and today developed agitation, increased respiratory rate, increased heart rate. Vent dependent, FiO2 down to 30%/+5 of PEEP. Chest x-ray reported diffuse bilateral pleural personal changes stable. Right leg with less weeping reported, positive pulses. Blood sugars controlled. Continues on cefepime as per ID, afebrile, WBC 11.8. 03/13/2021 yesterday staff,stated patient blinked to command,otherwise not following commands. present at the bedside, hoping to be able to keep the patient calm during sedation holiday. requests patient be maintained as a full code at this time. Tracheostomy status post PEG tube discussed with as per hand inspector. Remains vent dependent with FiO2 30%/+5 of PEEP. Chest x-ray reporting right lower lobe infiltrate, small bilateral pleural effusions. Pressors remain off. On currently sedated on diprovan. Maintained on cefepime as per ID, T-max 100.4, WBC 11.7. Renal function stable. 03/14/21 staff reports patient failed sedation holiday yesterday, will reattempt again today with family at bedside. Remains vent dependent with FiO2 30%/+5 of PEEP, currently sedated on diprovan. Chest x-ray reported slightly increased interstitial opacities, consistent with CHF. Tolerating tube feeds at goal with minimal to no residuals. Blood sugars stable. Increased agitation earlier requiring Dilaudid. T-max 100.7, WBC 12.1, continues on antibiotics as per ID. Renal function stable. Objective - Vital Signs Vital signs: Vital Signs Temp 99.6 F 03/14/21 08:00 Pulse 100 08/12/21 11:00 Resp 15 03/14/21 11:00 BP 106/70 03/14/21 11:00 Pulse Ox 92 L 03/14/21 11:00 Intake & Output 03/13/21 03/14/21 03/14/21 18:59 06:59 18:59 Intake Total 8949.867 3597.547 885.764 Output Total 1425 1500 875 Balance -8.594 20.547 10.764 Weight 97.7 kg 96.3 kg Intake: IV 636 636 409 Dextrose 5% in Water 1, 600 600 250 000 ml @ 50 mls/hr IV . Q20H [facility] Rx#:[id number] Pressure Bag 36 36 9 Thiamine 100 mg In Sodium 50 Chloride 0.9% 50 ml @ 100 mls/hr IVPB DAILY [facility] Rx#:[id number] levETIRAcetam IV 500 mg 100 In Sodium Chloride 0.9% 100 ml @ 400 mls/hr IVPB Q12HR [facility] Rx#:[id number] Intake, IV Titration 402.406 410.547 284.764 Amount Cefepime 2 gm In Sodium 100 Chloride 0.9% 100 ml @ 25 mls/hr IVPB Q8HR [facility] Rx# :[id number] propofoL 1,000 mg In 402.406 410.547 184.764 Empty Bag 1 bag @ Titrate IV .Q0M [facility] Rx#: [id number] Tube Feeding 288 384 192 Other 90 90 Output: Urine 1425 1500 675 Stool 200 Other: Voiding Method Indwelling Catheter Indwelling Catheter Indwelling Catheter ABP, PAP, CO, CI - Last Documented Arterial Blood Pressure 124/51 - Exam General: intubated, sedated. Vital reviewed. HEENT: Normocephalic, atraumatic. Mucus membranes dry. Neck: supple, no JVD CV: RRR, no murmur. Pulses 2+ Lungs: No wheezes, occasional scattered rhonchi and fine rales Abd: soft, non distended, bowel sounds present EXT: Positive edema of upper extremities .Bilateral lower extremity pitting edema, bilateral lower extremity Kennedy wraps clean dry and intact. Neuro: Unable to evaluate, intubated, sedated. Skin: warm and dry. - Labs CBC & Chem 7: 03/14/21 04:27 03/14/21 11:32 Labs: Abnormal Lab Results - Last 24 Hours (Table) 03/13/21 03/14/21 03/14/21 Range/Units 12:18 04:27 04:27 WBC 12.1 H (3.8-10.6) k/uL RBC 3.21 L (4.30-5.90) m/uL Hgb 11.0 L (13.0-17.5) gm/dL Hct 33.3 L (39.0-53.0) % MCV 103.9 H (80.0-100.0) fL RDW 15.9 H (11.5-15.5) % Neutrophils # 10.3 H (1.3-7.7) k/uL ABG pH (7.35-7.45) ABG pO2 (83-108) mmHg ABG HCO3 (21-25) mmol/L ABG Total CO2 (19-24) mmol/L Potassium 3.3 L (3.5-5.1) mmol/L Creatinine 0.33 L (0.66-1.25) mg/dL POC Glucose (mg/dL) (75-99) mg/dL Calcium 7.7 L (8.4-10.2) mg/dL 03/14/21 03/14/21 Range/Units 05:04 11:30 WBC (3.8-10.6) k/uL RBC (4.30-5.90) m/uL Hgb (13.0-17.5) gm/dL Hct (39.0-53.0) % MCV (80.0-100.0) fL RDW (11.5-15.5) % Neutrophils # (1.3-7.7) k/uL ABG pH 7.51 H (7.35-7.45) ABG pO2 64 L (83-108) mmHg ABG HCO3 31 H (21-25) mmol/L ABG Total CO2 33 H (19-24) mmol/L Potassium (3.5-5.1) mmol/L Creatinine (0.66-1.25) mg/dL POC Glucose (mg/dL) 105 H (75-99) mg/dL Calcium (8.4-10.2) mg/dL Microbiology - Last 24 Hours (Table) 03/10/21 06:40 Blood Culture - Preliminary Blood No Growth after 96 hours 03/09/21 11:30 Anaerobic Culture - Final Leg - Right Assessment and Plan Assessment: Acute hypoxic respiratory failure secondary to sepsis , septic shock and bilateral pneumonia -suspect aspiration ,mechanical ventilator-dependent. Failure to wean. Respiratory arrest, CPR secondary to the above. Sepsis secondary to immunocompromised related to cancer. Hypotension, status post pressor support-dependent secondary to the above Glioblastoma multiforme with motor aphasia. Status post resection at [facility] 02/05/2021. Acinetobacter lwoffi bacteremia, lumbar puncture completed, meningitis ruled out. CSF negative. Severe global hypokinesis of LV, severely impaired LV function, EF 25-30% Righht lower extremity cellulitis with superficial wounds, skin sloughing, wound cultures negative, anaerobic finalizing. CT reported diffuse subcutaneous edema around the romero including frequent ankle, previous surgery, no fracture, no sign of osteomyelitis, arteriosclerotic vascular disease. No necrotizing fasciitis as per orthopedic evaluation. Hospital course: Continue on current medication regime ,monitoring and symptomatic treatment. Family at bedside, discussed obtaining oncology's recommendations as well as PCPs-given at bedside. Tracheostomy and peg previou sly discussed -family unsure if they wish to pursue that.questions and concerns addressed, support given .Antibiotics as per ID. Maintain Seizure precautions. Sedation holiday pending.Follow closely with multiple consults. Prognosis guarded given multiple complex medical issues. The impression and plan of care has been dictated as directed. : I performed a history and examination of this patient, discussed the same with the dictator. I agree with the dictator's note ,documented as a scribe. Any additional findings or plans will be noted.
--- NOTE | 2021-03-14 14:58 | P.PN ---
Subjective Progress Note Date: 03/11/21 Principal diagnosis: Cardiac Arrest Right lower extremity: Eccymosis, Erythema versus infectious COntinues in ICU on Mechanical Ventilation CBC is stable, no transfusions required Objective - Vital Signs Vital signs: Vital Signs Temp 96.7 F L 03/11/21 04:30 Pulse 57 L 03/11/21 07:38 Resp 14 03/11/21 07:00 BP 124/83 03/11/21 07:00 Pulse Ox 97 03/11/21 07:00 Intake & Output 03/10/21 03/11/21 03/11/21 18:59 06:59 18:59 Intake Total 1097.603 1264.655 91 Output Total 650 615 50 Balance 997.118 963.655 41 Weight 96.7 kg Intake: IV 1211 1026 78 Cefepime 2 gm In Sodium 200 100 Chloride 0.9% 100 ml @ 25 mls/hr IVPB Q8HR [facility] Rx# :[id number] Pressure Bag 36 36 3 Sodium Chloride 0.9% 1, 825 790 75 000 ml @ 75 mls/hr IV . [id number] [facility] Rx#:[id number] Thiamine 100 mg In Sodium 50 Chloride 0.9% 50 ml @ 100 mls/hr IVPB DAILY [facility] Rx#:[id number] levETIRAcetam IV 500 mg 100 100 In Sodium Chloride 0.9% 100 ml @ 400 mls/hr IVPB Q12HR [facility] Rx#:[id number] Intake, IV Titration 200.118 306.655 Amount Norepinephrine 32 mg In 18.505 6.655 Sodium Chloride 0.9% 218 ml @ 0.05 MCG/KG/MIN 1. 967 mls/hr IV .Q24H [facility] Rx#:[id number] propofoL 1,000 mg In 181.613 300 Empty Bag 1 bag @ Titrate IV .Q0M [facility] Rx#: [id number] Tube Feeding 156 156 13 Other 80 90 Output: Urine 650 615 50 Other: Voiding Method Indwelling Catheter Indwelling Catheter # Bowel Movements 1 ABP, PAP, CO, CI - Last Documented Arterial Blood Pressure 123/65 - Exam Ventilator NAD LE Edema Dry mucus membranes RLE Erythema, Edema, Eccymosis - Labs CBC & Chem 7: 03/14/21 04:27 03/14/21 11:32 Labs: Abnormal Lab Results - Last 24 Hours (Table) 03/10/21 03/10/21 03/10/21 Range/Units 12:55 18:28 23:39 WBC (3.8-10.6) k/uL RBC (4.30-5.90) m/uL Hgb (13.0-17.5) gm/dL Hct (39.0-53.0) % MCV (80.0-100.0) fL MCH (25.0-35.0) pg RDW (11.5-15.5) % Plt Count (150-450) k/uL ABG HCO3 (21-25) mmol/L ABG Total CO2 (19-24) mmol/L ABG O2 Saturation (94-97) % Sodium (137-145) mmol/L Chloride (98-107) mmol/L BUN (9-20) mg/dL Creatinine (0.66-1.25) mg/dL Glucose (74-99) mg/dL POC Glucose (mg/dL) 115 H 123 H 123 H (75-99) mg/dL Calcium (8.4-10.2) mg/dL Magnesium (1.6-2.3) mg/dL 03/11/21 03/11/21 03/11/21 Range/Units 05:00 05:00 05:05 WBC 11.7 H (3.8-10.6) k/uL RBC 3.22 L (4.30-5.90) m/uL Hgb 11.5 L (13.0-17.5) gm/dL Hct 34.2 L (39.0-53.0) % MCV 106.3 H (80.0-100.0) fL MCH 35.6 H (25.0-35.0) pg RDW 15.6 H (11.5-15.5) % Plt Count 128 L (150-450) k/uL ABG HCO3 26 H (21-25) mmol/L ABG Total CO2 27 H (19-24) mmol/L ABG O2 Saturation 98.1 H (94-97) % Sodium 146 H (137-145) mmol/L Chloride 118 H (98-107) mmol/L BUN 23 H (9-20) mg/dL Creatinine 0.40 L (0.66-1.25) mg/dL Glucose 149 H (74-99) mg/dL POC Glucose (mg/dL) (75-99) mg/dL Calcium 8.1 L (8.4-10.2) mg/dL Magnesium 2.7 H (1.6-2.3) mg/dL 03/11/21 Range/Units 05:06 WBC (3.8-10.6) k/uL RBC (4.30-5.90) m/uL Hgb (13.0-17.5) gm/dL Hct (39.0-53.0) % MCV (80.0-100.0) fL MCH (25.0-35.0) pg RDW (11.5-15.5) % Plt Count (150-450) k/uL ABG HCO3 (21-25) mmol/L ABG Total CO2 (19-24) mmol/L ABG O2 Saturation (94-97) % Sodium (137-145) mmol/L Chloride (98-107) mmol/L BUN (9-20) mg/dL Creatinine (0.66-1.25) mg/dL Glucose (74-99) mg/dL POC Glucose (mg/dL) 143 H (75-99) mg/dL Calcium (8.4-10.2) mg/dL Magnesium (1.6-2.3) mg/dL Microbiology - Last 24 Hours (Table) 03/07/21 10:20 CSF Gram Stain - Preliminary Cerebral Spinal Fluid CSF Culture - Preliminary 03/06/21 11:37 Blood Culture - Preliminary Blood No Growth after 96 hours 03/06/21 11:20 Blood Culture Gram Stain - Final Blood Blood Culture - Final Acinetobacter lwoffi 03/09/21 11:30 Gram Stain - Preliminary Leg - Right Wound Culture - Preliminary Assessment and Plan (1) Glioblastoma multiforme Current Visit: Yes Status: Acute Code(s): C71.9 - MALIGNANT NEOPLASM OF BRAIN, UNSPECIFIED SNOMED Code(s): 809061576 (2) Gram-negative bacteremia Current Visit: Yes Status: Acute Code(s): R78.81 - BACTEREMIA SNOMED Code(s): 117958557661 (3) Acute bronchitis due to infection Current Visit: Yes Status: Acute Code(s): J20.9 - ACUTE BRONCHITIS, UNSPECIFIED SNOMED Code(s): 301815346 (4) Sepsis Current Visit: Yes Status: Acute Code(s): A41.9 - SEPSIS, UNSPECIFIED ORGANISM SNOMED Code(s): 72964811 Plan: Assessment and recommendations: - Hold Chemotherapy with Temodar and Radiation until resolution of sepsis/bacteremia - Acute and Ongoing hospital care per Infectious Disease and ICU/Pulmonary - Monitor CBC/CMP and Coags - Supportive care to continue
--- NOTE | 2021-03-14 15:12 | P.PN ---
Subjective Progress Note Date: 03/14/21 Principal diagnosis: Cardiac Arrest Sat down today with family at their request to discuss overall oncologic prognosis and quality of life. Objective - Vital Signs Vital signs: Vital Signs Temp 100.6 F H 03/14/21 12:00 Pulse 102 H 03/14/21 13:23 Resp 21 03/14/21 13:00 BP 109/65 03/14/21 13:00 Pulse Ox 92 L 03/14/21 11:00 Intake & Output 03/13/21 03/14/21 03/14/21 18:59 06:59 18:59 Intake Total 9880.133 8428.547 1212.101 Output Total 1425 1500 1375 Balance -8.594 20.547 -162.899 Weight 97.7 kg 96.3 kg Intake: IV 636 636 515 Dextrose 5% in Water 1, 600 600 350 000 ml @ 50 mls/hr IV . Q20H [facility] Rx#:[id number] Pressure Bag 36 36 15 Thiamine 100 mg In Sodium 50 Chloride 0.9% 50 ml @ 100 mls/hr IVPB DAILY [facility] Rx#:[id number] levETIRAcetam IV 500 mg 100 In Sodium Chloride 0.9% 100 ml @ 400 mls/hr IVPB Q12HR [facility] Rx#:[id number] Intake, IV Titration 402.406 410.547 467.101 Amount Cefepime 2 gm In Sodium 100 Chloride 0.9% 100 ml @ 25 mls/hr IVPB Q8HR [facility] Rx# :[id number] propofoL 1,000 mg In 402.406 410.547 367.101 Empty Bag 1 bag @ Titrate IV .Q0M [facility] Rx#: [id number] Tube Feeding 288 384 230 Other 90 90 Output: Urine 1425 1500 975 Stool 400 Other: Voiding Method Indwelling Catheter Indwelling Catheter Indwelling Catheter ABP, PAP, CO, CI - Last Documented Arterial Blood Pressure 126/52 - Exam Ventilator Head: evidence of recent craniotomy NAD LE Edema Dry mucus membranes RLE Erythema, Edema, Eccymosis legs wrapped - Labs CBC & Chem 7: 03/14/21 04:27 03/14/21 11:32 Labs: Abnormal Lab Results - Last 24 Hours (Table) 03/13/21 03/14/21 03/14/21 Range/Units 12:18 04:27 04:27 WBC 12.1 H (3.8-10.6) k/uL RBC 3.21 L (4.30-5.90) m/uL Hgb 11.0 L (13.0-17.5) gm/dL Hct 33.3 L (39.0-53.0) % MCV 103.9 H (80.0-100.0) fL RDW 15.9 H (11.5-15.5) % Neutrophils # 10.3 H (1.3-7.7) k/uL ABG pH (7.35-7.45) ABG pO2 (83-108) mmHg ABG HCO3 (21-25) mmol/L ABG Total CO2 (19-24) mmol/L Potassium 3.3 L (3.5-5.1) mmol/L Creatinine 0.33 L (0.66-1.25) mg/dL POC Glucose (mg/dL) (75-99) mg/dL Calcium 7.7 L (8.4-10.2) mg/dL 03/14/21 03/14/21 Range/Units 05:04 11:30 WBC (3.8-10.6) k/uL RBC (4.30-5.90) m/uL Hgb (13.0-17.5) gm/dL Hct (39.0-53.0) % MCV (80.0-100.0) fL RDW (11.5-15.5) % Neutrophils # (1.3-7.7) k/uL ABG pH 7.51 H (7.35-7.45) ABG pO2 64 L (83-108) mmHg ABG HCO3 31 H (21-25) mmol/L ABG Total CO2 33 H (19-24) mmol/L Potassium (3.5-5.1) mmol/L Creatinine (0.66-1.25) mg/dL POC Glucose (mg/dL) 105 H (75-99) mg/dL Calcium (8.4-10.2) mg/dL Microbiology - Last 24 Hours (Table) 03/10/21 06:40 Blood Culture - Preliminary Blood No Growth after 96 hours 03/09/21 11:30 Anaerobic Culture - Final Leg - Right Assessment and Plan (1) Glioblastoma multiforme Current Visit: Yes Status: Acute Code(s): C71.9 - MALIGNANT NEOPLASM OF BRAIN, UNSPECIFIED SNOMED Code(s): 712859357 (2) Gram-negative bacteremia Current Visit: Yes Status: Acute Code(s): R78.81 - BACTEREMIA SNOMED Code(s): 663865086873 (3) Acute bronchitis due to infection Current Visit: Yes Status: Acute Code(s): J20.9 - ACUTE BRONCHITIS, UNSPECIFIED SNOMED Code(s): 347349811 (4) Sepsis Current Visit: Yes Status: Acute Code(s): A41.9 - SEPSIS, UNSPECIFIED ORGANISM SNOMED Code(s): 62239318 Plan: Assessment and recommendations: - Hold Chemotherapy with Temodar and Radiation until resolution of sepsis/bacteremia - Acute and Ongoing hospital care per Infectious Disease and ICU/Pulmonary - Monitor CBC/CMP and Coags - Supportive care to continue Patient has not been able to wean off vent. Multiple providers have discussed the overall critical scenario and the time of deciding whether to choose comfort versus trach and peg tube. Patients is discouraged, tearful. Sister and daughter at bedside, another daughter on speaker. Given the situation and inability to undergo radiation and chemotherapy for recent diagnosis of gliobastoma due to respiratory failure and septic shock, overall quality of life moving forward is guarded. Overall prognostic outcomes with treated glioblastoma with response in generally months to minimal years. We discussed the long recovery road if he was able to wean and restart treatment. At this time patient's family has decided to focus on comfort measures. They are awaiting for his daughter to come back in town from [place]. Greater than 45 minutes soent emotional support and conferencing with family, patients neurology team, and neurosurgeon.
--- NOTE | 2021-03-14 15:48 | PN ---
PROGRESS NOTE DATE OF SERVICE: 03/14/2021 REASON FOR FOLLOWUP: Pneumonia, lower extremity cellulitis and bacteremia. INTERVAL HISTORY: The patient did have low grade fever 100.7 around midnight. The patient afebrile since then. The patient is hemodynamically stable. FiO2 is currently at 70%. No significant purulent secretions through the ET or diarrhea or other changes reported by the nursing staff. Patient could not be weaned. EXAMINATION: Blood pressure 106/70 with a pulse of 100, temperature 99.6. She is 92% on 30% FiO2. General description is an elderly male lying in bed in no distress. Respiratory system: Unlabored breathing, decreased breath sounds at the bases. No wheeze. Heart: S1, S2. Regular rate and rhythm. Abdomen soft, no tenderness. LABS: Hemoglobin is 11, white count 0.1, BUN of 11, creatinine 0.33. DIAGNOSTIC IMPRESSION AND PLAN: Patient with acute respiratory failure which is multifactorial in this patient who did have a possible component of pneumonia did have Acinetobacter bacteremia. Repeat blood culture negative. Lower extremity cellulitis. The patient is covered with cefepime. Family is concerned about possible hospice, versus trach and PEG. All their questions and concerns were answered. MMODL / IJN: [id number] /
[2021-03-14 18:31] LABS: Glucose,Whole Blood 80 mg/dL (75-99)
[2021-03-14] MEDS: DEXTROSE 5% IN WATER 1,000 ML IV SCH (19:59)
[2021-03-14 23:20] LABS: Glucose,Whole Blood 96 mg/dL (75-99)
[2021-03-15] MEDS: IPRATROPIUM-ALBUTEROL 3 ML NEB INHALATION SCH ×6 (04:08→23:59)
[2021-03-15 04:27] LABS: Anisocytosis Slight; Basophils # (A) 0.1 k/uL (0-0.2); Basophils % (A) 0 %; Eosinophils % (A) 0 %; Lymphocytes # (A) 0.7 k/uL (1.0-4.8); Lymphocytes % (A) 4 %; MCH 35.1 pg (25.0-35.0); MCHC 34.3 g/dL (31.0-37.0); MCV 102.5 fL (80.0-100.0); Macrocytosis Moderate; Mean Platelet Volume 7.6; Monocytes # (A) 0.4 k/uL (0-1.0); Monocytes % (A) 2 %; Neutrophils # (A) 14.3 k/uL (1.3-7.7); Neutrophils % (A) 92 %; Platelet Count 231 k/uL (150-450); RBC 3.12 m/uL (4.30-5.90); RDW 16.1 % (11.5-15.5); WBC 15.6 k/uL (3.8-10.6)
[2021-03-15 04:48] LABS: African American GFR (CKD) >90 (>60 ml/min/1.73 sqM); Anion Gap 3 mmol/L; Blood Urea Nitrogen 9 mg/dL (9-20); Calcium 7.9 mg/dL (8.4-10.2); Carbon Dioxide 30 mmol/L (22-30); Chloride 103 mmol/L (98-107); Glucose 114 mg/dL (74-99); Non-African American GFR(CKD) >90 (>60 ml/min/1.73 sqM); Potassium 3.8 mmol/L (3.5-5.1); Sodium 136 mmol/L (137-145)
[2021-03-15] MEDS ORDERED: POTASSIUM BICARBONATE/CIT AC 20 MEQ TABLET.EFF NG-TUBE SCH (05:00)
[2021-03-15 05:15] LABS: ABG Base Excess 9.6 mmol/L; ABG HCO3 33 mmol/L (21-25); ABG Oxygen Saturation 94.5 % (94-97); ABG PCO2 46 mmHg (35-45); ABG PH 7.47 (7.35-7.45); ABG PO2 69 mmHg (83-108); ABG TCO2 35 mmol/L (19-24); Allen Test Performed? Yes
[2021-03-15 05:28] LABS: Glucose,Whole Blood 109 mg/dL (75-99)
[2021-03-15] MEDS: INSULIN ASPART (NovoLOG) 100 UNIT/ML VIAL SQ SCH ×4 (05:31→23:50)
--- NOTE | 2021-03-15 07:40 | XR ---
EXAMINATION TYPE: XR chest 1V portable DATE OF EXAM: 03/15/2021 COMPARISON: 03/14/2021 INDICATION: Ventilator dependent, difficulty breathing TECHNIQUE: Single frontal view of the chest is obtained. FINDINGS: The heart size is normal. The pulmonary vasculature is normal. Opacification is present over the right mid to lower lung field may be a small pleural effusion. Mini mal left pleural effusion is present. Mild left lower lobe infiltrate is present. Endotracheal tube tip is above the ralf. Nasogastric tube transverses the thorax. IMPRESSION: 1. Small to moderate right pleural fluid with a minimal left pleural fluid. 2. Mild left lower lobe infiltrate increasing from comparison. Correlate for atelectasis and pneumoni a.
[2021-03-15] MEDS: ENOXAPARIN 40 MG/0.4 ML SYRINGE SQ SCH (07:44)
[2021-03-15] MEDS: CHLORHEXIDINE GLUCONATE 15 ML CUP MUCOUS MEM SCH ×2 (07:51→21:48)
[2021-03-15] MEDS: CEFEPIME 2 GM in SODIUM CHLORIDE 0.9% 100 ML IVPB SCH (07:51)
[2021-03-15] MEDS: PANTOPRAZOLE 40 MG/10 ML VIAL IVP SCH ×2 (07:51→21:48)
[2021-03-15] MEDS: levETIRAcetam IV 500 MG in SODIUM CHLORIDE 0.9% 100 ML IVPB SCH ×2 (07:51→22:10)
[2021-03-15] MEDS: THIAMINE 100 MG in SODIUM CHLORIDE 0.9% 50 ML IVPB SCH (07:51)
[2021-03-15] MEDS: HYDROmorphone 1 MG/ML 1 ML SYRINGE IVP PRN ×3 (08:07→21:00)
--- NOTE | 2021-03-15 09:34 | P.PN ---
Subjective Progress Note Date: 03/15/21 Marcelo Ortega is a 65 yo M with PMH of glioblastoma multiforma, s/p resection on 02/05/2021 who presented to the ED complaining of shortness of breath and generalized fatigue and weakness. On his initial presentation he was found to be hypotensive, patient developed sudden episode of bradycardia, shallow breathing, and he went on to full blown respiratory failure. CPR was done for 3 minutes, patient was intubated, received epinephrine 2 with return of spontaneous circulation. Patient was eventually transferred to the ICU on pressors. Today he remains intubated and sedated. Patient had low-grade fever at night with a temp of 100. Blood cultures are positive for gram-negative diplococci. Patient received Zithromax Zosyn and Zyvox. He is scheduled for a lumbar puncture to rule out neisseria meningitis. Labs today showed leukocytosis with WBC of 23.7 hemoglobin is 13.3. Liver enzymes are noted to be elevated with elevated AST to 57 ALT [address] of the brain this morning showed hypodensity in the posterior left ta radiata of intermediate age, chronic vascular ischemic changes, postsurgical changes, and the radiologist raised the possibility of recurrent mass. Recommended MRI. 03/08/2021 remains vent dependent with FiO2 of 45%/+5 of PEEP. Chest x-ray reporting developing bibasilar infiltrates, small right pleural effusion. Maintained on diprovan, vasopressin, Levophed drips in addition to IV fluids of normal saline in the 130 mL's per hour. Continues on IV hydrocortisone. EEG abnormal, suggestive of severe encephalopathy of unspecified etiology, no deniz ctiform discharges or seizures. Maintained on Keppra, no seizure activity reported. Continues on high-dose of Rocephin and Zyvox as per ID. CSF reports clear, colorless, red blood cells 7, nuclear cells 0, glucose 136, total protein is 116. CSF Gram stain there is no polymorphonuclear leukocytes. No organisms seen. Aerobic CSF culture pending. CSF VDRL is nonreactive. sputum culture pending, preliminary blood cultures negative. Afebrile, WBC 23.8. telemetry sinus rhythm.echo reporting severe global hypokinesis with LV, severely impaired LV function, EF between 25 and 30%. 03/11/2021 . Vent dependent, FiO2 40%/5 of PEEP. Chest x-ray reporting improving right lower lobe infiltrate. Levophed weaned off recently this morning. Yesterday failed sedation holiday .Sedation recently turned off, awake, not following commands. Maintained on cefepime as per ID. Renal function stable. Frequent dressing changes required related to large amount serosanguineous drainage-saturating. Vascular following with no intervention recommended at this time. Tolerating tube feeds at goal, tolerating well with minimal to no residuals. Blood sugars controlled. Afebrile, WBC trending down. Maintained on current dose of Keppra as per neurology. No seizure activity reported. 03/12/2021 required Levophed on off throughout the night, remains off of pressors this morning. Failed sedation holiday yesterday and today developed agitation, increased respiratory rate, increased heart rate. Vent dependent, FiO2 down to 30%/+5 of PEEP. Chest x-ray reported diffuse bilateral pleural personal changes stable. Right leg with less weeping reported, positive pulses. Blood sugars controlled. Continues on cefepime as per ID, afebrile, WBC 11.8. 03/13/2021 yesterday staff,stated patient blinked to command,otherwise not following commands. present at the bedside, hoping to be able to keep the patient calm during sedation holiday. requests patient be maintained as a full code at this time. Tracheostomy status post PEG tube discussed with as per stock controller. Remains vent dependent with FiO2 30%/+5 of PEEP. Chest x-ray reporting right lower lobe infiltrate, small bilateral pleural effusions. Pressors remain off. On currently sedated on diprovan. Maintained on cefepime as per ID, T-max 100.4, WBC 11.7. Renal function stable. 03/14/21 staff reports patient failed sedation holiday yesterday, will reattempt again today with family at bedside. Remains vent dependent with FiO2 30%/+5 of PEEP, currently sedated on diprovan. Chest x-ray reported slightly increased interstitial opacities, consistent with CHF. Tolerating tube feeds at goal with minimal to no residuals. Blood sugars stable. Increased agitation earlier requiring Dilaudid. T-max 100.7, WBC 12.1, continues on antibiotics as per ID. Renal function stable. 03/15/2021 remains vent dependent FiO2 40%/+ 5 of PEEP. Unable to tolerate sedation holidays, failure to wean; staff reports patient becomes restless, shakes head back and forth unable to focus, does not follow commands. Multiple discussions between family and PCP, stock controller, and oncologist regarding diagnosis of glioblastoma and prognosis, tracheostomy and peg. Staff reports family has decided to proceed with comfort care once daughter from [place] arrives later today. Yesterday family changed CODE STATUS to no code, no CPR, no reintubation. Objective - Vital Signs Vital signs: Vital Signs Temp 97.7 F 03/15/21 04:00 Pulse 104 H 03/15/21 07:45 Resp 17 03/15/21 07:00 BP 101/60 03/15/21 07:00 Pulse Ox 94 L 03/15/21 07:00 Intake & Output 03/14/21 03/15/21 03/15/21 18:59 06:59 18:59 Intake Total 9658.642 2206.673 100 Output Total 1500 2525 Balance 291.101 -1144.327 100 Weight 97.5 kg Intake: IV 880 889 Cefepime 2 gm In Sodium 100 100 Chloride 0.9% 100 ml @ 25 mls/hr IVPB Q8HR [facility]IO Rx# :[id number] Dextrose 5% in Water 1, 600 650 000 ml @ 50 mls/hr IV . Q20H MARIO Rx#:[id number] Pressure Bag 30 39 Thiamine 100 mg In Sodium 50 Chloride 0.9% 50 ml @ 100 mls/hr IVPB DAILY MARIO Rx#:[id number] levETIRAcetam IV 500 mg 100 100 In Sodium Chloride 0.9% 100 ml @ 400 mls/hr IVPB Q12HR MARIO Rx#:[id number] Intake, IV Titration 567.101 377.673 100 Amount Cefepime 2 gm In Sodium 100 Chloride 0.9% 100 ml @ 25 mls/hr IVPB Q8HR MARIO Rx# :[id number] propofoL 1,000 mg In 467.101 377.673 100 Empty Bag 1 bag @ Titrate IV .Q0M MARIO Rx#: [id number] Tube Feeding 344 114 Output: Urine 1500 2525 Other: Voiding Method Indwelling Catheter Indwelling Catheter ABP, PAP, CO, CI - Last Documented Arterial Blood Pressure 106/48 - Exam General: intubated, sedated. Vital reviewed. HEENT: Normocephalic, atraumatic. Neck: supple, no JVD CV: RRR, no murmur. Pulses 2+ Lungs: No wheezes, scattered rhonchi with fine rales Abd: soft, non distended, bowel sounds present EXT: Positive edema of upper extremities .Bilateral lower extremity pitting edema, bilateral lower extremity Kennedy wraps clean dry and intact. Neuro: Unable to evaluate, intubated, sedated. Skin: warm and dry. - Labs CBC & Chem 7: 03/15/21 04:10 03/15/21 04:10 Labs: Abnormal Lab Results - Last 24 Hours (Table) 03/14/21 03/15/21 03/15/21 Range/Units 11:30 04:10 04:10 WBC 15.6 H (3.8-10.6) k/uL RBC 3.12 L (4.30-5.90) m/uL Hgb 11.0 L (13.0-17.5) gm/dL Hct 32.0 L (39.0-53.0) % MCV 102.5 H (80.0-100.0) fL MCH 35.1 H (25.0-35.0) pg RDW 16.1 H (11.5-15.5) % Neutrophils # 14.3 H (1.3-7.7) k/uL Lymphocytes # 0.7 L (1.0-4.8) k/uL ABG pH (7.35-7.45) ABG pCO2 (35-45) mmHg ABG pO2 (83-108) mmHg ABG HCO3 (21-25) mmol/L ABG Total CO2 (19-24) mmol/L Sodium 136 L (137-145) mmol/L Creatinine 0.37 L (0.66-1.25) mg/dL Glucose 114 H (74-99) mg/dL POC Glucose (mg/dL) 105 H (75-99) mg/dL Calcium 7.9 L (8.4-10.2) mg/dL 03/15/21 03/15/21 Range/Units 05:11 05:25 WBC (3.8-10.6) k/uL RBC (4.30-5.90) m/uL Hgb (13.0-17.5) gm/dL Hct (39.0-53.0) % MCV (80.0-100.0) fL MCH (25.0-35.0) pg RDW (11.5-15.5) % Neutrophils # (1.3-7.7) k/uL Lymphocytes # (1.0-4.8) k/uL ABG pH 7.47 H (7.35-7.45) ABG pCO2 46 H (35-45) mmHg ABG pO2 69 L (83-108) mmHg ABG HCO3 33 H (21-25) mmol/L ABG Total CO2 35 H (19-24) mmol/L Sodium (137-145) mmol/L Creatinine (0.66-1.25) mg/dL Glucose (74-99) mg/dL POC Glucose (mg/dL) 109 H (75-99) mg/dL Calcium (8.4-10.2) mg/dL Microbiology - Last 24 Hours (Table) 03/10/21 06:40 Blood Culture - Preliminary Blood No Growth after 120 hours Assessment and Plan Assessment: Acute hypoxic respiratory failure secondary to sepsis , septic shock and bilateral pneumonia -suspect aspiration ,mechanical ventilator-dependent. Failure to wean. Respiratory arrest, CPR secondary to the above. Sepsis secondary to immunocompromised related to cancer. Hypotension, status post pressor support-dependent secondary to the above Glioblastoma multiforme with motor aphasia. Status post resection at [facility] 02/05/2021. Acinetobacter lwoffi bacteremia, lumbar puncture completed, meningitis ruled out. CSF negative. Severe global hypokinesis of LV, severely impaired LV function, EF 25-30% Righht lower extremity cellulitis with superficial wounds, skin sloughing, wound cultures negative, anaerobic finalizing. CT reported diffuse subcutaneous edema around the romero including frequent ankle, previous surgery, no fracture, no sign of osteomyelitis, arteriosclerotic vascular disease. No necrotizing fasciitis as per orthopedic evaluation. No code, no CPR, no reintubation. Hospital course: Continue on current medication regime ,monitoring and symptomatic treatment.Antibiotics as per ID. maintain supportive care .no family currently at bedside this morning .as mentioned above , the family wishes to pursue comfort care once daughter arrives from [place].Prognosis guarded given multiple complex medical issues. The impression and plan of care has been dictated as directed. : I performed a history and examination of this patient, discussed the same with the dictator. I agree with the dictator's note ,documented as a scribe. Any additional findings or plans will be noted.
--- NOTE | 2021-03-15 10:47 | P.PN ---
Subjective Progress Note Date: 03/15/21 Principal diagnosis: Respiratory failure. Patient was reevaluated today on 03/08/2021, remains in the ICU, intubated and mechanically ventilated. Patient is on assist control rate of 16, volume 450 FiO2 45% PEEP of 5. ABG showed a pO2 of 144 pCO2 45 pH of 7.35 hence his FiO2 w as decreased down to 40%. Chest x-ray is showing evidence of developing bibasilar infiltrates, atelectasis, and there is a small right-sided pleural effusion. Patient remains on multiple drips including norepinephrine at 0.18 mcg/kg/m, he is on vasopressin at 0.03, propofol at 55 mcg/kg/m, IV fluid 0.9 normal saline at 13 0 mL per hour and on vital hp at 13 mL per hour. The Gram stain on the spinal fluid is negative. Blood cultures so far remain negative. His spinal fluid showed slightly elevated glucose and slightly elevated protein. Patient remains empirically on Rocephin and Zyvox. We added today HSV PCR to spinal fluid. Patient seems to be comfortable on mechanical ventilation, and we will address possibly a sedation holiday today, and possibly address mental status of possible. However considering the patient is still on multiple pressors may not be able to address weaning today yet WBC count today is 23.8 hemoglobin is 11.9. Electrolytes are normal renal profile is normal. Blood cultures and spinal fluid cultures are pending Patient was reevaluated today on 03/09/2021, remains in the ICU, intubated and mechanically ventilated. Patient is on assist control rate of 16 per volume 450, FiO2 40% PEEP of 5. Patient had an ABG that showed pO2 of 137 pCO2 44 pH of 7.3. Remains on propofol at 50 mcg/kg/m, he is also on norepinephrine at 0.04 mcg/kg/m, off vasopressin, IV fluid of 0.9 normal saline at 75 mL per hour. Apparently the patient was seen yesterday by infectious disease, and he raised the possibility of necrotizing fasciitis, and I am not certain whether this is truly necrotizing fasciitis or just cellulitis. If this is a truly necrotizing fasciitis, patient has to be seen by general surgery or even by orthopedics, may have to consider surgical intervention if this is truly necrotizing fasciitis, however my experience with cases of necrotizing fasciitis, they have always ended up being transferred to a tertiary care center as I have not seen any of our surgeons performing surgeries on necrotizing fasciitis cases. However in the meantime I will go ahead and recommended surgical consultation with general surgery vascular surgery and orthopedics. And if they are all on the same page, patient may have to be considered for transfer to a tertiary care center or possibly just continue antibiotics. That CT of the leg showed mostly evidence of swelling and cellulitis, but did not mention necrotizing fasciitis findings, no air noted in the subcutaneous and deep tissue. Patient remains on antibiotics, infectious disease is addressing the antibiotics, and the blood cultures have been negative so far. Spinal fluid cultures have been negative so far. The initial Gram stain that was noted from the blood showing gram-negative diplococci, seems to be probably a false positive Gram stain, since the cultures remain negative. At any rate on culturing the right lower extremity today, and I'm recommending different surgical consultations. WBC count remains elevated at 23.0 hemoglobin is 11.3. Basic metabolic profile is normal. Pro-calcitonin is 8.60. Chest x-ray showed bilateral patchy airspace disease especially in the right lower lobe which has developed since admission. Possibility of underlying pneumonia or aspiration pneumonia is very likely. Again his antibiotics have been changed a few times by infectious disease on the case, and I'm letting the infectious disease physician handled antibiotics accordingly. On 03/10/2021 patient seen in follow-up in intensive care unit, he remains intubated, sedated, on assist-control with a rate of 16, tidal vital was 450, FiO2 40% and PEEP of 5, this morning's blood gas shows pO2 of 126, pCO2 of 43, pH of 7.39, this was done on FiO2 of 40%. He is on 0.9 normal seen at 75 ML per hour, levo fed is at 0.04 mics per kilo per minute, and improving and is at 30 mics per kilo per minute, today's chest x-ray has been reviewed showing right lower lobe infiltrates, and small bilateral pleural effusions. No fevers overnight. Vital signs have been stable, he remains on cefepime, Rocephin has been discontinued, Unasyn has been discontinued as well as vancomycin. ID service is following. So far blood sputum CSF and right lower extremity wound cultures have all been negative. CSF VDRL was non-reactive, HSV PCR from the CSF was negative. However the pro-calcitonin level came back elevated at 8.6. His leukocytosis is improving, his white blood cell count is down to 17.7, hemoglobin is 11.4, sodium is 143, potassium is 4.1, chloride is 116, B1 is 21 creatinine 0.41. Patient's right lower extremity developed blistering and draining, and there has been a significant discoloration and bruising involving the right lower extremity, with the concern of necrotizing fasciitis, orthopedic consultation was requested and the orthopedic surgeons did not feel that this was consistent with necrotizing fasciitis and no surgical intervention was recommended. The right lower extremity is covered with a gauze. Computed tomography scan of the right lower extremity showed a diffuse subcutaneous edema around the leg, with evidence of previous surgery, but without any evidence of fracture, no sign of osteomyelitis. Otherwise no acute events overnight. Tolerating tube feedings, currently receiving Vital HP at 13 with a goal of 13 and a standard water flushes. Patient will be given a sedation holiday. On 03/11/2021 patient seen in follow-up in intensive care unit, he remains sedated and intubated on mechanical ventilator, assist control mode with a rate of 16, tidal on this 450, FiO2 of 40% and PEEP of 5. This morning's blood gas shows pO2 of 99, pCO2 41, and pH is 7.41. Patient is currently on 0.9 normal saline at 75 ML per hour, Diprivan was runing at 40 mics per kilo per minute and is currently off, levo fed is off, and patient is receiving tube feedings in the form of vital high-protein at 13 ML per hour with a goal of 13 and the standard water flushes. Today's chest x-ray has been reviewed showing right lower lobe infiltrate, mild platelike atelectasis of the left lower lobe. Hemodynamically patient has improved and was able to be weaned off the vasopressors. He remains on antibiotics currently with cefepime only. Blood culture from 03/06/2001 showed evidence of Acinetobacter lwolffi which was pansensitive including cefepime. Follow blood cultures, CSF cultures, sputum and right lower extremity wound cultures have all been negative. His white count continues to improve on today's labs and is down to 11.7, hemoglobin is stable at 11.5, sodium is 146, potassium 3.8, chloride is 118, BUN is 23, creatinine 0.40. Yesterday we gave the patient a daily traction of sedation and patient apparently failed sedation holiday, and became quite tachypneic, agitated, and had to be placed back on sedation. He did not do any spontaneous breathing trials yesterday. This morning his sedation was placed on hold, he still quite lethargic, he does not open eyes to voice, but does withdraw from pain. He remains on breathing treatments, antibiotics, he remains on IV hydrocortisone 50 mg every 8 hours. He remains on Keppra per neurology. There was no episodes of witnessed seizure activity. Abdomen is soft, patient has been tolerating tube feedings. Right lower extremity is quite ecchymotic, with open draining blisters, is receiving local wound care. Progress note dated 03/12/2021. This is a 65-year-old male again seen in the intensive care unit, room 264. The patient remains on the mechanical ventilator. He is on the volume assist control mode, rate 16, tidal volume 50, FiO2 30%, PEEP of 5. Blood gases show a PaO2 of 104, pCO2 43, and pH is 7.4. The patient's on dextrose at 50 mL an hour, propofol at 50 mics per kilogram per minute, and vital high protein at 32 mL an hour, which is goal. The patient had a daily interruption of sedation on March 11. He did poorly according to the nurse Divya. Hence, he was recently dated. He was not given a spontaneous breathing trial. White count 11.8, hemoglobin 11, hematocrit 33.4, and platelet count 160,000. Sodium 144, potassium 3.8, chlorides 115, CO2 24, anion gap 5, BUN 20, creatinine 0.4. Blood cultures from March 06 show evidence of Acinetobacter. Chest x-ray today shows diffuse bilateral atelectasis or infiltrates with small effusions, and the chest x-ray appears stable to me. Progress note dated 03/13/2021. 65-year-old male, again seen in the intensive care unit, room 264. The patient remains on the mechanical ventilator. Yesterday, and a long conversation with his . She would like to be available at present, but we do our next daily interruption of sedation. She feels like she may be able to calm the patient down a bit. He did not do well yesterday with his daily interruption of sedation, and I did mention to the , if he does not progress, tracheostomy and PEG tube would be in order. The patient remains on the volume assist control mode, rate 16, tidal volume 450, FiO2 30%, PEEP of 5. Arterial blood gases show pO2 of 31, pCO2 41, 7.45. The patient's on D5W at 50 mL an hour, propofol at 40 mcg/kg/m, norepinephrine has been weaned off, and the patient's on vital high protein at 32 mL an hour, which is goal. White count 11.7, h emoglobin 10.5, hematocrit 31.5, and platelet count 195,000. Sodium 142, potassium 3.6, chlorides 112, CO2 28, anion gap 2, BUN 15, creatinine 0.34. Chest x-ray shows right lower lobe infiltrate, small bilateral pleural effusions, and the lines and catheters as described. Progress note dated 03/14/2021. 65-year-old male, again seen in the intensive care unit, room 264. The patient remains on the mechanical ventilator. We attempted another daily interruption of sedation today. Unfortunately, the patient's quite agitated. We placed the patient back on propofol at the prior dose. Last night, I was called by the nurse and I added some Dilaudid, 1 mg IV every 2 hours when necessary. The patient is currently on the volume assist control mode, rate 16, tidal volume 450, FiO2 30%, PEEP of 5. Arterial blood gases show a PaO2 of 63, PaCO2 of 39, and pH is 7.5. The patient currently is on propofol at 75 mcg/kg/m, D5W at 50 mL an hour, saline at 10 mL an hour and vital high protein at 32 mL an hour, which is goal. Since the patient has been on the ventilator since March 06, and not making any progress, as discussed with his 2 days ago, the patient will likely need a tracheostomy and PEG tube placement. CBC shows a white count of 12.1, hemoglobin 11, hematocrit 33.3, and platelet count 221,000. Sodium 137, potassium 3.5, chlorides 105, CO2 is 30, anion gap is 2, BUN 11, creatinine 0.33. Chest x-rays consistent with mild CHF. The chest x-ray may be a bit worse. Progress note dated 03/15/2021. 65-year-old male, seen in the intensive care unit again, today, in room 264. Apparently, the family has not decided to make the patient a DO NOT RESUSCITATE. He remains on the ventilator. According to the nurse, when additional family members arrive, they may decide to withdraw life support and make the patient comfort measures only. Currently, he remains on the volume assist control mode, rate 16, tidal volume 450, FiO2 40%, PEEP of 5. Arterial blood gases show a PaO2 of 69, a PaCO2 46, and a pH is 7.47. Those blood gases are consistent with metabolic alkalosis. The patient is on propofol at 75 mcg/kg/m, D5W at 50 mL an hour, and vital high protein at 19 mL an hour, which is goal. Current laboratory data show a white count of 15.6, hemoglobin 11, hematocrit 32.0, and a platelet count of 231,000. Sodium is 136, potassium 3.8, chlorides 103, CO2 30, anion gap 3, BUN 9, creatinine 0.37. Chest x-ray shows a small to moderate right pleural effusion fluid accumulation and a minimal left pleural fluid accumulation. There may be some mild left lower lobe infiltrate, which is increased from this film. Objective - Vital Signs Vital signs: Vital Signs Temp 99.0 F 03/15/21 08:00 Pulse 102 H 03/15/21 09:00 Resp 10 L 03/15/21 09:00 BP 108/63 03/15/21 09:00 Pulse Ox 95 03/15/21 09:00 Intake & Output 03/14/21 03/15/21 03/15/21 18:59 06:59 18:59 Intake Total 6939.430 3472.673 601.114 Output Total 1500 2525 450 Balance 291.101 -1144.327 151.114 Weight 97.5 kg Intake: IV 880 889 356 Cefepime 2 gm In Sodium 100 100 100 Chloride 0.9% 100 ml @ 25 mls/hr IVPB Q8HR [facility] Rx# :[id number] Dextrose 5% in Water 1, 600 650 100 000 ml @ 50 mls/hr IV . Q20H [facility] Rx#:[id number] Pressure Bag 30 39 6 Thiamine 100 mg In Sodium 50 50 Chloride 0.9% 50 ml @ 100 mls/hr IVPB DAILY [facility] Rx#:[id number] levETIRAcetam IV 500 mg 100 100 100 In Sodium Chloride 0.9% 100 ml @ 400 mls/hr IVPB Q12HR [facility] Rx#:[id number] Intake, IV Titration 567.101 377.673 188.114 Amount Cefepime 2 gm In Sodium 100 Chloride 0.9% 100 ml @ 25 mls/hr IVPB Q8HR [facility] Rx# :[id number] propofoL 1,000 mg In 467.101 377.673 188.114 Empty Bag 1 bag @ Titrate IV .Q0M [facility]IO Rx#: [id number] Tube Feeding 344 114 57 Output: Urine 1500 2525 450 Other: Voiding Method Indwelling Catheter Indwelling Catheter Indwelling Catheter ABP, PAP, CO, CI - Last Documented Arterial Blood Pressure 121/55 - Exam No acute distress, sedated on propofol, with an orally placed endotracheal tube. HEENT examination is grossly unremarkable. Neck supple. Full range of motion. No adenopathy thyromegaly or neck vein distention. Cardiovascular examination reveals regular rhythm rate. S1-S2 normal. No S3 or S4. No discernible murmur noted. Heart rate 102 bpm. Heart sounds are distant. Lungs reveal bilateral diffuse rhonchi and crackles. Breath sounds equal bilaterally. There are no wheezes. Saturations are 95% on the ventilator. Abdomen soft bowel sounds are heard. No masses or tenderness. Extremities are intact. No cyanosis clubbing or edema. Skin is without rash or lesion. Neurologic examination cannot be adequately assessed while the patient is sedated with propofol. - Labs CBC & Chem 7: 03/15/21 04:10 03/15/21 04:10 Labs: Abnormal Lab Results - Last 24 Hours (Table) 03/14/21 03/15/21 03/15/21 Range/Units 11:30 04:10 04:10 WBC 15.6 H (3.8-10.6) k/uL RBC 3.12 L (4.30-5.90) m/uL Hgb 11.0 L (13.0-17.5) gm/dL Hct 32.0 L (39.0-53.0) % MCV 102.5 H (80.0-100.0) fL MCH 35.1 H (25.0-35.0) pg RDW 16.1 H (11.5-15.5) % Neutrophils # 14.3 H (1.3-7.7) k/uL Lymphocytes # 0.7 L (1.0-4.8) k/uL ABG pH (7.35-7.45) ABG pCO2 (35-45) mmHg ABG pO2 (83-108) mmHg ABG HCO3 (21-25) mmol/L ABG Total CO2 (19-24) mmol/L Sodium 136 L (137-145) mmol/L Creatinine 0.37 L (0.66-1.25) mg/dL Glucose 114 H (74-99) mg/dL POC Glucose (mg/dL) 105 H (75-99) mg/dL Calcium 7.9 L (8.4-10.2) mg/dL 03/15/21 03/15/21 Range/Units 05:11 05:25 WBC (3.8-10.6) k/uL RBC (4.30-5.90) m/uL Hgb (13.0-17.5) gm/dL Hct (39.0-53.0) % MCV (80.0-100.0) fL MCH (25.0-35.0) pg RDW (11.5-15.5) % Neutrophils # (1.3-7.7) k/uL Lymphocytes # (1.0-4.8) k/uL ABG pH 7.47 H (7.35-7.45) ABG pCO2 46 H (35-45) mmHg ABG pO2 69 L (83-108) mmHg ABG HCO3 33 H (21-25) mmol/L ABG Total CO2 35 H (19-24) mmol/L Sodium (137-145) mmol/L Creatinine (0.66-1.25) mg/dL Glucose (74-99) mg/dL POC Glucose (mg/dL) 109 H (75-99) mg/dL Calcium (8.4-10.2) mg/dL Microbiology - Last 24 Hours (Table) 03/10/21 06:40 Blood Culture - Preliminary Blood No Growth after 120 hours Assessment and Plan Assessment: #1. Acute hypoxic respiratory failure secondary to sepsis and septic shock, and in-hospital cardiac arrest, on 03/06/2021, intubated on the same day. Unfortuna tely, the patient is showing significant agitation while off of sedation, is not progressing to a spontaneous breathing trial with hopes of rapid extubation. The patient may need tracheostomy and PEG tube placement. #2. In-hospital cardiac arrest requiring brief CPR and epinephrine with return of spontaneous circulation. #3. Recent history of glioblastoma multiform, status post surgical resection on 02/05/2021 at the [facility] in [place]. #4. 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 #5. Possible meningitis ruled out, lumbar puncture was completed, CSF cultures are negative. VDRL and HSV PCR were negative. #6. Right lower extremity bruising, and weeping, wound cultures are negative, CT scan of the right lower extremity showed no evidence of osteomyelitis, it did show diffuse subcutaneous edema around the left leg including the foot and ankle. Orthopedic evaluation was obtained, and it was not felt to be related to necrotizing fasciitis. #7. Acute right lower lobe and left lower lobe pneumonia, suspect aspiration related. Plan: Plan dated 03/12/2021. The patient will have another daily interruption of sedation today. If he does better, we will attempt a spontaneous breathing trial. We've had ongoing discussions with the family about CODE STATUS. Apparently the patient is still a full code at this point. The is apparently being advised by family member who is a retired hospice nurse. His overall prognosis remains extremely poor. Follow make recommendations were appropriate. Arterial blood gases are excellent. Plan dated 03/13/2021. I did have a long conversation with the yesterday. She will be present today during the daily interruption of sedation. I did mention to her, the patient does not show any progress, we would be talking to her again about a tracheostomy and PEG tube placement. I think that is inappropriate given the patient's overall history of prognosis, but she may want to continue with full life support. Labs, x-rays, and medications are all reviewed. We will continue to follow the patient and make recommendations where appropriate. Plan dated 03/14/2021. Again, while off of sedation, the patient is very agitated, shaking his head back and forth and a rapid fashion. The patient does not respond to any verbal stimuli. The patient is not progressing towards a spontaneous breathing trial. The patient will have to be re-sedated. The patient will likely need a tracheostomy tube and PEG tube, should the consent. I did speak to her about that a couple days ago. Labs, x-rays, and medications are reviewed. Pro gnosis is poor. We will continue to follow and make recommendations where appropriate. Plan dated 03/15/2021. Apparently, the family has not decided to make the patient a DO NOT RESUSCITATE. Apparently, they are waiting for other family members to arrive, and they may withdraw life support, the patient comfort measures only. Today's labs, x-rays, and medications are all reviewed. No changes are made today. The patient will not have a daily interruption of sedation. Overall prognosis remains extremely poor. We will continue to follow make recommendations where appropriate. Time with Patient: Greater than 30
[2021-03-15 11:44] LABS: Glucose,Whole Blood 129 mg/dL (75-99)
[2021-03-15 11:50] VITALS: BMI 33.6
[2021-03-15] MEDS: DEXTROSE 5% IN WATER 1,000 ML IV SCH (14:45)
--- NOTE | 2021-03-15 16:07 | PN ---
PROGRESS NOTE DATE OF SERVICE: 03/15/2021 REASON FOR FOLLOWUP: Bacteremia pneumonia, UTI and diarrhea. INTERVAL HISTORY: Patient is afebrile. Patient is hemodynamically stable not on pressor support. FiO2 is currently stable at 40%. No significant purulent secretions through the ET. The patient antibiotic for the fecal management system has been placed. PHYSICAL EXAMINATION: Blood pressure is 110/52 with a pulse of 90, temperature 99. He is 95% on 40% FiO2. General description is an elderly male lying in bed in no distress. Respiratory system: Unlabored breathing with decreased breath sounds. No wheeze. Heart S1, S2. Regular rate and rhythm. Abdomen: Soft, no tenderness. Legs are currently wrapped up. No obvious drainage on the dressing. LAB: Hemoglobin is 11.9, white count 19.1, BUN of 9, creatinine 0.37. DIAGNOSTIC IMPRESSION AND PLAN: Patient with acute respiratory failure, multifactorial in this patient who did have a component of pneumonia, bacteremia, worsening cellulitis in this patient with underlying glioblastoma with poor prognosis. Plan is for possible withdrawal of care. If that is the case, we will discontinue antibiotic and hold on any further workup. was by the bedside. His questions and concerns were answered. MMODL / IJN: [id number] /
[2021-03-15 23:49] LABS: Glucose,Whole Blood 109 mg/dL (75-99)
[2021-03-16] MEDS: IPRATROPIUM-ALBUTEROL 3 ML NEB INHALATION SCH ×2 (03:45→07:29)
[2021-03-16] MEDS: HYDROmorphone 1 MG/ML 1 ML SYRINGE IVP PRN ×2 (04:05→14:55)
[2021-03-16 05:28] LABS: ABG HCO3 34 mmol/L (21-25); ABG Oxygen Saturation 96.5 % (94-97); ABG PCO2 49 mmHg (35-45); ABG PH 7.45 (7.35-7.45); ABG PO2 81 mmHg (83-108); ABG TCO2 36 mmol/L (19-24); Allen Test Performed? Yes
[2021-03-16 05:30] LABS: Anisocytosis Slight; Basophils % (A) 0 %; Eosinophils % (A) 0 %; HCT 30.8 % (39.0-53.0); HGB 10.5 gm/dL (13.0-17.5); Lymphocytes # (A) 0.6 k/uL (1.0-4.8); Lymphocytes % (A) 4 %; MCH 35.3 pg (25.0-35.0); MCHC 34.1 g/dL (31.0-37.0); MCV 103.4 fL (80.0-100.0); Macrocytosis Moderate; Mean Platelet Volume 7.8; Monocytes # (A) 0.5 k/uL (0-1.0); Monocytes % (A) 3 %; Neutrophils # (A) 13.5 k/uL (1.3-7.7); Neutrophils % (A) 91 %; Platelet Count 240 k/uL (150-450); RBC 2.98 m/uL (4.30-5.90); WBC 14.8 k/uL (3.8-10.6)
[2021-03-16 05:34] LABS: African American GFR (CKD) >90 (>60 ml/min/1.73 sqM); Anion Gap 4 mmol/L; Blood Urea Nitrogen 9 mg/dL (9-20); Calcium 7.9 mg/dL (8.4-10.2); Carbon Dioxide 31 mmol/L (22-30); Chloride 100 mmol/L (98-107); Glucose 118 mg/dL (74-99); Non-African American GFR(CKD) >90 (>60 ml/min/1.73 sqM); Potassium 3.9 mmol/L (3.5-5.1); Sodium 135 mmol/L (137-145)
[2021-03-16] MEDS: INSULIN ASPART (NovoLOG) 100 UNIT/ML VIAL SQ SCH ×2 (05:55→13:25)
[2021-03-16] MEDS ORDERED: POTASSIUM BICARBONATE/CIT AC 20 MEQ TABLET.EFF NG-TUBE SCH (06:00)
[2021-03-16 06:06] LABS: Glucose,Whole Blood 119 mg/dL (75-99)
--- NOTE | 2021-03-16 07:56 | XR ---
EXAMINATION TYPE: XR chest 1V portable DATE OF EXAM: 03/16/2021 Comparison: 03/15/2021 Clinical History: 65-year-old male ventilator Findings: ET tube satisfactory. NG tube courses below the diaphragm. Heart upper limits of normal in size. Hype rinflation. Diffuse interstitial density. Moderate right and small left effusions with prominent serafin cent opacities persist. Impression: Continued cardiomegaly with interstitial changes. Moderate right and small left effusions with adjace nt atelectasis and/or consolidation. Correlate for CHF as an etiology.
[2021-03-16] MEDS: PANTOPRAZOLE 40 MG/10 ML VIAL IVP SCH (08:08)
[2021-03-16] MEDS: ENOXAPARIN 40 MG/0.4 ML SYRINGE SQ SCH (08:08)
[2021-03-16] MEDS: CHLORHEXIDINE GLUCONATE 15 ML CUP MUCOUS MEM SCH (08:09)
[2021-03-16] MEDS: DEXTROSE 5% IN WATER 1,000 ML IV SCH (08:09)
[2021-03-16] MEDS: levETIRAcetam IV 500 MG in SODIUM CHLORIDE 0.9% 100 ML IVPB SCH (09:22)
--- NOTE | 2021-03-16 12:27 | P.PN ---
Subjective Progress Note Date: 03/16/21 Principal diagnosis: Respiratory failure. Patient was reevaluated today on 03/08/2021, remains in the ICU, intubated and mechanically ventilated. Patient is on assist control rate of 16, volume 450 FiO2 45% PEEP of 5. ABG showed a pO2 of 144 pCO2 45 pH of 7.35 hence his FiO2 w as decreased down to 40%. Chest x-ray is showing evidence of developing bibasilar infiltrates, atelectasis, and there is a small right-sided pleural effusion. Patient remains on multiple drips including norepinephrine at 0.18 mcg/kg/m, he is on vasopressin at 0.03, propofol at 55 mcg/kg/m, IV fluid 0.9 normal saline at 13 0 mL per hour and on vital hp at 13 mL per hour. The Gram stain on the spinal fluid is negative. Blood cultures so far remain negative. His spinal fluid showed slightly elevated glucose and slightly elevated protein. Patient remains empirically on Rocephin and Zyvox. We added today HSV PCR to spinal fluid. Patient seems to be comfortable on mechanical ventilation, and we will address possibly a sedation holiday today, and possibly address mental status of possible. However considering the patient is still on multiple pressors may not be able to address weaning today yet WBC count today is 23.8 hemoglobin is 11.9. Electrolytes are normal renal profile is normal. Blood cultures and spinal fluid cultures are pending Patient was reevaluated today on 03/09/2021, remains in the ICU, intubated and mechanically ventilated. Patient is on assist control rate of 16 per volume 450, FiO2 40% PEEP of 5. Patient had an ABG that showed pO2 of 137 pCO2 44 pH of 7.3. Remains on propofol at 50 mcg/kg/m, he is also on norepinephrine at 0.04 mcg/kg/m, off vasopressin, IV fluid of 0.9 normal saline at 75 mL per hour. Apparently the patient was seen yesterday by infectious disease, and he raised the possibility of necrotizing fasciitis, and I am not certain whether this is truly necrotizing fasciitis or just cellulitis. If this is a truly necrotizing fasciitis, patient has to be seen by general surgery or even by orthopedics, may have to consider surgical intervention if this is truly necrotizing fasciitis, however my experience with cases of necrotizing fasciitis, they have always ended up being transferred to a tertiary care center as I have not seen any of our surgeons performing surgeries on necrotizing fasciitis cases. However in the meantime I will go ahead and recommended surgical consultation with general surgery vascular surgery and orthopedics. And if they are all on the same page, patient may have to be considered for transfer to a tertiary care center or possibly just continue antibiotics. That CT of the leg showed mostly evidence of swelling and cellulitis, but did not mention necrotizing fasciitis findings, no air noted in the subcutaneous and deep tissue. Patient remains on antibiotics, infectious disease is addressing the antibiotics, and the blood cultures have been negative so far. Spinal fluid cultures have been negative so far. The initial Gram stain that was noted from the blood showing gram-negative diplococci, seems to be probably a false positive Gram stain, since the cultures remain negative. At any rate on culturing the right lower extremity today, and I'm recommending different surgical consultations. WBC count remains elevated at 23.0 hemoglobin is 11.3. Basic metabolic profile is normal. Pro-calcitonin is 8.60. Chest x-ray showed bilateral patchy airspace disease especially in the right lower lobe which has developed since admission. Possibility of underlying pneumonia or aspiration pneumonia is very likely. Again his antibiotics have been changed a few times by infectious disease on the case, and I'm letting the infectious disease physician handled antibiotics accordingly. On 03/10/2021 patient seen in follow-up in intensive care unit, he remains intubated, sedated, on assist-control with a rate of 16, tidal vital was 450, FiO2 40% and PEEP of 5, this morning's blood gas shows pO2 of 126, pCO2 of 43, pH of 7.39, this was done on FiO2 of 40%. He is on 0.9 normal seen at 75 ML per hour, levo fed is at 0.04 mics per kilo per minute, and improving and is at 30 mics per kilo per minute, today's chest x-ray has been reviewed showing right lower lobe infiltrates, and small bilateral pleural effusions. No fevers overnight. Vital signs have been stable, he remains on cefepime, Rocephin has been discontinued, Unasyn has been discontinued as well as vancomycin. ID service is following. So far blood sputum CSF and right lower extremity wound cultures have all been negative. CSF VDRL was non-reactive, HSV PCR from the CSF was negative. However the pro-calcitonin level came back elevated at 8.6. His leukocytosis is improving, his white blood cell count is down to 17.7, hemoglobin is 11.4, sodium is 143, potassium is 4.1, chloride is 116, B1 is 21 creatinine 0.41. Patient's right lower extremity developed blistering and draining, and there has been a significant discoloration and bruising involving the right lower extremity, with the concern of necrotizing fasciitis, orthopedic consultation was requested and the orthopedic surgeons did not feel that this was consistent with necrotizing fasciitis and no surgical intervention was recommended. The right lower extremity is covered with a gauze. Computed tomography scan of the right lower extremity showed a diffuse subcutaneous edema around the leg, with evidence of previous surgery, but without any evidence of fracture, no sign of osteomyelitis. Otherwise no acute events overnight. Tolerating tube feedings, currently receiving Vital HP at 13 with a goal of 13 and a standard water flushes. Patient will be given a sedation holiday. On 03/11/2021 patient seen in follow-up in intensive care unit, he remains sedated and intubated on mechanical ventilator, assist control mode with a rate of 16, tidal on this 450, FiO2 of 40% and PEEP of 5. This morning's blood gas shows pO2 of 99, pCO2 41, and pH is 7.41. Patient is currently on 0.9 normal saline at 75 ML per hour, Diprivan was runing at 40 mics per kilo per minute and is currently off, levo fed is off, and patient is receiving tube feedings in the form of vital high-protein at 13 ML per hour with a goal of 13 and the standard water flushes. Today's chest x-ray has been reviewed showing right lower lobe infiltrate, mild platelike atelectasis of the left lower lobe. Hemodynamically patient has improved and was able to be weaned off the vasopressors. He remains on antibiotics currently with cefepime only. Blood culture from 03/06/2001 showed evidence of Acinetobacter lwolffi which was pansensitive including cefepime. Follow blood cultures, CSF cultures, sputum and right lower extremity wound cultures have all been negative. His white count continues to improve on today's labs and is down to 11.7, hemoglobin is stable at 11.5, sodium is 146, potassium 3.8, chloride is 118, BUN is 23, creatinine 0.40. Yesterday we gave the patient a daily traction of sedation and patient apparently failed sedation holiday, and became quite tachypneic, agitated, and had to be placed back on sedation. He did not do any spontaneous breathing trials yesterday. This morning his sedation was placed on hold, he still quite lethargic, he does not open eyes to voice, but does withdraw from pain. He remains on breathing treatments, antibiotics, he remains on IV hydrocortisone 50 mg every 8 hours. He remains on Keppra per neurology. There was no episodes of witnessed seizure activity. Abdomen is soft, patient has been tolerating tube feedings. Right lower extremity is quite ecchymotic, with open draining blisters, is receiving local wound care. Progress note dated 03/12/2021. This is a 65-year-old male again seen in the intensive care unit, room 264. The patient remains on the mechanical ventilator. He is on the volume assist control mode, rate 16, tidal volume 50, FiO2 30%, PEEP of 5. Blood gases show a PaO2 of 104, pCO2 43, and pH is 7.4. The patient's on dextrose at 50 mL an hour, propofol at 50 mics per kilogram per minute, and vital high protein at 32 mL an hour, which is goal. The patient had a daily interruption of sedation on March 11. He did poorly according to the nurse Divya. Hence, he was recently dated. He was not given a spontaneous breathing trial. White count 11.8, hemoglobin 11, hematocrit 33.4, and platelet count 160,000. Sodium 144, potassium 3.8, chlorides 115, CO2 24, anion gap 5, BUN 20, creatinine 0.4. Blood cultures from March 06 show evidence of Acinetobacter. Chest x-ray today shows diffuse bilateral atelectasis or infiltrates with small effusions, and the chest x-ray appears stable to me. Progress note dated 03/13/2021. 65-year-old male, again seen in the intensive care unit, room 264. The patient remains on the mechanical ventilator. Yesterday, and a long conversation with his . She would like to be available at present, but we do our next daily interruption of sedation. She feels like she may be able to calm the patient down a bit. He did not do well yesterday with his daily interruption of sedation, and I did mention to the , if he does not progress, tracheostomy and PEG tube would be in order. The patient remains on the volume assist control mode, rate 16, tidal volume 450, FiO2 30%, PEEP of 5. Arterial blood gases show pO2 of 31, pCO2 41, 7.45. The patient's on D5W at 50 mL an hour, propofol at 40 mcg/kg/m, norepinephrine has been weaned off, and the patient's on vital high protein at 32 mL an hour, which is goal. White count 11.7, h emoglobin 10.5, hematocrit 31.5, and platelet count 195,000. Sodium 142, potassium 3.6, chlorides 112, CO2 28, anion gap 2, BUN 15, creatinine 0.34. Chest x-ray shows right lower lobe infiltrate, small bilateral pleural effusions, and the lines and catheters as described. Progress note dated 03/14/2021. 65-year-old male, again seen in the intensive care unit, room 264. The patient remains on the mechanical ventilator. We attempted another daily interruption of sedation today. Unfortunately, the patient's quite agitated. We placed the patient back on propofol at the prior dose. Last night, I was called by the nurse and I added some Dilaudid, 1 mg IV every 2 hours when necessary. The patient is currently on the volume assist control mode, rate 16, tidal volume 450, FiO2 30%, PEEP of 5. Arterial blood gases show a PaO2 of 63, PaCO2 of 39, and pH is 7.5. The patient currently is on propofol at 75 mcg/kg/m, D5W at 50 mL an hour, saline at 10 mL an hour and vital high protein at 32 mL an hour, which is goal. Since the patient has been on the ventilator since March 06, and not making any progress, as discussed with his 2 days ago, the patient will likely need a tracheostomy and PEG tube placement. CBC shows a white count of 12.1, hemoglobin 11, hematocrit 33.3, and platelet count 221,000. Sodium 137, potassium 3.5, chlorides 105, CO2 is 30, anion gap is 2, BUN 11, creatinine 0.33. Chest x-rays consistent with mild CHF. The chest x-ray may be a bit worse. Progress note dated 03/15/2021. 65-year-old male, seen in the intensive care unit again, today, in room 264. Apparently, the family has not decided to make the patient a DO NOT RESUSCITATE. He remains on the ventilator. According to the nurse, when additional family members arrive, they may decide to withdraw life support and make the patient comfort measures only. Currently, he remains on the volume assist control mode, rate 16, tidal volume 450, FiO2 40%, PEEP of 5. Arterial blood gases show a PaO2 of 69, a PaCO2 46, and a pH is 7.47. Those blood gases are consistent with metabolic alkalosis. The patient is on propofol at 75 mcg/kg/m, D5W at 50 mL an hour, and vital high protein at 19 mL an hour, which is goal. Current laboratory data show a white count of 15.6, hemoglobin 11, hematocrit 32.0, and a platelet count of 231,000. Sodium is 136, potassium 3.8, chlorides 103, CO2 30, anion gap 3, BUN 9, creatinine 0.37. Chest x-ray shows a small to moderate right pleural effusion fluid accumulation and a minimal left pleural fluid accumulation. There may be some mild left lower lobe infiltrate, which is increased from this film. Progress note dated 03/16/2021. 65-year-old male again seen in the intensive care unit, room 264. The patient remains on the mechanical ventilator. We had discussions with the family about next steps including tracheostomy and PEG tube placement. Apparently, they made a decision to make the patient DO NOT RESUSCITATE. Sometime today, given a come back into the hospital, and have the patient terminally extubated. Currently, he remains on the ventilator, volume assist control mode, rate 16, tidal volume or 50, FiO2 40%, PEEP of 5. Blood gases show a PaO2 of 81, PaCO2 of 49, and a pH is 7.45. These blood gases are consistent with a metabolic alkalosis. The patient remains on D5W at 50 mL an hour, propofol at 75 mcg/kg/m, and vital high protein at 19 mL an hour. Labs today include a white count of 14.8, hemoglobin 10.5, hematocrit 30.8, and a platelet count 240,000. Sodium 135, potassium 3.9, chlorides 100, CO2 31, anion gap 4, BUN 9, and creatinine 0.33. The chest x-ray today continues to show cardiomegaly with interstitial changes, as well as small bilateral pleural effusions. The x-ray my opinion is consistent with fluid overload/CHF. Objective - Vital Signs Vital signs: Vital Signs Temp 98.9 F 03/16/21 12:00 Pulse 104 H 03/16/21 12:00 Resp 28 H 03/16/21 12:00 BP 99/62 03/16/21 12:00 Pulse Ox 97 03/16/21 12:00 Intake & Output 03/15/21 03/16/21 03/16/21 18:59 06:59 18:59 Intake Total 1410.301 1955.559 792.614 Output Total 1360 1075 905 Balance 230.114 115.559 -112.386 Weight 97.5 kg 96.8 kg Intake: IV 836 583 418 Cefepime 2 gm In Sodium 100 Chloride 0.9% 100 ml @ 25 mls/hr IVPB Q8HR [facility] Rx# :[id number] Dextrose 5% in Water 1, 550 550 300 000 ml @ 50 mls/hr IV . Q20H [facility]IO Rx#:[id number] Pressure Bag 36 33 18 Thiamine 100 mg In Sodium 50 Chloride 0.9% 50 ml @ 100 mls/hr IVPB DAILY [facility]IO Rx#:[id number] levETIRAcetam IV 500 mg 100 100 In Sodium Chloride 0.9% 100 ml @ 400 mls/hr IVPB Q12HR MARIO Rx#:[id number] Intake, IV Titration 488.114 376.559 181.614 Amount propofoL 1,000 mg In 488.114 376.559 181.614 Empty Bag 1 bag @ Titrate IV .Q0M MARIO Rx#: [id number] Tube Feeding 266 171 133 Other 60 60 Output: Urine 1360 1075 905 Other: Voiding Method Indwelling Catheter Indwelling Catheter ABP, PAP, CO, CI - Last Documented Arterial Blood Pressure 132/51 - Exam No acute distress, sedated on propofol, with an orally placed endotracheal tube. HEENT examination is grossly unremarkable. Neck supple. Full range of motion. No adenopathy thyromegaly or neck vein distention. Cardiovascular examination reveals regular rhythm rate. S1-S2 normal. No S3 or S4. No discernible murmur noted. Heart rate 104 bpm. Heart sounds are distant. Lungs reveal bilateral diffuse rhonchi and crackles. Breath sounds equal bilaterally. There are no wheezes. Saturations are 97% on the ventilator. Abdomen soft bowel sounds are heard. No masses or tenderness. Extremities are intact. No cyanosis clubbing or edema. Skin is without rash or lesion. Neurologic examination cannot be adequately assessed while the patient is sedated with propofol. - Labs CBC & Chem 7: 03/16/21 04:00 03/16/21 04:00 Labs: Abnormal Lab Results - Last 24 Hours (Table) 03/15/21 03/16/21 03/16/21 Range/Units 23:46 04:00 04:00 WBC 14.8 H (3.8-10.6) k/uL RBC 2.98 L (4.30-5.90) m/uL Hgb 10.5 L (13.0-17.5) gm/dL Hct 30.8 L (39.0-53.0) % MCV 103.4 H (80.0-100.0) fL MCH 35.3 H (25.0-35.0) pg RDW 16.0 H (11.5-15.5) % Neutrophils # 13.5 H (1.3-7.7) k/uL Lymphocytes # 0.6 L (1.0-4.8) k/uL ABG pCO2 (35-45) mmHg ABG pO2 (83-108) mmHg ABG HCO3 (21-25) mmol/L ABG Total CO2 (19-24) mmol/L Sodium 135 L (137-145) mmol/L Carbon Dioxide 31 H (22-30) mmol/L Creatinine 0.33 L (0.66-1.25) mg/dL Glucose 118 H (74-99) mg/dL POC Glucose (mg/dL) 109 H (75-99) mg/dL Calcium 7.9 L (8.4-10.2) mg/dL 03/16/21 03/16/21 Range/Units 05:25 05:53 WBC (3.8-10.6) k/uL RBC (4.30-5.90) m/uL Hgb (13.0-17.5) gm/dL Hct (39.0-53.0) % MCV (80.0-100.0) fL MCH (25.0-35.0) pg RDW (11.5-15.5) % Neutrophils # (1.3-7.7) k/uL Lymphocytes # (1.0-4.8) k/uL ABG pCO2 49 H (35-45) mmHg ABG pO2 81 L (83-108) mmHg ABG HCO3 34 H (21-25) mmol/L ABG Total CO2 36 H (19-24) mmol/L Sodium (137-145) mmol/L Carbon Dioxide (22-30) mmol/L Creatinine (0.66-1.25) mg/dL Glucose (74-99) mg/dL POC Glucose (mg/dL) 119 H (75-99) mg/dL Calcium (8.4-10.2) mg/dL Microbiology - Last 24 Hours (Table) 03/10/21 06:40 Blood Culture - Final Blood No Growth after 144 hours Assessment and Plan Assessment: #1. Acute hypoxic respiratory failure secondary to sepsis and septic shock, and in-hospital cardiac arrest, on 03/06/2021, intubated on the same day. Unfortunately, the patient is showing significant agitation while off of sedation, is not progressing to a spontaneous breathing trial with hopes of rapid extubation. The patient may need tracheostomy and PEG tube placement. #2. In-hospital cardiac arrest requiring brief CPR and epinephrine with return of spontaneous circulation. #3. Recent history of glioblastoma multiform, status post surgical resection on 02/05/2021 at the [facility] in [place]. #4. 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 #5. Possible meningitis ruled out, lumbar puncture was completed, CSF cultures are negative. VDRL and HSV PCR were negative. #6. Right lower extremity bruising, and weeping, wound cultures are negative, CT scan of the right lower extremity showed no evidence of osteomyelitis, it did show diffuse subcutaneous edema around the left leg including the foot and ankle. Orthopedic evaluation was obtained, and it was not felt to be related to necrotizing fasciitis. #7. Acute right lower lobe and left lower lobe pneumonia, suspect aspiration related. Plan: Plan dated 03/12/2021. The patient will have another daily interruption of sedation today. If he does better, we will attempt a spontaneous breathing trial. We've had ongoing discussions with the family about CODE STATUS. Apparently the patient is still a full code at this point. The is apparently being advised by family member who is a retired hospice nurse. His overall prognosis remains extremely poor. Follow make recommendations were appropriate. Arterial blood gases are excellent. Plan dated 03/13/2021. I did have a long conversation with the yesterday. She will be present today during the daily interruption of sedation. I did mention to her, the patient does not show any progress, we would be talking to her again about a tracheostomy and PEG tube placement. I think that is inappropriate given the patient's overall history of prognosis, but she may want to continue with full life support. Labs, x-rays, and medications are all reviewed. We will continue to follow the patient and make recommendations where appropriate. Plan dated 03/14/2021. Again, while off of sedation, the patient is very agitated, shaking his head back and forth and a rapid fashion. The patient does not respond to any verbal stimuli. The patient is not progressing towards a spontaneous breathing trial. The patient will have to be re-sedated. The patient will likely need a trache ostomy tube and PEG tube, should the consent. I did speak to her about that a couple days ago. Labs, x-rays, and medications are reviewed. Prognosis is poor. We will continue to follow and make recommendations where appropriate. Plan dated 03/15/2021. Apparently, the family has not decided to make the patient a DO NOT RESUSCITATE. Apparently, they are waiting for other family members to arrive, and they may withdraw life support, the patient comfort measures only. Today's labs, x-rays, and medications are all reviewed. No changes are made today. The patient will not have a daily interruption of sedation. Overall prognosis remains extremely poor. We will continue to follow make recommendations where appropriate. Plan dated 03/16/2021. The family has decided to make the patient a DO NOT RESUSCITATE. I think that's very appropriate given his overall history. Apparently sometime today though be back into the hospital to withdraw life support. No additional labs or x-ray should be done. Unnecessary medication should be discontinued. The patient should proceed to comfort measures once extubated. Additional recommendations and suggestions are forthcoming. Time with Patient: Greater than 30
[2021-03-16 12:41] LABS: Glucose,Whole Blood 112 mg/dL (75-99)
--- NOTE | 2021-03-16 14:51 | PN ---
PROGRESS NOTE I am covering for Dr. Camacho. DATE OF SERVICE: 03/16/2021 This 65-year-old gentleman with a past medical history of glioblastoma multiforme had surgery at [facility]. He presented with acute respiratory failure with septic shock with in-hospital cardiac arrest. The patient is on mechanical ventilation at this time. The patient has been closely monitored. Dr. Chappell is following the patient closely. At this time family is also considering the possibility of DNR and comfort measures. The patient is closely monitored. Past medical history reviewed. Review of systems could not be taken; the patient is mechanically ventilated and intubated. CURRENT MEDICATIONS: 1. Peridex. 2. Dexamethasone. 3. Dilaudid. 4. NovoLog. 5. Keppra. 6. Protonix. 7. Propofol. PHYSICAL EXAM: Patient is mechanically ventilated and sedated. is noted. Pulse 99, blood pressure 102/65, respiration 15, temperature normal, pulse ox 96% on 40%. HEENT: Conjunctivae normal. Oral mucosa moist. NECK: No jugular venous distention. CARDIOVASCULAR SYSTEM: S1, S2 muffled. RESPIRATORY: Breath sounds diminished at the bases. A few scattered rhonchi. ABDOMEN: Soft, nontender. NERVOUS SYSTEM: Patient is mechanically ventilated and sedated. SKIN: No ulcer, rash, bleeding. LABS: WBC 14.3, hemoglobin 10.4. Other labs are noted. ASSESSMENT: 1. Sepsis with Acinetobacter iwoffii with acute hypoxic respiratory failure and on mechanical ventilation. 2. In-hospital cardiac arrest. 3. Glioblastoma multiforme, status post surgery at [facility]. 4. Motor aphasia. 5. Increased white cell count. 6. Anemia, macrocytic. 7. History of gout. 8. Hyperlipidemia. 9. History of hernia repair. 10.History of degenerative joint disease. 11.History of depression. 12.History of nicotine dependence. 13.Obesity with body mass index of 33.5. 14.NO CODE, NO CPR, NO VENT. RECOMMENDATIONS AND DISCUSSION: In this 65-year-old gentleman who presented with multiple complex medical issues, we will monitor the patient closely, continue the current medications, continue with supportive treatment. Patient is on Keppra at this time. Otherwise, continue with the rest of the medications. Continue with mechanical ventilation per Dr. Chappell. Further measures include comfort measures and hospice once the family is ready. The prognosis is extremely guarded because of multiple complex medical issues. Further recommendations to follow. Discussed with staff. ANDRES / HILLARYN: [id number] / PATRIC
[2021-03-16] MEDS ORDERED: LORazepam 2 MG/ML INJ IV PRN (15:28)
[2021-03-16] MEDS ORDERED: HYDROmorphone 1 MG/ML 1 ML SYRINGE IVP PRN (15:33)
[2021-03-16] MEDS ORDERED: SCOPOLAMINE 1.5MG/72HR PATCH TRANSDERM SCH (16:00)
[2021-03-16 20:54] VITALS: TEMP 98.4
[2021-03-16 21:11] VITALS: BP 98/66; PULSE 135; RESP 27
--- NOTE | 2021-03-18 22:14 | DS ---
DISCHARGE SUMMARY I am covering for Dr. Camacho. PRIMARY CAUSE OF : Sepsis with Acinetobacter Iewoffi with acute hypoxic respiratory failure status post mechanical ventilation. OTHER DIAGNOSES: 1. Glioblastoma multiforme, status post surgery at [facility]. 2. In hospital cardiac arrest. 3. Motor aphasia. 4. Increased WBC. 5. Anemia, macrocytic. 6. History of gout. 7. Hyperlipidemia. 8. History of hernia repair. 9. History of degenerative joint disease. 10.History of depression. 11.History nicotine dependence. 12.Obesity with body mass of 33.5. 13.NO CODE, NO CPR, NO VENT. HISTORY OF PRESENT ILLNESS: This 65-year-old gentleman with past medical problems being followed by Dr. Camacho in the outpatient setting had glioblastoma multiforme, had multiple surgeries in [facility]. The patient apparently had in hospital cardiac arrest. Patient also had features of sepsis, Acinetobacter Iewoffi and acute respiratory failure. The patient mechanically intubated the patient. The family opted not to have PEG tube and tracheostomy. Because of that, the case was discussed at length with the family by Pulmonary Critical Care, Dr. Chappell's team and the patient was deemed COMFORT MEASURES AND HOSPICE MEASURES. The patient succumbed to his above-mentioned illnesses. The prognosis remained guarded. Please refer to the multiple progress notes and consultations and staff notes for further information. MMODL / IJN: [id number] /
== END 2021-03-16 21:25 | disposition expired | DRG 870 ==
LOC: EC 10:21 → 2SICU 13:52
PROVIDERS: ADMIT Family Medicine; ATTEND Family Medicine
PROC: 5A1955Z Respiratory Ventilation, Greater than 96 Consecutive Hours (ICD-10-PCS; principal; 2021-03-06)
PROC: 0BH17EZ Insertion of Endotracheal Airway into Trachea, Via Natural or Artificial Opening (ICD-10-PCS; 2021-03-06)
PROC: 5A12012 Performance of Cardiac Output, Single, Manual (ICD-10-PCS; 2021-03-06)
PROC: 02HV33Z Insertion of Infusion Device into Superior Vena Cava, Percutaneous Approach (ICD-10-PCS; 2021-03-06)
PROC: 3E043XZ Introduction of Vasopressor into Central Vein, Percutaneous Approach (ICD-10-PCS; 2021-03-06)
PROC: 3E043XZ Introduction of Vasopressor into Central Vein, Percutaneous Approach (ICD-10-PCS; 2021-03-06)
PROC: 03HY32Z Insertion of Monitoring Device into Upper Artery, Percutaneous Approach (ICD-10-PCS; 2021-03-07)
PROC: 4A133B1 Monitoring of Arterial Pressure, Peripheral, Percutaneous Approach (ICD-10-PCS; 2021-03-07)
PROC: 4A133J1 Monitoring of Arterial Pulse, Peripheral, Percutaneous Approach (ICD-10-PCS; 2021-03-07)
PROC: 009U3ZX Drainage of Spinal Canal, Percutaneous Approach, Diagnostic (ICD-10-PCS; 2021-03-07)
DX: A41.59 Other Gram-negative sepsis (principal); J96.01 Acute respiratory failure with hypoxia; R65.21 Severe sepsis with septic shock; G93.41 Metabolic encephalopathy; J69.0 Pneumonitis due to inhalation of food and vomit; C71.9 Malignant neoplasm of brain, unspecified; R47.01 Aphasia; J98.11 Atelectasis; L03.115 Cellulitis of right lower limb; L03.221 Cellulitis of neck; E87.3 Alkalosis; D84.81 Immunodeficiency due to conditions classified elsewhere; Z51.5 Encounter for palliative care; Z66 Do not resuscitate; Z20.822 Contact with and (suspected) exposure to COVID-19; I46.9 Cardiac arrest, cause unspecified; I27.20 Pulmonary hypertension, unspecified; G40.909 Epilepsy, unspecified, not intractable, without status epilepticus; I25.10 Atherosclerotic heart disease of native coronary artery without angina pectoris; T38.0X5A Adverse effect of glucocorticoids and synthetic analogues, initial encounter; M79.89 Other specified soft tissue disorders; R23.0 Cyanosis; R91.1 Solitary pulmonary nodule; I51.7 Cardiomegaly; J20.9 Acute bronchitis, unspecified; E78.5 Hyperlipidemia, unspecified; M10.9 Gout, unspecified; F32.9 Major depressive disorder, single episode, unspecified; F17.210 Nicotine dependence, cigarettes, uncomplicated; Z98.41 Cataract extraction status, right eye; Z98.42 Cataract extraction status, left eye; Z98.890 Other specified postprocedural states; Z88.6 Allergy status to analgesic agent; Z88.5 Allergy status to narcotic agent; Z79.899 Other long term (current) drug therapy; Z87.19 Personal history of other diseases of the digestive system; F17.200 Nicotine dependence, unspecified, uncomplicated; D53.9 Nutritional anemia, unspecified; Z68.33 Body mass index [BMI] 33.0-33.9, adult; E66.9 Obesity, unspecified; R29.6 Repeated falls; R47.02 Dysphasia; Z87.81 Personal history of (healed) traumatic fracture; I50.9 Heart failure, unspecified
CPT/HCPCS: 31500; 36415; 36556; 36600; 70450; 71045; 71046; 71275; 80048; 80053; 82164; 82805; 82945; 83605; 83735; 83873; 83880; 84132; 84145; 84157; 84484; 85025; 85027; 85379; 85610; 85730; 86140; 86592; 87040; 87070; 87075; 87077; 87186; 87205; 87529; 87635; 89050; 92950; 93005; 93306; 94002; 94003; 94640; 95822; 96361; 96365; 96374; 96375; 99291